=== PATIENT | male | born 1995 | race Caucasian/White ===

== ENCOUNTER 2024-11-23 17:35 | Emergency (ER) | payer SELFPAY ==
[2024-11-23 17:33] VITALS: BP 126/90; PULSE 72; TEMP 36.9; O2SAT 97; BMI 26.8
--- NOTE | 2024-11-23 17:55 | ED_ITS ---
HPI HPI - General Adult General Chief complaint: Head Injury Stated complaint: HEAD LACERATION Time Seen by Provider: 11/23/24 17:37 Source: patient Mode of arrival: ambulance History of Present Illness HPI narrative: 29-year-old male presents with chief complaint of an accidental injury to his head. He was using a crowbar to remove debris off of the floor and the crowbar kicked back and struck him in the head. Patient was brought to the emergency room by squad. Patient denies any known loss of consciousness. He is alert and oriented and does appear somewhat dazed. He answers all questions appropriately . No acute bleeding noted to the scalp at this time. Small abrasion noted. Related Data Allergies Allergy/AdvReac Type Severity Reaction Status Date / Time No Known Drug Allergies Allergy Verified 11/23/24 17:36 Opioid HPI Opioid Management Most Recent Opioid Data: No Data to Display Review of Systems ROS Narrative All Systems are negative except as noted/marked.All systems reviewed and otherwise negative Exam Narrative Exam Narrative: All Systems are negative except as noted/marked.All systems reviewed and otherwise negative Nurses note and vital signs reviewed and patient is not hypoxic. General: The patient appears well and in no apparent distress. Patient is resting comfortably on cart. Skin: Warm, dry, no pallor noted. There is no rash noted. Head: Normocephalic, small abrasion to right parietal scalp, no open laceration or hematoma Eye: Normal conjunctiva, no drainage, EOMI. PERRL, no nystagmus Ears, Nose, Mouth, and Throat: oral mucosa is moist. Nares patent. Mouth without vesicles. Ear canals patent. Tm's without Erythema Cardiovascular: Regular Rate and Rhythm Respiratory: Patient is in no distress, no accessory muscle use, lungs are clear to auscultation, no wheezing, rales or rhonchi Back: non-tender, no CVA tenderness bilaterally to percussion. GI: Normal bowel sounds, no tenderness to palpation, no masses appreciated. No rebound, guarding, or rigidity noted. Musculoskeletal: The patient has no evidence of calf tenderness, no pitting edema, symmetrical pulses noted bilaterally Neurological: A&O x4, normal speech Psychiatric: Cooperative Constitutional Vital Signs, click to edit/add: Last Vital Signs Temp 98.4 F 11/23/24 17:33 Pulse 72 11/23/24 17:33 Resp 18 11/23/24 17:33 BP 126/90 11/23/24 17:33 Pulse Ox 97 11/23/24 17:33 O2 Del Method Room Air 11/23/24 17:33 Course Vital Signs Vital signs: Vital Signs Temperature 98.4 F 11/23/24 17:33 Pulse Rate 72 11/23/24 17:33 Respiratory Rate 18 11/23/24 17:33 Blood Pressure 126/90 11/23/24 17:33 Pulse Oximetry 97 11/23/24 17:33 Oxygen Delivery Method Room Air 11/23/24 17:33 Temperature 98.4 F 11/23/24 17:33 Pulse Rate 72 11/23/24 17:33 Respiratory Rate 18 11/23/24 17:33 Blood Pressure 126/90 11/23/24 17:33 Pulse Oximetry 97 11/23/24 17:33 Oxygen Delivery Method Room Air 11/23/24 17:33 Medical Decision Making MDM Narrative Medical decision making narrative: Patient presented to the emergency room by jayna. He has a small abrasion noted to the scalp after accidentally striking himself in the head with a crowbar while working at home and cleaning up debris from my floor. Crowbar kicked back and struck him in the head. Patient is alert pupils are equal round reactive no nystagmus. Patient was nauseated medicated with nausea medication prior to arrival. After CT exam was back and negative patient was also given Toradol here in emergency room. Patient looks well. Small area was cleaned with Hibiclens normal saline bacitracin dressing applied to the right parietal scalp abrasion. patient will be discharged home with scalp abrasion and closed head injury instructions. Differential Diagnosis Differential Diagnosis: Laceration, head injury, scalp hematoma Medical Records Medical records reviewed: Yes I reviewed the patient's medical records Imaging Data CT scan - head: Radiologist's impression: CT reading from radiologist showed visualized paraspinal sinuses Mastel air cells are clear no acute skull fracture no acute intracranial abnormality Discharge Plan Discharge Chief Complaint: Head Injury Clinical Impression: Closed head injury, Abrasion of scalp Patient Disposition: Home, Self-Care Time of Disposition Decision: 18:20 Condition: Good Print Language: French Instructions: Head Injury (DC), Abrasion (ED) Referrals: Physician,Non-Staff, MD [Primary Care Provider] - 1 week Discharge Date/Time: 11/23/24 18:19
[2024-11-23] MEDS: ADACEL DIPH,PERTUSS(ACELL),TET VAC/PF 0.5 ML ADULT SYRINGE IM (18:11)
[2024-11-23] MEDS: KETOROLAC TROMETHAMINE 30 MG/ML VIAL IVP (18:12)
[2024-11-23] MEDS: BACITRACIN 0.9 GM PACKET 1 PACKET TOPICAL (18:12)
== END 2024-11-23 18:19 | disposition home or self-care (01) ==
PROVIDERS: Emergency Provider Emergency Medicine
DX: S09.8XXA Other specified injuries of head, initial encounter (principal); S00.01XA Abrasion of scalp, initial encounter; W22.8XXA Striking against or struck by other objects, initial encounter; Z23 Encounter for immunization
CPT/HCPCS: 70450; 90471; 90715; 96374; 99284; J1885

== ENCOUNTER 2025-05-11 16:30 | Emergency (ER) | payer SELFPAY ==
[2025-05-11 16:39] VITALS: BP 128/82; PULSE 62; TEMP 36.6; O2SAT 99; BMI 29.6
[2025-05-11 16:46] VITALS: O2SAT 98
--- OUTSIDE RECORDS SUMMARY | 2025-05-11 16:48 | XMS_ITS | Patient Health Record ---
Author Organization [facility] vices Address [address] [place], [place] [id number] Care Team Providers Care Special Education Educational Assistant Name Role Phone ayazMiguel Mcginnis Primary Care Provider Allergies No Known Allergies Reason For Referral No Information Medications Medication SIG (Take, Route, Frequency, Duration) Notes Start Date End Date Status Ondansetron 4 MG 1 tablet on the tong ue and allow to dissolve Orally Three times a day; Duration: 14 days 10/26/2022 Active Zoloft 50 MG 1 tablet Orally Once a day; Duration: 90 days 09/27/2022 Active hydrOXYzine Pamoate 25 MG 1 capsule Oral ly Every 6 hours; Duration: 14 days Active Social History Tobacco Use: Social History Observation Description Date Details (start date - stop date) Current Smoker NA - NA Sex Assigned At : Social History Observation Description Sex Assigned At Male Tobacco Use/Smoking Question Answer Notes Tobacco use: current every day smoker Additional Findings: Tobacco User Moderate cigar ette smoker (10-19 cigs/day) Problems Problem Type SNOMED Code ICD Code Onset Dates Problem Status W/U Status Risk Notes Problem Anxiety disorder (043503937) Anxiety disorder, unspecified (F41.9) Active confirmed Problem Nondependent alcohol abuse in remission (533794974) History of alcohol abuse (F10.11) Active confirmed Problem Depression (438210149) Depression, unspecified (F32.A) Active confirmed Problem History of opiate therapy (910350430080950 04) History of opiate therapy (Z92.29) Active confirmed Plan Of Treatment No Information Medical (General) History Surgical History Surgery Date(Month/Year) Teeth Extractions
--- OUTSIDE RECORDS SUMMARY | 2025-05-11 16:48 | XMS_ITS | Clinical Summary ---
Author Organization [facility] Address [address], [address] [place] [address] Care Team Providers Care Lehr Loader Name Role Phone Unavailable Primary Care Provider Unavailabl e Allergies No known active allergies Medications acetaminophen (TYLENOL) 500 MG tablet Take 1,000 mg by mouth every 6 hours as needed for Pain Active ibuprofen (ADVIL;MOTRIN) 800 MG tablet Take 1 tablet by mouth every 8 hours as needed for Pain 30 tablet 05/04/2019 Active melatonin (RA MELATONIN) 3 MG TABS tabletIndicatio ns:Sleep disturbances,Sl eep deficient Take 2 tablets by mouth daily 60 tablet 3 06/12/2019 Active Active Problems Problem Noted Date Diagnosed Date Sleep disturbances 06/12/2019 Myalgia 06/12/2019 Migraine 06/12/2019 Tobacco abuse disorder 01/28/2018 Anxiety 12/13/2015 Back pain at L4-L5 level 08/09/2015 Family History Medical History Relation Name Comments Diabetes Father Other Mother brain tumor No Known Problems Sister Relation Name Status Comments Father Alive Mother Alive Sister Alive Social History Tobacco Use Types Packs/Day Years Used Date Smoking Tobacco: Every Day Cigarettes 0.5 11.7 Started: 09/05/2013 Smokeless Tobacco: Never Tobacco Cessation:Ready to Q uit: No; Counseling Given: Yes Alcohol Use Standard Drinks/Week Comments Yes 0 (1 standard drink = 0.6 oz pur e alcohol) social PHQ-2 Answer Date Recorded PHQ-2 Score 0 06/12/2019 Sex and Gender Information Value Date Recorded Sex Assigned at Not on file Legal Sex Male 12:27 PM EST Gender Identity Not on file Sexual Orientation Not on file Last Filed Vital Signs Vital Sign Reading Time Taken Comments Blood Pressure 133/83 11/16/2019 6:57 AM EDT Pulse 102 11/16/2019 6:57 AM EDT Temperature 38.2 C (100.7 F) 11/16/2019 6:40 AM EDT Respiratory Rate 18 11/16/2019 6:57 AM EDT Oxygen Saturation 96% 11/16/2019 6:57 AM EDT Inhaled Oxygen Concentration - - Weight 93 kg (205 lb) 11/16/2019 4:08 AM EDT Height 195.6 cm (6' 5 ) 11/16/2019 4:08 AM EDT Body Mass Index 24.31 11/16/2019 4:08 AM EDT Plan of Treatment Not on file Goals Goal Patient Goal Type Associated Problems Recent Progress Patient-Stated? 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
--- OUTSIDE RECORDS SUMMARY | 2025-05-11 16:48 | XMS_ITS | Encounter Summary ---
Author Organization [facility] Address [id number] [address] [place] [address] Care Team Providers Care Underwater Hunter Name Role Phone No Pcp, No Pcp Primary Care Provider Unavailabl e Encounter Details Date Type Department Care Team (Late st Contact Info) Description 11/10/2021 Telephone [facility] Imaging [address] [place] [address] Alize Morales, RN Social History Tobacco Use Types Packs/Day Years Used Date Smoking Tobacco: Every Day Cigarettes Smokeless Tobacco: Current Chew Alcohol Use Standard Drinks/Week Comments Not Currently 0 (1 standard drink = 0.6 oz pur e alcohol) Childcare Answer Date Recorded Childcare Unknown 02/14/2019 Employment Answer Date Recorded Employment Unknown 02/14/2019 Purpose - Life Answer Date Recorded Purpose and direction in life Unknown Sex and Gender Information Value Date Recorded Sex Assigned at Not on file Legal Sex Male 12:11 PM EDT Gender Identity Not on file Sexual Orientation Not on file COVID-19 Exposure Response Date Recorded In the last month, have you been in contact with someone who was confirmed or suspected to have Coronavirus / COVID-19? No / Unsure 11/02/2021 12:38 PM EST documented as of this encounter Plan of Treatment Not on file documented as of this encounter Visit Diagnoses Not on filedocumented in this encounter Additional Health Concerns Infection Onset Date Last Indicated Resolved Time COVID-19 Rule-Out 08/24/2022 08/24/2022 08/24/2022 8:57 AM EST COVID-19 Rule-Out 01/18/2023 01/18/2023 01/18/2023 8:26 AM EDT documented as of this encounter Care Teams Underwater Hunter Relationship Specialty Start Date End Date No Pcp, [place] [address] PCP - General Family Medicine 06/21/24 documented as of this encounter
--- OUTSIDE RECORDS SUMMARY | 2025-05-11 16:48 | XMS_ITS | CCD ---
Author Organization [facility] Inform ion Partnership [facility] Care Team Providers Care Provider Education Specialist Name Role Phone NONSTAFF, PHYSI Unavailable Unavailable RAYSA SULLIVAN Unavailable Unavailable Unavailable Primary Care Provider Unavailabl e No Family, Physician Primary Care Unavailable No Family, Physician Primary Care Unavailable No Family, Physician Primary Care Unavailable No Family, Physician Primary Care Unavailable VIRGIL WAYNE Attending Unavailable LUPIS MARTINEZ Primary Care Unavailable JUANLUPIS Primary Care Unavailable No Family, Physician Primary Care Unavailable No Family, Physician Primary Care Unavailable Unavailable Primary Care Provider Unavailabl e ISAAC CONNOLLY Referring Unavailable ISAAC CONNOLLY Referring Unavailable Sara Edwards Attending Unav giovany Reid MD, Timoteo Dodd Primary Care Unavailab KARTHIK Villafuerte Attending Unavailable Unallocated , Noms Provider Primary Care Provi ian [facility] Primary Care Unava ilSUBHA Pineda Attending Unavailab SUBHA Hunt Attending Unavailab SUBHA Hunt Referring Unavailab le [facility] Primary Care Unava ilable PATEL MCELROY Attending Unavailable NO PCP, NO PCP Primary Care Unavailable PATEL MCELROY Attending Unavailable PATEL MCELROY Referring Unavailable NO PCP, NO PCP Primary Care Unavailable NO PCP, NO PCP Primary Care Unavailable NO PCP, NO PCP Primary Care Unavailable DOMI FREITAS Attending Unavailable NO PCP, NO PCP Primary Care Unavailable SHIREEN LOCKE Attending Unavailable NO PCP, NO PCP Primary Care Unavailable WALTER UNDERWOOD Attending Unavailable Allergies Allergy Classification Reported Allergen(s) Allergy Type Date of Onset Reaction(s) Facility (1 source) No Known Medication Allergies; Translations: [No Known Medication Allergies] Propensity to adverse reactions to drug (disorder) [facility] Repository Medications Current Medications Medication Drug Class(es) Dates Sig (Normalized) Sig (Original) amoxicillin 500 mg oral capsule (2 sources) Penicillin-class Antibacterial Start: 05-04-2019 End: 05-11-2019 take 1 capsule by mouth three times daily amoxicillin (AMOXIL) 500 MG capsule Take 1 capsule by mouth 3 times daily for 7 days 21 capsule 0 05/04/2019 05/11/2019 Active Start: 05-04-2019 End: 05-04-2019 amoxicillin (AMOXIL) capsule 500 mg chlorhexidine gluconate 1.2 mg/ml mouthwash (1 source) Start: 05-04-2019 End: 05-18-2019 take 15 mL by mouth twice daily chlorhexidine (PERIDEX) 0.12 % solution Take 15 mLs by mouth 2 times daily for 14 days 420 mL 0 05/04/2019 05/18/2019 Active codeine phosphate 2 mg/ml / guaiFENesin 20 mg/ml oral solution (3 sources) Opioid Agonist Start: 11-15-2019 End: 11-18-2019 guaiFENesin-codeine (GUAIFENESIN AC) 100-10 MG/5ML liquid 5 mL Start: 11-15-2019 End: 11-18-2019 take 5 mL by mouth four times daily as needed for cough guaiFENesin-codeine (TUSSI-ORGANIDIN NR) 100-10 MG/5ML syrup Indications: Cough , Upper respiratory tract infection, unspecified type Take 5 mLs by mouth 4 times daily as needed for Cough for up to 3 days. 60 mL 0 11/15/2019 11/16/2019 Discontinued ibuprofen 200 mg oral tablet (8 sources) Nonsteroidal Anti-inflammatory Drug Start: 11-16-2019 ibuprofen (ADVIL;MOTRIN) tablet 600 mg Start: 05-04-2019 take 1 tablet by ismael th every eight hours as needed for pain ibuprofen (ADVIL;MOTRIN) 800 MG tablet Take 1 tablet by mouth every 8 hours as needed for Pain 30 tablet 0 05/04/2019 Active magic (miracle) mouthwash (2 sources) Start: 11-15-2019 magic (miracle ) mouthwash Start: 05-04-2019 magic (miracle ) mouthwash melatonin 3 mg oral tablet (4 sources) Start: 06-12-2019 take 2 tablets by mouth once daily melatonin (RA MELATONIN) 3 MG TABS tablet Indications: Sleep disturbances , Sleep deficient Take 2 tablets by mouth daily 60 tablet 3 06/12/2019 Active naproxen 500 mg oral tablet (2 sources) Nonsteroidal Anti-inflammatory Drug Start: 12-06-2018 take 1 tablet by mouth twice daily at mealtime naproxen (NAPROSYN) 500 MG tablet Take 1 tablet by mouth 2 times daily (with meals) for 10 days 20 tablet 0 12/06/2018 Active Sertraline (2 sources) Serotonin Reuptake Inhibitor Sertraline HCl (ZOLOFT PO) Active Completed/Discontinued Medications Medication Drug Class(es) Dates Sig (Normalized) Sig (Original) acetaminophen 500 mg oral tablet (8 sources) Start: 11-15-2019 End: 11-16-2019 acetaminophen (TYLENOL) tablet 1,000 mg take 2 tablets by mo ut every six hours as needed for pain acetaminophen (TYLENOL) 500 MG tablet Ta ke 1,000 mg by mouth every 6 hours as needed for Pain 0 Active acetaminophen 325 mg / butalbital 50 mg / caffeine 40 mg oral tablet (2 sources) Barbiturate, Central Nervous System Stimulant, Methylxanthine Start: 06-12-2019 End: 11-16-2019 take 1 tablet by mouth every six hours as needed for headache teqjwxhcej-xtqcxqvlghxum-aafhcjmx (FIORICET, ESGIC) 50-325-40 MG per tablet Indications: Other migraine without status migrainosus, not intractable Take 1 tablet by mouth every 6 hours as needed for Headaches 180 tablet 0 06/12/2019 11/16/2019 Discontinued benzonatate 100 mg oral capsule (2 sources) Non-narcotic Antitussive Start: 11-16-2019 End: 11-16-2019 benzonatate (TESSALON) capsu le 100 mg Start: 11-15-2019 End: 11-15-2019 benzonatate (TESSALON) capsu le 200 mg diphenhydrAMINE hydrochloride 25 mg oral tablet (2 sources) Histamine-1 Receptor Antagonist Start: 11-16-2019 End: 11-16-2019 diphenhydrAMINE (BENADRYL) tablet 25 mg Start: 06-12-2019 End: 06-12-2019 diphenhydrAMINE (BENADRYL) i njection 50 mg 1 ml ketorolac tromethamine 30 mg/ml cartridge (2 sources) Nonsteroidal Anti-inflammatory Drug, Cyclooxygenase Inhibitor Start: 06-12-2019 End: 06-12-2019 ketorolac (TORADOL) injection 30 mg Start: 05-04-2019 End: 05-04-2019 ketorolac (TORADOL) injectio n 30 mg Magnesium (2 sources) Start: 06-12-2019 End: 11-16-2019 take 1 tablet by mouth three times daily before mealtime magnesium 200 MG TABS tablet Indications: Myalgia , Anxiety , Sleep disturbances , Sleep deficient Take 1 tablet by mouth 3 times daily (before meals) 90 tablet 5 06/12/2019 11/16/2019 Discontinued Start: 06-12-2019 take 1 tablet by ismael th three times daily before mealtime magnesium 200 MG TABS tablet Indications: Myalgia , Anxiety , Sleep disturbances , Sleep deficient Take 1 tablet by mouth 3 times daily (before meals) 90 tablet 5 06/12/2019 Active 50 ml sodium chloride 9 mg/m l injection (1 source) Start: 06-12-2019 End: 06-12-2019 0.9 % sodium chloride bolus Problems Active Problems Problem Classification Problem Date Documented Date Episodic/Chronic Anxiety disorders (6 sources) Anxiety; Translations: [Anxiety] Onset: 12-13-2015 12-13-2015 Chronic Disorders of teeth and jaw (1 source) Gingivitis; Translations: [Gingivitis] Chronic Disorders of teeth and jaw (1 source) Toothache; Translations: [Dentalgia] Episodic External Injury - Fall (1 source) Other fall from one level to another, initial encounter; Translations: [OTHER FALL FROM ONE LEVEL TO ANOTHER, INITIAL ENCO] Onset: 01-28-2018 [address] Injury - [address] of occurrence (1 source) Other specified places as the place of occurrence of the external cause; Translations: [OTH PLACES THE PLACE OF OCCURRENCE OF THE EXTER] Onset: 01-28-2018 External Injury - Unspecified (2 sources) Activity, other involving climbing, rappelling and jumping off; Translations: [Unspecified external cause status] Onset: 01-28-2018 Fever of unknown origin (1 source) Disorder characterized by fever; Translations: [Febrile illness] Episodic Fracture of lower limb (2 sources) Stress fracture of metatarsal bone of right foot; Translations: [Stress fracture, right foot, initial encounter for fracture] 05-17-2024 Episodic Headache; including migraine (4 sources) Migraine; Translations: [Migraine] Onset: 06-12-2019 06-12-2019 Chronic Nonspecific chest pain (1 source) Chest pain, unspecified; Translations: [Chest pain, unspecified] Onset: 02-26-2025 Episodic Other connective tissue disease (2 sources) Pain in right foot; Translations: [Pain in right foot] 05-17-2024 Episodic Other injuries and conditions due to external causes (1 source) Traumatic AND/OR non-traumatic injury; Translations: [Injury] Episodic Other lower respiratory disease (1 source) Cough; Translations: [Cough] Episodic Other lower respiratory disease (1 source) Shortness of breath Onset: 02-26-2025 Episodic Other non-traumatic joint disorders (1 source) Pain in right knee; Translations: [PAIN IN RIGHT KNEE] Onset: 01-28-2018 Episodic Other upper respiratory infections (1 source) Upper respiratory infection; Translations: [Upper respiratory tract infection, unspecified type] Episodic Residual codes; unclassified (4 sources) Tobacco user; Translations: [Tobacco abuse disorder] Onset: 01-28-2018 06-12-2019 Chronic Residual codes; unclassified (1 source) Pain, unspecified; Translations: [Pain, unspecified] Onset: 02-26-2025 Episodic Sprains and strains (2 sources) Sprain of unspecified ligament of right ankle, initial encounter; Translations: [Strain of other specified muscles and tendons at ankle and foot level, right foot, initial encounter] Onset: 01-28-2018 Episodic Substance-related disorders (1 source) Nicotine dependence, unspecified, uncomplicated; Translations: [NICOTINE DEPENDENCE, UNSPECIFIED, UNCOMPLICATED] Onset: 01-28-2018 Chronic Unclassified (1 source) Eye Redness Onset: 08-04-2024 Unclassified (1 source) Earache Onset: 08-04-2024 Unclassified (1 source) Foot Swelling Onset: 05-13-2024 Unclassified (1 source) Foot Injury Onset: 04-30-2024 Viral infection (1 source) Viral disease; Translations: [Viral illness] Episodic Past or Other Problems Problem Classification Problem Date Documented Da te Episodic/Chronic Conditions associated with dizziness or vertigo (2 sources) Dizziness; Translations: [Dizzy] Onset: 09-08-2016 09-08-2016 Episodic Inflammation; infection of eye (except that caused by tuberculosis or sexually transmitteddisease) (1 source) Unspecified conjunctivitis; Translations: [Unspecified conjunctivitis] Onset: 08-04-2024 Episodic Intestinal infection (1 source) Viral intestinal infection, unspecified; Translations: [Viral intestinal infection, unspecified] Onset: 09-12-2024 Episodic Nausea and vomiting (3 sources) Vomiting; Translations: [Nausea] Onset: 06-21-2024 Episodic Other connective tissue disease (5 sources) Muscle pain; Translations: [Myalgia] Onset: 06-12-2019 06-12-2019 Episodic Other connective tissue disease (1 source) Pain in right foot; Translations: [Pain in right foot] Onset: 04-30-2024 Episodic Other connective tissue disease (1 source) Foot pain Onset: 04-30-2024 Episodic Other gastrointestinal disorders (1 source) Diarrhea Onset: 09-12-2024 Episodic Other nervous system disorders (1 source) Other disturbances of smell and taste; Translations: [Other disturbances of smell and taste] Onset: 06-21-2024 Episodic Otitis media and related conditions (1 source) Otitis media, unspecified, left ear; Translations: [Otitis media, unspecified, left ear] Onset: 08-04-2024 Episodic Residual codes; unclassified (4 sources) Disturbance in sleep behavior; Translations: [Sleep disturbances] Onset: 06-12-2019 06-12-2019 Episodic Spondylosis; intervertebral disc disorders; other back problems (6 sources) Backache; Translations: [Back pain at L4-L5 level] Onset: 08-09-2015 08-09-2015 Episodic Results Test Name Value Interpretation Reference Range Facility XR CHEST 1 VWon 02-27-2025 XR CHEST 1 VW XR CHEST 1 VW History: Chest pain Technique: A portable single frontal view of the chest was obtained. Comparison: 01/18/2023 Findings: There is no evidence for active cardiovascular or pulmonary disease. The heart size is within normal limits and lung carbajal are clear. Impression: Normal chest. Finalized by Attila Palm MD on 02/27/2025 12:10 AM Normal [facility] BASIC METABOLIC PANELon 06-2 Anion gap [Moles/Vol] 4 mmol/L Low 5-15 [facility] Comment on above: Performed By: #### B MP #### [facility] ([address] [address] VIR Calcium [Mass/Vol] 8.9 mg/dL Normal 8.5-10.5 [facility] Comment on above: Performed By: #### B MP #### [facility] ([address] [place] [address] VIR Chloride [Moles/Vol] 110 mmol/L High 98-109 [facility] Comment on above: Performed By: #### B MP #### [facility] ([address] [place] [address] VIR CO2 [Moles/Vol] 24 mmol/L Normal 22-32 [facility] Comment on above: Performed By: #### B MP #### [facility] ([address] [place] [address] VIR Creatinine [Mass/Vol] 0.87 mg/dL Normal 0.70-1.20 [facility] Comment on above: Result Comment: METH OD TRACEABLE TO IDMS STANDARD Performed By: #### B MP #### [facility] ([address] [place] [address] VIR EGFR (CKD-EPI) NON-RACE DEPENDENT >^90 Normal >=60 [facility] Comment on above: Result Comment: Repo rted eGFR is based on the CKD-EPI 2020 equation that does not use a race coefficient. Performed By: #### B MP #### [facility] ([address] [place] [address] VIR Glucose [Mass/Vol] 104 mg/dL High 65-99 [facility] Comment on above: Performed By: #### B MP #### [facility] ([address] [place] [address] VIR Potassium [Moles/Vol] 3.6 mmol/L Normal 3.5-5.0 [facility] Comment on above: Performed By: #### B MP #### [facility] ([address] [place] [address] VIR Sodium [Moles/Vol] 138 mmol/L Normal 134-146 [facility] Comment on above: Performed By: #### B MP #### [facility] ([address] [place] [address] VIR Urea nitrogen [Mass/Vol] 13 mg/dL Normal 5-23 [facility] Comment on above: Performed By: #### B MP #### [facility] ([address] [place] [address] VIR CBC WITH AUTO DIFFERENTIALon 02-26-2025 BASOPHILS ABSOLUTE COUNT (10*3/UL) BY AUTOMATED COUNT 0.0 10*3/uL Normal 0.0-0.2 [facility] Comment on above: Performed By: #### C BCA #### [facility] ([address] [place] [address] VIR BASOPHILS RELATIVE PERCENT BY AUTOMATED COUNT 0.5 % Normal [facility] Comment on above: Performed By: #### C BCA #### [facility] ([address] [place] [address] VIR CELLAVISION DIFFERENTIAL TYPE AUTOMATED DIFFERENTIAL Normal [facility] Comment on above: Performed By: #### C BCA #### [facility] ([address] [place] [address] VIR Eosinophils (Bld) [#/Vol] 0.1 10*3/uL Normal 0.0-0.4 [facility] Comment on above: Performed By: #### C BCA #### [facility] ([address] [place] [address] VIR EOSINOPHILS RELATIVE PERCENT BY AUTOMATED COUNT 2.0 % Normal [facility] Comment on above: Performed By: #### C BCA #### [facility] ([address] [place] [address] VIR Erythrocyte distribution width (RBC) [Ratio] 13.9 % Normal 11.5-15 [facility] Comment on above: Performed By: #### C BCA #### [facility] ([address] [place] [address] VIR Hematocrit (Bld) [Volume fraction] 41.2 % Normal 39-50 [facility] Comment on above: Performed By: #### C BCA #### [facility] ([address] [place] [address] VIR Hemoglobin (Bld) [Mass/Vol] 14.2 g/dL Normal 13-17 [facility] Comment on above: Performed By: #### C BCA #### [facility] ([address] [place] [address] VIR LYMPHOCYTES ABSOLUTE COUNT (10*3/UL) BY AUTOMATED COUNT 1.8 10*3/uL Normal 1.0-3.5 [facility] Comment on above: Performed By: #### C BCA #### [facility] ([address] [place] [address] VIR LYMPHOCYTES RELATIVE PERCENT BY AUTOMATED COUNT 28.6 % Normal [facility] Comment on above: Performed By: #### C BCA #### [facility] ([address] [place] [address] VIR MCH (RBC) [Entitic mass] 28.5 pg Normal 27-34 [facility] Comment on above: Performed By: #### C BCA #### [facility] ([address] [place] [address] VIR MCHC (RBC) [Mass/Vol] 34.6 g/dL Normal 32-36 [facility] Comment on above: Performed By: #### C BCA #### [facility] ([address] [place] [address] VIR MCV (RBC) [Entitic vol] 83 fL Normal 80-100 [facility] Comment on above: Performed By: #### C BCA #### [facility] ([address] [place] [address] VIR MONOCYTES ABSOLUTE COUNT (10*3/UL) BY AUTOMATED COUNT 0.6 10*3/uL Normal 0.0-0.9 [facility] Comment on above: Performed By: #### C BCA #### [facility] ([address] [place] [address] VIR MONOCYTES RELATIVE PERCENT BY AUTOMATED COUNT 8.8 % Normal [facility] Comment on above: Performed By: #### C BCA #### [facility] ([address] [place] [address] VIR NEUTROPHILS ABSOLUTE COUNT BY AUTOMATED COUNT 3.8 10*3/uL Normal 1.5-6.6 [facility] Comment on above: Performed By: #### C BCA #### [facility] ([address] [place] [address] VIR NEUTROPHILS RELATIVE PERCENT BY AUTOMATED COUNT 60.1 % Normal [facility] Comment on above: Performed By: #### C BCA #### [facility] ([address] [place] [address] VIR Platelet mean volume (Bld) [Entitic vol] 8.7 fL Normal 7-12 [facility] Comment on above: Performed By: #### C BCA #### [facility] ([address] [place] [address] VIR Platelets (Bld) [#/Vol] 202 10*3/uL Normal 150-450 [facility] Comment on above: Performed By: #### C BCA #### [facility] ([address] [place] [address] VIR RBC COUNT 4.99 X10E12/L Normal 4.1-5.7 [facility] Comment on above: Performed By: #### C BCA #### [facility] ([address] [place] [address] VIR WBC (Bld) [#/Vol] 6.4 10*3/uL Normal 4-11 [facility] Comment on above: Performed By: #### C BCA #### [facility] ([address] [address] VIR D-DIMERon 02-26-2025 D DIMER <^150 Normal 1-255 [facility] Comment on above: Result Comment: Resu lts <255 ng/mL DDU: The presensence of a VTE can safely be excluded with a negative D-Dimer result and Wells score. A negative result doesn't exclude the possibility of DIC. The test should be repeated along with other diagnostic tests if the patient's symptoms persist or worsen. Performed By: #### D DMR #### [facility] ([address] [place] [address] VIR TROP I, HIGH SENSITIVITY 1 H OURon 02-26-2025 TROPONIN I, HIGH SENSITIVITY 2 ng/L Normal <21 [facility] Comment on above: Performed By: #### T NIHS1 #### [facility] ([address] [place] [address] VIR TROPONIN I, HIGH SENSITIVITY 0 HOURon 02-26-2025 TROPONIN I, HIGH SENSITIVITY 3 ng/L Normal <21 [facility] Comment on above: Performed By: #### T NIHS0 #### [facility] ([address] [place] [address] VIR XR FOOT RT MIN 3 VWSon 05-13 XR FOOT RT MIN 3 VWS XR FOOT RT MIN 3 VW S XR FOOT RT MIN 3 VWS HISTORY: Foot swelling, pain, no known injury. COMPARISON: 04/30/2024 FINDINGS: No acute fracture or dislocation. Joint spaces appear well-preserved. Mild dorsal forefoot soft tissue swelling. IMPRESSION: * No acute osseous abnormality. * Mild dorsal forefoot soft tissue swelling. Approved by Resident: Pelon Hagen MD on 05/13/2024 8:38 PM Ovidio Becerra MD have personally reviewed the image(s) and agree with and/or edited the report Finalized by Ovidio Grossman MD on 05/13/2024 8:54 PM [facility] XR FOOT RT MIN 3 VWSon 04-30 XR FOOT RT MIN 3 VWS XR FOOT RT MIN 3 VW S XR FOOT RT MIN 3 VWS HISTORY: Right foot pain for 3 days, no known injury COMPARISON: 03/04/2020 FINDINGS: No acute fracture or dislocation. Joint spaces appear well-preserved. No obvious soft tissue abnormality. IMPRESSION: * No acute osseous abnormality. Approved by Resident: Pelon Hagen MD on 04/30/2024 1:10 AM IMike MD have personally reviewed the image(s) and agree with and/or edited the report Finalized by Mike Davila MD on 04/30/2024 1:15 AM [facility] XR Hand 3 Views Lefton 06-16 XR Hand 3 Views Left EXAM: XR Hand 3 Vie ws Left HISTORY: contusion COMPARISON: None. TECHNIQUE: 3 views left hand. FINDINGS: Soft tissues are within normal limits. There is no acute fracture or dislocation. Joint spaces are preserved. No bony erosion. IMPRESSION: No acute osseous abnormality in the left hand. Final Dictated by: Heidi Nunes DO Dictated DT/TM: 06/16/2023 10:36 am Signed by: Heidi Nunes DO Signed (Electronic Signature): 06/16/2023 11:38 am Transcribed DT/TM: 06/16/2023 11:01 (If Report Is Signed, Electronically Signed in Other Vendor System) Normal [facility] XR HAND LEFT (MIN 3 VIEWS)on 10-09-2020 XR HAND LEFT (MIN 3 VIEWS) EXAMINATION: THREE XRAY VIEWS OF THE LEFT HAND 10/09/2020 4:59 pm COMPARISON: None. HISTORY: ORDERING SYSTEM PROVIDED HISTORY: Injury TECHNOLOGIST PROVIDED HISTORY: Reason for Exam: middle finger left hand hit by hammer, pain Acuity: Unknown Type of Exam: Unknown FINDINGS: Soft tissues are within normal limits. There is no acute fracture or dislocation. Joint spaces are preserved. No bony erosion. IMPRESSION: No acute osseous abnormality in the left hand. Interpreted by: Heidi Nunes DO Signed by: Heidi Nunes DO 10/09/20 Final result Normal [facility] No acute osseous abnormality in the left hand. [place], [place] EXAMINATION: THREE XRAY VIEWS OF THE LEFT HAND 10/09/2020 4:59 pm COMPARISON: None. HISTORY: ORDERING SYSTEM PROVIDED HISTORY: Injury TECHNOLOGIST PROVIDED HISTORY: Reason for Exam: middle finger left hand hit by hammer, pain Acuity: Unknown Type of Exam: Unknown FINDINGS: Soft tissues are within normal limits. There is no acute fracture or dislocation. Joint spaces are preserved. No bony erosion. [place], [place] Kevin, [facility] Incoming Radiant Results From [employer] - 10/09/2020 5:17 PM EST EXAMINATION: THREE XRAY VIEWS OF THE LEFT HAND 10/09/2020 4:59 pm COMPARISON: None. HISTORY: ORDERING SYSTEM PROVIDED HISTORY: Injury TECHNOLOGIST PROVIDED HISTORY: Reason for Exam: middle finger left hand hit by hammer, pain Acuity: Unknown Type of Exam: Unknown FINDINGS: Soft tissues are within normal limits. There is no acute fracture or dislocation. Joint spaces are preserved. No bony erosion. IMPRESSION: No acute osseous abnormality in the left hand. [place], [place] 2019 NOVEL CORONAVIRUS (COVI D-19), ZOHRA?on 11-29-2019 COV-2 BY PCR INTERPRETATION NOT DETECTED Normal NOT DETECT [facility] Comment on above: Performed By: #### C BCWD, BMP, HEPPA, LIPAS, ANION, OSMOL, EGFR1 #### [place] [address] COV-2 BY PCR REPORT SEE REPORT Normal [facility] Comment on above: Performed By: #### C BCWD, BMP, HEPPA, LIPAS, ANION, OSMOL, EGFR1 #### [place] [address] SARS COV-2 BY PCRon 11-26-19 20 SARS COV-2 BY PCR see below Normal [facility] Comment on above: Result Comment: *THIS IS NOT A TEST RESULT See printed reference report or [facility](EMR)/ Media tab. Test ordered: Performed By: #### C BCWD, BMP, HEPPA, LIPAS, ANION, OSMOL, EGFR1 #### [place] [address] SARS COV-2 BY PCRon 11-16-19 20 SARS COV-2 BY PCR SOURCE HUMAN RESOURCES BENEFITS ADMINISTRATOR/OP swab Normal [facility] Comment on above: Performed By: #### C BCWD, BMP, HEPPA, LIPAS, ANION, OSMOL, EGFR1 #### [facility] [address] [place] [address] GROUP A STREP REFLEXon 11-14 REFLEX THROAT C + S INDICATED Normal [facility] Comment on above: Performed By: #### C BCWD, BMP, HEPPA, LIPAS, ANION, OSMOL, EGFR1 #### Pending Sale To [facility] [address] [place] [address] GROUP A STREP Negative Normal NEGATIVE [facility] Comment on above: Performed By: #### C BCWD, BMP, HEPPA, LIPAS, ANION, OSMOL, EGFR1 #### [facility] [address] [place] [id number] Group A Strep, Reflexon 11-03 GROUP A STREP CULTURE, REFLEX Negative NEGATIVE [facility], [place] REFLEX THROAT C + S INDICATED [place], [place] Comment on above: Performed at [facility] [address] [place] [address] INFLUENZA A + B ANTIGENon INFLUENZA A AG Negative Normal NEGATIVE [facility] Comment on above: Performed By: #### C BCWD, BMP, HEPPA, LIPAS, ANION, OSMOL, EGFR1 #### [place] [address] INFLUENZA B AG Negative Normal NEGATIVE [facility] Comment on above: Performed By: #### C BCWD, BMP, HEPPA, LIPAS, ANION, OSMOL, EGFR1 #### [place] [address] RESPIRATORY ID PANEL BY PCRo n 11-15-2019 INFLUENZA A RESPIRATORY BY PCR Not Detected Normal [facility] Comment on above: Performed By: #### C BCWD, BMP, HEPPA, LIPAS, ANION, OSMOL, EGFR1 #### [place] [address] ADENOVIRUS RESPIRATORY BY PCR Not Detected Normal [facility] Comment on above: Performed By: #### C BCWD, BMP, HEPPA, LIPAS, ANION, OSMOL, EGFR1 #### [place] [address] BORDETELLA PARAPERTUSSIS BY PCR Not Detected Normal [facility] Comment on above: Performed By: #### C BCWD, BMP, HEPPA, LIPAS, ANION, OSMOL, EGFR1 #### [place] [address] BORDETELLA PERTUSSIS RESP. BY PCR Not Detected Normal [facility] Comment on above: Performed By: #### C BCWD, BMP, HEPPA, LIPAS, ANION, OSMOL, EGFR1 #### [place] [address] CHLAMYDOPHILA PNEUMONIAE RESP BY PCR Not Detected Normal [facility] Comment on above: Performed By: #### C BCWD, BMP, HEPPA, LIPAS, ANION, OSMOL, EGFR1 #### [place] [address] CORONAVIRUS 229E RESPIRATORY BY PCR Not Detected Normal [facility] Comment on above: Performed By: #### C BCWD, BMP, HEPPA, LIPAS, ANION, OSMOL, EGFR1 #### [place] [address] CORONAVIRUS HKU1 RESPIRATORY BY PCR Not Detected Normal [facility] Comment on above: Performed By: #### C BCWD, BMP, HEPPA, LIPAS, ANION, OSMOL, EGFR1 #### [address] [address] CORONAVIRUS NL63 RESPIRATORY BY PCR Not Detected Normal [facility] Comment on above: Performed By: #### C BCWD, BMP, HEPPA, LIPAS, ANION, OSMOL, EGFR1 #### [place] [address] CORONAVIRUS OC43 RESPIRATORY BY PCR Not Detected Normal [facility] Comment on above: Performed By: #### C BCWD, BMP, HEPPA, LIPAS, ANION, OSMOL, EGFR1 #### [place] [address] INFLUENZA A/H1 2009 RESPIRATORY BY PCR Normal [facility] Comment on above: Performed By: #### C BCWD, BMP, HEPPA, LIPAS, ANION, OSMOL, EGFR1 #### [place] [address] INFLUENZA A/H1 RESPIRATORY BY PCR Normal [facility] Comment on above: Performed By: #### C BCWD, BMP, HEPPA, LIPAS, ANION, OSMOL, EGFR1 #### [place] [address] INFLUENZA A/H3 RESPIRATORY BY PCR Normal [facility] Comment on above: Performed By: #### C BCWD, BMP, HEPPA, LIPAS, ANION, OSMOL, EGFR1 #### [place] [address] INFLUENZA B RESPIRATORY BY PCR Not Detected Normal [facility] Comment on above: Performed By: #### C BCWD, BMP, HEPPA, LIPAS, ANION, OSMOL, EGFR1 #### [address] [address] METAPNEUMOVIRUS RESPIRATORY BY PCR Not Detected Normal [facility] Comment on above: Performed By: #### C BCWD, BMP, HEPPA, LIPAS, ANION, OSMOL, EGFR1 #### [address] [address] MYCOPLASMA PNEUMONIAE RESP BY PCR Not Detected Normal [facility] Comment on above: Performed By: #### C BCWD, BMP, HEPPA, LIPAS, ANION, OSMOL, EGFR1 #### [place] [address] PARAINFLUENZA 1 RESPIRATORY BY PCR Not Detected Normal [facility] Comment on above: Performed By: #### C BCWD, BMP, HEPPA, LIPAS, ANION, OSMOL, EGFR1 #### [place] [address] PARAINFLUENZA 2 RESPIRATORY BY PCR Not Detected Normal [facility] Comment on above: Performed By: #### C BCWD, BMP, HEPPA, LIPAS, ANION, OSMOL, EGFR1 #### [place] [address] PARAINFLUENZA 3 RESPIRATORY BY PCR Not Detected Normal [facility] Comment on above: Performed By: #### C BCWD, BMP, HEPPA, LIPAS, ANION, OSMOL, EGFR1 #### [place] [address] PARAINFLUENZA 4 RESPIRATORY BY PCR Not Detected Normal [facility] Comment on above: Performed By: #### C BCWD, BMP, HEPPA, LIPAS, ANION, OSMOL, EGFR1 #### [place] [address] RESPIRATORY SYNCYTIAL VIRUS BY PCR Not Detected Normal [facility] Comment on above: Performed By: #### C BCWD, BMP, HEPPA, LIPAS, ANION, OSMOL, EGFR1 #### [place] [address] RHINOVIRUS/ENTEROVIRU S RESP. BY PCR Not Detected Normal [facility] Comment on above: Performed By: #### C BCWD, BMP, HEPPA, LIPAS, ANION, OSMOL, EGFR1 #### [place] [address] Rapid influenza A/B antigens on 11-15-2019 Flu A Antigen Negative NEGATIVE [facility], [place] Flu B Antigen Negative NEGATIVE [facility] [place] Comment on above: [place] [address] Respiratory Panel, Molecular on 11-15-2019 Bordetella pertussis by PCR Not Detected [place], [place] [employer] Adenovirus Not Detected [place], [place] Bordetella Pertusis Not Detected [place] Chlamydophilia Pneumoniae Not Detected [place] Conoravirus NL63 Not Detected [place] Coronavirus 229E Not Detected [facility], [place] [employer] Coronavirus HKU1 Not Detected [facility], [place] Coronavirus OC43 Not Detected [facility], [place] Influenza A Virus Not Detected [place] Influenza A Virus 09H1 [facility], [place] Influenza A Virus H1 [place] Influenza A Virus H3 [place] Influenza B Not Detected [place] Metapneumovirus Not Detected [facility], [place] [employer] Mycoplasma Pneumoniae Not Detected [place] Comment on above: Performed at [facility] [address] [address] [place] [employer] Parainfluenza Virus 1 Not Detected [place], [place] Parainfluenza Virus 2 Not Detected [place] Parainfluenza Virus 3 Not Detected [place] Parainfluenza Virus 4 Not Detected [place] Respiratory Syncitial Virus Not Detected [place] Rhinovirus/Enteroviru s Not Detected [place] THROAT/NOSE CULTUREon 2019 THROAT/NOSE CULTURE MICROBIOLOGY REPORT [facility], [address] [place] [address], [id number] PATIENT: GEORGIANA REYES LOCATION: [facility] -[id number] : 1995 AGE: 24 SEX: M ADM: 11/15/19 Att. Physician: PHYSICIAN, EMERGENCY Order Id: [id number] Req. Physician: ATTILA CASIANO Source: throat Site: Collected: 11/15/19 15:40 Current Antibiotics: not stated Antibiotics comment: STATUS OF ORDERED AND REPORTED TESTS THROAT/NOSE CULTURE FINAL 11/17/19 THROAT/NOSE CULTURE FINAL 11/17/19 09:02 11/16/19 Normal krishna- preliminary 11/17/19 Normal krishna Normal [facility] Comment on above: Performed By: #### C BCWD, BMP, HEPPA, LIPAS, ANION, OSMOL, EGFR1 #### [facility] [address] [place] [address] XR CHEST (2 VW)on 11-15-2019 XR CHEST (2 VW) PROCEDURE: XR CHEST (2 VW) CLINICAL INFORMATION: COUGH, FEVER. COMPARISON: No prior study. TECHNIQUE: Frontal and lateral views of the chest were obtained. FINDINGS: Lungs/pleura: No pneumonia, pulmonary edema, or obvious mass. No pleural effusion. No pneumothorax. Heart: Heart size is normal. Mediastinum/lois: No obvious mass or adenopathy. Skeleton: No acute/significant bone or joint abnormality. Upper abdomen: There are mildly prominent air-filled small bowel loops in the left upper quadrant with fluid levels. This may represent an ileus. If there is concern for bowel obstruction. Recommend upright and supine views of the abdomen. IMPRESSION: No acute cardiopulmonary disease. Probable left upper quadrant small bowel ileus however cannot exclude a small bowel obstruction. Consider upright and supine views of the abdomen for further evaluation. This report has been created using voice recognition software. It may contain minor errors which are inherent in voice recognition technology. Final report electronically signed by Dr. Julio Doran on 11/15/2019 5:30 PM Interpreted by: Julio Doran MD Signed by: Julio Doran MD 11/15/19 Final result Normal [facility] XR CHEST STANDARD (2 VW)on 0 11-15-2019 PROCEDURE: XR CHEST (2 VW) CLINICAL INFORMATION: COUGH, FEVER. COMPARISON: No prior study. TECHNIQUE: Frontal and lateral views of the chest were obtained. FINDINGS: Lungs/pleura: No pneumonia, pulmonary edema, or obvious mass. No pleural effusion. No pneumothorax. Heart: Heart size is normal. Mediastinum/lois: No obvious mass or adenopathy. Skeleton: No acute/significant bone or joint abnormality. Upper abdomen: There are mildly prominent air-filled small bowel loops in the left upper quadrant with fluid levels. This may represent an ileus. If there is concern for bowel obstruction. Recommend upright and supine views of the abdomen. [place], [place] Kevin, [facility] Incoming Radiant Results From [employer] - 11/15/2019 5:33 PM EDT PROCEDURE: XR CHEST (2 VW) CLINICAL INFORMATION: COUGH, FEVER. COMPARISON: No prior study. TECHNIQUE: Frontal and lateral views of the chest were obtained. FINDINGS: Lungs/pleura: No pneumonia, pulmonary edema, or obvious mass. No pleural effusion. No pneumothorax. Heart: Heart size is normal. Mediastinum/lois: No obvious mass or adenopathy. Skeleton: No acute/significant bone or joint abnormality. Upper abdomen: There are mildly prominent air-filled small bowel loops in the left upper quadrant with fluid levels. This may represent an ileus. If there is concern for bowel obstruction. Recommend upright and supine views of the abdomen. IMPRESSION: No acute cardiopulmonary disease. Probable left upper quadrant small bowel ileus however cannot exclude a small bowel obstruction. Consider upright and supine views of the abdomen for further evaluation. This report has been created using voice recognition software. It may contain minor errors which are inherent in voice recognition technology. Final report electronically signed by Dr. Julio Doran on 11/15/2019 5:30 PM [place], [place] No acute cardiopulmonary disease. Probable left upper quadrant small bowel ileus however cannot exclude a small bowel obstruction. Consider upright and supine views of the abdomen for further evaluation. This report has been created using voice recognition software. It may contain minor errors which are inherent in voice recognition technology. Final report electronically signed by Dr. Julio Doran on 11/15/2019 5:30 PM [place] MICHELLE SCREENon 06-21-2019 MICHELLE SCREEN None Detected Normal None [facility] Comment on above: Result Comment: If s uspicion of connective tissue disease is strong and MICHELLE EIA is negative, consider testing for MICHELLE by IFA ([id number]). INTERPRETIVE INFORMATION: Anti-Nuclear Abs , IgG by ANGELITA Antinuclear Abs , IgG (ANGELITA): MICHELLE specimens are screened using enzyme-linked immunosorbent assay (ANGELITA) methodology. All ANGELITA results reported as Detected are further tested by indirect fluorescent assay (IFA) using HEp-2 substrate with an IgG-specific conjugate. The MICHELLE ANGELITA screen is designed to detect antibodies against dsDNA, histones, SS-A (Ro), SS-B (La), Monroe, Monroe/TANK [employer]ER, Scl-70, Dewige-1, centromeric proteins, other antigens extracted from the HEp-2 cell nucleus. MICHELLE ANGELITA assays have been reported to have lower sensitivities than MICHELLE IFA for systemic autoimmune rheumatic diseases (SARD). Negative results do not necessarily rule out SARD. Performed by [facility], [address] [facility],[place] [id number] [email or web address], Moi Javed MD, Lab. Director Performed By: #### C BCWD, BMP, HEPPA, LIPAS, ANION, OSMOL, EGFR1 #### [facility] [address] [place] [address] CRP HIGH SENSITIVITYon 06-20 CRP HIGH SENSITIVITY 5.2 mg/L High <=3.0 [facility] Comment on above: Result Comment: INTE RPRETIVE INFORMATION: CRP, High Sensitivity Patients with higher hs-CRP concentrations are more likely to develop stroke, myocardial infarction, and severe peripheral vascular disease. CRP is a nonspecific marker of inflammation and a variety of conditions other than atherosclerosis may cause elevated concentrations. If the first result is greater than 3.0 mg/L, recommend repeating test at least 2 weeks later in a metabolically stable state, free of infection or acute illness. The lower of the two results should be used to determine the patient's risk. Significantly decreased CRP values may result in specimens from patients treated with carboxypenicillins. hs-CRP results are used to assign risk as follows (Clin Chem 2009;55:378-84): less than 1.0 mg/L .... low risk 1.0 - 3.0 mg/L ........ average risk 3.1 - 9.9 mg/L ........ high risk greater than 9.9 mg/L . very high risk Performed by [facility], [address],[place] [id number] [email or web address], Moi Javed MD, Lab. Director Performed By: #### C BCWD, BMP, HEPPA, LIPAS, ANION, OSMOL, EGFR1 #### [facility] [address] [place] [address] THYROXINE, TOTALon 9 T4 [Mass/Vol] 7.3 ug/dL Normal 4.5-12.0 [facility] Comment on above: Result Comment: [facility] [address] [place] [address] Performed By: #### C BCWD, BMP, HEPPA, LIPAS, ANION, OSMOL, EGFR1 #### [facility] [address] [place] [address] ANION GAPon 06-18-2019 Anion gap [Moles/Vol] 14.0 mmol/L Normal 8.0-16.0 [facility] Comment on above: Result Comment: ANIO N GAP = Sodium -(Chloride + CO2) Performed By: #### C BCWD, BMP, HEPPA, LIPAS, ANION, OSMOL, EGFR1 #### Pending Sale To [facility] [address] [place] [address] BASIC METABOL PANELon 2018 Calcium [Mass/Vol] 10.0 mg/dL Normal 8.5-10.5 [facility] Comment on above: Performed By: #### C BCWD, BMP, HEPPA, LIPAS, ANION, OSMOL, EGFR1 #### [facility] [address] [place] [address] Chloride [Moles/Vol] 103 mmol/L Normal 98-111 [facility] Comment on above: Performed By: #### C BCWD, BMP, HEPPA, LIPAS, ANION, OSMOL, EGFR1 #### [facility] [address] [place] [address] CO2 [Moles/Vol] 24 mmol/L Normal 23-33 [facility] Comment on above: Performed By: #### C BCWD, BMP, HEPPA, LIPAS, ANION, OSMOL, EGFR1 #### [facility] [address] [place] [address] Creatinine [Mass/Vol] 0.8 mg/dL Normal 0.4-1.2 [facility] Comment on above: Performed By: #### C BCWD, BMP, HEPPA, LIPAS, ANION, OSMOL, EGFR1 #### [facility] [address] [place], [place] [address], [place] [address] Glucose [Mass/Vol] 115 mg/dL High 70-108 [facility] Comment on above: Performed By: #### C BCWD, BMP, HEPPA, LIPAS, ANION, OSMOL, EGFR1 #### [address] [address] Potassium [Moles/Vol] 3.9 mmol/L Normal 3.5-5.2 [facility] Comment on above: Performed By: #### C BCWD, BMP, HEPPA, LIPAS, ANION, OSMOL, EGFR1 #### [address] [address] Sodium [Moles/Vol] 141 mmol/L Normal 135-145 [facility] Comment on above: Performed By: #### C BCWD, BMP, HEPPA, LIPAS, ANION, OSMOL, EGFR1 #### [address] [address] Urea nitrogen [Mass/Vol] 13 mg/dL Normal 7-22 [facility] Comment on above: Performed By: #### C BCWD, BMP, HEPPA, LIPAS, ANION, OSMOL, EGFR1 #### [address] [address] GFR, ESTIMATEDon 06-18-2019 GFR/1.73 sq M.predicted MDRD (S/P/Bld) [Vol rate/Area] mL/min/{1.73_m2} Normal [facility] Comment on above: Result Comment: Talong e Description GFR, ml/min/1.73 m2 - At increased risk > or = 60 (with chronic kidney disease risk factors) 1 Normal or increased GFR > or = 90 2 Mildly or decreased GFR 60 - 89 3 Moderately decreased GFR 30 - 59 4 Severely decreased GFR 15 - 29 5 Kidney failure <15 (or dialysis) Estimated GFR calculated using abbreviated MDRD formula as recommended by National Kid[employer]. Calculation based upon serum creatinine and adjusted for age, gender & race. [place]. Internal Med., Vol. 139 (2) pg 137-147. Performed By: #### C BCWD, BMP, HEPPA, LIPAS, ANION, OSMOL, EGFR1 #### [address] [place] [address] LIPID PANELon 06-18-2019 Cholesterol [Mass/Vol] 164 mg/dL Normal 100-199 [facility] Comment on above: Result Comment: <200 Desirable 200 - 239 Borderline High >239 High Performed By: #### C BCWD, BMP, HEPPA, LIPAS, ANION, OSMOL, EGFR1 #### [facility] [address] [place] [address] Cholesterol in HDL [Mass/Vol] 45 mg/dL Normal [facility] Comment on above: Result Comment: Refe r to General Chemistry for CHOL and TRIG results. HDL CLASSIFICATIONS FOR PATIENTS > 20 YEARS OLD. <40 Undesirable (Major Risk Factor) >60 Protective (Negative Risk Factor) Performed By: #### C BCWD, BMP, HEPPA, LIPAS, ANION, OSMOL, EGFR1 #### [facility] [address] [address] Cholesterol in LDL [Mass/Vol] 80 mg/dL Normal [facility] Comment on above: Result Comment: Refe r to General Chemistry for CHOL and TRIG results. LDL CLASSIFICATIONS FOR PATIENTS >20 YEARS OLD: Determination Invalid if TRIG >400 <100 Optimal 100 - 129 Near or Above Optimal 130 - 159 Borderline High 160 - 189 High Risk >189 Very High Risk Performed By: #### C BCWD, BMP, HEPPA, LIPAS, ANION, OSMOL, EGFR1 #### [facility] [address] [place] [address] Triglyceride [Mass/Vol] 194 mg/dL Normal 0-199 [facility] Comment on above: Result Comment: <150 Desirable 150 - 199 Borderline High 200 - 499 High >449 Very High Ranges are based upon NCEP/ATP III guidelines. Performed By: #### C BCWD, BMP, HEPPA, LIPAS, ANION, OSMOL, EGFR1 #### [facility] [address] [place] [address] MAGNESIUMon 06-18-2019 Magnesium [Mass/Vol] 1.6 mg/dL Normal 1.6-2.4 [facility] Comment on above: Performed By: #### C BCWD, BMP, HEPPA, LIPAS, ANION, OSMOL, EGFR1 #### [address] [address] RHEUMATOID FACTORon 06-18-20 19 RHEUMATOID FACTOR < 10 Normal 0-13 [facility] Comment on above: Performed By: #### R F, MG, LIPD2, BMP, TSHRF, ANION, EGFR1, VD25, WSR #### [address] [address] SED RATEon 06-18-2019 SED RATE 6 mm/hr Normal 0-10 [facility] Comment on above: Performed By: #### C BCWD, BMP, HEPPA, LIPAS, ANION, OSMOL, EGFR1 #### [address] [address] TSH W/ REFLEX FT4on 06-18-20 19 TSH THIRD GENERATION 0.969 uIU/mL Normal 0.400-4.20 [facility] Comment on above: Performed By: #### C BCWD, BMP, HEPPA, LIPAS, ANION, OSMOL, EGFR1 #### [address] [address] VITAMIN D TOTAL 25 (OH)on VITAMIN D TOTAL 25 (OH) 17 ng/ml Low 30-100 [facility] Comment on above: Result Comment: Liliana min D Status Range Deficiency <20 ng/ml Insuffiency 20-30 ng/ml Sufficiency 30-100 ng/ml Toxicity >100 ng/ml Performed By: #### C BCWD, BMP, HEPPA, LIPAS, ANION, OSMOL, EGFR1 #### [address] [address] ANION GAPon 06-12-2019 Anion gap [Moles/Vol] 13.0 mmol/L Normal 8.0-16.0 [facility] Comment on above: Result Comment: ANIO N GAP = Sodium -(Chloride + CO2) Performed By: #### C BCWD, BMP, HEPPA, LIPAS, ANION, OSMOL, EGFR1 #### [address] [address] Anion Gapon 06-12-2019 Anion gap [Moles/Vol] 13.0 mmol/L 8 - 16 meq/L [place] Comment on above: ANION GAP = Sodium - (Chloride + CO2) Performed at [facility] [address] [place] [address] BASIC METABOL PANELon 2018 Calcium [Mass/Vol] 9.8 mg/dL Normal 8.5-10.5 [facility] Comment on above: Performed By: #### C BCWD, BMP, HEPPA, LIPAS, ANION, OSMOL, EGFR1 #### [facility] [address] [place] [address] Chloride [Moles/Vol] 101 mmol/L Normal 98-111 [facility] Comment on above: Performed By: #### C BCWD, BMP, HEPPA, LIPAS, ANION, OSMOL, EGFR1 #### [facility] [address] [place] [address] CO2 [Moles/Vol] 26 mmol/L Normal 23-33 [facility] Comment on above: Performed By: #### C BCWD, BMP, HEPPA, LIPAS, ANION, OSMOL, EGFR1 #### [facility] [address] [place] [address] Creatinine [Mass/Vol] 1.1 mg/dL Normal 0.4-1.2 [facility] Comment on above: Performed By: #### C BCWD, BMP, HEPPA, LIPAS, ANION, OSMOL, EGFR1 #### [facility] [address] [place] [address] Glucose [Mass/Vol] 99 mg/dL Normal 70-108 [facility] Comment on above: Performed By: #### C BCWD, BMP, HEPPA, LIPAS, ANION, OSMOL, EGFR1 #### Pending [facility] To [facility] [address] [place] [address] Potassium [Moles/Vol] 3.8 mmol/L Normal 3.5-5.2 [facility] Comment on above: Performed By: #### C BCWD, BMP, HEPPA, LIPAS, ANION, OSMOL, EGFR1 #### [facility] [address] [place] [address] Sodium [Moles/Vol] 140 mmol/L Normal 135-145 [facility] Comment on above: Performed By: #### C BCWD, BMP, HEPPA, LIPAS, ANION, OSMOL, EGFR1 #### [facility] [address] [place] [address] Urea nitrogen [Mass/Vol] 12 mg/dL Normal 7-22 [facility] Comment on above: Performed By: #### C BCWD, BMP, HEPPA, LIPAS, ANION, OSMOL, EGFR1 #### [facility] [address] [place] [address] Basic Metabolic Panelon Calcium [Mass/Vol] 9.8 mg/dL 8.5 - 10. 5 mg/dL [place] Comment on above: Performed at [facility] [address] [place] [address] Chloride [Moles/Vol] 101 mmol/L 98 - 111 meq/L [place] CO2 [Moles/Vol] 26 mmol/L 23 - 33 meq/L [place] Creatinine [Mass/Vol] 1.1 mg/dL 0.4 - 1.2 mg/dL [place] Glucose [Mass/Vol] 99 mg/dL 70 - 108 mg/dL [place] Potassium [Moles/Vol] 3.8 mmol/L 3.5 - 5.2 meq/L [place] Sodium [Moles/Vol] 140 mmol/L 135 - 145 meq/L [place] Urea nitrogen [Mass/Vol] 12 mg/dL 7 - 22 mg/dL [place] CALCULATED OSMOLALITYon Osmolality [Osmolality] 279.2 mOsmol/kg Normal 275.0-300. [facility] Comment on above: Performed By: #### C BCWD, BMP, HEPPA, LIPAS, ANION, OSMOL, EGFR1 #### [facility] [address] [place] [address] CBC WITH DIFFERENTIALon ABS IMMATURE GRANS (IG) 0.04 thou/mm3 Normal 0.00-0.07 [facility] Comment on above: Performed By: #### C BCWD, BMP, HEPPA, LIPAS, ANION, OSMOL, EGFR1 #### [address] [address] ABS NEUTROPHILS 6.9 thou/mm3 Normal 1.8-7.7 [facility] Comment on above: Performed By: #### C BCWD, BMP, HEPPA, LIPAS, ANION, OSMOL, EGFR1 #### [address] [address] Basophils (Bld) [#/Vol] 0.0 thou/mm3 Normal 0.0-0.1 [facility] Comment on above: Performed By: #### C BCWD, BMP, HEPPA, LIPAS, ANION, OSMOL, EGFR1 #### [address] [address] Basophils/100 WBC (Bld) 0.4 % Normal [facility] Comment on above: Performed By: #### C BCWD, BMP, HEPPA, LIPAS, ANION, OSMOL, EGFR1 #### [address] [address] Eosinophils (Bld) [#/Vol] 0.2 thou/mm3 Normal 0.0-0.4 [facility] Comment on above: Performed By: #### C BCWD, BMP, HEPPA, LIPAS, ANION, OSMOL, EGFR1 #### [address] [address] Eosinophils/100 WBC (Bld) 1.7 % Normal [facility] Comment on above: Performed By: #### C BCWD, BMP, HEPPA, LIPAS, ANION, OSMOL, EGFR1 #### [address] [address] Erythrocyte distribution width (RBC) [Ratio] 12.7 % Normal 11.5-14.5 [facility] Comment on above: Performed By: #### C BCWD, BMP, HEPPA, LIPAS, ANION, OSMOL, EGFR1 #### [address] [address] Hematocrit (Bld) [Volume fraction] 43.1 % Normal 42.0-52.0 [facility] Comment on above: Performed By: #### C BCWD, BMP, HEPPA, LIPAS, ANION, OSMOL, EGFR1 #### [place] [address] Hemoglobin (Bld) [Mass/Vol] 14.4 gm/dl Normal 14.0-18.0 [facility] Comment on above: Performed By: #### C BCWD, BMP, HEPPA, LIPAS, ANION, OSMOL, EGFR1 #### [place] [address] IMMATURE GRANS (IG) 0.4 % Normal [facility] Comment on above: Performed By: #### C BCWD, BMP, HEPPA, LIPAS, ANION, OSMOL, EGFR1 #### [place] [address] Lymphocytes (Bld) [#/Vol] 2.3 thou/mm3 Normal 1.0-4.8 [facility] Comment on above: Performed By: #### C BCWD, BMP, HEPPA, LIPAS, ANION, OSMOL, EGFR1 #### [place] [address] Lymphocytes/100 WBC (Bld) 22.1 % Normal [facility] Comment on above: Performed By: #### C BCWD, BMP, HEPPA, LIPAS, ANION, OSMOL, EGFR1 #### [place] [address] MCH (RBC) [Entitic mass] 28.7 pg Normal 26.0-33.0 [facility] Comment on above: Performed By: #### C BCWD, BMP, HEPPA, LIPAS, ANION, OSMOL, EGFR1 #### [place] [address] MCHC (RBC) [Mass/Vol] 33.4 gm/dl Normal 32.2-35.5 [facility] Comment on above: Performed By: #### C BCWD, BMP, HEPPA, LIPAS, ANION, OSMOL, EGFR1 #### [place] [address] MCV (RBC) [Entitic vol] 86.0 fL Normal 80.0-94.0 [facility] Comment on above: Performed By: #### C BCWD, BMP, HEPPA, LIPAS, ANION, OSMOL, EGFR1 #### [address] [address] Monocytes (Bld) [#/Vol] 0.9 thou/mm3 Normal 0.4-1.3 [facility] Comment on above: Performed By: #### C BCWD, BMP, HEPPA, LIPAS, ANION, OSMOL, EGFR1 #### [address] [address] Monocytes/100 WBC (Bld) 8.6 % Normal [facility] Comment on above: Performed By: #### C BCWD, BMP, HEPPA, LIPAS, ANION, OSMOL, EGFR1 #### [address] [address] Neutrophils/100 WBC (Bld) 66.8 % Normal [facility] Comment on above: Performed By: #### C BCWD, BMP, HEPPA, LIPAS, ANION, OSMOL, EGFR1 #### [address] [address] Nucleated RBC/100 WBC (Bld) [Ratio] 0 /100 wbc Normal [facility] Comment on above: Performed By: #### C BCWD, BMP, HEPPA, LIPAS, ANION, OSMOL, EGFR1 #### [address] [address] Platelet mean volume (Bld) [Entitic vol] 9.9 fL Normal 9.4-12.4 [facility] Comment on above: Performed By: #### C BCWD, BMP, HEPPA, LIPAS, ANION, OSMOL, EGFR1 #### [address] [address] Platelets (Bld) [#/Vol] 209 thou/mm3 Normal 130-400 [facility] Comment on above: Performed By: #### C BCWD, BMP, HEPPA, LIPAS, ANION, OSMOL, EGFR1 #### [address] [address] RBC (Bld) [#/Vol] 5.01 mill/mm3 Normal 4.70-6.10 [facility] Comment on above: Performed By: #### C BCWD, BMP, HEPPA, LIPAS, ANION, OSMOL, EGFR1 #### [address] [address] RDW-SD 39.2 fL Normal 35.0-45.0 [facility] Comment on above: Performed By: #### C BCWD, BMP, HEPPA, LIPAS, ANION, OSMOL, EGFR1 #### [facility] [address] [place] [address] WBC (Bld) [#/Vol] 10.3 thou/mm3 Normal 4.8-10.8 [facility] Comment on above: Performed By: #### C BCWD, BMP, HEPPA, LIPAS, ANION, OSMOL, EGFR1 #### [address] [address] CBC auto differentialon Basophils (Bld) [#/Vol] 0.0 10*3/uL [place] Basophils/100 WBC (Bld) 0.4 % [place] Eosinophils (Bld) [#/Vol] 0.2 10*3/uL [place] Eosinophils/100 WBC (Bld) 1.7 % [place] Erythrocyte distribution width (RBC) [Ratio] 12.7 % 11.5 - 14.5 % [place] Hematocrit (Bld) [Volume fraction] 43.1 % 42 - 52 % [place] Hemoglobin (Bld) [Mass/Vol] 14.4 g/dL [place] Immature Grans (Abs) 0.04 [place] Immature granulocytes (Bld) [#/Vol] 0.4 % [place] Lymphocytes (Bld) [#/Vol] 2.3 10*3/uL [place] Lymphocytes/100 WBC (Bld) 22.1 % [place] MCH (RBC) [Entitic mass] 28.7 pg 26 - 33 pg [place] MCHC (RBC) [Mass/Vol] 33.4 g/dL [employer], [place] MCV (RBC) [Entitic vol] 86.0 fL 80 - 94 fL [place] Monocytes (Bld) [#/Vol] 0.9 10*3/uL [place] Monocytes/100 WBC (Bld) 8.6 % [place] Nucleated RBC/100 WBC (Bld) [Ratio] 0 % /100 wbc [place] Comment on above: Performed at [facility] [address] [place] [address] Platelet mean volume (Bld) [Entitic vol] 9.9 fL 9.4 - 12.4 fL [place], [place] Platelets (Bld) [#/Vol] 209 10*3/uL [place] RBC (Bld) [#/Vol] 5.01 10*6/uL [place] RDW-SD 39.2 fL 35 - 45 fL [place] Segmented neutrophils/100 WBC (Bld) 66.8 % [place] Segs Absolute 6.9 [place] WBC (Bld) [#/Vol] 10.3 10*3/uL [place], [place] CT HEAD WO CONTRASTon 2018 CT HEAD WO CONTRAST PROCEDURE: CT HEAD W O CONTRAST CLINICAL INFORMATION: trembling episode, hx skull deformity. COMPARISON: No prior study. TECHNIQUE: Noncontrast 5 mm axial images were obtained through the brain. All CT scans at this facility use dose modulation, iterative reconstruction, and/or weight-based dosing when appropriate to reduce radiation dose to as low as reasonably achievable. FINDINGS: There is motion artifact image degradation. As visualized no acute appearing fractures are appreciated. The scalp soft tissues are grossly within normal limits. There is mildly prominent extra-axial CSF collection along the right cerebral hemisphere. Changes may represent prominence of the arachnoid space. There is no midline shift. There is no acute-appearing hemorrhage or large vessel infarct. The ventricles are clear. The paranasal sinuses appear grossly unremarkable. IMPRESSION: Negative CT for active pathology. If available comparison to prior studies can be considered. This report has been created using voice recognition software. It may contain minor errors which are inherent in voice recognition technology. Final report electronically signed by Dr. Allen Truong on 06/12/2019 1:36 AM Interpreted by: Allen Truong MD Signed by: Allen Truong MD 06/12/19 Final result Normal [facility] CT Head WO Contraston 2018 PROCEDURE: CT HEAD W O CONTRAST CLINICAL INFORMATION: trembling episode, hx skull deformity. COMPARISON: No prior study. TECHNIQUE: Noncontrast 5 mm axial images were obtained through the brain. All CT scans at this facility use dose modulation, iterative reconstruction, and/or weight-based dosing when appropriate to reduce radiation dose to as low as reasonably achievable. FINDINGS: There is motion artifact image degradation. As visualized no acute appearing fractures are appreciated. The scalp soft tissues are grossly within normal limits. There is mildly prominent extra-axial CSF collection along the right cerebral hemisphere. Changes may represent prominence of the arachnoid space. There is no midline shift. There is no acute-appearing hemorrhage or large vessel infarct. The ventricles are clear. The paranasal sinuses appear grossly unremarkable. [place], [place] Negative CT for active pathology. If available comparison to prior studies can be considered. This report has been created using voice recognition software. It may contain minor errors which are inherent in voice recognition technology. Final report electronically signed by Dr. Allen Truong on 06/12/2019 1:36 AM [facility] [place] [facility] Incoming Radiant Results From [employer] - 06/12/2019 1:38 AM EDT PROCEDURE: CT HEAD WO CONTRAST CLINICAL INFORMATION: trembling episode, hx skull deformity. COMPARISON: No prior study. TECHNIQUE: Noncontrast 5 mm axial images were obtained through the brain. All CT scans at this facility use dose modulation, iterative reconstruction, and/or weight-based dosing when appropriate to reduce radiation dose to as low as reasonably achievable. FINDINGS: There is motion artifact image degradation. As visualized no acute appearing fractures are appreciated. The scalp soft tissues are grossly within normal limits. There is mildly prominent extra-axial CSF collection along the right cerebral hemisphere. Changes may represent prominence of the arachnoid space. There is no midline shift. There is no acute-appearing hemorrhage or large vessel infarct. The ventricles are clear. The paranasal sinuses appear grossly unremarkable. IMPRESSION: Negative CT for active pathology. If available comparison to prior studies can be considered. This report has been created using voice recognition software. It may contain minor errors which are inherent in voice recognition technology. Final report electronically signed by Dr. Allen Truong on 06/12/2019 1:36 AM [place] GFR, ESTIMATEDon 06-12-2019 GFR/1.73 sq M.predicted MDRD (S/P/Bld) [Vol rate/Area] 82 ml/min/1.73m2 Abnormal [facility] Comment on above: Result Comment: Stag e Description GFR, ml/min/1.73 m2 - At increased risk > or = 60 (with chronic kidney disease risk factors) 1 Normal or increased GFR > or = 90 2 Mildly or decreased GFR 60 - 89 3 Moderately decreased GFR 30 - 59 4 Severely decreased GFR 15 - 29 5 Kidney failure <15 (or dialysis) Estimated GFR calculated using abbreviated MDRD formula as recommended by National Kidney Foundation. Calculation based upon serum creatinine and adjusted for age, gender & race. [place]. Internal Med., Vol. 139 (2) pg 137-147. Performed By: #### C BCWD, BMP, HEPPA, LIPAS, ANION, OSMOL, EGFR1 #### [facility] [address] [place] [address] Glomerular Filtration Rate, Estimatedon 06-12-2019 Est, Glom Filt Rate 82 Abnormal ml/min/1.73m2 [place], [place] Comment on above: Stage Description GF R, ml/min/1.73 m2 - At increased risk > or = 60 (with chronic kidney disease risk factors) 1 Normal or increased GFR > or = 90 2 Mildly or decreased GFR 60 - 89 3 Moderately decreased GFR 30 - 59 4 Severely decreased GFR 15 - 29 5 Kidney failure <15 (or dialysis) Estimated GFR calculated using abbreviated MDRD formula as recommended by National Kidney Foundation. Calculation based upon serum creatinine and adjusted for age, gender & race. [place]. Internal Med., Vol. 139 (2) pg 137-147. Performed at [facility] [address] [place] [address] Interpretation and review of laboratory results Abnormal [place] HEPATIC FUNCTION PANELon Albumin [Mass/Vol] 4.7 g/dL Normal 3.5-5.1 [facility] Comment on above: Performed By: #### C BCWD, BMP, HEPPA, LIPAS, ANION, OSMOL, EGFR1 #### [address] [address] ALP [Catalytic activity/Vol] 64 U/L Normal 38-126 [facility] Comment on above: Performed By: #### C BCWD, BMP, HEPPA, LIPAS, ANION, OSMOL, EGFR1 #### [address] [address] ALT [Catalytic activity/Vol] 17 U/L Normal 11-66 [facility] Comment on above: Performed By: #### C BCWD, BMP, HEPPA, LIPAS, ANION, OSMOL, EGFR1 #### [address] [address] AST [Catalytic activity/Vol] 20 U/L Normal 5-40 [facility] Comment on above: Performed By: #### C BCWD, BMP, HEPPA, LIPAS, ANION, OSMOL, EGFR1 #### [address] [address] Bilirubin [Mass/Vol] mg/dL Normal 0.0-0.3 [facility] Comment on above: Performed By: #### C BCWD, BMP, HEPPA, LIPAS, ANION, OSMOL, EGFR1 #### [address] [address] Bilirubin Ql (U) 0.7 mg/dL Normal 0.3-1.2 [facility] Comment on above: Performed By: #### C BCWD, BMP, HEPPA, LIPAS, ANION, OSMOL, EGFR1 #### [address] [address] Protein [Mass/Vol] 7.9 g/dL Normal 6.1-8.0 [facility] Comment on above: Performed By: #### C BCWD, BMP, HEPPA, LIPAS, ANION, OSMOL, EGFR1 #### [address] [address] Hepatic function panelon Albumin [Mass/Vol] 4.7 g/dL 3.5 - 5.1 g/dL [place] ALP [Catalytic activity/Vol] 64 U/L 38 - 126 U/L [place] ALT [Catalytic activity/Vol] 17 U/L 11 - 66 U/L [place] AST [Catalytic activity/Vol] 20 U/L 5 - 40 U/L [place] Bilirubin Ql (U) 0.7 mg/dL 0.3 - 1.2 mg/dL [place] Bilirubin.direct [Mass/Vol] mg/dL 0 - 0.3 mg/dL [place] Protein [Mass/Vol] 7.9 g/dL 6.1 - 8 g/dL [place], [place] Comment on above: Performed at [facility] [address] [place] [address] LIPASEon 06-12-2019 Lipase [Catalytic activity/Vol] 18.2 U/L Normal 5.6-51.3 [facility] Comment on above: Performed By: #### C BCWD, BMP, HEPPA, LIPAS, ANION, OSMOL, EGFR1 #### [facility] [address] [place] [address] Lipaseon 06-12-2019 Lipase [Catalytic activity/Vol] 18.2 U/L 5.6 - 51.3 U/L [place] Comment on above: Performed at [facility] [address] [place] [address] Osmolalityon 06-12-2019 Osmolality Calc 279.2 [place], [place] Comment on above: Performed at [facility] [address] [place] [address] AER/ANAEROBIC CULTUREon 01-03 AER/ANAEROBIC CULTURE MICROBIOLOGY REPOR T [facility], [address] [place] [address], [address] PATIENT: GEORGIANA REYES LOCATION: ED -E -E : 1995 AGE: 23 SEX: M ADM: 01/18/19 Att. Physician: PHYSICIAN, EMERGENCY Order Id: [id number] Req. Physician: ATTILA CASIANO Source: arm Site: swab left Collected: 01/18/19 16:30 Current Antibiotics: not stated Antibiotics comment: STATUS OF ORDERED AND REPORTED TESTS AEROBIC CULTURE FINAL 01/19/19 ANAEROBIC CULTURE FINAL 01/21/19 GRAM STAIN DIRECT FINAL 01/18/19 AEROBIC CULTURE - FINAL 01/19/19 14:01 01/19/19 Culture yielded very light growth of multiple colony types of Staphylococcus coagulase negative. ANAEROBIC CULTURE - FINAL 01/21/19 15:57 01/21/19 Culture yielded light mixed growth which included anaerobic gram positive cocci. If a true mixed aerobic and anaerobic infection is suspected, then broad spectrum empiric antibiotic therapy is indicated and should include coverage for anaerobic organisms. GRAM STAIN DIRECT - FINAL 01/18/19 18:15 01/18/19 No segmented neutrophils observed. Rare epithelial cells observed. No organisms observed. Normal [facility] ER Physician Documentationon 01-17-2019 ER Physician Documentation [facility] Patient: GEORGIANA REYES [address] : 1995 [place], [place] [address] Location: ER [phone] Unit #: [id number] ER Physician Documentation Service Date:01/17/19 ER Provider: ED PROVIDER HPI - Skin Rash / Abscess Time Seen by Provider: 01/17/19 20:04 Arrival Mode: Private Vehicle Historian: Patient Limited by: none - History of Present Illness Symptoms Began: Other - 3 weeks Symptoms Still Occurring: Still Present Timing: gradual onset Location: Left, Upper extremity 23 y/o M pt presents to the ED with c/o possible skin infection. Pt states that starting 3 weeks ago, after he was discharged from [facility](there for low potassium), he has had multiple red bumps on his L arm that are seeping. Pt states that the redness is worsening. Pt denies any fevers. Pt states that he has been utilizing Neosporin. Pt denies having this before. Pt denies hx of IV drug use. Pt denies any known allergies to medications. Past Medical History Allergies/Adverse Reactions No Known Drug Allergies Allergy (Verified 01/17/19 20:29) Home Medications Sulfamethoxazole/Trim ethoprim [Bactrim Ds 800-160 mg] 1 tab PO BID #14 tab 01/17/19 [Rx] cephALEXin [Keflex] 500 mg PO Q6H #28 cap 01/17/19 [Rx] Psychosocial Problems: Anxiety Additional Hematology/Immunology Problems: ow potassium - Social History Type of Tobacco: Cigarettes Smoking Amount: < 1 pack per day Caffeine Amount: 5 or More/Day Alcohol Amount: 1-2/Day Street Drugs: None, Denies Drug Use Review and agree with Nursing - Past Medical History: Agree Review and agree with Nursing - Social History: Agree Review and agree with Nursing - Family History: Agree Review of Systems Constitutional: denies: Fever EENT: No symptoms Respiratory: No symptoms Cardiac: No symptoms Abdomen/GI: No symptoms Genitourinary: No symptoms Skin: Other - multiple red bumps to L arm Musculoskeletal: No symptoms Neurological: No symptoms Endocrine: No symptoms Hematologic/Lymphatic : No symptoms Psychiatric: No symptoms All other systems: Reviewed and negative except HPI Exam - Physical Exam Patient presentation: Well appearing, No apparent distress General Skin: Warm, Dry General Habitus: Normal General Mental Status: Alert General hydration: Moist mucous membranes ENT Exam: Pharynx normal, Neck supple Eye exam: PERRL, EOMI, Conjunctivi normal Cardiovascular Exam: Regular rate and rhythm, No edema Heart sounds: Normal Pulmonary exam: Lungs clear, No respiratory distress, Chest non-tender Respirations: Normal Gastrointestinal Exam: Normal bowel sounds, non tender, Soft, No organomegaly, Non distended Auscultation of Abdomen: Normal - Musculoskeletal Exam Musculoskeletal Exam: Full ROM, No edema, Neurovascular intact - Skin Exam Warm,dry, No rash Wound - Pt has 3 open wounds to the L arm that are 1-2cm in size with mild surrounding erythema. Normal ROM of extremity. Radial pulse normal. Heart and lungs normal - Progress note 01/17/19 20:10 DAJA Saenz, examined pt with c/o possible skin infection. Pt states that starting 3 weeks ago he has had multiple red bumps on his L arm that are seeping. Pt states that the redness is worsening. Pt denies any fevers. Pt has 3 open wounds to the L arm that are 1-2cm in size with mild surrounding erythema. Normal ROM of extremity. Radial pulse normal. Heart and lungs normal. Pt will be discharged with kelfex and bactrim. Pt understands and agrees to the POC. All questions were answered. - Pulse Oximetry Oxygen delivery method: Room Air Patient Hypoxic: No Vital Signs 01/17/19 20:01 98.6 F 84 18 144/74 H 96 Departure Disposition*: Discharge from ER Condition*: Good Clinical Impression*: Folliculitis Instructions: Folliculitis Additional Instructions: You were seen in the ER and diagnosed with folliculitis. Take antibiotics as directed. These may take up to 48-72 hours to take effect. Take tylenol or ibuprofen for pain. Use neosporin as needed. Follow up with primary care. Return to ER if redness spreads or if you develop fever or any new or worrisome symptoms. Referrals: None,Physician [Primary Care Provider] - in one week Forms: ED Additional Information Prescriptions: cephALEXin [Keflex] 500 mg PO Q6H #28 cap Sulfamethoxazole/Trim ethoprim [Bactrim Ds 800-160 mg] 1 tab PO BID #14 tab - Supervision/Review Statement Supervision ONLY, my collaborating physician was Ananda FUNK MD. Dr. Seb Lizama - Charlesibjeet Attestation By electronically signing this emergency patient record, the Emergency Physician attests that all entries made into the electronic medical record by the scribe prior to the Physician electronic signature reflect an accurate accounting of the evaluation and care rendered by that Emergency Physician. The Emergency Physician assumes full responsibility for those entries. The Emergency Physician also attests that any patient testing and treatment that was instituted by nursing staff in accordance with Emergency Department Preemptive Guidelines have been reviewed and unless so stated elsewhere in this patient chart, the physician agrees with the testing and care provided. Renard Becerra, documented HPI, ROS, PE, and progress notes for PA. Dany cc: None Dictated by: Renard Francis on 01/17/192016 Transcribed by: MARY Odom on 01/17/192016 Report Signed by: Josy Hobson PA-C on 01/17/192149 < > Report Signed by: on Report Signed by: on Report Signed by: on Co-Signer: Josy Hobson PA-C on 01/17/192149 < > Normal [facility] ER Physician Documentationon 01-10-2019 ER Physician Documentation [facility] Patient: GEORGIANA REYES [address] : 1995 [place], [place] [address] Location: ER [phone] [id number] Physician Documentation Service Date:01/09/19 ER Provider: Subha Canseco MD HPI - Upper Respiratory Symp Time Seen by Provider: 01/09/19 21:53 Arrival Mode: Private Vehicle Historian: Patient Limited by: none - History of Present Illness Stated Complaint: V MUCUS/ COUGH/ CONGESTED Symptoms Began: Today Symptoms Still Occurring: Still Present Timing: sudden onset Respiratory Current / Associated Symptoms: Cough ENT Current / Associated Symptoms: Nasal Congestion, Other - ear pressure 23 y/o M presents to the ED with c/o upper respiratory issue. Pt stated congestion, ear pressure, cough and vomited once. Past Medical History Allergies/Adverse Reactions No Known Drug Allergies Allergy (Verified 01/09/19 22:06) Home Medications Amoxicillin 875 mg PO BID #20 tab 01/09/19 [Rx] Fluticasone Propionate 0.05% [Flonase Nasal Lester] 2 spray BNOS DAILY #1 btl 01/09/19 [Rx] Psychosocial Problems: Anxiety Additional Hematology/Immunology Problems: ow potassium - Social History Type of Tobacco: Cigarettes Smoking Amount: < 1 pack per day Caffeine Amount: 5 or More/Day Alcohol Amount: 1-2/Day Street Drugs: None, Denies Drug Use Review and agree with Nursing - Past Medical History: Agree Review and agree with Nursing - Social History: Agree Review and agree with Nursing - Family History: Agree Review of Systems Constitutional: No symptoms EENT: Other - ear pressure and congestion Respiratory: Cough Cardiac: No symptoms Abdomen/GI: Vomiting Genitourinary: No symptoms Skin: No symptoms Musculoskeletal: No symptoms Neurological: No symptoms All other systems: Reviewed and negative except HPI Exam - Physical Exam Patient presentation: Well appearing, No apparent distress General Skin: Warm, Dry General Habitus: Normal General Mental Status: Alert General hydration: Moist mucous membranes ENT Exam: Tympanic membranes normal, Pharynx normal, Neck supple Eye exam: PERRL, EOMI, Conjunctivi normal Cardiovascular Exam: Regular rate and rhythm, No edema Heart sounds: Normal Pulmonary exam: Lungs clear, No respiratory distress, Chest non-tender Respirations: Normal Gastrointestinal Exam: Normal bowel sounds, non tender, Soft, No organomegaly, Non distended Auscultation of Abdomen: Normal - Musculoskeletal Exam Musculoskeletal Exam: Full ROM, No edema, Neurovascular intact - Skin Exam Intact, Warm,dry, No rash Sensory Exam: Intact - Progress note 01/09/192158: Dr Subha Canseco examined pt with c/o upper respiratory issue. Pt stated congestion, ear pressure, cough and vomited once. Pt physical exam is normal. Pt will be d/c with Amoxicillin and Flonase. Pt is recommended to follow up with PCP. All questions were answered. Pt understands and agrees with the POC. - Pulse Oximetry Oxygen delivery method: Room Air Patient Hypoxic: No Vital Signs 01/09/19 21:39 97.9 F 83 17 121/74 100 Departure Disposition*: Discharge from ER Condition*: Good Clinical Impression*: Sinusitis Qualifiers: Sinusitis location: unspecified location Chronicity: unspecified Qualified Code(s): J32.9 - Chronic sinusitis, unspecified Additional Instructions: Encourage fluids. Over the counter motrin, tylenol or similar for pain and or fever. Follow up with family doctor for further evaluation of symptoms and complaint. Return to ER as needed. Referrals: None,Physician [Primary Care Provider] - in one week Forms: ED Additional Information, Work/School Release Prescriptions: Amoxicillin 875 mg PO BID #20 tab Fluticasone Propionate 0.05% [Flonase Nasal Lester] 2 spray BNOS DAILY #1 btl - Scribe Attestation By electronically signing this emergency patient record, the Emergency Physician attests that all entries made into the electronic medical record by the scribe prior to the Physician electronic signature reflect an accurate accounting of the evaluation and care rendered by that Emergency Physician. The Emergency Physician assumes full responsibility for those entries. The Emergency Physician also attests that any patient testing and treatment that was instituted by nursing staff in accordance with Emergency Department Preemptive Guidelines have been reviewed and unless so stated elsewhere in this patient chart, the physician agrees with the testing and care provided. Mariam Lara documented the HPI, ROS, PE and Progress Notes for Dr Subha Canseco. cc: None Dictated by: Karin Francis on 01/09/192204 Transcribed by: Karin Lara on 01/09/192204 Report Signed by: Karin FRANCIS on 01/09/19 2214 < > Report Signed by: Subha Canseco MD on 01/10/19206 < > Report Signed by: on Report Signed by: on Co-Signer: Subha Canseco MD on 01/10/19206 < > Normal [facility] ANKLE RIGHT (MIN 3-V)on 01-04 CRANKR Name: SHIRA REYES Phys: MARIA A RODRIGUES,JERILYN : 1995 Age: 22 Sex: M Acct: [id number] Loc: ED Exam Date: 01/28/2018 Status: REG ER Radiology No: [id number] Unit No: [id number] EXAM# TYPE/EXAM RESULT [id number] EDRAD/ANKLE RIGHT (MIN 3-V) SEE REPORT INDICATION: Right ankle pain. Right leg numbness. Secondary to falling ten feet from a zipline. TECHNIQUE: Four view(s) of the right ankle. COMPARISON: None Available. FINDINGS: Joint effusion noted. No fracture. The mortise appears intact. IMPRESSION: There is a joint effusion noted. In the setting of trauma, this is likely hemarthrosis. No fracture identified. The mortise appears intact. Signed by Issa Pisano MD REPORT SIGNED IN OTHER VENDOR SYSTEM 01/28/2018 Reported By: ISSA PISANO M.D. CC: Technologist: KINGA ALFARO Transcribed Date/Time: 01/28/2018 (1915) Vehicle Maintenance Technician: ISABELA Printed Date/Time: 01/28/2018 (1915) PAGE 1 Signed Report Normal [facility] FOOT RIGHT (MIN 3 V)on 01-28 CRFOOTR Name: SHIRA REYES Phys: MARIA A RODRIGUES,JERILYN : 1995 Age: 22 Sex: M Acct: [id number] Loc: ED Exam Date: 01/28/2018 Status: REG ER Radiology No: [id number] Unit No: [id number] EXAM# TYPE/EXAM RESULT [id number] EDRAD/FOOT RIGHT (MIN 3 V) SEE REPORT INDICATION: Right lateral foot pain after falling ten feet from a zipline. TECHNIQUE: Three views of the right foot. COMPARISON: None Available. FINDINGS: There is no displaced fracture. The alignment is anatomic. No soft tissue abnormality is seen. IMPRESSION: No acute osseous abnormality. Signed by Barrett Pope MD REPORT SIGNED IN OTHER VENDOR SYSTEM 01/28/2018 Reported By: MICHAEL POPE M.D. CC: Technologist: KINGA ALFARO Transcribed Date/Time: 01/28/2018 (2011) Vehicle Maintenance Technician: ISABELA Printed Date/Time: 01/28/2018 (2011) PAGE 1 Signed Report Normal [facility] KNEE RIGHT (3 V)on 8 CRKNEER Name: SHIRA REYES Phys: MARIA A RODRIGUES,JERILYN : 1995 Age: 22 Sex: M Acct: [id number] Loc: ED Exam Date: 01/28/2018 Status: REG ER Radiology No: [id number] Unit No: [id number] EXAM# TYPE/EXAM RESULT [id number] EDRAD/KNEE RIGHT (3 V) SEE REPORT INDICATION: Right knee pain secondary to falling ten feet from a zipline. TECHNIQUE: Three views of the right knee. COMPARISON: None Available. FINDINGS: There is no displaced fracture. The alignment is anatomic. No soft tissue abnormality is seen. There is a moderate-sized joint effusion. IMPRESSION: No acute osseous abnormality. Moderate sized joint effusion. Signed by Barrett Pope MD REPORT SIGNED IN OTHER VENDOR SYSTEM 01/28/2018 Reported By: MICHAEL POPE M.D. CC: Technologist: KINGA ALFARO Transcribed Date/Time: 01/28/2018 (1916) Vehicle Maintenance Technician: ISABELA Printed Date/Time: 01/28/2018 (1916) PAGE 1 Signed Report Normal [facility] TIBIA AND FIBULA RIGHT (2 V) on 01-28-2018 CRTIBFIR Name: HSIRA REYES Phys: MARIA A RODRIGUES,JERILYN : 1995 Age: 22 Sex: M Acct: [id number] Loc: ED Exam Date: 01/28/2018 Status: REG ER Radiology No: [id number] Unit No: [id number] EXAM# TYPE/EXAM RESULT [id number] EDRAD/TIBIA AND FIBULA RIGHT (2 SEE REPORT INDICATION: Right lower leg pain secondary to falling ten feet from a zipline. TECHNIQUE: Two views (four images) of the right tibia and fibula. COMPARISON: None Available. FINDINGS: There is no displaced fracture. The alignment is anatomic. No soft tissue abnormality is seen. IMPRESSION: No acute osseous abnormality. Signed by Barrett Pope MD REPORT SIGNED IN OTHER VENDOR SYSTEM 01/28/2018 Reported By: MICHAEL POPE M.D. CC: Technologist: KINGA ALFARO Transcribed Date/Time: 01/28/2018 (1917) Vehicle Maintenance Technician: ISABELA Printed Date/Time: 01/28/2018 (1917) PAGE 1 Signed Report Normal [facility] Vital Signs Date Time Vital Sign Value Performing Clinician Facility 05-17-2024 14:07-0400 Body height 195.6 cm Karthik Reaves NP Work Phone: [facility] 05-17-2024 14:07-0400 Body mass index (BMI) [Ratio] 29.65 kg/m2 Karthik Reaves NP Work Phone: [facility] 05-17-2024 14:07-0400 Body weight 113.4 kg Karthik Reaves NP Work Phone: [facility] 11-16-2019 06:57-0400 BP Diastolic 83 mm[Hg] [place], [place] 11-16-2019 06:57-0400 BP Systolic 133 mm[Hg] [place] 11-16-2019 06:57-0400 Pulse (Heart Rate) 102 /min [place] 11-16-2019 06:57-0400 Pulse Oximetry 96 % [place] 11-16-2019 06:57-0400 Respiratory Rate 18 /min [facility] [place] 11-16-2019 06:40-0400 Body Temperature 100.71 [degF] [facility] [place] 11-16-2019 04:08-0400 BMI (Body Mass Index) 24.31 kg/m2 [place] 11-16-2019 04:08-0400 Body weight 92.99 kg [place] 11-16-2019 04:08-0400 Height 195.6 cm [facility] , [place] 11-15-2019 20:19-0400 Body Temperature 100.09 [degF] [facility], [place] 11-15-2019 20:19-0400 BP Diastolic 89 mm[Hg] [facility] , [place] 11-15-2019 20:19-0400 BP Systolic 122 mm[Hg] [facility] , [place] 11-15-2019 20:19-0400 Pulse (Heart Rate) 94 /min [facility], [place] 11-15-2019 20:19-0400 Pulse Oximetry 97 % [facility] , [place] 11-15-2019 20:19-0400 Respiratory Rate 18 /min [facility], [place] 11-15-2019 15:37-0400 BMI (Body Mass Index) 28.48 kg/m2 [facility], [place] 11-15-2019 15:37-0400 Body weight 95.25 kg [facility] , [place] 11-15-2019 15:37-0400 Height 182.9 cm [facility] , [place] 06-12-2019 01:28-0400 BP Diastolic 66 mm[Hg] [facility] [place] 06-12-2019 01:28-0400 BP Systolic 105 mm[Hg] Virgil Wayne [facility] , [place] 06-12-2019 01:28-0400 Pulse (Heart Rate) 66 /min Virgilgera Wayne [facility], [place] 06-12-2019 01:28-0400 Pulse Oximetry 97 % Virgil Wayne [facility] , [place] 06-12-2019 01:28-0400 Respiratory Rate 18 /min Virgil Wayne [facility], [place] 06-11-2019 23:30-0400 BMI (Body Mass Index) 26.78 kg/m2 Virgil Wayne [facility], [place] 06-11-2019 23:30-0400 Body Temperature 98.6 [degF] Virgil Wayne [facility], [place] 06-11-2019 23:30-0400 Body weight 99.79 kg Virgil Wayne [facility] , [place] 06-11-2019 23:30-0400 Height 193 cm Virgil Wayne [facility] , [place] 05-04-2019 02:24-0400 Body Temperature 98.01 [degF] [facility] 05-04-2019 02:24-0400 BP Diastolic 77 mm[Hg] [facility] 05-04-2019 02:24-0400 BP Systolic 120 mm[Hg] [facility] 05-04-2019 02:24-0400 Pulse (Heart Rate) 64 /min [place] 05-04-2019 02:24-0400 Pulse Oximetry 98 % [place] 05-04-2019 02:24-0400 Respiratory Rate 16 /min [place] Encounters Encounter Date Encounter Type Care Provider Facility Start: 02-26-2025 End: 02-27-2025 Emergency department patient visit NO PCP [facility] Start: 09-12-2024 End: 09-12-2024 Emergency department patient visit NO PCP NO PCP [facility] Start: 08-04-2024 End: 08-04-2024 Emergency department patient visit NO PCP NO PCP [facility] Start: 06-21-2024 End: 06-21-2024 Emergency department patient visit NO PCP NO PCP [facility] Start: 05-17-2024 End: 05-17-2024 [facility] flowsheet Karthik Reaves HUMAN RESOURCES BENEFITS ADMINISTRATOR Work Phone: [facility] Start: 05-17-2024 End: 05-17-2024 [facility] flowsheet Karthik Reaves HUMAN RESOURCES BENEFITS ADMINISTRATOR Work Phone: [facility] Start: 05-17-2024 End: 05-17-2024 Office outpatient new 30 minutes Karthik Reaves HUMAN RESOURCES BENEFITS ADMINISTRATOR Work Phone: [facility] Comment on above: Stress fracture of m etatarsal bone of right foot, initial encounter (Primary Dx); Right foot pain Start: 05-17-2024 End: 05-17-2024 ambulatory KARTHIK REAVES Not Available Start: 05-13-2024 End: 05-14-2024 Emergency department patient visit PATEL [facility] Start: 04-30-2024 End: 05-01-2024 Emergency department patient visit SUBHA PETERS [facility] Start: 06-16-2023 End: 06-16-2023 ambulatory Sara Crow BEEKEEPER FARMER-BALLOON DESIGN PRINTER Facility:[facility] Start: 10-09-2020 End: 10-12-2020 Patient encounter procedure ISAAC CONNOLLY [facility] Start: 10-09-2020 End: 10-11-2020 Subsequent hospital visit by physician [facility] Xr Room [facility] Comment on above: Injury Start: 11-16-2019 End: 11-16-2019 Emergency department patient visit Physician No [facility] Start: 11-16-2019 End: 11-16-2019 Emergency department patient visit [facility] Comment on above: Viral illness (Prima ry Dx); Febrile illness Start: 11-15-2019 End: 11-15-2019 Emergency department patient visit Physician No [facility] Start: 11-15-2019 End: 11-15-2019 Emergency department patient visit [facility] Comment on above: Cough (Primary Dx); Upper respiratory tract infection, unspecified type Start: 06-18-2019 Patient encounter procedure [facility] Start: 06-12-2019 End: 06-12-2019 Patient encounter procedure [facility] Start: 06-12-2019 End: 06-12-2019 Emergency department patient visit Physician No [facility] Start: 06-11-2019 End: 06-12-2019 Emergency department patient visit Virgil Wayne Work Phone: [facility] Comment on above: Myalgia (Primary Dx) Start: 05-04-2019 End: 05-04-2019 Emergency department patient visit Physician No [facility] Start: 05-04-2019 End: 05-04-2019 Emergency department patient visit [facility] Comment on above: Dentalgia (Primary D x); Gingivitis Start: 01-18-2019 End: 01-18-2019 Emergency department patient visit Physician No [facility] Start: 12-06-2018 End: 12-06-2018 Emergency department patient visit Physician No [facility] Start: 01-28-2018 End: 01-28-2018 Emergency department patient visit PHYSI NONSTAFF Facility:[facility] Procedures Date Procedure Procedure Detail Performing Clinician Start: 10-09-2020 Radex hand minimum 3 views Guillermo Sommers Work Phone: Start: 11-15-2019 Unlis misc path Physici an No Family Start: 11-15-2019 Radiologic exam ches t 2 views Physician No Family Start: 11-15-2019 Iadna respiratry pro be & rev trnscr 08-29 target Physician No Family Start: 11-15-2019 Cul prsmptv pthgnc organism scrn w/colony estimj Physician No Family Start: 11-15-2019 Iaadiadoo influenza Phy sician No Family Start: 11-15-2019 Radiologic exam ches t 2 views Attila Casiano Work Phone: Start: 11-15-2019 Iadna respiratry pro be & rev trnscr 08-29 target Attila Ridley ezzai - how to arabiatad Work Phone: Start: 11-15-2019 GROUP A STREP, REFLEX D avid [employer] Work Phone: Start: 11-15-2019 Iaadiadoo influenza Luca id [employer] Work Phone: Start: 06-12-2019 Ct head/brain w/o contrast material Physician No Family Start: 06-12-2019 INSERT PERIPHERAL IV Ph ysician No Family Start: 06-12-2019 Antibody bordetella Phy sician No Family Start: 06-12-2019 Assay of lipase Physici an No Family Start: 06-12-2019 Assay of osmolality blood Physician No Family Start: 06-12-2019 Basic metabolic pane l calcium total Physician No Family Start: 06-12-2019 Blood count complete auto&auto difrntl wbc Physician No Family Start: 06-12-2019 Creatinine blood Physic tamara No Family Start: 06-12-2019 Hepatic function panel Physician No Family Start: 06-12-2019 Ct head/brain w/o contrast material Virgil Wayne Work Phone: Start: 06-12-2019 Anion gap [Moles/Vol] D anmeena Chen Work Phone: Start: 06-12-2019 Assay of lipase Virgil ramsey Work Phone: Start: 06-12-2019 Assay of osmolality blood Gregoria Chen Work Phone: Start: 06-12-2019 Basic metabolic pane l calcium total Virgil Wayne Work Phone: Start: 06-12-2019 Blood count complete auto&auto difrntl wbc Virgil Wayne Work Phone: Start: 06-12-2019 GLOMERULAR FILTRATIO N RATE, ESTIMATED Gregoria Chen Work Phone: Start: 06-12-2019 Hepatic function panel Virgil Wayne Work Phone: Start: 01-18-2019 Cul prsmptv pthgnc organism scrn w/colony estimj Physician No Family Plan of Treatment Date Care Activity Detail Author Start: 2045 Shingles Vaccine (1 of 2) Shingles Vaccine (1 of 2) [place] Start: 05-29-2024 End: 05-29-2024 Patient encounter procedure 05/29/2024 9:45 AM EDT Office Visit [facility] [address] [place] [id number] Karthik Reaves, HUMAN RESOURCES BENEFITS ADMINISTRATOR [address] [place], [place] [id number] [facility] Start: 05-17-2024 End: 05-17-2024 Patient encounter procedure 05/17/2024 2:00 PM EDT Office Visit [facility] [address] [place] [address] Karthik Reaves, HUMAN RESOURCES BENEFITS ADMINISTRATOR [address] [place], [place] [id number] Arrived [facility] Comment on above: Arrived Start: 05-06-2024 Influenza vaccination Influenza Vacc ine (#1) [facility] Start: 05-06-2020 Influenza vaccination Flu vaccine (# 1) [place] Start: 06-12-2019 End: 06-12-2019 Office Visit 06/12/2019 Office Visit Family [facility] Start: 05-06-2019 Influenza vaccination Flu vaccine (# 1) [place] Start: 2014 DTaP/Tdap/Td vaccine (1 - Tdap) DTaP/Tdap/Td vaccine (1 - Tdap) [place] Start: 2010 HIV screen HIV screen [place], [place] Start: 2010 HIV screening [facility] screen [facility] [place], [place] Start: 02-23-2008 Varicella Vaccine (1 of 2 - 13+ 2-dose series) Varicella Vaccine (1 of 2 - 13+ 2-dose series) [place] Start: 2006 HPV vaccine (1 - Mal e 2-dose series) HPV vaccine (1 - Male 2-dose series) [place] Start: 2001 Pneumococcal 0-64 ye ars Vaccine (1 of 1 - PPSV23) Pneumococcal 0-64 years Vaccine (1 of 1 - PPSV23) [place] Start: 02-23-1996 Varicella vaccine (1 of 2 - 2-dose childhood series) Varicella vaccine (1 of 2 - 2-dose childhood series) [place] Start: 1995 Hepatitis C screening Hepatitis C sc reen [place] End: 11-15-2019 Culture, Throat Culture, Throat Microbiology Routine Once for 1 Occurrences starting 11/15/2019 until 11/15/2019 [place] Comment on above: Once for 1 Occurrenc es starting 11/15/2019 until 11/15/2019 Culture, Throat Culture, Throat Microbiology Routine 11/15/2019 3:40 PM EDT [place] End: 11-15-2019 Miscellaneous sendout 1 Miscellaneous sendout 1 Lab STAT One Time for 1 Occurrences starting 11/15/2019 until 11/15/2019 [place] Comment on above: One Time for 1 Occur rences starting 11/15/2019 until 11/15/2019 Miscellaneous sendout 1 Miscella neous sendout 1 Lab STAT 11/15/2019 8:00 PM EDT [facility] [place], [place] Payers Date Payer Category Payer Unknown [id number] 2023 Unknown BCBS BCBS xxxxxx [id number] 2023-Present [phone] [address] [place] [address] [id number] 2023 Unknown [id number] 2020 Unknown [id number] 2019 Medicaid MEDICAID [facility] DEPT OF JOB xxxxxxxxxxxx 2019-Present [phone] [address] [place] [address] xxxxxxxxxxxx [id number] 2019 Medicaid [id number] 2019 Self-pay 2015 Unknown [id number] 1995 Unknown [id number] .93 1995 Unknown [id number] 20.1.560475.3.579.2 .93 1995 Unknown [id number] 2.840.1.103826.3.579.2 .93 1995 Unknown [id number] 2.840.1.047127.3.579.2 .93 1995 Unknown [id number] 2.840.1.257851.3.579.2 .93 1995 Unknown [id number] 2.840.1.870117.3.579.2 .176 1995 Unknown [id number] 2.16.840.1.807443.3.579.2 .176 1995 Unknown [id number] 2.16.840.1.505188.3.579.2 .196 1995 Unknown [id number] 2.16.840.1.479956.3.579.2 .1259 1995 Unknown [id number] 2.16.840.1.893059.3.579.2 .1286 1995 Unknown [id number] 2.16.840.1.321382.3.579.2 .1286 1995 Unknown [id number] 2.16.840.1.080362.3.579.2 .1286 1995 Unknown [id number] 2.16.840.1.850233.3.579.2 .1286 1995 Unknown [id number] 2.16.840.1.324382.3.579.2 .1286 1995 Unknown [id number] 2.16.840.1.880829.3.579.2 .1286 1995 Unknown [id number] 2.16.840.1.310946.3.579.2 .1286 1995 Unknown [id number] 2.16.840.1.220911.3.579.2 .1286 Private Health Insurance [id number] Social History Date Type Detail Facility Start: 12-06-2018 End: 05-17-2024 Tobacco smoking status NHIS Current every day smoker [place] Start: 09-05-2013 History of tobacco use Cigarette Smo ker [place] Start: 12-06-2018 End: 05-17-2024 Cigarettes smoked current (pack per day) - Reported [place] Start: 12-06-2018 End: 05-17-2024 Alcohol intake Yes [place] Start: 01-06-2016 Alcohol Comment social [place], [place] Start: 1995 Sex Assigned At Not on file [place] Start: 06-12-2019 End: 11-16-2019 Alcohol intake Current drinker of alcohol (finding) [place], [facility] Start: 11-16-2019 End: 03-29-2023 Tobacco use and exposure Never used [employer] [facility] [place], [facility] Start: 03-29-2023 [facility] [place] smoked tobacco [facility] Start: 03-29-2023 Alcoholic beverage intake Lifetime non-drinker (finding) [facility] Start: 05-17-2024 Tobacco use and exposure User of smokeless tobacco [facility] History of tobacco use Chews Tobacco [facility] Start: 05-17-2024 Alcoholic beverage intake Ex-drinker (finding) [facility] Goals Date Patient Goal Desired Activity /State History of Present illness Narrative 05-17-2024 Karthik Reaves NP - 05/17/2024 2:00 PM EDT Note Date & Type Note Facility 05-17-2024 History of Presen t illness Narrative Images from the original note were not included. NAME: Georgiana Reyes : 1995 HISTORY OF PRESENT ILLNESS: Georgiana Reyes is an 29 y.o. @ male. DR MCELROY REFERRAL. 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 WENT TO [facility] ER 04/30, HAD XR. WENT BACK TO [facility] ER 05/13, HAD XR AND GIVEN POST OP SHOE. XRAY [facility] 05/13/24 XRAY [facility] 04/30/24 WEARING POST OP SHOE, LITTLE RELIEF. PAIN OVER 2ND AND 3RD MT. RADIATES AROUND TOP OF FOOT. WORSE WITH STANDING/WALKING, PUTTING PRESSURE ON IT. NO PAIN MEDS. TRIED EPSOM SALT. ADMITS SWELLING, GOING DOWN SOME. ADMITS A THROBBING/TINGLING, INTERMITTENT - USUALLY AFTER TAKING WORK BOOTS OFF. HAS WAKEN HIM AT HS. DENIES BRUISING. HAS NOTICED SOME DISCOLORATION- RED SPOTS. CONTINUES WORKING. PAST MEDICAL HISTORY: Past Medical History: Diagnosis Date Anxiety Depression (CMS/HCC) PAST SURGICAL HISTORY: History reviewed. No pertinent surgical history. ALLERGIES: No Known Allergies HOME MEDICATIONS: Current Outpatient Medications Medication Instructions Sertraline HCl (ZOLOFT PO) Vitals: Body mass index is 29.65 kg/m . PHYSICAL EXAM: Right Ankle Exam Comments: Noted to have some swelling over dorsal aspect of right foot. Pain over MT shaft of 2nd and 3rd MT. NV intact, no instability. IMAGING: I reviewed xrays from [facility] of the right foot that was read by radiologist as no fractures but I believe that there is a stress fracture of the 3rd MT shaft and a possible stress fracture of 2nd MT shaft. Procedures ASSESSMENT: ICD-10-CM 1. Stress fracture of metatarsal bone of right foot, initial encounter M84.374A 2. Right foot pain M79.671 PLAN: I reviewed xray from [facility] and believe that there is a stress fracture of the 3rd metatarsal shaft with possible fracture of 2nd metatarsal shaft. I discussed treatment options, answered questions. I recommend that he continue with post op shoe when at home and steel-toe boots when at work. Avoid high impact activity. Follow up in 2 weeks for RCK. Questions answered in laymen terms at the bedside. The diagnosis, home exercise plan and any ongoing restrictions/ recommendations reviewed. If unable to be reached in office, I recommend evaluation at nearest Emergency Room if any symptoms worsened or new symptoms develop for requiring urgent evaluation. Karthik Reaves APRN-BALLOON DESIGN PRINTER documented in this encounter [facility] Clinical Note 06-16-2023 Note Date & Type Note Facility 06-16-2023 Note Patient Education Ma terials Name: Georgiana Reyes Current Date: 06/16/2023 10:22:48 [place] : 1995 The following sheet(s) are the Patient Education Leaflets for Georgiana Reyes [facility] Evaluation note Note Date & Type Note Facility Evaluation note Diagnosis Stress fracture of metatarsal bone of right foot, initial encounter- Primary Right foot pain Pain in soft tissues of limb documented in this encounter [facility] Healthcare Summary Purpose Family History No Family History Records FoundNo Family History Records FoundNo Family History Records FoundNo Family History Records FoundNo Family History Records FoundNo Family History Records FoundNo Family History Records Found Advance Directives No Advanced Directives Records FoundDocuments on File Type Date Recorded Patient Lens Assistant Expl anation Advance Directives and Living Will Power of Pipe Racker Documents on File Type Date Recorded Patient Lens Assistant Expl anation Advance Directives and Kenneth g Will Power of Pipe Racker 09/05/2014 12:00 AM Documents on File Type Date Recorded Patient Lens Assistant Expl anation ACP-Advance Directive ACP-Power of Pipe Racker 09/05/2014 12:00 AM Discharge Instructions * Instructions* Tatiana Marks APRN - BALLOON DESIGN PRINTER - 05/04/2019 [place] and floss. Use mouthwash twice a day. Return for fever. You need to see a dentist. * Attachments The following attachments cannot be sent through Care Everywhere. * Periodontal Conditions (Nicaraguan) * Tooth and Gum Pain ([place]icaraguan) documented in this encounter* Attachments The following attachments cannot be sent through Care Everywhere. * Cramp: Muscle ([place]icaraguan) documented in this encounter* Instructions* Lashonda Chaudhari PA-C - 11/15/2019 You have been tested for COVID 19. You will be contacted by the health department tomorrow with further instructions. Please go immediately home and quarantine yourself there, no visitors and no leaving your home until otherwise directed by the health department. Please monitor your temperatures athome, take Tylenol and Motrin for any fevers. Return to the emergency department should you notice worsening respiratory symptoms, uncontrolled fever, uncontrolled vomiting and concern for dehydration. If you are unsure whether you should return to the emergency department, please contact the health department for further instructions. Please call the emergency department at [phone] prior toreturning so that we can prepare for your arrival. Your results should be available in 3 to 5 days.Please quarantine yourself during that time and further instructions will be provided by the [facility]. * Attachments The following attachments cannot be sent through Care Everywhere. * Cough ([place]icar[place]) documented in this encounter* Instructions* Red Phillips APRN - CNP - 11/16/2019 Alternate Tylenol and Motrin at home for treatment of fever. Stay well hydrated with Gatorade, Pedialyte, water. Viral illnesses can last a week to 10 days. Avoid sick contacts, stay home. Continue to treat fever, it will come back after medications wear off. * Attachments The following attachments cannot be sent through Care Everywhere. * Fever: General Info (Nicaraguan) documented in this encounter Assessments Diagnosis Dentalgia- Primary Unspecified disorder of the teeth and supporting structures Gingivitis Chronic gingivitis, plaque induced Diagnosis Myalgia- Primary Mylagia and myositis, unspecified Diagnosis Cough Upper respiratory tract infection, unspecified type Diagnosis Viral illness Unspecified viral infection, in conditions classified elsewhere and of unspecified site Febrile illness Fever, unspecified Diagnosis Injury Injury, other and unspecified, unspecified site Additional Source Comments (unrecognized sect ion and content) No Status Records FoundNo Status Records FoundNo Status Records FoundNo Status Records FoundNo Status Records FoundNo Status Records FoundNo Status Records Found INFORMATION SOURCE (unrecogn ized section and content) DATE CREATED AUTHOR 2018 [facility] DATE CREATED AUTHOR AUTHOR'S ORGANIZ ATION 01/25/2019 [facility] DATE CREATED AUTHOR AUTHOR'S ORGANIZ ATION 12/05/2019 [facility] DATE CREATED AUTHOR AUTHOR'S ORGANIZ ATION 10/12/2020 [facility] DATE CREATED AUTHOR AUTHOR'S ORGANIZ ATION 06/18/2023 [facility] DATE CREATED AUTHOR AUTHOR'S ORGANIZ ATION 05/19/2024 [facility] DATE CREATED AUTHOR AUTHOR'S ORGANIZ ATION 02/28/2025 [facility] Reason for Visit (unrecogniz ed section and content) Reason Comments Dental Pain x 8 months Reason Comments Spasms bilateral legs and a rm Reason Comments Fever Cough Reason Comments Fever Reason Comments Pain Care Teams (unrecognized sec tion and content) Provider Education Specialist Relationship Specialty Start Date End Date Unallocated, Karl Malave MD [address] [place] [address] PCP - General Family Medicine 05/17/24 Provider Education Specialist Relationship Specialty Start Date End Date Unallocated, Karl Malave MD [address] [place] [address] PCP - General Family Medicine 05/17/24 FOR RECORDS PERTAINING TO PATIENTS WHO ARE OR HAVE BEEN ENROLLED IN A CHEMICAL DEPENDENCY/SUBSTANCEABUSE PROGRAM, SOME INFORMATION MAY BE OMITTED. This clinical summary was aggregated from multiple sources. Caution should be exercised in using it in the provision of clinical care. This summary normalizes information from multiple sources, and as a consequence, information in this document may materially change the coding, format and clinical context of patient data. In addition, data may be omitted in some cases. CLINICAL DECISIONS SHOULD BE BASED ON THE PRIMARY CLINICAL RECORDS. [facility] [employer] [facility]. provides no warranty or guarantee of the accuracy or completeness of information in this document.
--- OUTSIDE RECORDS SUMMARY | 2025-05-11 16:48 | XMS_ITS | Encounter Summary ---
Author Organization [employer] tem Address [id number] [address] [place] [address] Care Team Providers Care Business Office Representative Name Role Phone No Pcp, No Pcp Primary Care Provider Unavailabl e Encounter Details Date Type Department Care Team (Late st Contact Info) Description 11/12/2021 Telephone [facility] - CT Imaging [address] [place] [address] Alize Morales, RN Social History [...] documented as of this encounter Care Teams Business Office Representative Relationship Specialty Start Date End Date No Pcp, [place] [address] PCP - General Family Medicine 06/21/24 documented as of this encounter
--- OUTSIDE RECORDS SUMMARY | 2025-05-11 16:48 | XMS_ITS | Encounter Summary ---
Author Organization [employer] [facility] tem Address [id number] [address] [place] [address] Care Team Providers Care Full Decator Operator Name Role Phone No Pcp, No Pcp Primary Care Provider Unavailabl e Encounter Details Date Type Department Care Team (Late st Contact Info) Description 11/17/2021 Telephone [facility] - CT Imaging [address] [place] [address] Alize Morales, RN Social History [...] documented as of this encounter Care Teams Full Decator Operator Relationship Specialty Start Date End Date No Pcp, [place] [address] PCP - General Family Medicine 06/21/24 documented as of this encounter
--- OUTSIDE RECORDS SUMMARY | 2025-05-11 16:49 | XMS_ITS | Clinical Summary ---
Author Organization [employer] tem Address [id number] [address] [place] [address] Care Team Providers Care Magento Web Developer Name Role Phone No Pcp, No Pcp Primary Care Provider Unavailabl e Allergies No known active allergies Medications aspirin 81 mg Take 1 tablet (81 mg total) by mouth in the morning. Active benzonatate (TESSALON PERLES) 100 mg capsule Take 1 capsule (100 mg total) by mouth every 8 (eight) hours. 21 capsule 08/24/20 22 Active Additional Information Patient not taking.Reported on 01/18/2023 famotidine (PEPCID) 20 mg tablet Take 1 tablet (20 mg total) by mouth in the morning and 1 tablet (20 mg total) before bedtime. 20 tablet 08/24/20 22 Active Additional Information Patient not taking.Reported on 01/18/2023 ondansetron ODT (ZOFRAN ODT) 4 mg disintegrating tablet Dissolve 1 tablet (4 mg total) on tongue every 8 (eight) hours as needed for nausea for up to 10 doses. 10 tablet 01/19/20 23 Active Additional Information Patient not taking.Reported on 03/24/2023 sertraline (ZOLOFT) 50 mg tablet Take 1 tablet (50 mg total) by mouth in the morning. Active ondansetron ODT (ZOFRAN ODT) 4 mg disintegrating tablet Dissolve 1 tablet (4 mg total) on tongue every 8 (eight) hours as needed for nausea for up to 10 doses. 10 tablet 06/21/20 24 Active fluticasone propionate (FLONASE) 50 mcg/actuation nasal spray Administer 1 spray into each nostril in the morning. 16 g 08/04/20 24 Active ibuprofen (MOTRIN) 600 mg tablet Take 1 tablet (600 mg total) by mouth every 6 (six) hours as needed for pain. 30 tablet 08/04/20 24 Active acetaminophen (TYLENOL EXTRA STRENGTH) 500 mg tablet Take 2 tablets (1,000 mg total) by mouth every 6 (six) hours as needed for pain. 30 tablet 08/04/20 24 Active erythromycin (ILOTYCIN) ophthalmic ointment Administer 1.25 cm (0.5 inches total) to both eyes in the morning and at bedtime. 3.5 g 08/04/20 24 Active ondansetron ODT (ZOFRAN ODT) 4 mg disintegrating tablet Dissolve 1 tablet (4 mg total) on tongue 3 (three) times a day as needed for nausea for up to 3 doses. 3 tablet 09/12/19 Active Active Problems Problem Noted Date Diagnosed Date Acute viral syndrome 01/18/2023 Encounters Date Type Department Care Team Description 02/26/2025 9:31 PM EDT - 02/27/2025 12:43 AM EDT Emergency [facility] - Emergency [address] [place] [address] Sherif Berumen MD Chest pain, unspecified type (Primary Dx) Discharge Disposition: Home 02/26/2025 Travel from Last 3 Months Social History Tobacco Use Types Packs/Day Years Used Date Smoking Tobacco: Every Day Cigarettes Smokeless Tobacco: Current Chew Tobacco Cessation:Ready to Q uit: Not Asked; Counseling Given: Not Answered Alcohol Use Standard Drinks/Week Comments Not Currently 21 (1 standard drink = 0.6 oz pure alcohol) former alcoholoic, quit 02/26 Childcare Answer Date Recorded Childcare Unknown 02/14/2019 Employment Answer Date Recorded Employment Unknown 02/14/2019 Hunger Screening Answer Date Recorded Within the past 12 months we worried whether our food would run out before we got money to buy more. Never True 02/26/2025 Within the past 12 months th e food we bought just didn't last and we didn't have money to get more. Never True 02/26/2025 Purpose - Life Answer Date Recorded Purpose and direction in life Unknown Sex and Gender Information Value Date Recorded Sex Assigned at Not on file Legal Sex Male 12:11 PM EDT Gender Identity Not on file Sexual Orientation Not on file Last Filed Vital Signs Vital Sign Reading Time Taken Comments Blood Pressure 103/78 02/26/2025 11:00 PM EDT Pulse 75 02/26/2025 9:05 PM EDT Temperature 37.1 C (98.7 F) 02/26/2025 9:05 PM EDT Respiratory Rate 16 02/26/2025 9:05 PM EDT Oxygen Saturation 98% 02/26/2025 11:15 PM EDT Inhaled Oxygen Concentration - - Weight 115.7 kg (255 lb) 02/26/2025 9:05 PM EDT Height 195.6 cm (6' 5 ) 02/26/2025 9:05 PM EDT Body Mass Index 30.24 02/26/2025 9:05 PM EDT Plan of Treatment Health Maintenance Due Date Last Done Comments Tobacco Counseling 1995 Depression Screening 2007 Adult BMI Follow Up Plan 2013 Influenza Vaccine 05/06/2025 Tobacco Screening 09/12/2025 09/12/2024 Adult BMI Screening 02/26/2026 02/26/2025 DTaP,Tdap and Td Vaccines (3 - Td or Tdap) 11/23/2034 11/23/2024, 03/31/2015 Medical Devices Not on file Procedures Procedure Name Priority Date/Time Associated Diagnosis Comments XR CHEST 1 VW STAT 02/26/2025 11:56 PM EDT TROP I, HIGH SENSITIVITY 1 HOUR STAT 02/26/2025 10:56 PM EDT TROPONIN I, HIGH SENSITIVITY 0 HOUR STAT 02/26/2025 10:01 PM EDT TROPONIN I, HIGH SENSITIVITY 0 HOUR STAT 02/26/2025 10:01 PM EDT D-DIMER STAT 02/26/2025 10:01 PM EDT BASIC METABOLIC PANEL STAT 02/26/2025 10:01 PM EDT CBC WITH AUTO DIFFERENTIAL STAT 02/26/2025 10:01 PM EDT ECG 12-LEAD STAT 02/26/2025 9:10 PM EDT from Last 3 Months Results * X-ray chest 1 view (02/26/2025 11:56 PM EDT) Anatomical Region Laterality Modality Body, Chest N/A Computed Radiogr aphy 02/27/2025 12:1 0 AM EDT Narrative 02/27/2025 12:10 AM EDT History: Chest pain Technique: A portable single frontal view of the chest was obtained. Comparison: 01/18/2023 Findings: There is no evidence for active cardiovascular or pulmonary disease. The heart size is within normal limits and lung carbajal are clear. Impression: Normal chest. Finalized by Leonidas Palm MD on 02/27/2025 12:10 AM Procedure Note Leonidas Palm MD - 02/27/2025 History: Chest pain Technique: A portable single frontal view of the chest was obtained. Comparison: 01/18/2023 Findings: There is no evidence for active cardiovascular or pulmonarydisease. The heart size is within normal limits and lung carbajal areclear. Impression: Normal chest. Finalized by Leonidas Palm MD on 02/27/2025 12:10 AM us Sherif Berumen MD IMG DIAGNOSTIC IMAGING ORDERAB LES Final Result * Troponin I, High Sensitivity 1 Hour (02/26/2025 10:56 PM EDT) TROPONIN I, HIGH SENSITIVITY 2 <21 ng/L 02/26/2025 11:48 PM EDT [facility] Blood Venous blood / Unknown 02/26/2025 10:56 PM EDT 02/26/2025 11:00 PM EDT us Sherif Berumen MD LAB BLOOD ORDERABLES Final Res ult [facility] [address] [place] [address] [place] [address], [place] * Troponin I, High Sensitivity 0 Hour (02/26/2025 10:01 PM EDT) TROPONIN I, HIGH SENSITIVITY 3 <21 ng/L 02/26/2025 10:37 PM EDT [facility] Blood Venous blood / Unknown 02/26/2025 10:01 PM EDT 02/26/2025 10:03 PM EDT us Sherif Berumen MD LAB BLOOD ORDERABLES Final Res ult Performing Organization Address City/[facility]/ZIP Co de Phone Number [address] [place] [address], [place] * CBC auto differential (02/26/2025 10:01 PM EDT) WBC 6.4 4 - 11 x10E9/L 02/26/2025 10:13 PM EDT [facility] RBC Count 4.99 4.1 - 5.7 X10E12/L 02/26/2025 10:13 PM EDT [facility] Hemoglobin 14.2 13 - 17 g/dL 02/26/2025 10:13 PM EDT [facility] Hematocrit 41.2 39 - 50 % 02/26/2025 10:13 PM EDT [facility] MCV 83 80 - 100 fL 02/26/2025 10:13 PM EDT [facility] MCH 28.5 27 - 34 pg 02/26/2025 10:13 PM EDT [facility] MCHC 34.6 32 - 36 g/dL 02/26/2025 10:13 PM EDT [facility] RDW 13.9 11.5 - 15 % 02/26/2025 10:13 PM EDT [facility] Platelet Count 202 150 - 450 X10E9/L 02/26/2025 10:13 PM EDT [facility] MPV 8.7 7 - 12 fL 02/26/2025 10:13 PM EDT [facility] Neutrophils % 60.1 % 02/26/2025 10:13 PM EDT [facility] Lymphocytes % 28.6 % 02/26/2025 10:13 PM EDT [facility] Monocytes % 8.8 % 02/26/2025 10:13 PM EDT [facility] Eosinophils % 2.0 % 02/26/2025 10:13 PM EDT [facility] Basophils % 0.5 % 02/26/2025 10:13 PM EDT [facility] Neutrophils Absolute (A) 3.8 1.5 - 6.6 10*3/uL 02/26/2025 10:13 PM EDT [facility] Lymphocytes Absolute 1.8 1.0 - 3.5 10*3/uL 02/26/2025 10:13 PM EDT [facility] Monocytes Absolute 0.6 0.0 - 0.9 10*3/uL 02/26/2025 10:13 PM EDT [facility] Eosinophils Absolute 0.1 0.0 - 0.4 10*3/uL 02/26/2025 10:13 PM EDT [facility] Basophils Absolute 0.0 0.0 - 0.2 10*3/uL 02/26/2025 10:13 PM EDT [facility] Differential Type AUTOMATED DIFFERENTIAL 02/26/2025 10:13 PM EDT [facility] Blood Venous blood / Unknown 02/26/2025 10:01 PM EDT 02/26/2025 10:03 PM EDT us Sherif Berumen MD LAB BLOOD ORDERABLES Final Res ult [facility] [address] [place] [address], [place] * D-Dimer (02/26/2025 10:01 PM EDT) D DIMER <150 1 - 255 ug/mL 02/26/2025 10:21 PM EDT [facility] Comment:Results <255 ng/mL D DU: The presensence of a VTE can safely be excluded with a negative D-Dimer result and Wells score. A negative result doesn't exclude the possibility of DIC. The test should be repeated along with other diagnostic tests if the patient's symptoms persist or worsen. Blood Venous blood / Unknown 02/26/2025 10:01 PM EDT 02/26/2025 10:03 PM EDT us Sherif Berumen MD LAB BLOOD ORDERABLES Final Res ult [facility] [address] [place] [address], [place] * (ABNORMAL) Basic Metabolic Panel (02/26/2025 10:01 PM EDT) Pathologist [facility] SODIUM 138 134 - 146 mmol/L 02/26/2025 10:21 PM EDT [facility] POTASSIUM 3.6 3.5 - 5.0 mmol/L 02/26/2025 10:21 PM EDT [facility] CHLORIDE 110(H) 98 - 109 mmol/L 02/26/2025 10:21 PM EDT [facility] CARBON DIOXIDE 24 22 - 32 mmol/L 02/26/2025 10:21 PM EDT [facility] ANION GAP 4(L) 5 - 15 mmol/L 02/26/2025 10:21 PM EDT [facility] BLOOD UREA NITROGEN 13 5 - 23 mg/dL 02/26/2025 10:21 PM EDT [facility] CREATININE 0.87 0.70 - 1.20 mg/dL 02/26/2025 10:21 PM EDT [facility] Comment:METHOD TRACEABLE TO IDMS STANDARD GLUCOSE 104(H) 65 - 99 mg/dL 02/26/2025 10:21 PM EDT [facility] CALCIUM 8.9 8.5 - 10.5 mg/dL 02/26/2025 10:21 PM EDT [facility] EGFR Non-Race Dependent >90 >=60 ml/min/1.7 3sq.m 02/26/2025 10:21 PM EDT [facility] Comment: Reported eGFR is based on the CKD-EPI 2020 equation that does not use a race coefficient. Blood Venous blood / Unknown 02/26/2025 10:01 PM EDT 02/26/2025 10:03 PM EDT Sherif Berumen MD LAB BLOOD ORDERABLES Final Res ult [facility] [address] [facility] [place] [address], [place] * ECG 12 lead (02/26/2025 9:10 PM EDT) 02/26/2025 9:10 PM EDT Narrative [facility] - 02/26/2025 11:27 PM EDT Sherif Berumen MD ECG ORDERABLES Final Result [facility] from Last 3 Months Care Teams Magento Web Developer Relationship Specialty Start Date End Date No Pcp, [place] [address] PCP - General Family Medicine 06/21/24
--- NOTE | 2025-05-11 17:02 | CT_ITS ---
The [address] [address] Patient Name: GEORGIANA MARTIN MRN: [id number] date: 1995 Sex: M Assigned Patient Location: ER Current Patient Location: ER Accession/Order Number: [id number] Exam Date: 05/11/2025 17:22 Report Date: 05/11/2025 17:40 At the request of: SAYRA FARNSWORTH Procedure: CT abdomen pelvis w con CT ABDOMEN AND PELVIS WITH INTRAVENOUS CONTRAST: CLINICAL HISTORY: Diffuse abdominal pain < LUQ tenderness COMPARISON: None TECHNIQUE: Spiral images were obtained through the abdomen and pelvis following the administration of intravenous contrast. This CT exam was performed using one or more following dose reduction techniques: Automated exposure control, adjustment of the mA and/or kV according to patient size, or use of iterative reconstruction technique. FINDINGS: Lung Bases: [No acute process.] Organs:Liver gallbladder portal vein spleen pancreas adrenal glands kidneys and aorta all appear unremarkable.[ GI: Stomach is grossly unremarkable. Small bowel appears nondilated. Appendix is normal. No acute colonic abnormality.[ Pelvis:[Urinary bladder and prostate gland appear unremarkable.] Peritoneum/Retroperitoneum:No free air or free fluid or lymphadenopathy.[ Abd wall/Bones:Abdominal wall demonstrates no acute findings. Osseous structures demonstrate degenerative change.[ CT/CT abdomen pelvis w con IMPRESSION: No acute process. Impression dictated by: Benjamin Ospina Jr., D.O. 05/11/2025 5:40 PM Dictation Location: [employer] Electronically authenticated by: [id number] Y Date: 05/11/2025 17:40
[2025-05-11] MEDS: 0.9 % SODIUM CHLORIDE 1,000 ML 999 ML IV (17:11)
[2025-05-11 17:15] LABS: Hematocrit 41.6 % (42.0-54.0); Hemoglobin 13.9 g/dL (14.0-18.0); Immature Granulocytes Abs Auto 0.01 10^3/uL (0.00-0.03); Immature Granulocytes Pct Auto 0.2 % (0.0-0.5); Lymphocytes Absolute Auto 1.7 10^3/uL (1.2-3.8); Mean Corpuscular HGB Conc 33.4 g/dL (29.9-35.2); Mean Corpuscular Hemoglobin 28.3 pg (25.9-34.0); Mean Corpuscular Volume 84.7 fL (80.0-94.0); Platelet Count 207 10^3/uL (150-450); Red Blood Count 4.91 10^6/uL (4.70-6.10); White Blood Count 5.5 10^3/uL (4.0-11.0)
[2025-05-11 17:29] LABS: Alanine Aminotransferase 26 U/L (16-63); Albumin Globulin Ratio 1.2; Albumin Level 4.1 g/dL (3.4-5.0); Alkaline Phosphatase 55 U/L (46-116); Anion Gap 12.5; Aspartate Amino Transferase 13 U/L (15-37); Blood Urea Nitrogen 12.0 mg/dL (7.0-18.0); Calcium 9.4 mg/dL (8.5-10.1); Carbon Dioxide 28.0 mmol/L (21.0-32.0); Chloride 106 mmol/L (98-107); Estimated GFR (African America >60 (>=60 mL/min/1.73m^2); Estimated GFR (Non-African Ame >60 (>=60 mL/min/1.73m^2); Globulin 3.5 g/dL; Glucose 110 mg/dL (74-106); Lipase 22.0 U/L (16.0-77.0); Potassium 3.5 mmol/L (3.5-5.1); Sodium 143 mmol/L (136-145); Total Protein 7.6 g/dL (6.4-8.2)
--- NOTE | 2025-05-11 17:35 | ED.GENADUL1 ---
HPI HPI - General Adult General Chief complaint: Nausea/Vomiting/Diarrhea Stated complaint: DIARRHEA, NOT EATING, NAUSEATED, HEADACHES Time Seen by Provider: 05/11/25 16:36 Source: patient Mode of arrival: walk-in Limitations: no limitations History of Present Illness HPI narrative: Patient is a 30-year-old male that presents emergency department with complaints of 7 days of diarrhea, nausea, and abdominal pain. He denies any past surgical history or medical history that he is currently taking medications for. He denies any sick contacts but does have 3 small children. He states that he is a prior cocaine user but has not used since 2019. He has not drank any alcohol for about 14 months as well. He states that he has about 6-7 bouts of loose stools per day for the past week. He denies any recent antibiotic use. He denies any blood in his stools but states that when the diarrhea first started it looked highlighter yellow but it is normal-appearing now. He has been nauseous but denies vomiting. Related Data Previous Rx's ?Medication ?Instructions ?Recorded ondansetron 4 mg disintegrating 4 mg PO Q8H 4 days #12 tabs 05/11/25 tablet Allergies Allergy/AdvReac Type Severity Reaction Status Date / Time No Known Drug Allergies Allergy Verified 05/11/25 16:43 Opioid HPI Opioid Management Most Recent Opioid Data: Last Pain Scale 6 Today, 16:44 Review of Systems ROS Status of ROS 10 or more systems reviewed and unremarkable except as noted in history and below [facility] History (Updated 05/11/25 @ 18:41 by Earle Cash DO) No pertinent past medical history ?Z78.9 - Other specified health status (ICD-10) Surgical History (Updated 05/11/25 @ 16:48 by Leonidas Hannon) No pertinent past surgical history ?Z78.9 - Other specified health status (ICD-10) Social History Little interest or pleasure in doing things: not at all Feeling down, depressed, or hopeless: not at all Exam Narrative Exam Narrative: General: No distress, age-appropriate Skin: Warm, dry, no pallor. No rash. Head: Normocephalic, atraumatic. Neck: Supple, non-tender. Eye: Pupils are equal, round and EOMI. No scleral icterus. Ears, Nose, Mouth, and Throat: No nasal mucosal hypertrophy. Oral mucosa is moist, no posterior oropharynx erythema, uvula is mid-line Cardiovascular: Regular Rate and Rhythm without murmur, gallop or rub. Respiratory: No accessory muscle use or respiratory distress. Lungs are clear to auscultation, no wheezing, rales or rhonchi Chest Wall: no tenderness Back: No midline thoracic or lumbar vertebral tenderness. Musculoskeletal: Full ROM of all extremities, no calf or popliteal tenderness GI: Abdomen is soft, mildly distended, tender to palpation diffusely but more in the left upper quadrant. No masses appreciated. No rebound, guarding, or rigidity noted. Neurological: A&O x4. No cranial nerve dysfunction observed. No truncal ataxia. Moves all extremities. Sensation intact. Psychiatric: Cooperative and interactive. Normal mood and affect. Constitutional Vital Signs, click to edit/add: Last Vital Signs Temp 97.9 F 05/11/25 16:39 Pulse 62 05/11/25 16:39 Resp 16 05/11/25 16:39 BP 128/82 05/11/25 16:39 Pulse Ox 98 05/11/25 16:46 O2 Del Method Room Air 05/11/25 16:46 Course Vital Signs Vital signs: Vital Signs Temperature 97.9 F 05/11/25 16:39 Pulse Rate 62 05/11/25 16:39 Respiratory Rate 16 05/11/25 16:39 Blood Pressure 128/82 05/11/25 16:39 Pulse Oximetry 99 05/11/25 16:39 Oxygen Delivery Method Room Air 05/11/25 16:39 Temperature 97.9 F 05/11/25 16:39 Pulse Rate 62 05/11/25 16:39 Respiratory Rate 16 05/11/25 16:39 Blood Pressure 128/82 05/11/25 16:39 Pulse Oximetry 98 05/11/25 16:46 Oxygen Delivery Method Room Air 05/11/25 16:46 Medical Decision Making MDM Narrative Medical decision making narrative: This patient presents with nausea and diarrhea for 7 days. Differential diagnosis includes possible acute gastroenteritis. Abdominal exam without peritoneal signs. Currently euvolemic without evidence of dehydration. Doubt invasive bacteria causing diarrhea such as C diff (no recent antibiotics), shiga toxin (non bloody). No recent travel. Patient is not immunocompromised. Diarrhea is non bloody so less likely inflammatory bowel disease. IV placed, 1 L NS ordered. IV Zofran 4 mg ordered. CBC, BMP, UA, CT abdomen/pelvis with contrast ordered. CBC/BMP largely within normal limits, LFTs WNL. Lipase WNL. CT negative for acute process. UA neg for infection. No evidence of surgical abdomen or other acute medical emergency including bowel obstruction, viscus perforation, vascular catastrophe, atypical appendicitis, acute cholecystitis, UGIB, thyrotoxicosis, or diverticulitis at this time. Presentation not consistent with other acute, emergent causes of vomiting / diarrhea at this time. Differential Diagnosis Differential Diagnosis: Acute gastroenteritis, partial bowel obstruction Lab Data Labs: Lab Results 05/11/25 05/11/25 Range/Units 17:08 18:32 WBC 5.5 (4.0-11.0) 10^3/uL RBC 4.91 (4.70-6.10) 10^6/uL Hgb 13.9 L (14.0-18.0) g/dL Hct 41.6 L (42.0-54.0) % MCV 84.7 (80.0-94.0) fL MCH 28.3 (25.9-34.0) pg MCHC 33.4 (29.9-35.2) g/dL RDW 13.1 (11.0-15.0) % Plt Count 207 (150-450) 10^3/uL MPV 10.6 (9.5-13.5) fL Neut % (Auto) 58.6 (43.0-75.0) % Lymph % (Auto) 30.2 (20.5-60.0) % [place] % (Auto) 8.7 (1.7-12.0) % Eos % (Auto) 1.8 (0.9-7.0) % Baso % (Auto) 0.5 (0.2-2.0) % Neut # (Auto) 3.2 (1.4-6.5) 10^3/uL Lymph # (Auto) 1.7 (1.2-3.8) 10^3/uL [place] # (Auto) 0.5 (0.3-0.8) 10^3/uL Eos # (Auto) 0.1 (0.0-0.7) 10^3/uL Baso # (Auto) 0.0 (0.0-0.1) 10^3/uL Abs Immat Gran (auto) 0.01 (0.00-0.03) 10^3/uL Imm/Tot Granulo (auto) 0.2 (0.0-0.5) % Sodium 143 (136-145) mmol/L Potassium 3.5 (3.5-5.1) mmol/L Chloride 106 (98-107) mmol/L Carbon Dioxide 28.0 (21.0-32.0) mmol/L Anion Gap 12.5 BUN 12.0 (7.0-18.0) mg/dL Creatinine 0.89 (0.70-1.30) mg/dL Est GFR ( Amer) >60 (>=60 mL/min/1.73m^2) Est GFR (Non-Af Amer) >60 (>=60 mL/min/1.73m^2) BUN/Creatinine Ratio 13.5 Glucose 110 H (74-106) mg/dL Calcium 9.4 (8.5-10.1) mg/dL Total Bilirubin 0.8 (0.2-1.0) mg/dL Direct Bilirubin 0.2 (0.0-0.2) mg/dL AST 13 L (15-37) U/L ALT 26 (16-63) U/L Alkaline Phosphatase 55 (46-116) U/L Total Protein 7.6 (6.4-8.2) g/dL Albumin 4.1 (3.4-5.0) g/dL Globulin 3.5 g/dL Albumin/Globulin Ratio 1.2 Lipase 22.0 (16.0-77.0) U/L Urine Color Lt. yellow (YELLOW) Urine Clarity Clear (CLEAR) Urine pH 5.5 (5.0-9.0) Ur Specific [place] <=1.005 A (1.005-1.025) Urine Protein Negative (NEG/TRACE) mg/dL Urine Glucose (UA) Negative (NEGATIVE) mg/dL Urine Ketones Negative (NEGATIVE) mg/dL Urine Occult Blood Negative (NEGATIVE) Urine Nitrite Negative (NEGATIVE) Urine Bilirubin Negative (NEGATIVE) Urine Urobilinogen 0.2 (0.2-1.0) EU/dL Ur Leukocyte Esterase Negative (NEGATIVE) Urine RBC None seen (0-2) #/HPF Urine WBC None seen (NONE SEEN) #/HPF Ur Squamous Epith Cells Rare (NONE/RARE) #/LPF Urine Crystals None seen (None Seen) #/HPF Urine Bacteria Trace A (NONE SEEN) #/HPF Urine Casts None seen (NONE SEEN) #/LPF Urine Mucus Trace A (NONE SEEN) Ur Culture Indicated? No Imaging Data CT scan - abdomen: Attestation: I have reviewed the pertinent imaging results. Radiologist's impression: ITS Impressions Abdomen/Pelvis CT 05/11/25 17:02 IMPRESSION: No acute process. Impression dictated by: Benjamin Ospina Jr., D.O. 05/11/2025 5:40 PM Dictation Location: [place] [id number] Electronically authenticated by: [id number] Y Date: 05/11/2025 17:40 Discharge Plan Discharge Chief Complaint: Nausea/Vomiting/Diarrhea Clinical Impression: Gastroenteritis Patient Disposition: Home, Self-Care Time of Disposition Decision: 18:40 Condition: Good Mode of Transportation: Private Vehicle Prescriptions / Home Meds: New ondansetron 4 mg tablet,disintegrating 4 mg PO Q8H 4 Days Qty: 12 0RF Print Language: Montenegrin Instructions: Gastroenteritis (ED) Additional Instructions: Follow-up with your primary care physician within a week. If you experience any new or worsening symptoms return to the emergency department. Referrals: Physician,Non-Staff, MD [Primary Care Provider] - 1 week
[2025-05-11 18:37] LABS: Glucose Urine UA NEGATIVE (NEGATIVE)
[2025-05-11 18:44] LABS: Cast Seen? NONE SEEN #/LPF (NONE SEEN); Crystals Seen? None Seen #/HPF (None Seen); Urine Culture Indicated NO
== END 2025-05-11 18:55 | disposition home or self-care (01) ==
PROVIDERS: Physician Assistant; Emergency Provider Student in an Organized Health Care Education/Training Program
DX: K52.9 Noninfective gastroenteritis and colitis, unspecified (principal); R10.9 Unspecified abdominal pain; F14.91 Cocaine use, unspecified, in remission
CPT/HCPCS: 36415; 74177; 80048; 80076; 81001; 83690; 85025; 96361; 96374; 99285; J2405; Q9967

== ENCOUNTER 2025-05-26 17:48 | Emergency (ER) | payer SELFPAY ==
[2025-05-26 17:52] VITALS: BP 131/83; PULSE 68; TEMP 37.1; O2SAT 99; BMI 30.2
--- OUTSIDE RECORDS SUMMARY | 2025-05-26 17:57 | XMS_ITS | Encounter Summary ---
Author Organization [facility] [facility] tem Address [id number] [address] [place] [address] Care Team Providers Care Senior Property Manager Name Role Phone No Pcp, No Pcp Primary Care Provider Unavailabl e Encounter Details Date Type Department Care Team (Late st Contact Info) Description 11/17/2021 Telephone [facility] [place] [facility] - CT Imaging [address] [place] [address] Alize Morales, RN Social History [...] documented as of this encounter Care Teams Senior Property Manager Relationship Specialty Start Date End Date No Pcp, [place] [id number] PCP - General Family Medicine 06/21/24 documented as of this encounter
--- OUTSIDE RECORDS SUMMARY | 2025-05-26 17:57 | XMS_ITS | Patient Health Record ---
Author Organization [facility] [place] Address [address] [place] [address] Support Name Relationship Address Phone Dorinda Villalta Emergency Contact Unknown Kwan Reyes Guarantor Unknown Reason For Referral No Information Medications Medication SIG (Take, Route, Frequency, Duration) Notes Start Date End Date Status ProAir HFA CFC free 90 mcg/inh 1-2 aerosol with adapter Q4H Use for relief of Asthma symptoms & May also use before gym, sports, or physical exertion Active Plan Of Treatment No Information Insurance Providers Payer Name Payer Address Payer Phone Subscriber Number Group Number Insured Name Patient Relationship to Insured Coverage Start Date Coverage End Date [employer] PPO PLUS LOCAL PLAN [address] [place] [phone] [id number] Lili Barragan Child - Insured has Financial Responsibility
--- OUTSIDE RECORDS SUMMARY | 2025-05-26 17:57 | XMS_ITS | Patient Health Record ---
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
--- OUTSIDE RECORDS SUMMARY | 2025-05-26 17:57 | XMS_ITS | Encounter Summary ---
Author Organization [email or web address] [facility] tem Address [id number] [address] [place] [address] Care Team Providers Care Grain Operator Name Role Phone No Pcp, No Pcp Primary Care Provider Unavailabl e Encounter Details Date Type Department Care Team (Late st Contact Info) Description 11/12/2021 Telephone [facility] - CT Imaging [address] [place] [address] Alize Morales, RN Social History [...] documented as of this encounter Care Teams Grain Operator Relationship Specialty Start Date End Date No Pcp, [place] [id number] PCP - General Family Medicine 06/21/24 documented as of this encounter
--- OUTSIDE RECORDS SUMMARY | 2025-05-26 17:57 | XMS_ITS | CCD ---
Author Organization [facility] Inform ion Partnership FUEL QUALITY TECH [facility] Care Team Providers Care Vmware Engineer Name Role Phone NONSTAFF, PHYSI Unavailable Unavailable [...] , Noms Provider Primary Care Provi ian [facility] Primary Care Unava ilSUBHA Pineda Attending Unavailab SUBHA Hunt Attending Unavailab SUBHA Hunt Referring Unavailab le [facility] Primary Care Unava ilable PATEL MCELROY Attending [...] Propensity to adverse reactions to drug (disorder) [facility] Repository Medications Current Medications Medication Drug [...] every six hours as needed for headache sveudhetnb-ebtgtkwxuvctx-cuvywzuk (FIORICET, ESGIC) 50-325-40 MG per tablet Indications: [...] Palm MD on 02/27/2025 12:10 AM Normal [facility] BASIC METABOLIC PANELon 06-2 Anion gap [Moles/Vol] 4 mmol/L Low 5-15 [facility] Comment on above: Performed By: #### B MP #### [facility] ([address] [place] [address] VIR Calcium [Mass/Vol] 8.9 mg/dL Normal 8.5-10.5 [facility] Comment on above: Performed By: #### B MP #### [facility] ([address] [place] [address] VIR Chloride [Moles/Vol] 110 mmol/L High 98-109 [facility] Comment on above: Performed By: #### B MP #### [facility] ([address] [place] [address] VIR CO2 [Moles/Vol] 24 mmol/L Normal 22-32 [facility] Comment on above: Performed By: #### B MP #### [facility] ([address] [place] [address] VIR Creatinine [Mass/Vol] 0.87 mg/dL Normal 0.70-1.20 [facility] Comment on above: Result Comment: METH OD TRACEABLE TO IDMS STANDARD Performed By: #### B MP #### [facility] ([address] [place] [address] VIR EGFR (CKD-EPI) NON-RACE DEPENDENT >^90 Normal >=60 [facility] Comment on above: Result Comment: Repo rted eGFR is based on the CKD-EPI 2020 equation that does not use a race coefficient. Performed By: #### B MP #### [facility] ([address] [place] [address] VIR Glucose [Mass/Vol] 104 mg/dL High 65-99 [facility] Comment on above: Performed By: #### B MP #### [facility] ([address] [place] [address] VIR Potassium [Moles/Vol] 3.6 mmol/L Normal 3.5-5.0 [facility] Comment on above: Performed By: #### B MP #### [facility] ([address] [place] [address] VIR Sodium [Moles/Vol] 138 mmol/L Normal 134-146 [facility] Comment on above: Performed By: #### B MP #### [facility] ([address] [place] [address] VIR Urea nitrogen [Mass/Vol] 13 mg/dL Normal 5-23 [facility] Comment on above: Performed By: #### B MP #### [facility] ([address] [place] [address] VIR CBC WITH AUTO DIFFERENTIALon 02-26-2025 BASOPHILS ABSOLUTE COUNT (10*3/UL) BY AUTOMATED COUNT 0.0 10*3/uL Normal 0.0-0.2 [facility] Comment on above: Performed By: #### C BCA #### [facility] ([address] [place] [address] VIR BASOPHILS RELATIVE PERCENT BY AUTOMATED COUNT 0.5 % Normal [facility] Comment on above: Performed By: #### C BCA #### [facility] ([address] [place] [address] VIR CELLAVISION DIFFERENTIAL TYPE AUTOMATED DIFFERENTIAL Normal [facility] Comment on above: Performed By: #### C BCA #### [facility] ([address] [place] [address] VIR Eosinophils (Bld) [#/Vol] 0.1 10*3/uL Normal 0.0-0.4 [facility] Comment on above: Performed By: #### C BCA #### [facility] ([address] [place] [address] VIR EOSINOPHILS RELATIVE PERCENT BY AUTOMATED COUNT 2.0 % Normal [facility] Comment on above: Performed By: #### C BCA #### [facility] ([address] [place] [address] VIR Erythrocyte distribution width (RBC) [Ratio] 13.9 % Normal 11.5-15 [facility] Comment on above: Performed By: #### C BCA #### [facility] ([address] [place] [address] VIR Hematocrit (Bld) [Volume fraction] 41.2 % Normal 39-50 [facility] Comment on above: Performed By: #### C BCA #### [facility] ([address] [place] [address] VIR Hemoglobin (Bld) [Mass/Vol] 14.2 g/dL Normal 13-17 [facility] Comment on above: Performed By: #### C BCA #### [facility] ([address] [place] [address] VIR LYMPHOCYTES ABSOLUTE COUNT (10*3/UL) BY AUTOMATED COUNT 1.8 10*3/uL Normal 1.0-3.5 [facility] Comment on above: Performed By: #### C BCA #### [facility] ([address] [place] [address] VIR LYMPHOCYTES RELATIVE PERCENT BY AUTOMATED COUNT 28.6 % Normal [facility] Comment on above: Performed By: #### C BCA #### [facility] ([address] [place] [address] VIR MCH (RBC) [Entitic mass] 28.5 pg Normal 27-34 [facility] Comment on above: Performed By: #### C BCA #### [facility] ([address] [place] [address] VIR MCHC (RBC) [Mass/Vol] 34.6 g/dL Normal 32-36 [facility] Comment on above: Performed By: #### C BCA #### [facility] ([address] [place] [address] VIR MCV (RBC) [Entitic vol] 83 fL Normal 80-100 [facility] Comment on above: Performed By: #### C BCA #### [facility] ([address] [place] [address] VIR MONOCYTES ABSOLUTE COUNT (10*3/UL) BY AUTOMATED COUNT 0.6 10*3/uL Normal 0.0-0.9 [facility] Comment on above: Performed By: #### C BCA #### [facility] ([address] [place] [address] VIR MONOCYTES RELATIVE PERCENT BY AUTOMATED COUNT 8.8 % Normal [facility] Comment on above: Performed By: #### C BCA #### [facility] ([address] [place] [address] VIR NEUTROPHILS ABSOLUTE COUNT BY AUTOMATED COUNT 3.8 10*3/uL Normal 1.5-6.6 [facility] Comment on above: Performed By: #### C BCA #### [facility] ([address] [place] [address] VIR NEUTROPHILS RELATIVE PERCENT BY AUTOMATED COUNT 60.1 % Normal [facility] Comment on above: Performed By: #### C BCA #### [facility] ([address] [place] [address] VIR Platelet mean volume (Bld) [Entitic vol] 8.7 fL Normal 7-12 [facility] Comment on above: Performed By: #### C BCA #### [facility] ([address] [place] [address] VIR Platelets (Bld) [#/Vol] 202 10*3/uL Normal 150-450 [facility] Comment on above: Performed By: #### C BCA #### [facility] ([address] [place] [address] VIR RBC COUNT 4.99 X10E12/L Normal 4.1-5.7 [facility] Comment on above: Performed By: #### C BCA #### [facility] ([address] [place] [address] VIR WBC (Bld) [#/Vol] 6.4 10*3/uL Normal 4-11 [facility] Comment on above: Performed By: #### C BCA #### [facility] ([address] [address] VIR D-DIMERon 02-26-2025 D DIMER <^150 Normal 1-255 [facility] Comment on above: Result Comment: Resu lts <255 ng/mL DDU: The presensence of a VTE can safely be excluded with a negative D-Dimer result and Wells score. A negative result doesn't exclude the possibility of DIC. The test should be repeated along with other diagnostic tests if the patient's symptoms persist or worsen. Performed By: #### D DMR #### [facility] ([address] [place] [address] VIR TROP I, HIGH SENSITIVITY 1 H OURon 02-26-2025 TROPONIN I, HIGH SENSITIVITY 2 ng/L Normal <21 [facility] Comment on above: Performed By: #### T NIHS1 #### [facility] ([address] [place] [address] VIR TROPONIN I, HIGH SENSITIVITY 0 HOURon 02-26-2025 TROPONIN I, HIGH SENSITIVITY 3 ng/L Normal <21 [facility] Comment on above: Performed By: #### T NIHS0 #### [facility] ([address] [place] [address] VIR XR FOOT RT MIN 3 VWSon [...] Grossman MD on 05/13/2024 8:54 PM Normal [facility] XR FOOT RT MIN 3 VWSon 04-30 [...] Davila MD on 04/30/2024 1:15 AM Normal [facility] XR Hand 3 Views Lefton 06-16 XR [...] Electronically Signed in Other Vendor System) Normal [facility] XR HAND LEFT (MIN 3 VIEWS)on [...] Heidi Nunes DO 10/09/20 Final result Normal [facility] No acute osseous abnormality in the left hand. [place], [place] EXAMINATION: THREE XRAY VIEWS OF THE LEFT HAND 10/09/2020 4:59 pm COMPARISON: None. HISTORY: ORDERING SYSTEM PROVIDED HISTORY: Injury TECHNOLOGIST PROVIDED HISTORY: Reason for Exam: middle finger left hand hit by hammer, pain Acuity: Unknown Type of Exam: Unknown FINDINGS: Soft tissues are within normal limits. There is no acute fracture or dislocation. Joint spaces are preserved. No bony erosion. [place], [place] Kevin, Mhpn Incoming Radiant Results From [employer] - 10/09/2020 5:17 PM EST EXAMINATION: THREE [...] acute osseous abnormality in the left hand. [place], [place] 2019 NOVEL CORONAVIRUS (COVI D-19), ZOHRA?on 11-29-2019 COV-2 BY PCR INTERPRETATION NOT DETECTED Normal NOT DETECT [facility] Comment on above: Performed By: #### C BCWD, BMP, HEPPA, LIPAS, ANION, OSMOL, EGFR1 #### [place] [address] COV-2 BY PCR REPORT SEE REPORT Normal [facility] Comment on above: Performed By: #### C BCWD, BMP, HEPPA, LIPAS, ANION, OSMOL, EGFR1 #### [place] [address] SARS COV-2 BY PCRon 11-26-19 20 SARS COV-2 BY PCR see below Normal [facility] Comment on above: Result Comment: *THIS IS NOT A TEST RESULT See printed reference report or [facility](EMR)/ Media tab. 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 Normal [facility] Comment on above: Performed By: #### C BCWD, BMP, HEPPA, LIPAS, ANION, OSMOL, EGFR1 #### [facility] [employer] [address] [place] [address] GROUP A STREP REFLEXon 11-14 REFLEX THROAT C + S INDICATED Normal [facility] Comment on above: Performed By: #### C BCWD, BMP, HEPPA, LIPAS, ANION, OSMOL, EGFR1 #### [facility] [address] [place] [address] GROUP A STREP Negative Normal NEGATIVE [facility] Comment on above: Performed By: #### C BCWD, BMP, HEPPA, LIPAS, ANION, OSMOL, EGFR1 #### [facility] [address] [place] [address] Group A Strep, Reflexon 11-03 GROUP A STREP CULTURE, REFLEX Negative NEGATIVE [facility], [place] REFLEX THROAT C + S INDICATED [place], [place] Comment on above: Performed at [facility] [address] [place] [address] INFLUENZA A + B ANTIGENon INFLUENZA A AG Negative Normal NEGATIVE [facility] Comment on above: Performed By: #### C BCWD, BMP, HEPPA, LIPAS, ANION, OSMOL, EGFR1 #### [place] [address] INFLUENZA B AG Negative Normal NEGATIVE [facility] Comment on above: Performed By: #### C BCWD, BMP, HEPPA, LIPAS, ANION, OSMOL, EGFR1 #### [place] [address] RESPIRATORY ID PANEL BY PCRo n 11-15-2019 INFLUENZA A RESPIRATORY BY PCR Not Detected Normal [facility] Comment on above: Performed By: #### C BCWD, BMP, HEPPA, LIPAS, ANION, OSMOL, EGFR1 #### [place] [address] ADENOVIRUS RESPIRATORY BY PCR Not Detected Normal [facility] Comment on above: Performed By: #### C BCWD, BMP, HEPPA, LIPAS, ANION, OSMOL, EGFR1 #### [place] [address] BORDETELLA PARAPERTUSSIS BY PCR Not Detected Normal [facility] Comment on above: Performed By: #### C BCWD, BMP, HEPPA, LIPAS, ANION, OSMOL, EGFR1 #### [place] [address] BORDETELLA PERTUSSIS RESP. BY PCR Not Detected Normal [facility] Comment on above: Performed By: #### C BCWD, BMP, HEPPA, LIPAS, ANION, OSMOL, EGFR1 #### [place] [address] CHLAMYDOPHILA PNEUMONIAE RESP BY PCR Not Detected Normal [facility] Comment on above: Performed By: #### C BCWD, BMP, HEPPA, LIPAS, ANION, OSMOL, EGFR1 #### [place] [address] CORONAVIRUS 229E RESPIRATORY BY PCR Not Detected Normal [facility] Comment on above: Performed By: #### C BCWD, BMP, HEPPA, LIPAS, ANION, OSMOL, EGFR1 #### [place] [address] CORONAVIRUS HKU1 RESPIRATORY BY PCR Not Detected Normal [facility] Comment on above: Performed By: #### C BCWD, BMP, HEPPA, LIPAS, ANION, OSMOL, EGFR1 #### [address] [address] CORONAVIRUS NL63 RESPIRATORY BY PCR Not Detected Normal [facility] Comment on above: Performed By: #### C BCWD, BMP, HEPPA, LIPAS, ANION, OSMOL, EGFR1 #### [place] [address] CORONAVIRUS OC43 RESPIRATORY BY PCR Not Detected Normal [facility] Comment on above: Performed By: #### C BCWD, BMP, HEPPA, LIPAS, ANION, OSMOL, EGFR1 #### [place] [address] INFLUENZA A/H1 2009 RESPIRATORY BY PCR Normal [facility] Comment on above: Performed By: #### C BCWD, BMP, HEPPA, LIPAS, ANION, OSMOL, EGFR1 #### [place] [address] INFLUENZA A/H1 RESPIRATORY BY PCR Normal [facility] Comment on above: Performed By: #### C BCWD, BMP, HEPPA, LIPAS, ANION, OSMOL, EGFR1 #### [place] [address] INFLUENZA A/H3 RESPIRATORY BY PCR Normal [facility] Comment on above: Performed By: #### C BCWD, BMP, HEPPA, LIPAS, ANION, OSMOL, EGFR1 #### [place] [address] INFLUENZA B RESPIRATORY BY PCR Not Detected Normal [facility] Comment on above: Performed By: #### C BCWD, BMP, HEPPA, LIPAS, ANION, OSMOL, EGFR1 #### [address] [address] METAPNEUMOVIRUS RESPIRATORY BY PCR Not Detected Normal [facility] Comment on above: Performed By: #### C BCWD, BMP, HEPPA, LIPAS, ANION, OSMOL, EGFR1 #### [address] [address] MYCOPLASMA PNEUMONIAE RESP BY PCR Not Detected Normal [facility] Comment on above: Performed By: #### C BCWD, BMP, HEPPA, LIPAS, ANION, OSMOL, EGFR1 #### [place] [address] PARAINFLUENZA 1 RESPIRATORY BY PCR Not Detected Normal [facility] Comment on above: Performed By: #### C BCWD, BMP, HEPPA, LIPAS, ANION, OSMOL, EGFR1 #### [place] [address] PARAINFLUENZA 2 RESPIRATORY BY PCR Not Detected Normal [facility] Comment on above: Performed By: #### C BCWD, BMP, HEPPA, LIPAS, ANION, OSMOL, EGFR1 #### [place] [address] PARAINFLUENZA 3 RESPIRATORY BY PCR Not Detected Normal [facility] Comment on above: Performed By: #### C BCWD, BMP, HEPPA, LIPAS, ANION, OSMOL, EGFR1 #### [place] [address] PARAINFLUENZA 4 RESPIRATORY BY PCR Not Detected Normal [facility] Comment on above: Performed By: #### C BCWD, BMP, HEPPA, LIPAS, ANION, OSMOL, EGFR1 #### [place] [address] RESPIRATORY SYNCYTIAL VIRUS BY PCR Not Detected Normal [facility] Comment on above: Performed By: #### C BCWD, BMP, HEPPA, LIPAS, ANION, OSMOL, EGFR1 #### [place] [address] RHINOVIRUS/ENTEROVIRU S RESP. BY PCR Not Detected Normal [facility] Comment on above: Performed By: #### C BCWD, BMP, HEPPA, LIPAS, ANION, OSMOL, EGFR1 #### [place] [address] Rapid influenza A/B antigens on 11-15-2019 Flu A Antigen Negative NEGATIVE [facility], [place] Flu B Antigen Negative NEGATIVE [facility], [place] Comment on above: [place] [address] Respiratory Panel, Molecular on 11-15-2019 Bordetella pertussis by PCR Not Detected [place], [place] [employer] Adenovirus Not Detected [place], [place] [employer] Bordetella Pertusis Not Detected [place] [employer] Chlamydophilia Pneumoniae Not Detected [place] [employer] Conoravirus NL63 Not Detected [place] [employer] Coronavirus 229E Not Detected [facility] [employer] Coronavirus HKU1 Not Detected [facility] [employer] Coronavirus OC43 Not Detected [facility] [employer] Influenza A Virus Not Detected [place] [employer] Influenza A Virus 09H1 [facility], [place] [employer] Influenza A Virus H1 [place] [employer] Influenza A Virus H3 [place] [employer] Influenza B Not Detected [place] [employer] Metapneumovirus Not Detected [facility] [employer] Mycoplasma Pneumoniae Not Detected [place] Comment on above: Performed at [facility] [address] [address] [employer] Parainfluenza Virus 1 Not Detected [place], [place] [employer] Parainfluenza Virus 2 Not Detected [place] [employer] Parainfluenza Virus 3 Not Detected [place] [employer] Parainfluenza Virus 4 Not Detected [place] [employer] Respiratory Syncitial Virus Not Detected [place] [employer] Rhinovirus/Enteroviru s Not Detected [place] THROAT/NOSE CULTUREon 2019 THROAT/NOSE CULTURE MICROBIOLOGY REPORT [facility], [address] [place] [address], [address] PATIENT: GEORGIANA REYES LOCATION: [facility] -[facility] : 1995 AGE: 24 SEX: M ADM: 11/15/19 Att. Physician: PHYSICIAN, EMERGENCY Order Id: [id number] Req. Physician: ATTILA CASIANO Source: throat Site: Collected: 11/15/19 15:40 Current Antibiotics: not stated Antibiotics comment: STATUS OF ORDERED AND REPORTED TESTS THROAT/NOSE CULTURE FINAL 11/17/19 THROAT/NOSE CULTURE FINAL 11/17/19 09:02 11/16/19 Normal krishna- preliminary 11/17/19 Normal krishna Normal [facility] Comment on above: Performed By: #### C BCWD, BMP, HEPPA, LIPAS, ANION, OSMOL, EGFR1 #### [facility] [address] [place] [address] XR CHEST (2 VW)on 11-15-2019 XR CHEST [...] Julio Doran MD 11/15/19 Final result Normal [facility] XR CHEST STANDARD (2 VW)on 0 11-15-2019 [...] upright and supine views of the abdomen. [place], [place] Kevin, Wcoh Incoming Radiant Results From [employer] - 11/15/2019 5:33 PM EDT PROCEDURE: XR [...] Dr. Julio Doran on 11/15/2019 5:30 PM [place], [place] No acute cardiopulmonary disease. Probable left upper quadrant small bowel ileus however cannot exclude a small bowel obstruction. Consider upright and supine views of the abdomen for further evaluation. This report has been created using voice recognition software. It may contain minor errors which are inherent in voice recognition technology. Final report electronically signed by Dr. Julio Doran on 11/15/2019 5:30 PM [place], [place] MICHELLE SCREENon 06-21-2019 MICHELLE SCREEN None Detected Normal None [facility] Comment on above: Result Comment: If s uspicion of connective tissue disease is strong and MICHELLE EIA is negative, consider testing for MICHELLE by IFA ([id number]). INTERPRETIVE INFORMATION: Anti-Nuclear Abs , IgG by ANGELITA Antinuclear Abs , IgG (ANGELITA): MICHELLE specimens are screened using enzyme-linked immunosorbent assay (ANGELITA) methodology. All ANGELITA results reported as Detected are further tested by indirect fluorescent assay (IFA) using HEp-2 substrate with an IgG-specific conjugate. The MICHELLE ANGELITA screen is designed to detect antibodies against dsDNA, histones, SS-A (Ro), SS-B (La), Monroe, Monroe/BAGMAN/WOMAN, Scl-70, Edwige-1, centromeric proteins, other antigens extracted from the HEp-2 cell nucleus. MICHELLE ANGELITA assays have been reported to have lower sensitivities than MICHELLE IFA for systemic autoimmune rheumatic diseases (SARD). Negative results do not necessarily rule out SARD. Performed by [facility], [address] [facility],[place] [id number] [email or web address], Moi Javed MD, Lab. Director Performed By: #### C BCWD, BMP, HEPPA, LIPAS, ANION, OSMOL, EGFR1 #### [facility] [address] [place] [address] CRP HIGH SENSITIVITYon 06-20 CRP HIGH SENSITIVITY 5.2 mg/L High <=3.0 [facility] Comment on above: Result Comment: INTE RPRETIVE [...] mg/L . very high risk Performed by [facility], [address] [facility],[place] [id number] [email or web address], Moi Javed MD, Lab. Director Performed By: #### C BCWD, BMP, HEPPA, LIPAS, ANION, OSMOL, EGFR1 #### [facility] [address] [place] [address] THYROXINE, TOTALon 9 T4 [Mass/Vol] 7.3 ug/dL Normal 4.5-12.0 [facility] Comment on above: Result Comment: [facility] [address] [place] [address] Performed By: #### C BCWD, BMP, HEPPA, LIPAS, ANION, OSMOL, EGFR1 #### [facility] [address] [place] [address] ANION GAPon 06-18-2019 Anion gap [Moles/Vol] 14.0 mmol/L Normal 8.0-16.0 [facility] Comment on above: Result Comment: ANIO N GAP = Sodium -(Chloride + CO2) Performed By: #### C BCWD, BMP, HEPPA, LIPAS, ANION, OSMOL, EGFR1 #### [facility] [address] [place] [address] BASIC METABOL PANELon 2018 Calcium [Mass/Vol] 10.0 mg/dL Normal 8.5-10.5 [facility] Comment on above: Performed By: #### C BCWD, BMP, HEPPA, LIPAS, ANION, OSMOL, EGFR1 #### [facility] [address] [place] [address] Chloride [Moles/Vol] 103 mmol/L Normal 98-111 [facility] Comment on above: Performed By: #### C BCWD, BMP, HEPPA, LIPAS, ANION, OSMOL, EGFR1 #### [facility] [address] [place] [address] CO2 [Moles/Vol] 24 mmol/L Normal 23-33 [facility] Comment on above: Performed By: #### C BCWD, BMP, HEPPA, LIPAS, ANION, OSMOL, EGFR1 #### [facility] [address] [place] [address] Creatinine [Mass/Vol] 0.8 mg/dL Normal 0.4-1.2 [facility] Comment on above: Performed By: #### C BCWD, BMP, HEPPA, LIPAS, ANION, OSMOL, EGFR1 #### [facility] [address] [place], [place] [address], [place] [address] Glucose [Mass/Vol] 115 mg/dL High 70-108 [facility] Comment on above: Performed By: #### C BCWD, BMP, HEPPA, LIPAS, ANION, OSMOL, EGFR1 #### [address] [address] Potassium [Moles/Vol] 3.9 mmol/L Normal 3.5-5.2 [facility] Comment on above: Performed By: #### C BCWD, BMP, HEPPA, LIPAS, ANION, OSMOL, EGFR1 #### [address] [address] Sodium [Moles/Vol] 141 mmol/L Normal 135-145 [facility] Comment on above: Performed By: #### C BCWD, BMP, HEPPA, LIPAS, ANION, OSMOL, EGFR1 #### [address] [address] Urea nitrogen [Mass/Vol] 13 mg/dL Normal 7-22 [facility] Comment on above: Performed By: #### C BCWD, BMP, HEPPA, LIPAS, ANION, OSMOL, EGFR1 #### [address] [address] GFR, ESTIMATEDon 06-18-2019 GFR/1.73 sq M.predicted MDRD (S/P/Bld) [Vol rate/Area] mL/min/{1.73_m2} Normal [facility] Comment on above: Result Comment: Talong e [...] BMP, HEPPA, LIPAS, ANION, OSMOL, EGFR1 #### [address] [place] [address] LIPID PANELon 06-18-2019 Cholesterol [Mass/Vol] 164 mg/dL Normal 100-199 [facility] Comment on above: Result Comment: <200 Desirable 200 - 239 Borderline High >239 High Performed By: #### C BCWD, BMP, HEPPA, LIPAS, ANION, OSMOL, EGFR1 #### [facility] [address] [place] [address] Cholesterol in HDL [Mass/Vol] 45 mg/dL Normal [facility] Comment on above: Result Comment: Refe r to General Chemistry for CHOL and TRIG results. HDL CLASSIFICATIONS FOR PATIENTS > 20 YEARS OLD. <40 Undesirable (Major Risk Factor) >60 Protective (Negative Risk Factor) Performed By: #### C BCWD, BMP, HEPPA, LIPAS, ANION, OSMOL, EGFR1 #### [facility] [address] [address] Cholesterol in LDL [Mass/Vol] 80 mg/dL Normal [facility] Comment on above: Result Comment: Refe r to General Chemistry for CHOL and TRIG results. LDL CLASSIFICATIONS FOR PATIENTS >20 YEARS OLD: Determination Invalid if TRIG >400 <100 Optimal 100 - 129 Near or Above Optimal 130 - 159 Borderline High 160 - 189 High Risk >189 Very High Risk Performed By: #### C BCWD, BMP, HEPPA, LIPAS, ANION, OSMOL, EGFR1 #### [facility] [address] [place] [address] Triglyceride [Mass/Vol] 194 mg/dL Normal 0-199 [facility] Comment on above: Result Comment: <150 Desirable 150 - 199 Borderline High 200 - 499 High >449 Very High Ranges are based upon NCEP/ATP III guidelines. Performed By: #### C BCWD, BMP, HEPPA, LIPAS, ANION, OSMOL, EGFR1 #### [facility] [address] [place] [address] MAGNESIUMon 06-18-2019 Magnesium [Mass/Vol] 1.6 mg/dL Normal 1.6-2.4 [facility] Comment on above: Performed By: #### C BCWD, BMP, HEPPA, LIPAS, ANION, OSMOL, EGFR1 #### [address] [address] RHEUMATOID FACTORon 06-18-20 19 RHEUMATOID FACTOR < 10 Normal 0-13 [facility] Comment on above: Performed By: #### R F, MG, LIPD2, BMP, TSHRF, ANION, EGFR1, VD25, WSR #### [address] [address] SED RATEon 06-18-2019 SED RATE 6 mm/hr Normal 0-10 [facility] Comment on above: Performed By: #### C BCWD, BMP, HEPPA, LIPAS, ANION, OSMOL, EGFR1 #### [address] [address] TSH W/ REFLEX FT4on 06-18-20 19 TSH THIRD GENERATION 0.969 uIU/mL Normal 0.400-4.20 [facility] Comment on above: Performed By: #### C BCWD, BMP, HEPPA, LIPAS, ANION, OSMOL, EGFR1 #### [address] [address] VITAMIN D TOTAL 25 (OH)on VITAMIN D TOTAL 25 (OH) 17 ng/ml Low 30-100 [facility] Comment on above: Result Comment: Liliana min D Status Range Deficiency <20 ng/ml Insuffiency 20-30 ng/ml Sufficiency 30-100 ng/ml Toxicity >100 ng/ml Performed By: #### C BCWD, BMP, HEPPA, LIPAS, ANION, OSMOL, EGFR1 #### [address] [address] ANION GAPon 06-12-2019 Anion gap [Moles/Vol] 13.0 mmol/L Normal 8.0-16.0 [facility] Comment on above: Result Comment: ANIO N GAP = Sodium -(Chloride + CO2) Performed By: #### C BCWD, BMP, HEPPA, LIPAS, ANION, OSMOL, EGFR1 #### [address] [address] Anion Gapon 06-12-2019 Anion gap [Moles/Vol] 13.0 mmol/L 8 - 16 meq/L [place] Comment on above: ANION GAP = Sodium - (Chloride + CO2) Performed at [facility] [address] [place] [address] BASIC METABOL PANELon 2018 Calcium [Mass/Vol] 9.8 mg/dL Normal 8.5-10.5 [facility] Comment on above: Performed By: #### C BCWD, BMP, HEPPA, LIPAS, ANION, OSMOL, EGFR1 #### [facility] [address] [place] [address] Chloride [Moles/Vol] 101 mmol/L Normal 98-111 [facility] Comment on above: Performed By: #### C BCWD, BMP, HEPPA, LIPAS, ANION, OSMOL, EGFR1 #### [facility] [address] [place] [address] CO2 [Moles/Vol] 26 mmol/L Normal 23-33 [facility] Comment on above: Performed By: #### C BCWD, BMP, HEPPA, LIPAS, ANION, OSMOL, EGFR1 #### [facility] [address] [place] [address] Creatinine [Mass/Vol] 1.1 mg/dL Normal 0.4-1.2 [facility] Comment on above: Performed By: #### C BCWD, BMP, HEPPA, LIPAS, ANION, OSMOL, EGFR1 #### [facility] [address] [place] [address] Glucose [Mass/Vol] 99 mg/dL Normal 70-108 [facility] Comment on above: Performed By: #### C BCWD, BMP, HEPPA, LIPAS, ANION, OSMOL, EGFR1 #### [facility] [address] [place] [address] Potassium [Moles/Vol] 3.8 mmol/L Normal 3.5-5.2 [facility] Comment on above: Performed By: #### C BCWD, BMP, HEPPA, LIPAS, ANION, OSMOL, EGFR1 #### [facility] [address] [place] [address] Sodium [Moles/Vol] 140 mmol/L Normal 135-145 [facility] Comment on above: Performed By: #### C BCWD, BMP, HEPPA, LIPAS, ANION, OSMOL, EGFR1 #### [facility] [address] [place] [address] Urea nitrogen [Mass/Vol] 12 mg/dL Normal 7-22 [facility] Comment on above: Performed By: #### C BCWD, BMP, HEPPA, LIPAS, ANION, OSMOL, EGFR1 #### [facility] [address] [place] [address] Basic Metabolic Panelon Calcium [Mass/Vol] 9.8 mg/dL 8.5 - 10. 5 mg/dL [place], [place] Comment on above: Performed at [facility] [address] [place] [address] Chloride [Moles/Vol] 101 mmol/L 98 - 111 meq/L [place] CO2 [Moles/Vol] 26 mmol/L 23 - 33 meq/L [place] Creatinine [Mass/Vol] 1.1 mg/dL 0.4 - 1.2 mg/dL [place] Glucose [Mass/Vol] 99 mg/dL 70 - 108 mg/dL [place], [place] Potassium [Moles/Vol] 3.8 mmol/L 3.5 - 5.2 meq/L [place] Sodium [Moles/Vol] 140 mmol/L 135 - 145 meq/L [place] Urea nitrogen [Mass/Vol] 12 mg/dL 7 - 22 mg/dL [place] CALCULATED OSMOLALITYon Osmolality [Osmolality] 279.2 mOsmol/kg Normal 275.0-300. [facility] Comment on above: Performed By: #### C BCWD, BMP, HEPPA, LIPAS, ANION, OSMOL, EGFR1 #### [facility] [address] [place] [address] CBC WITH DIFFERENTIALon ABS IMMATURE GRANS (IG) 0.04 thou/mm3 Normal 0.00-0.07 [facility] Comment on above: Performed By: #### C BCWD, BMP, HEPPA, LIPAS, ANION, OSMOL, EGFR1 #### [address] [address] ABS NEUTROPHILS 6.9 thou/mm3 Normal 1.8-7.7 [facility] Comment on above: Performed By: #### C BCWD, BMP, HEPPA, LIPAS, ANION, OSMOL, EGFR1 #### [address] [address] Basophils (Bld) [#/Vol] 0.0 thou/mm3 Normal 0.0-0.1 [facility] Comment on above: Performed By: #### C BCWD, BMP, HEPPA, LIPAS, ANION, OSMOL, EGFR1 #### [address] [address] Basophils/100 WBC (Bld) 0.4 % Normal [facility] Comment on above: Performed By: #### C BCWD, BMP, HEPPA, LIPAS, ANION, OSMOL, EGFR1 #### [address] [address] Eosinophils (Bld) [#/Vol] 0.2 thou/mm3 Normal 0.0-0.4 [facility] Comment on above: Performed By: #### C BCWD, BMP, HEPPA, LIPAS, ANION, OSMOL, EGFR1 #### [address] [address] Eosinophils/100 WBC (Bld) 1.7 % Normal [facility] Comment on above: Performed By: #### C BCWD, BMP, HEPPA, LIPAS, ANION, OSMOL, EGFR1 #### [address] [address] Erythrocyte distribution width (RBC) [Ratio] 12.7 % Normal 11.5-14.5 [facility] Comment on above: Performed By: #### C BCWD, BMP, HEPPA, LIPAS, ANION, OSMOL, EGFR1 #### [address] [address] Hematocrit (Bld) [Volume fraction] 43.1 % Normal 42.0-52.0 [facility] Comment on above: Performed By: #### C BCWD, BMP, HEPPA, LIPAS, ANION, OSMOL, EGFR1 #### [place] [address] Hemoglobin (Bld) [Mass/Vol] 14.4 gm/dl Normal 14.0-18.0 [facility] Comment on above: Performed By: #### C BCWD, BMP, HEPPA, LIPAS, ANION, OSMOL, EGFR1 #### [place] [address] IMMATURE GRANS (IG) 0.4 % Normal [facility] Comment on above: Performed By: #### C BCWD, BMP, HEPPA, LIPAS, ANION, OSMOL, EGFR1 #### [place] [address] Lymphocytes (Bld) [#/Vol] 2.3 thou/mm3 Normal 1.0-4.8 [facility] Comment on above: Performed By: #### C BCWD, BMP, HEPPA, LIPAS, ANION, OSMOL, EGFR1 #### [place] [address] Lymphocytes/100 WBC (Bld) 22.1 % Normal [facility] Comment on above: Performed By: #### C BCWD, BMP, HEPPA, LIPAS, ANION, OSMOL, EGFR1 #### [place] [address] MCH (RBC) [Entitic mass] 28.7 pg Normal 26.0-33.0 [facility] Comment on above: Performed By: #### C BCWD, BMP, HEPPA, LIPAS, ANION, OSMOL, EGFR1 #### [place] [address] MCHC (RBC) [Mass/Vol] 33.4 gm/dl Normal 32.2-35.5 [facility] Comment on above: Performed By: #### C BCWD, BMP, HEPPA, LIPAS, ANION, OSMOL, EGFR1 #### [place] [address] MCV (RBC) [Entitic vol] 86.0 fL Normal 80.0-94.0 [facility] Comment on above: Performed By: #### C BCWD, BMP, HEPPA, LIPAS, ANION, OSMOL, EGFR1 #### [address] [address] Monocytes (Bld) [#/Vol] 0.9 thou/mm3 Normal 0.4-1.3 [facility] Comment on above: Performed By: #### C BCWD, BMP, HEPPA, LIPAS, ANION, OSMOL, EGFR1 #### [address] [address] Monocytes/100 WBC (Bld) 8.6 % Normal [facility] Comment on above: Performed By: #### C BCWD, BMP, HEPPA, LIPAS, ANION, OSMOL, EGFR1 #### [address] [address] Neutrophils/100 WBC (Bld) 66.8 % Normal [facility] Comment on above: Performed By: #### C BCWD, BMP, HEPPA, LIPAS, ANION, OSMOL, EGFR1 #### [address] [address] Nucleated RBC/100 WBC (Bld) [Ratio] 0 /100 wbc Normal [facility] Comment on above: Performed By: #### C BCWD, BMP, HEPPA, LIPAS, ANION, OSMOL, EGFR1 #### [address] [address] Platelet mean volume (Bld) [Entitic vol] 9.9 fL Normal 9.4-12.4 [facility] Comment on above: Performed By: #### C BCWD, BMP, HEPPA, LIPAS, ANION, OSMOL, EGFR1 #### [address] [address] Platelets (Bld) [#/Vol] 209 thou/mm3 Normal 130-400 [facility] Comment on above: Performed By: #### C BCWD, BMP, HEPPA, LIPAS, ANION, OSMOL, EGFR1 #### [address] [address] RBC (Bld) [#/Vol] 5.01 mill/mm3 Normal 4.70-6.10 [facility] Comment on above: Performed By: #### C BCWD, BMP, HEPPA, LIPAS, ANION, OSMOL, EGFR1 #### [address] [address] RDW-SD 39.2 fL Normal 35.0-45.0 [facility] Comment on above: Performed By: #### C BCWD, BMP, HEPPA, LIPAS, ANION, OSMOL, EGFR1 #### [facility] [address] [place] [address] WBC (Bld) [#/Vol] 10.3 thou/mm3 Normal 4.8-10.8 [facility] Comment on above: Performed By: #### C BCWD, BMP, HEPPA, LIPAS, ANION, OSMOL, EGFR1 #### [address] [address] CBC auto differentialon Basophils (Bld) [#/Vol] 0.0 10*3/uL [place] Basophils/100 WBC (Bld) 0.4 % [place] Eosinophils (Bld) [#/Vol] 0.2 10*3/uL [place] Eosinophils/100 WBC (Bld) 1.7 % [place] Erythrocyte distribution width (RBC) [Ratio] 12.7 % 11.5 - 14.5 % [place] Hematocrit (Bld) [Volume fraction] 43.1 % 42 - 52 % [place] Hemoglobin (Bld) [Mass/Vol] 14.4 g/dL [place] Immature Grans (Abs) 0.04 [place], [place] Immature granulocytes (Bld) [#/Vol] 0.4 % [place] Lymphocytes (Bld) [#/Vol] 2.3 10*3/uL [place] Lymphocytes/100 WBC (Bld) 22.1 % [place] MCH (RBC) [Entitic mass] 28.7 pg 26 - 33 pg [place] MCHC (RBC) [Mass/Vol] 33.4 g/dL [place], [place] MCV (RBC) [Entitic vol] 86.0 fL 80 - 94 fL [place] Monocytes (Bld) [#/Vol] 0.9 10*3/uL [place] Monocytes/100 WBC (Bld) 8.6 % [place] Nucleated RBC/100 WBC (Bld) [Ratio] 0 % /100 wbc [place] Comment on above: Performed at [facility] [address] [place] [address] Platelet mean volume (Bld) [Entitic vol] 9.9 fL 9.4 - 12.4 fL [place], [place] Platelets (Bld) [#/Vol] 209 10*3/uL [place] RBC (Bld) [#/Vol] 5.01 10*6/uL [place] RDW-SD 39.2 fL 35 - 45 fL [place] Segmented neutrophils/100 WBC (Bld) 66.8 % [place] Segs Absolute 6.9 [place], [place] WBC (Bld) [#/Vol] 10.3 10*3/uL [place], [place] CT HEAD WO CONTRASTon 2018 CT [...] Allen Truong MD 06/12/19 Final result Normal [facility] CT Head WO Contraston 2018 PROCEDURE: CT [...] clear. The paranasal sinuses appear grossly unremarkable. [place], [place] Negative CT for active pathology. If available comparison to prior studies can be considered. This report has been created using voice recognition software. It may contain minor errors which are inherent in voice recognition technology. Final report electronically signed by Dr. Allen Truong on 06/12/2019 1:36 AM [facility] [place] [facility] Incoming Radiant Results From [employer] - 06/12/2019 1:38 AM EDT PROCEDURE: CT [...] Dr. Allen Truong on 06/12/2019 1:36 AM [place] GFR, ESTIMATEDon 06-12-2019 GFR/1.73 sq M.predicted MDRD (S/P/Bld) [Vol rate/Area] 82 ml/min/1.73m2 Abnormal [facility] Comment on above: Result Comment: Stag e [...] BMP, HEPPA, LIPAS, ANION, OSMOL, EGFR1 #### [facility] [address] [place] [address] Glomerular Filtration Rate, Estimatedon 06-12-2019 Est, Glom Filt Rate 82 Abnormal ml/min/1.73m2 [place] Comment on above: Stage Description GF [...] Vol. 139 (2) pg 137-147. Performed at [facility] [address] [place] [address] Interpretation and review of laboratory results Abnormal [place] HEPATIC FUNCTION PANELon Albumin [Mass/Vol] 4.7 g/dL Normal 3.5-5.1 [facility] Comment on above: Performed By: #### C BCWD, BMP, HEPPA, LIPAS, ANION, OSMOL, EGFR1 #### [address] [address] ALP [Catalytic activity/Vol] 64 U/L Normal 38-126 [facility] Comment on above: Performed By: #### C BCWD, BMP, HEPPA, LIPAS, ANION, OSMOL, EGFR1 #### [address] [address] ALT [Catalytic activity/Vol] 17 U/L Normal 11-66 [facility] Comment on above: Performed By: #### C BCWD, BMP, HEPPA, LIPAS, ANION, OSMOL, EGFR1 #### [address] [address] AST [Catalytic activity/Vol] 20 U/L Normal 5-40 [facility] Comment on above: Performed By: #### C BCWD, BMP, HEPPA, LIPAS, ANION, OSMOL, EGFR1 #### [address] [address] Bilirubin [Mass/Vol] mg/dL Normal 0.0-0.3 [facility] Comment on above: Performed By: #### C BCWD, BMP, HEPPA, LIPAS, ANION, OSMOL, EGFR1 #### [address] [address] Bilirubin Ql (U) 0.7 mg/dL Normal 0.3-1.2 [facility] Comment on above: Performed By: #### C BCWD, BMP, HEPPA, LIPAS, ANION, OSMOL, EGFR1 #### [address] [address] Protein [Mass/Vol] 7.9 g/dL Normal 6.1-8.0 [facility] Comment on above: Performed By: #### C BCWD, BMP, HEPPA, LIPAS, ANION, OSMOL, EGFR1 #### [address] [address] Hepatic function panelon Albumin [Mass/Vol] 4.7 g/dL 3.5 - 5.1 g/dL [place] ALP [Catalytic activity/Vol] 64 U/L 38 - 126 U/L [place] ALT [Catalytic activity/Vol] 17 U/L 11 - 66 U/L [place] AST [Catalytic activity/Vol] 20 U/L 5 - 40 U/L [place] Bilirubin Ql (U) 0.7 mg/dL 0.3 - 1.2 mg/dL [place] Bilirubin.direct [Mass/Vol] mg/dL 0 - 0.3 mg/dL [place] Protein [Mass/Vol] 7.9 g/dL 6.1 - 8 g/dL [place], [place] Comment on above: Performed at [facility] [address] [place] [address] LIPASEon 06-12-2019 Lipase [Catalytic activity/Vol] 18.2 U/L Normal 5.6-51.3 [facility] Comment on above: Performed By: #### C BCWD, BMP, HEPPA, LIPAS, ANION, OSMOL, EGFR1 #### [facility] [address] [place] [address] Lipaseon 06-12-2019 Lipase [Catalytic activity/Vol] 18.2 U/L 5.6 - 51.3 U/L [place] Comment on above: Performed at [facility] [address] [place] [address] Osmolalityon 06-12-2019 Osmolality Calc 279.2 [place], [place] Comment on above: Performed at [facility] [address] [place] [address] AER/ANAEROBIC CULTUREon 01-03 AER/ANAEROBIC CULTURE MICROBIOLOGY REPOR T [facility], [address] [place] [address], [id number] PATIENT: GEORGIANA REYES LOCATION: ED -E -E : 1995 AGE: 23 SEX: M ADM: 01/18/19 Att. Physician: PHYSICIAN, EMERGENCY Order Id: [id number] Req. Physician: ATTILA CASIANO Source: arm Site: [...] epithelial cells observed. No organisms observed. Normal [facility] ER Physician Documentationon 01-17-2019 ER Physician Documentation [facility] Patient: GEORGIANA REYES [address] : 1995 [place], [place] [address] Location: ER [phone] Unit #: [id number] ER Physician Documentation Service Date:01/17/19 ER Provider: [...] weeks ago, after he was discharged from [facility](there for low potassium), he has had multiple [...] Hobson PA-C on 01/17/192149 < > Normal [facility] ER Physician Documentationon 01-10-2019 ER Physician Documentation [facility] Patient: GEORGIANA REYES [address] : 1995 [place], [place] [address] Location: ER [phone] [facility] [id number] [id number] Physician Documentation Service Date:01/09/19 ER Provider: [...] 01/09/19 [Rx] Fluticasone Propionate 0.05% [Flonase Nasal [employer]] 2 spray BNOS DAILY #1 btl 01/09/19 [...] #20 tab Fluticasone Propionate 0.05% [Flonase Nasal [employer]] 2 spray BNOS DAILY #1 btl - [...] Canseco MD on 01/10/19206 < > Normal [facility] ANKLE RIGHT (MIN 3-V)on 01-04 CRANKR Name: SHIRA REYES Phys: MARIA A RODRIGUES,JERILYN : 1995 Age: 22 Sex: M Acct: [id number] Loc: ED Exam Date: 01/28/2018 Status: REG ER Radiology No: [id number] Unit No: [id number] EXAM# TYPE/EXAM RESULT [id number] EDRAD/ANKLE RIGHT (MIN 3-V) SEE REPORT INDICATION: [...] Technologist: KINGA ALFARO Transcribed Date/Time: 01/28/2018 (1915) Executive Advisor: ISABELA Printed Date/Time: 01/28/2018 (1915) PAGE 1 Signed Report Normal [facility] FOOT RIGHT (MIN 3 V)on 01-28 CRFOOTR Name: SHIRA REYES Phys: MARIA A RODRIGUES,JERILYN : 1995 Age: 22 Sex: M Acct: [id number] Loc: ED Exam Date: 01/28/2018 Status: REG ER Radiology No: [id number] Unit No: [id number] EXAM# TYPE/EXAM RESULT [id number] EDRAD/FOOT RIGHT (MIN 3 V) SEE REPORT [...] Technologist: KINGA ALFARO Transcribed Date/Time: 01/28/2018 (2011) Executive Advisor: ISABELA Printed Date/Time: 01/28/2018 (2011) PAGE 1 Signed Report Normal [facility] KNEE RIGHT (3 V)on 8 CRKNEER Name: SHIRA REYES Phys: MARIA A RODRIGUES,JERILYN : 1995 Age: 22 Sex: M Acct: [id number] Loc: ED Exam Date: 01/28/2018 Status: REG ER Radiology No: [id number] Unit No: [id number] EXAM# TYPE/EXAM RESULT [id number] EDRAD/KNEE RIGHT (3 V) SEE REPORT INDICATION: [...] Technologist: KINGA ALFARO Transcribed Date/Time: 01/28/2018 (1916) Executive Advisor: ISABELA Printed Date/Time: 01/28/2018 (1916) PAGE 1 Signed Report Normal [facility] TIBIA AND FIBULA RIGHT (2 V) on 01-28-2018 CRTIBFIR Name: SHIRA REYES Phys: MARIA A RODRIGUES,JERILYN : 1995 Age: 22 Sex: M Acct: [id number] Loc: ED Exam Date: 01/28/2018 Status: REG ER Radiology No: [id number] Unit No: [id number] EXAM# TYPE/EXAM RESULT [id number] EDRAD/TIBIA AND FIBULA RIGHT (2 SEE REPORT [...] Technologist: KINGA ALFARO Transcribed Date/Time: 01/28/2018 (1917) Executive Advisor: ISABELA Printed Date/Time: 01/28/2018 (1917) PAGE 1 Signed Report Normal [facility] Vital Signs Date Time Vital Sign Value Performing Clinician Facility 05-17-2024 14:07-0400 Body height 195.6 cm Karthik Reaves NP Work Phone: [facility] 05-17-2024 14:07-0400 Body mass index (BMI) [Ratio] 29.65 kg/m2 Karthik Reaves NP Work Phone: [facility] 05-17-2024 14:07-0400 Body weight 113.4 kg Karthik Reaves NP Work Phone: [facility] 11-16-2019 06:57-0400 BP Diastolic 83 mm[Hg] [place], [place] 11-16-2019 06:57-0400 BP Systolic 133 mm[Hg] [place] 11-16-2019 06:57-0400 Pulse (Heart Rate) 102 /min [place] 11-16-2019 06:57-0400 Pulse Oximetry 96 % [place] 11-16-2019 06:57-0400 Respiratory Rate 18 /min [facility] [place] 11-16-2019 06:40-0400 Body Temperature 100.71 [degF] [facility] [place] 11-16-2019 04:08-0400 BMI (Body Mass Index) 24.31 kg/m2 [place] 11-16-2019 04:08-0400 Body weight 92.99 kg [place] 11-16-2019 04:08-0400 Height 195.6 cm [facility] [place] 11-15-2019 20:19-0400 Body Temperature 100.09 [degF] [facility], [place] 11-15-2019 20:19-0400 BP Diastolic 89 mm[Hg] [facility] [place] 11-15-2019 20:19-0400 BP Systolic 122 mm[Hg] [facility] [place] 11-15-2019 20:19-0400 Pulse (Heart Rate) 94 /min [facility] 11-15-2019 20:19-0400 Pulse Oximetry 97 % [facility] [place] 11-15-2019 20:19-0400 Respiratory Rate 18 /min [facility] 11-15-2019 15:37-0400 BMI (Body Mass Index) 28.48 kg/m2 [facility] 11-15-2019 15:37-0400 Body weight 95.25 kg [facility] [place] 11-15-2019 15:37-0400 Height 182.9 cm [facility] [place] 06-12-2019 01:28-0400 BP Diastolic 66 mm[Hg] [facility] [place] 06-12-2019 01:28-0400 BP Systolic 105 mm[Hg] [facility] , [place] 06-12-2019 01:28-0400 Pulse (Heart Rate) 66 /min [facility]ger[facility] 06-12-2019 01:28-0400 Pulse Oximetry 97 % [facility] [place] 06-12-2019 01:28-0400 Respiratory Rate 18 /min [facility] 06-11-2019 23:30-0400 BMI (Body Mass Index) 26.78 kg/m2 [facility] 06-11-2019 23:30-0400 Body Temperature 98.6 [degF] [facility] [facility] 06-11-2019 23:30-0400 Body weight 99.79 kg [facility] [place] 06-11-2019 23:30-0400 Height 193 cm [facility] [place] 05-04-2019 02:24-0400 Body Temperature 98.01 [degF] [facility] 05-04-2019 02:24-0400 BP Diastolic 77 mm[Hg] [facility] 05-04-2019 02:24-0400 BP Systolic 120 mm[Hg] [facility] 05-04-2019 02:24-0400 Pulse (Heart Rate) 64 /min [place] 05-04-2019 02:24-0400 Pulse Oximetry 98 % [place], [place] 05-04-2019 02:24-0400 Respiratory Rate 16 /min [place] Encounters Encounter Date Encounter Type Care Provider Facility Start: 02-26-2025 End: 02-27-2025 Emergency department patient visit NO PCP NO PCP [facility] Start: 09-12-2024 End: 09-12-2024 Emergency department patient visit NO PCP NO PCP [facility] Start: 08-04-2024 End: 08-04-2024 Emergency department patient visit NO PCP NO PCP [facility] Start: 06-21-2024 End: 06-21-2024 Emergency department patient visit NO PCP NO PCP [facility] Start: 05-17-2024 End: 05-17-2024 [facility] flowsheet Karthik Reaves SY[employer]CHRONOUS [employer]OR ASSEMBLER Work Phone: [facility] Start: 05-17-2024 End: 05-17-2024 [facility] flowsheet Karthik Reaves [employer]CHRONOUS [employer]OR ASSEMBLER Work Phone: [facility] Start: 05-17-2024 End: 05-17-2024 Office outpatient new 30 minutes Karthik Reaves [employer]OR ASSEMBLER Work Phone: [facility] Comment on above: Stress fracture of m etatarsal bone of right foot, initial encounter (Primary Dx); Right foot pain Start: 05-17-2024 End: 05-17-2024 ambulatory KARTHIK REAVES Not Available Start: 05-13-2024 End: 05-14-2024 Emergency department patient visit PTAEL MCELROY [facility] Start: 04-30-2024 End: 05-01-2024 Emergency department patient visit SUBHA PETERS 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 Facility:[facility] Start: 10-09-2020 End: 10-12-2020 Patient encounter procedure [facility]AAC [facility] Start: 10-09-2020 End: 10-11-2020 Subsequent hospital visit by physician [facility] Xr Room 5 [facility] Comment on above: Injury Start: 11-16-2019 End: 11-16-2019 Emergency department patient visit Physician No [facility] Start: 11-16-2019 End: 11-16-2019 Emergency department patient visit [facility] Comment on above: Viral illness (Prima ry Dx); Febrile illness Start: 11-15-2019 End: 11-15-2019 Emergency department patient visit Physician No [facility] Start: 11-15-2019 End: 11-15-2019 Emergency department patient visit [facility] Comment on above: Cough (Primary Dx); Upper respiratory tract infection, unspecified type Start: 06-18-2019 Patient encounter procedure [facility] Start: 06-12-2019 End: 06-12-2019 Patient encounter procedure [facility] Start: 06-12-2019 End: 06-12-2019 Emergency department patient visit Physician No [facility] Start: 06-11-2019 End: 06-12-2019 Emergency department patient visit Virgil Wayne Work Phone: [facility] Comment on above: Myalgia (Primary Dx) Start: 05-04-2019 End: 05-04-2019 Emergency department patient visit Physician No [facility] Start: 05-04-2019 End: 05-04-2019 Emergency department patient visit [facility] Comment on above: Dentalgia (Primary D x); Gingivitis Start: 01-18-2019 End: 01-18-2019 Emergency department patient visit Physician No [facility] Start: 12-06-2018 End: 12-06-2018 Emergency department patient visit Physician No Family [facility] Start: 01-28-2018 End: 01-28-2018 Emergency department patient visit PHYSI NONSTAFF Facility:[facility] Procedures Date Procedure Procedure Detail Performing Clinician [...] & rev trnscr 08-29 target Attila Ridley [employer] Work Phone: Start: 11-15-2019 GROUP A STREP, REFLEX D avid C [employer] Work Phone: Start: 11-15-2019 Iaadiadoo influenza Luca id C [employer] Work Phone: Start: 06-12-2019 Ct head/brain w/o [...] of 2) Shingles Vaccine (1 of 2) [place], [place] Start: 05-29-2024 End: 05-29-2024 Patient encounter procedure 05/29/2024 9:45 AM EDT Office Visit [facility] [address] [place] [id number] Karthik Reaves, SYNCHRONOUS MOTOR ASSEMBLER [address] [facility] [address] [place], [place] [id number] [facility] Start: 05-17-2024 End: 05-17-2024 Patient encounter procedure 05/17/2024 2:00 PM EDT Office Visit [facility] [address] [place] [address] Karthik Reaves, SYNCHRONOUS MOTOR ASSEMBLER [address] [place], [place] [id number] Arrived [facility] Comment on above: Arrived Start: 05-06-2024 Influenza vaccination Influenza Vacc ine (#1) [facility] Start: 05-06-2020 Influenza vaccination Flu vaccine (# 1) [place] Start: 06-12-2019 End: 06-12-2019 Office Visit 06/12/2019 Office Visit Family Medicine [facility] Start: 05-06-2019 Influenza vaccination Flu vaccine (# 1) [place] Start: 2014 DTaP/Tdap/Td vaccine (1 - Tdap) DTaP/Tdap/Td vaccine (1 - Tdap) [place] Start: 2010 HIV screen HIV screen [place], [place] Start: 2010 [facility] [place] [place] Start: 02-23-2008 Varicella Vaccine (1 of 2 - 13+ 2-dose series) Varicella Vaccine (1 of 2 - 13+ 2-dose series) [place], [place] Start: 2006 HPV vaccine (1 - Mal e 2-dose series) HPV vaccine (1 - Male 2-dose series) [place] Start: 2001 Pneumococcal 0-64 ye ars Vaccine (1 of 1 - PPSV23) Pneumococcal 0-64 years Vaccine (1 of 1 - PPSV23) [place] Start: 02-23-1996 Varicella vaccine (1 of 2 - 2-dose childhood series) Varicella vaccine (1 of 2 - 2-dose childhood series) [place] Start: 1995 Hepatitis C screening Hepatitis C sc reen [place], [place] End: 11-15-2019 Culture, Throat Culture, Throat Microbiology Routine Once for 1 Occurrences starting 11/15/2019 until 11/15/2019 [place] Comment on above: Once for 1 Occurrenc es starting 11/15/2019 until 11/15/2019 Culture, Throat Culture, Throat Microbiology Routine 11/15/2019 3:40 PM EDT [place] End: 11-15-2019 Miscellaneous sendout 1 Miscellaneous sendout 1 Lab STAT One Time for 1 Occurrences starting 11/15/2019 until 11/15/2019 [place] Comment on above: One Time for 1 Occur rences starting 11/15/2019 until 11/15/2019 Miscellaneous sendout 1 Miscella neous sendout 1 Lab STAT 11/15/2019 8:00 PM EDT [facility] [place] [place] Payers Date Payer Category Payer Unknown [id number] 2023 Unknown BCBS BCBS xxxxxx [id number] 2023-Present [phone] [address] [place] [address] [id number] 2023 Unknown [id number] 2020 Unknown [id number] 2019 Medicaid MEDICAID [facility] DEPT OF JOB xxxxxxxxxxxx 2019-Present [phone] [address] [place] [address] xxxxxxxxxxxx [id number] 2019 Medicaid [id number] 2019 Self-pay 2015 Unknown [id number] 1995 Unknown [id number] .93 1995 Unknown [id number] 20.1.766527.3.579.2 .93 1995 Unknown [id number] 2.840.1.280839.3.579.2 .93 1995 Unknown [id number] 2.840.1.578133.3.579.2 .93 1995 Unknown [id number] 2.840.1.974508.3.579.2 .93 1995 Unknown [id number] 2.840.1.990736.3.579.2 .176 1995 Unknown [id number] 2.16.840.1.802626.3.579.2 .176 1995 Unknown [id number] 2.16.840.1.835356.3.579.2 .196 1995 Unknown [id number] 2.16.840.1.679436.3.579.2 .1259 1995 Unknown [id number] 2.16.840.1.980918.3.579.2 .1286 1995 Unknown [id number] 2.16.840.1.631250.3.579.2 .1286 1995 Unknown [id number] 2.16.840.1.347835.3.579.2 .1286 1995 Unknown [id number] 2.16.840.1.600174.3.579.2 .1286 1995 Unknown [id number] 2.16.840.1.338718.3.579.2 .1286 1995 Unknown [id number] 2.16.840.1.503101.3.579.2 .1286 1995 Unknown [id number] 2.16.840.1.931134.3.579.2 .1286 1995 Unknown [id number] 2.16.840.1.951279.3.579.2 .1286 Private Health Insurance [id number] Social History Date Type Detail Facility Start: 12-06-2018 End: 05-17-2024 Tobacco smoking status NHIS Current every day smoker [place], [place] Start: 09-05-2013 History of tobacco use Cigarette Smo ker [place] Start: 12-06-2018 End: 05-17-2024 Cigarettes smoked current (pack per day) - Reported [place] Start: 12-06-2018 End: 05-17-2024 Alcohol intake Yes [place] Start: 01-06-2016 Alcohol Comment social [place], [place] Start: 1995 Sex Assigned At Not on file [place], [place] Start: 06-12-2019 End: 11-16-2019 Alcohol intake Current drinker of alcohol (finding) [employer] [place], [facility] Start: 11-16-2019 End: 03-29-2023 Tobacco use and exposure Never used [email or web address] [place], [facility] Start: 03-29-2023 [facility] Start: 03-29-2023 [...] 04/27/24 (2 WKS 6 DAYS), 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 WENT TO [facility] ER 04/30, HAD XR. WENT BACK TO [facility] ER 05/13, HAD XR AND GIVEN POST OP SHOE. XRAY [facility] 05/13/24 XRAY [facility] 04/30/24 WEARING POST OP SHOE, LITTLE [...] no instability. IMAGING: I reviewed xrays from [facility] of the right foot that was read by radiologist as no fractures but I believe that there is a stress fracture of the 3rd MT shaft and a possible stress fracture of 2nd MT shaft. Procedures ASSESSMENT: ICD-10-CM 1. Stress fracture of metatarsal bone of right foot, initial encounter M84.374A 2. Right foot pain M79.671 PLAN: I reviewed xray from [facility] and believe that there is a [...] develop for requiring urgent evaluation. Karthik Reaves APRN-FRAMING MANAGER documented in this encounter [facility] Clinical Note 06-16-2023 Note Date & Type Note Facility 06-16-2023 Note Patient Education Ma terials Name: Georgiana Reyes Current Date: 06/16/2023 10:22:48 [place] : 1995 The following sheet(s) are the Patient Education Leaflets for Georgiana Reyes [facility] Evaluation note Note Date & Type Note Facility Evaluation note Diagnosis Stress fracture of metatarsal bone of right foot, initial encounter- Primary Right foot pain Pain in soft tissues of limb documented in this encounter [facility] Healthcare Summary Purpose Family History No Family History Records FoundNo Family History Records FoundNo Family History Records FoundNo Family History Records FoundNo Family History Records FoundNo Family History Records FoundNo Family History Records Found Advance Directives No Advanced Directives Records FoundDocuments on File Type Date Recorded Patient Production Team Advisor Expl anation Advance Directives and Living Will Power of Coal Drier Operator Documents on File Type Date Recorded Patient Production Team Advisor Expl anation Advance Directives and Kenneth g Will Power of Coal Drier Operator 09/05/2014 12:00 AM Documents on File Type Date Recorded Patient Production Team Advisor Expl anation ACP-Advance Directive ACP-Power of Coal Drier Operator 09/05/2014 12:00 AM Discharge Instructions * Instructions* Tatiana Marks APRN - FRAMING MANAGER - 05/04/2019 [place] and floss. Use mouthwash twice a day. Return for fever. You need to see a dentist. * Attachments The following attachments cannot be sent through Care Everywhere. * Periodontal Conditions (Iraqi) * Tooth and Gum Pain (Iraqi) documented in this encounter* Attachments The following attachments cannot be sent through Care Everywhere. * Cramp: Muscle (Iraqi) documented in this encounter* Instructions* Lashonda Chaudhari [...] instructions. Please call the emergency department at [phone] prior toreturning so that we can prepare for your arrival. Your results should be available in 3 to 5 days.Please quarantine yourself during that time and further instructions will be provided by the [facility]. * Attachments The following attachments cannot be sent through Care Everywhere. * Cough (Iraqi) documented in this encounter* Instructions* Red Phillips [...] through Care Everywhere. * Fever: General Info (Iraqi) documented in this encounter Assessments Diagnosis Dentalgia- [...] section and content) DATE CREATED AUTHOR 2018 [facility] DATE CREATED AUTHOR AUTHOR'S ORGANIZ ATION 01/25/2019 [facility] DATE CREATED AUTHOR AUTHOR'S ORGANIZ ATION 12/05/2019 [facility] DATE CREATED AUTHOR AUTHOR'S ORGANIZ ATION 10/12/2020 [facility] DATE CREATED AUTHOR AUTHOR'S ORGANIZ ATION 06/18/2023 [facility] DATE CREATED AUTHOR AUTHOR'S ORGANIZ ATION 05/19/2024 [facility] DATE CREATED AUTHOR AUTHOR'S ORGANIZ ATION 02/28/2025 [facility] Reason for Visit (unrecogniz ed section and content) Reason Comments Dental Pain x 8 months Reason Comments Spasms bilateral legs and a rm Reason Comments Fever Cough Reason Comments Fever Reason Comments Pain Care Teams (unrecognized sec tion and content) Vmware Engineer Relationship Specialty Start Date End Date Unallocated, Karl Malave MD [address] [place] [address] PCP - General Family Medicine 05/17/24 Vmware Engineer Relationship Specialty Start Date End Date Unallocated, Karl Malave MD [address] [place] [address] PCP - General Family Medicine 05/17/24 FOR [...] BE BASED ON THE PRIMARY CLINICAL RECORDS. [facility]. provides no warranty or guarantee of the accuracy or completeness of information in this document.
--- OUTSIDE RECORDS SUMMARY | 2025-05-26 17:57 | XMS_ITS | Clinical Summary ---
Author Organization [facility] Address [address], [address] [place] [address] Care Team Providers Care Lung Gun Operator Name Role Phone Unavailable Primary Care Provider [...] Cigarette/ Tobacco use Lifestyle No Maribell Glass, SCIENCE PROFESSOR ([facility]) Advance Directives Documents on File Type Date Recorded Patient Manager Account Management Expl anation ACP-Power of Executive Sous Chef 09/05/2014
--- OUTSIDE RECORDS SUMMARY | 2025-05-26 17:57 | XMS_ITS | Encounter Summary ---
Author Organization [employer] tem Address [id number] [address] [place] [address] Care Team Providers Care Seam Stayer Name Role Phone No Pcp, No Pcp Primary Care Provider Unavailabl e Encounter Details Date Type Department Care Team (Late st Contact Info) Description 11/10/2021 Telephone [facility] - [facility] Imaging [address] [place] [address] Alize Morales, RN Social History [...] documented as of this encounter Care Teams Seam Stayer Relationship Specialty Start Date End Date No Pcp, [place] [address] PCP - General Family Medicine 06/21/24 documented as of this encounter
--- OUTSIDE RECORDS SUMMARY | 2025-05-26 17:57 | XMS_ITS | Clinical Summary ---
Author Organization [employer] tem Address [id number] [place] [address] Care Team Providers Care Rda Name Role Phone No Pcp, No Pcp [...] EDT - 02/27/2025 12:[address] [facility] - Emergency [address] [place] [address] Sherif Berumen MD Chest pain, [...] 2 <21 ng/L 02/26/2025 11:48 PM EDT [facility] Blood Venous blood / Unknown 02/26/2025 10:56 PM EDT 02/26/2025 11:00 PM EDT us Sherif Berumen MD LAB BLOOD ORDERABLES Final Res ult [facility] [address] [place] [address] [place] [address], [place] * Troponin I, High Sensitivity 0 Hour (02/26/2025 10:01 PM EDT) TROPONIN I, HIGH SENSITIVITY 3 <21 ng/L 02/26/2025 10:37 PM EDT [facility] Blood Venous blood / Unknown 02/26/2025 10:01 PM EDT 02/26/2025 10:03 PM EDT us Sherif Berumen MD LAB BLOOD ORDERABLES Final Res ult Performing Organization Address City/[facility]/ZIP Co de Phone Number [address] [place] [address], [place] * CBC auto differential (02/26/2025 10:01 PM EDT) WBC 6.4 4 - 11 x10E9/L 02/26/2025 10:13 PM EDT [facility] RBC Count 4.99 4.1 - 5.7 X10E12/L 02/26/2025 10:13 PM EDT [facility] Hemoglobin 14.2 13 - 17 g/dL 02/26/2025 10:13 PM EDT [facility] Hematocrit 41.2 39 - 50 % 02/26/2025 10:13 PM EDT [facility] MCV 83 80 - 100 fL 02/26/2025 10:13 PM EDT [facility] MCH 28.5 27 - 34 pg 02/26/2025 10:13 PM EDT [facility] MCHC 34.6 32 - 36 g/dL 02/26/2025 10:13 PM EDT [facility] RDW 13.9 11.5 - 15 % 02/26/2025 10:13 PM EDT [facility] Platelet Count 202 150 - 450 X10E9/L 02/26/2025 10:13 PM EDT [facility] MPV 8.7 7 - 12 fL 02/26/2025 10:13 PM EDT [facility] Neutrophils % 60.1 % 02/26/2025 10:13 PM EDT [facility] Lymphocytes % 28.6 % 02/26/2025 10:13 PM EDT [facility] Monocytes % 8.8 % 02/26/2025 10:13 PM EDT [facility] Eosinophils % 2.0 % 02/26/2025 10:13 PM EDT [facility] Basophils % 0.5 % 02/26/2025 10:13 PM EDT [facility] Neutrophils Absolute (A) 3.8 1.5 - 6.6 10*3/uL 02/26/2025 10:13 PM EDT [facility] Lymphocytes Absolute 1.8 1.0 - 3.5 10*3/uL 02/26/2025 10:13 PM EDT [facility] Monocytes Absolute 0.6 0.0 - 0.9 10*3/uL 02/26/2025 10:13 PM EDT [facility] Eosinophils Absolute 0.1 0.0 - 0.4 10*3/uL 02/26/2025 10:13 PM EDT [facility] Basophils Absolute 0.0 0.0 - 0.2 10*3/uL 02/26/2025 10:13 PM EDT [facility] Differential Type AUTOMATED DIFFERENTIAL 02/26/2025 10:13 PM EDT [facility] Blood Venous blood / Unknown 02/26/2025 10:01 PM EDT 02/26/2025 10:03 PM EDT us Sherif Berumen MD LAB BLOOD ORDERABLES Final Res ult [facility] [address] [place] [address], [place] * D-Dimer (02/26/2025 10:01 PM EDT) D DIMER <150 1 - 255 ug/mL 02/26/2025 10:21 PM EDT [facility] Comment:Results <255 ng/mL D DU: The [...] MD LAB BLOOD ORDERABLES Final Res ult [facility] [address] [place] [address], [place] * (ABNORMAL) Basic Metabolic Panel (02/26/2025 10:01 PM EDT) Pathologist [facility] SODIUM 138 134 - 146 mmol/L 02/26/2025 10:21 PM EDT [facility] POTASSIUM 3.6 3.5 - 5.0 mmol/L 02/26/2025 10:21 PM EDT [facility] CHLORIDE 110(H) 98 - 109 mmol/L 02/26/2025 10:21 PM EDT [facility] CARBON DIOXIDE 24 22 - 32 mmol/L 02/26/2025 10:21 PM EDT [facility] ANION GAP 4(L) 5 - 15 mmol/L 02/26/2025 10:21 PM EDT [facility] BLOOD UREA NITROGEN 13 5 - 23 mg/dL 02/26/2025 10:21 PM EDT [facility] CREATININE 0.87 0.70 - 1.20 mg/dL 02/26/2025 10:21 PM EDT [facility] Comment:METHOD TRACEABLE TO IDMS STANDARD GLUCOSE 104(H) 65 - 99 mg/dL 02/26/2025 10:21 PM EDT [facility] CALCIUM 8.9 8.5 - 10.5 mg/dL 02/26/2025 10:21 PM EDT [facility] EGFR Non-Race Dependent >90 >=60 ml/min/1.7 3sq.m 02/26/2025 10:21 PM EDT [facility] Comment: Reported eGFR is based on the CKD-EPI 2020 equation that does not use a race coefficient. Blood Venous blood / Unknown 02/26/2025 10:01 PM EDT 02/26/2025 10:03 PM EDT Sherif Berumen MD LAB BLOOD ORDERABLES Final Res ult [facility] [address] [place] [address], [place] * ECG 12 lead (02/26/2025 9:10 PM EDT) 02/26/2025 9:10 PM EDT Narrative [facility] - 02/26/2025 11:27 PM EDT Sherif Berumen MD ECG ORDERABLES Final Result [facility] from Last 3 Months Care Teams Rda Relationship Specialty Start Date End Date No Pcp, [place] [address] PCP - General Family Medicine 06/21/24
--- NOTE | 2025-05-26 17:58 | ED.GENADUL1 ---
HPI HPI - General Adult General Chief complaint: Nausea/Vomiting/Diarrhea Stated complaint: Abdominal Pain Time Seen by Provider: 05/26/25 17:49 Source: patient Mode of arrival: walk-in Limitations: no limitations History of Present Illness HPI narrative: Patient is a 30-year-old male presents to the ER with concerns of persistent symptoms of headache nausea, dizziness and abdominal cramps. Patient was seen in the ER 2 weeks ago and states symptoms have persisted. He has had 1 or 2 days with a normal bowel movement but otherwise will have diarrhea approximately 4-5 times a day. He denies blood or pus. He has also been having headaches left frontal described as moderate aching and notes at the end of his work shift and when laying down flat he gets a room spinning sensation. Patient reports having frequent headaches in the past but they have been gone for some time until recently returning. He is doing new employment for the last 3 months but states symptoms only started within the last 2 weeks. He denies any recent antibiotic use or [id number] travels. He denies anyone with known illness at home. He denies having excessive stress. Patient states his abdominal discomfort is 5 out of 10. He is still able to eat and drink. I feel like my body floating.. Pt describes it as being drunk , but has not had alcohol in 14 months. Location: Reports head and abdomen Radiation: Reports non-radiation Quality: Reports aching Pain Consistency: Reports constant Relieving factors: Reports none Exacerbating factors: Reports none Associated symptoms: Reports headaches, nausea/vomiting and weakness; Denies confusion, chest pain, cough, diaphoresis, fever/chills, rash, seizure, shortness of breath or syncope Related Data Previous Rx's ?Medication ?Instructions ?Recorded dicyclomine 20 mg tablet 20 mg PO TID PRN abdominal pain 2 05/26/25 days #6 tabs ondansetron HCl 4 mg tablet 4 mg PO Q6H PRN nausea and 05/26/25 vomiting #12 tabs Allergies Allergy/AdvReac Type Severity Reaction Status Date / Time No Known Drug Allergies Allergy Verified 05/26/25 17:55 Opioid HPI Opioid Management Most Recent Opioid Data: Last Pain Scale 6 Today, 17:52 Review of Systems ROS Constitutional Denies: fever or chills Eyes Denies: change in vision or blurry vision Ears, nose, mouth, and throat Denies: throat pain, neck pain or throat swelling Cardiovascular Denies: chest pain, palpitations, edema or swelling of feet/ankles Respiratory Denies: shortness of breath, cough, wheezing or stridor Gastrointestinal Reports: abdominal pain, nausea, vomiting and diarrhea Genitourinary Denies: painful urination Musculoskeletal Denies: back pain, neck pain, extremity pain or extremity swelling Integumentary/Breast Denies: rash Neurological Reports: headache and dizziness; Denies: numbness in extremities or weakness in extremities Psychiatric Denies: anxiety Endocrine Denies: excessive urination Hematologic/Lymphatic Denies: easy bruising [facility] Medical History (Updated 05/26/25 @ 19:05 by DAJA Parirsh) No pertinent past medical history ?Z78.9 - Other specified health status (ICD-10) Surgical History (Updated 05/11/25 @ 16:48 by Leonidas Hannon) No pertinent past surgical history ?Z78.9 - Other specified health status (ICD-10) Social History Little interest or pleasure in doing things: not at all Feeling down, depressed, or hopeless: not at all Exam Narrative Exam Narrative: Vital signs and nurses notes reviewed. The patient is not hypoxic. General: The patient appears well and in no apparent distress. Patient is resting comfortably on cart. Skin: Warm, dry, no pallor noted. The patient has no evidence of rash, petechiae, or purpura noted. Head: Normocephalic, atraumatic, no temporal arterial tenderness Neck: Supple, trachea mid-line, no tenderness, no lymphadenopathy. No meningeal signs. No nuchal rigidity. Eye: Pupils are equal, round and reactive to light, EOMI Ears, Nose, Mouth, and Throat: Normal to external inspection, oral mucosa moist. Poor dentition. Cardiovascular: Regular Rate and Rhythm Respiratory: Patient is in no distress, no accessory muscle use, lungs are clear to auscultation, no wheezing, rales or rhonchi Back: non-tender, no CVA tenderness Musculoskeletal: normal ROM, no tenderness, no swelling, normal strength 5/5. Normal pulses to radial 2+ bilaterally and 2+ at DP and PT bilaterally and symmetrically. GI: Normal bowel sounds, tenderness and soreness on generalized palpation, no masses appreciated. No rebound, guarding, or rigidity noted. Abdomen appears nonsurgical. Neurological: A&O x4, normal equal chief librarian branch strength. The patient is not ataxic. The patient has normal speech. The patient has normal coordination. . Normal motor and sensory observed. Psychiatric: Cooperative Constitutional Vital Signs, click to edit/add: Last Vital Signs Temp 98.8 F 05/26/25 17:52 Pulse 68 05/26/25 17:52 Resp 14 05/26/25 17:52 BP 131/83 05/26/25 17:52 Pulse Ox 99 05/26/25 17:52 O2 Del Method Room Air 05/26/25 17:52 Course Vital Signs Vital signs: Vital Signs Temperature 98.8 F 05/26/25 17:52 Pulse Rate 68 05/26/25 17:52 Respiratory Rate 14 05/26/25 17:52 Blood Pressure 131/83 05/26/25 17:52 Pulse Oximetry 99 05/26/25 17:52 Oxygen Delivery Method Room Air 05/26/25 17:52 Temperature 98.8 F 05/26/25 17:52 Pulse Rate 68 05/26/25 17:52 Respiratory Rate 14 05/26/25 17:52 Blood Pressure 131/83 05/26/25 17:52 Pulse Oximetry 99 05/26/25 17:52 Oxygen Delivery Method Room Air 05/26/25 17:52 Medical Decision Making MDM Narrative Medical decision making narrative: Patient presents approximately 2 weeks after previous ER visit with similar symptoms not improving complaining of nausea vomiting diarrhea and headache. Reviewed previous CT of the abdomen. Environmental exposures at work but patient states symptoms have been present even outside of work. Gated patient medicated with IV Zofran IV fluid bolus and 2 mg IV Valium for his dizziness and GI symptoms. Patient reevaluated, notes abdominal pain and nausea are better, headache still mild but improved. He appears in no distress sitting on his phone doing a video chat. We discussed his CT of the brain with prominence of the subarachnoid space overlying the right cerebellar hemisphere, unchanged from prior CT on 11/23/2024. Patient aware developmental change from when he was a child stating that his brain did not fully form. Previous differential for this was an arachnoid cyst as we discussed the patient's frequent history of headaches and dizziness with laying down we are recommending that he follow-up with neurology for ongoing evaluation into symptoms given the frequency and chronicity of his symptoms. He has no focal deficits today. States the Valium did help with his symptoms. He is able to ambulate without difficulty we discussed his laboratory studies and persistent abdominal symptoms. He is unable to provide us today with a sample of stool and states that he has had solid stools despite frequency of symptoms. Elevated total bili we will check an outpatient gallbladder ultrasound to be safe pending follow-up with his PCP if the study is negative the patient is aware that he may need GI consultation given persistent symptoms. Patient was thankful for time spent at bedside with multiple conditions discussed in layman's terms. Patient lives in the [facility] and was given both providers in the [facility] and [facility] for prompt follow-up. The patient is to followup with primary care physician in next 2-3 days or to return to the emergency department should any of the signs or symptoms worsen or new symptoms develop. Patient had questions answered. The patient agrees with the following Diagnosis and Treatment plan and the patient will be discharged home. Medical Records Medical records reviewed: Yes I reviewed the patient's medical records Medical records narrative: CT abdomen and pelvis performed 05/11/2025 shows no acute process. Lab Data Labs: Lab Results 05/26/25 Range/Units 17:56 WBC 5.6 (4.0-11.0) 10^3/uL RBC 5.17 (4.70-6.10) 10^6/uL Hgb 14.6 (14.0-18.0) g/dL Hct 43.8 (42.0-54.0) % MCV 84.7 (80.0-94.0) fL MCH 28.2 (25.9-34.0) pg MCHC 33.3 (29.9-35.2) g/dL RDW 13.1 (11.0-15.0) % Plt Count 207 (150-450) 10^3/uL MPV 10.8 (9.5-13.5) fL Neut % (Auto) 59.3 (43.0-75.0) % Lymph % (Auto) 28.9 (20.5-60.0) % [place] % (Auto) 9.3 (1.7-12.0) % Eos % (Auto) 1.6 (0.9-7.0) % Baso % (Auto) 0.5 (0.2-2.0) % Neut # (Auto) 3.3 (1.4-6.5) 10^3/uL Lymph # (Auto) 1.6 (1.2-3.8) 10^3/uL [place] # (Auto) 0.5 (0.3-0.8) 10^3/uL Eos # (Auto) 0.1 (0.0-0.7) 10^3/uL Baso # (Auto) 0.0 (0.0-0.1) 10^3/uL Abs Immat Gran (auto) 0.02 (0.00-0.03) 10^3/uL Imm/Tot Granulo (auto) 0.4 (0.0-0.5) % Sodium 140 (136-145) mmol/L Potassium 3.8 (3.5-5.1) mmol/L Chloride 106 (98-107) mmol/L Carbon Dioxide 25.6 (21.0-32.0) mmol/L Anion Gap 12.2 BUN 14.0 (7.0-18.0) mg/dL Creatinine 0.92 (0.70-1.30) mg/dL Est GFR ( Amer) >60 (>=60 mL/min/1.73m^2) Est GFR (Non-Af Amer) >60 (>=60 mL/min/1.73m^2) BUN/Creatinine Ratio 15.2 Glucose 112 H (74-106) mg/dL Lactate 0.9 (0.4-2.0) mmol/L Calcium 9.3 (8.5-10.1) mg/dL Total Bilirubin 1.6 H (0.2-1.0) mg/dL AST 17 (15-37) U/L ALT 37 (16-63) U/L Alkaline Phosphatase 68 (46-116) U/L Troponin I High Sens <4.0 L (4.0-76.1) pg/mL Total Protein 7.8 (6.4-8.2) g/dL Albumin 4.1 (3.4-5.0) g/dL Globulin 3.7 g/dL Albumin/Globulin Ratio 1.1 Lipase 20.0 (16.0-77.0) U/L TSH & Free T4 Interp 0.807 (0.358-3.740) uIU/mL Imaging Data CT scan - head: Radiologist's impression: ITS Impressions Head CT 05/26/25 18:04 IMPRESSION: NO ACUTE INTRACRANIAL ABNORMALITY. Impression dictated by: Ollie Mcgraw M.D. 05/26/2025 6:48 PM Dictation Location: [place] [address] Electronically authenticated by: [id number] Y Date: 05/26/2025 18:48 ECG Data Attestation: I personally reviewed and interpreted this ECG as follows: Interpretation: EKG interpretation: Emergency Department physician interpretation, normal sinus rhythm 66, no ectopy, no ST segment elevation, normal axis. Discharge Plan Discharge Chief Complaint: Nausea/Vomiting/Diarrhea Clinical Impression: Cephalalgia, Abdominal pain, Nausea vomiting and diarrhea Patient Disposition: Home, Self-Care Time of Disposition Decision: 19:05 Condition: Good Prescriptions / Home Meds: New ondansetron HCl 4 mg tablet 4 mg PO Q6H PRN (Reason: nausea and vomiting) Qty: 12 0RF dicyclomine 20 mg tablet 20 mg PO TID PRN (Reason: abdominal pain) 2 Days Qty: 6 0RF Print Language: Pashto Instructions: Abdominal Pain (ED), General Headache (ED) Additional Instructions: Follow-up with Opal Sheffield NP, of [facility] to establish primary care- re-evalluation and possible neurology referral Neurology Numbers given for follow up on possible arachnoid cyst in ( pt aware from young age)- history of frequent headaches. dizziness lying down. Gall Bladder ultrasound to be done tomorrow 05/27/25 at 10:30 am. do not eat or drink for 8 hours prior to study... Referrals: Ellen Hoang, [facility] [Physician] - As soon as possible
--- NOTE | 2025-05-26 18:04 | CT_ITS ---
The [address] [address] Patient Name: GEORGIANA MARTIN MRN: [id number] date: 1995 Sex: M Assigned Patient Location: ER Current Patient Location: ED.MAIN Accession/Order Number: [id number] Exam Date: 05/26/2025 18:30 Report Date: 05/26/2025 18:48 At the request of: DEBBI FARNSWORTH Procedure: CT head/brain wo con CT BRAIN WITHOUT CONTRAST: CLINICAL HISTORY: persistent headache COMPARISON: 11/23/2024 TECHNIQUE: Contiguous axial unenhanced images were obtained through the brain. This CT exam was performed using one or more following dose reduction techniques: Automated exposure control, adjustment of the mA and/or kV according to patient size, or use of iterative reconstruction technique. FINDINGS: There is no evidence of midline shift, hemorrhage or CT evidence of acute large vascular distribution stroke. Prominence of subarachnoid space overlying the right cerebellar hemisphere appears unchanged. Visualized intraorbital contents appear unremarkable. Visualized paranasal sinuses are clear. The surrounding soft tissues are normal. CT/CT head/brain wo con IMPRESSION: NO ACUTE INTRACRANIAL ABNORMALITY. Impression dictated by: Ollie Mcgraw M.D. 05/26/2025 6:48 PM Dictation Location: [place] [address] Electronically authenticated by: [id number] Y Date: 05/26/2025 18:48
--- NOTE | 2025-05-26 18:06 | ECG_ITS ---
The [facility] Test Date: 2025-05-26 Pat Name: GEORGIANA MARTIN Department: Room: - Gender: Male Supervisor Drawing: : 1995 Requested By: [id number] Order Number: [id number] Reading MD: REZA CASTILLO M.D. Measurements Intervals [place] Rate: 66 P: 42 OR: 130 QRS: 24 QRSD: 82 T: 16 QT: 366 QTc: 380 Interpretive Statements 1100 Sinus rhythm 1102 Sinus arrhythmia 8102 Low QRS voltage in chest leads 9120 atypical ECG Compared to ECG 11/29/2020 09:49:58 Low QRS voltage now present Electronically Signed On 05-27-2025 7:08:26 EDT by REZA CASTILLO M.D.
[2025-05-26 18:14] LABS: Hematocrit 43.8 % (42.0-54.0); Hemoglobin 14.6 g/dL (14.0-18.0); Immature Granulocytes Abs Auto 0.02 10^3/uL (0.00-0.03); Immature Granulocytes Pct Auto 0.4 % (0.0-0.5); Lymphocytes Absolute Auto 1.6 10^3/uL (1.2-3.8); Mean Corpuscular HGB Conc 33.3 g/dL (29.9-35.2); Mean Corpuscular Hemoglobin 28.2 pg (25.9-34.0); Mean Corpuscular Volume 84.7 fL (80.0-94.0); Platelet Count 207 10^3/uL (150-450); Red Blood Count 5.17 10^6/uL (4.70-6.10); White Blood Count 5.6 10^3/uL (4.0-11.0)
[2025-05-26] MEDS: KETOROLAC TROMETHAMINE 30 MG/ML VIAL IVP (18:15)
[2025-05-26] MEDS: DIAZEPAM 10 MG/2 ML SYRINGE 2 MG IV (18:15)
[2025-05-26] MEDS: 0.9 % SODIUM CHLORIDE 1,000 ML 999 ML IV (18:15)
[2025-05-26 18:34] LABS: Lactate/Lactic Acid 0.9 mmol/L (0.4-2.0)
[2025-05-26 18:40] LABS: Alanine Aminotransferase 37 U/L (16-63); Albumin Globulin Ratio 1.1; Albumin Level 4.1 g/dL (3.4-5.0); Alkaline Phosphatase 68 U/L (46-116); Anion Gap 12.2; Aspartate Amino Transferase 17 U/L (15-37); Blood Urea Nitrogen 14.0 mg/dL (7.0-18.0); Calcium 9.3 mg/dL (8.5-10.1); Carbon Dioxide 25.6 mmol/L (21.0-32.0); Chloride 106 mmol/L (98-107); Estimated GFR (African America >60 (>=60 mL/min/1.73m^2); Estimated GFR (Non-African Ame >60 (>=60 mL/min/1.73m^2); Globulin 3.7 g/dL; Glucose 112 mg/dL (74-106); Lipase 20.0 U/L (16.0-77.0); Potassium 3.8 mmol/L (3.5-5.1); Sodium 140 mmol/L (136-145); TSH W/ REFLEX FT4 0.807 uIU/mL (0.358-3.740); Total Protein 7.8 g/dL (6.4-8.2)
[2025-05-26 19:23] VITALS: BP 128/77; PULSE 64; TEMP 37.1; O2SAT 98
== END 2025-05-26 19:26 | disposition home or self-care (01) ==
PROVIDERS: Personal Emergency Response Attendant; Emergency Provider Emergency Medicine
DX: R10.9 Unspecified abdominal pain (principal); R51.9 Headache, unspecified; R11.2 Nausea with vomiting, unspecified; R19.7 Diarrhea, unspecified
CPT/HCPCS: 36415; 70450; 80053; 81001; 83605; 83690; 84443; 84484; 85025; 93005; 96361; 96374; 96375; 99285; J1885; J2405; J3360

== ENCOUNTER 2025-05-27 10:02 | Outpatient (OUT) | payer SELFPAY ==
--- OUTSIDE RECORDS SUMMARY | 2025-05-27 10:04 | XMS_ITS | Clinical Summary ---
Author Organization [facility] Address [address], [address] [place] [address] Care Team Providers Care Surveillance Operator Name Role Phone Unavailable Primary Care [...] Cigarette/ Tobacco use Lifestyle No Maribell Glass, FACE WORKER ([facility]) Advance Directives Documents on File Type Date Recorded Patient Insurance Verification Rep Expl anation [employer] of Prune Washer 09/05/2014
--- OUTSIDE RECORDS SUMMARY | 2025-05-27 10:04 | XMS_ITS | Patient Health Record ---
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
--- OUTSIDE RECORDS SUMMARY | 2025-05-27 10:05 | XMS_ITS | Encounter Summary ---
Author Organization [employer] tem Address [id number] [address] [place] [address] Care Team Providers Care Referral Clerk Name Role Phone No Pcp, No Pcp Primary Care Provider Unavailabl e Encounter Details Date Type Department Care Team (Late st Contact Info) Description 11/12/2021 Telephone [facility] - CT Imaging [address] [place] [address] Alize Morales, RN Social History [...] documented as of this encounter Care Teams Referral Clerk Relationship Specialty Start Date End Date No Pcp, [place] [address] PCP - General Family Medicine 06/21/24 documented as of this encounter
--- OUTSIDE RECORDS SUMMARY | 2025-05-27 10:05 | XMS_ITS | Encounter Summary ---
Author Organization [employer] tem Address [id number] [address] [place] [address] Care Team Providers Care Motor Vehicle Light Assembler Name Role Phone No Pcp, No Pcp Primary Care Provider Unavailabl e Encounter Details Date Type Department Care Team (Late st Contact Info) Description 11/10/2021 Telephone [facility] - CT Imaging [address] [place] [address] Alize Morales, RN Social History [...] documented as of this encounter Care Teams Motor Vehicle Light Assembler Relationship Specialty Start Date End Date No Pcp, [place] [address] PCP - General Family Medicine 06/21/24 documented as of this encounter
--- OUTSIDE RECORDS SUMMARY | 2025-05-27 10:05 | XMS_ITS | Encounter Summary ---
Author Organization [employer] [facility] tem Address [id number] [address] [place] [address] Care Team Providers Care Quality Assurance Qa Lab Analyst Name Role Phone No Pcp, No Pcp Primary Care Provider Unavailabl e Encounter Details Date Type Department Care Team (Late st Contact Info) Description 11/17/2021 Telephone [facility] - CT Imaging [address] [place] [address] Alize Morales, RN Social History [...] documented as of this encounter Care Teams Quality Assurance Qa Lab Analyst Relationship Specialty Start Date End Date No Pcp, [place] [address] PCP - General Family Medicine 06/21/24 documented as of this encounter
--- OUTSIDE RECORDS SUMMARY | 2025-05-27 10:05 | XMS_ITS | Clinical Summary ---
Author Organization [employer] tem Address [id number] [address] [place] [address] Care Team Providers Care Vp Organizational Development Name Role Phone No Pcp, No Pcp [...] EDT - 02/27/2025 12:43 AM EDT Emergency [facility] - Emergency [address] [place] [address] Sherif Berumen MD Chest pain, [...] 2 <21 ng/L 02/26/2025 11:48 PM EDT [facility] Blood Venous blood / Unknown 02/26/2025 10:56 PM EDT 02/26/2025 11:00 PM EDT us Sherif Berumen MD LAB BLOOD ORDERABLES Final Res ult [facility] [address] [place] [address] [place] [address], [place] * Troponin I, High Sensitivity 0 Hour (02/26/2025 10:01 PM EDT) TROPONIN I, HIGH SENSITIVITY 3 <21 ng/L 02/26/2025 10:37 PM EDT [facility] Blood Venous blood / Unknown 02/26/2025 10:01 PM EDT 02/26/2025 10:03 PM EDT us Sherif Berumen MD LAB BLOOD ORDERABLES Final Res ult Performing Organization Address City/[facility]/ZIP Co de Phone Number [address] [place] [address], [place] * CBC auto differential (02/26/2025 10:01 PM EDT) WBC 6.4 4 - 11 x10E9/L 02/26/2025 10:13 PM EDT [facility] RBC Count 4.99 4.1 - 5.7 X10E12/L 02/26/2025 10:13 PM EDT [facility] Hemoglobin 14.2 13 - 17 g/dL 02/26/2025 10:13 PM EDT [facility] Hematocrit 41.2 39 - 50 % 02/26/2025 10:13 PM EDT [facility] MCV 83 80 - 100 fL 02/26/2025 10:13 PM EDT [facility] MCH 28.5 27 - 34 pg 02/26/2025 10:13 PM EDT [facility] MCHC 34.6 32 - 36 g/dL 02/26/2025 10:13 PM EDT [facility] RDW 13.9 11.5 - 15 % 02/26/2025 10:13 PM EDT [facility] Platelet Count 202 150 - 450 X10E9/L 02/26/2025 10:13 PM EDT [facility] MPV 8.7 7 - 12 fL 02/26/2025 10:13 PM EDT [facility] Neutrophils % 60.1 % 02/26/2025 10:13 PM EDT [facility] Lymphocytes % 28.6 % 02/26/2025 10:13 PM EDT [facility] Monocytes % 8.8 % 02/26/2025 10:13 PM EDT [facility] Eosinophils % 2.0 % 02/26/2025 10:13 PM EDT [facility] Basophils % 0.5 % 02/26/2025 10:13 PM EDT [facility] Neutrophils Absolute (A) 3.8 1.5 - 6.6 10*3/uL 02/26/2025 10:13 PM EDT [facility] Lymphocytes Absolute 1.8 1.0 - 3.5 10*3/uL 02/26/2025 10:13 PM EDT [facility] Monocytes Absolute 0.6 0.0 - 0.9 10*3/uL 02/26/2025 10:13 PM EDT [facility] Eosinophils Absolute 0.1 0.0 - 0.4 10*3/uL 02/26/2025 10:13 PM EDT [facility] Basophils Absolute 0.0 0.0 - 0.2 10*3/uL 02/26/2025 10:13 PM EDT [facility] Differential Type AUTOMATED DIFFERENTIAL 02/26/2025 10:13 PM EDT [facility] Blood Venous blood / Unknown 02/26/2025 10:01 PM EDT 02/26/2025 10:03 PM EDT us Sherif Berumen MD LAB BLOOD ORDERABLES Final Res ult [facility] [address] [place] [address], [place] * D-Dimer (02/26/2025 10:01 PM EDT) D DIMER <150 1 - 255 ug/mL 02/26/2025 10:21 PM EDT [facility] Comment:Results <255 ng/mL D DU: The [...] MD LAB BLOOD ORDERABLES Final Res ult [facility] [address] [place] [address], [place] * (ABNORMAL) Basic Metabolic Panel (02/26/2025 10:01 PM EDT) Pathologist [facility] SODIUM 138 134 - 146 mmol/L 02/26/2025 10:21 PM EDT [facility] POTASSIUM 3.6 3.5 - 5.0 mmol/L 02/26/2025 10:21 PM EDT [facility] CHLORIDE 110(H) 98 - 109 mmol/L 02/26/2025 10:21 PM EDT [facility] CARBON DIOXIDE 24 22 - 32 mmol/L 02/26/2025 10:21 PM EDT [facility] ANION GAP 4(L) 5 - 15 mmol/L 02/26/2025 10:21 PM EDT [facility] BLOOD UREA NITROGEN 13 5 - 23 mg/dL 02/26/2025 10:21 PM EDT [facility] CREATININE 0.87 0.70 - 1.20 mg/dL 02/26/2025 10:21 PM EDT [facility] Comment:METHOD TRACEABLE TO IDMS STANDARD GLUCOSE 104(H) 65 - 99 mg/dL 02/26/2025 10:21 PM EDT [facility] CALCIUM 8.9 8.5 - 10.5 mg/dL 02/26/2025 10:21 PM EDT [facility] EGFR Non-Race Dependent >90 >=60 ml/min/1.7 3sq.m 02/26/2025 10:21 PM EDT [facility] Comment: Reported eGFR is based on the CKD-EPI 2020 equation that does not use a race coefficient. Blood Venous blood / Unknown 02/26/2025 10:01 PM EDT 02/26/2025 10:03 PM EDT Sherif Berumen MD LAB BLOOD ORDERABLES Final Res ult [facility] [address] [place] [address], [place] * ECG 12 lead (02/26/2025 9:10 PM EDT) 02/26/2025 9:10 PM EDT Narrative [facility] - 02/26/2025 11:27 PM EDT Sherif Berumen MD ECG ORDERABLES Final Result [facility] from Last 3 Months Care Teams Vp Organizational Development Relationship Specialty Start Date End Date No Pcp, [place] [address] PCP - General Family Medicine 06/21/24
--- OUTSIDE RECORDS SUMMARY | 2025-05-27 10:05 | XMS_ITS | Patient Health Record ---
Author Organization [facility] [place] Address [address] [place] [address] Support Name Relationship Address Phone Dorinda Villalta [...] ACCESS PPO PLUS LOCAL PLAN [address] [place] [address] [id number] Lili Barragan Child - Insured has Financial Responsibility
--- NOTE | 2025-05-27 10:06 | US_ITS ---
The [address] [address] Patient Name: GEORGIANA MARTIN MRN: [id number] date: 1995 Sex: M Assigned Patient Location: US Current Patient Location: US Accession/Order Number: [id number] Exam Date: 05/27/2025 10:10 Report Date: 05/27/2025 11:22 At the request of: DEBBI FARNSWORTH Procedure: US right upper quadrant LIMITED RIGHT UPPER QUADRANT ABDOMINAL ULTRASOUND CLINICAL HISTORY: Right upper quadrant pain, nausea and dizziness COMPARISON: CT 05/11/2025 The gallbladder is physiologically distended. There is a tiny 3 mm echogenic focus along the dependent wall of the gallbladder. Mobility was not indicated by the structural shop helper. It could be a small polyp or noncalcified stone. There is no wall thickening or pericholecystic fluid. No intra- or extrahepatic biliary dilatation is evident. The common duct measures 4-5 mm. The liver is normal in echogenicity. No intrahepatic masses are seen. There is appropriate hepatopetal flow within the main portal vein. The pancreas shows no significant sonographic abnormality. Evaluation of the right kidney reveals no hydronephrosis or fluid within Melissa's pouch. US/US right upper quadrant IMPRESSION: TINY GALLBLADDER POLYP OR NONCALCIFIED STONE. NO OTHER ACUTE RIGHT UPPER QUADRANT FINDINGS. Impression dictated by: Eleanor Gabriel M.D. 05/27/2025 11:22 AM Dictation Location: [place] [address] Electronically authenticated by: [id number] Y Date: 05/27/2025 11:22
--- OUTSIDE RECORDS SUMMARY | 2025-05-27 10:06 | XMS_ITS | CCD ---
Author Organization [facility] Inform ion Partnership SENIOR JAVA DEVELOPER [facility] Care Team Providers Care Finance Advisor Name Role Phone NONSTAFF, PHYSI Unavailable Unavailable [...] , Noms Provider Primary Care Provi ian [facility] Primary Care Unava ilSUBHA Pineda Attending Unavailab SUBHA Hunt Attending Unavailab SUBHA Hunt Referring Unavailab le [facility] Primary Care Unava ilable PATEL MCELROY [...] Propensity to adverse reactions to drug (disorder) [facility] Repository Medications Current Medications Medication Drug Class(es) [...] every six hours as needed for headache nqdbzrhtpo-bivdkdkigopxh-mlroriiq (FIORICET, ESGIC) 50-325-40 MG per tablet Indications: [...] Palm MD on 02/27/2025 12:10 AM Normal [facility] BASIC METABOLIC PANELon 06-2 Anion gap [Moles/Vol] 4 mmol/L Low 5-15 [facility] Comment on above: Performed By: #### B MP #### [facility] ([address] [place] [address] VIR Calcium [Mass/Vol] 8.9 mg/dL Normal 8.5-10.5 [facility] Comment on above: Performed By: #### B MP #### [facility] ([address] [place] [address] VIR Chloride [Moles/Vol] 110 mmol/L High 98-[address] [facility] Comment on above: Performed By: #### B MP #### [facility] ([address] [place] [address] VIR CO2 [Moles/Vol] 24 mmol/L Normal 22-32 [facility] Comment on above: Performed By: #### B MP #### [facility] ([address] [place] [address] VIR Creatinine [Mass/Vol] 0.87 mg/dL Normal 0.70-1.20 [facility] Comment on above: Result Comment: METH OD TRACEABLE TO IDMS STANDARD Performed By: #### B MP #### [facility] ([address] [place] [address] VIR EGFR (CKD-EPI) NON-RACE DEPENDENT >^90 Normal >=60 [facility] Comment on above: Result Comment: Repo rted eGFR is based on the CKD-EPI 2020 equation that does not use a race coefficient. Performed By: #### B MP #### [facility] ([address] [place] [address] VIR Glucose [Mass/Vol] 104 mg/dL High 65-99 [facility] Comment on above: Performed By: #### B MP #### [facility] ([address] [place] [address] VIR Potassium [Moles/Vol] 3.6 mmol/L Normal 3.5-5.0 [facility] Comment on above: Performed By: #### B MP #### [facility] ([address] [place] [address] VIR Sodium [Moles/Vol] 138 mmol/L Normal 134-146 [facility] Comment on above: Performed By: #### B MP #### [facility] ([address] [place] [address] VIR Urea nitrogen [Mass/Vol] 13 mg/dL Normal 5-23 [facility] Comment on above: Performed By: #### B MP #### [facility] ([address] [place] [address] VIR CBC WITH AUTO DIFFERENTIALon 02-26-2025 BASOPHILS ABSOLUTE COUNT (10*3/UL) BY AUTOMATED COUNT 0.0 10*3/uL Normal 0.0-0.2 [facility] Comment on above: Performed By: #### C BCA #### [facility] ([address] [place] [address] VIR BASOPHILS RELATIVE PERCENT BY AUTOMATED COUNT 0.5 % Normal [facility] Comment on above: Performed By: #### C BCA #### [facility] ([address] [place] [address] VIR CELLAVISION DIFFERENTIAL TYPE AUTOMATED DIFFERENTIAL Normal [facility] Comment on above: Performed By: #### C BCA #### [facility] ([address] [place] [address] VIR Eosinophils (Bld) [#/Vol] 0.1 10*3/uL Normal 0.0-0.4 [facility] Comment on above: Performed By: #### C BCA #### [facility] ([address] [place] [address] VIR EOSINOPHILS RELATIVE PERCENT BY AUTOMATED COUNT 2.0 % Normal [facility] Comment on above: Performed By: #### C BCA #### [facility] ([address] [place] [address] VIR Erythrocyte distribution width (RBC) [Ratio] 13.9 % Normal 11.5-15 [facility] Comment on above: Performed By: #### C BCA #### [facility] ([address] [place] [address] VIR Hematocrit (Bld) [Volume fraction] 41.2 % Normal 39-50 [facility] Comment on above: Performed By: #### C BCA #### [facility] ([address] [place] [address] VIR Hemoglobin (Bld) [Mass/Vol] 14.2 g/dL Normal 13-17 [facility] Comment on above: Performed By: #### C BCA #### [facility] ([address] [place] [address] VIR LYMPHOCYTES ABSOLUTE COUNT (10*3/UL) BY AUTOMATED COUNT 1.8 10*3/uL Normal 1.0-3.5 [facility] Comment on above: Performed By: #### C BCA #### [facility] ([address] [place] [address] VIR LYMPHOCYTES RELATIVE PERCENT BY AUTOMATED COUNT 28.6 % Normal [facility] Comment on above: Performed By: #### C BCA #### [facility] ([address] [place] [address] VIR MCH (RBC) [Entitic mass] 28.5 pg Normal 27-34 [facility] Comment on above: Performed By: #### C BCA #### [facility] ([address] [place] [address] VIR MCHC (RBC) [Mass/Vol] 34.6 g/dL Normal 32-36 [facility] Comment on above: Performed By: #### C BCA #### [facility] ([address] [place] [address] VIR MCV (RBC) [Entitic vol] 83 fL Normal 80-100 [facility] Comment on above: Performed By: #### C BCA #### [facility] ([address] [place] [address] VIR MONOCYTES ABSOLUTE COUNT (10*3/UL) BY AUTOMATED COUNT 0.6 10*3/uL Normal 0.0-0.9 [facility] Comment on above: Performed By: #### C BCA #### [facility] ([address] [place] [address] VIR MONOCYTES RELATIVE PERCENT BY AUTOMATED COUNT 8.8 % Normal [facility] Comment on above: Performed By: #### C BCA #### [facility] ([address] [place] [address] VIR NEUTROPHILS ABSOLUTE COUNT BY AUTOMATED COUNT 3.8 10*3/uL Normal 1.5-6.6 [facility] Comment on above: Performed By: #### C BCA #### [facility] ([address] [place] [address] VIR NEUTROPHILS RELATIVE PERCENT BY AUTOMATED COUNT 60.1 % Normal [facility] Comment on above: Performed By: #### C BCA #### [facility] ([address] [place] [address] VIR Platelet mean volume (Bld) [Entitic vol] 8.7 fL Normal 7-12 [facility] Comment on above: Performed By: #### C BCA #### [facility] ([address] [place] [address] VIR Platelets (Bld) [#/Vol] 202 10*3/uL Normal 150-450 [facility] Comment on above: Performed By: #### C BCA #### [facility] ([address] [place] [address] VIR RBC COUNT 4.99 X10E12/L Normal 4.1-5.7 [facility] Comment on above: Performed By: #### C BCA #### [facility] ([address] [place] [address] VIR WBC (Bld) [#/Vol] 6.4 10*3/uL Normal 4-11 [facility] Comment on above: Performed By: #### C BCA #### [facility] ([address] [address] VIR D-DIMERon 02-26-2025 D DIMER <^150 Normal 1-255 [facility] Comment on above: Result Comment: Resu lts <255 ng/mL DDU: The presensence of a VTE can safely be excluded with a negative D-Dimer result and Wells score. A negative result doesn't exclude the possibility of DIC. The test should be repeated along with other diagnostic tests if the patient's symptoms persist or worsen. Performed By: #### D DMR #### [facility] ([address] [place] [address] VIR TROP I, HIGH SENSITIVITY 1 H OURon 02-26-2025 TROPONIN I, HIGH SENSITIVITY 2 ng/L Normal <21 [facility] Comment on above: Performed By: #### T NIHS1 #### [facility] ([address] [place] [address] VIR TROPONIN I, HIGH SENSITIVITY 0 HOURon 02-26-2025 TROPONIN I, HIGH SENSITIVITY 3 ng/L Normal <21 [facility] Comment on above: Performed By: #### T NIHS0 #### [facility] ([address] [place] [address] VIR XR FOOT RT MIN 3 VWSon [...] Grossman MD on 05/13/2024 8:54 PM Normal [facility] XR FOOT RT MIN 3 [...] Davila MD on 04/30/2024 1:15 AM Normal [facility] XR Hand 3 Views Lefton [...] Electronically Signed in Other Vendor System) Normal [facility] XR HAND LEFT (MIN 3 VIEWS)on 10-09-2020 [...] Heidi Nunes DO 10/09/20 Final result Normal [facility] No acute osseous abnormality in the left hand. [place] EXAMINATION: THREE XRAY VIEWS OF THE LEFT HAND 10/09/2020 4:59 pm COMPARISON: None. HISTORY: ORDERING SYSTEM PROVIDED HISTORY: Injury TECHNOLOGIST PROVIDED HISTORY: Reason for Exam: middle finger left hand hit by hammer, pain Acuity: Unknown Type of Exam: Unknown FINDINGS: Soft tissues are within normal limits. There is no acute fracture or dislocation. Joint spaces are preserved. No bony erosion. [place], [place] Kevin, Mhpn Incoming Radiant Results From [facility] - 10/09/2020 5:17 PM EST EXAMINATION: THREE [...] acute osseous abnormality in the left hand. [place], [place] 2019 NOVEL CORONAVIRUS (COVI D-19), ZOHRA?on 11-29-2019 COV-2 BY PCR INTERPRETATION NOT DETECTED Normal NOT DETECT [facility] Comment on above: Performed By: #### C BCWD, BMP, HEPPA, LIPAS, ANION, OSMOL, EGFR1 #### [place] [address] COV-2 BY PCR REPORT SEE REPORT Normal [facility] Comment on above: Performed By: #### C BCWD, BMP, HEPPA, LIPAS, ANION, OSMOL, EGFR1 #### [place] [address] SARS COV-2 BY PCRon 11-26-19 20 SARS COV-2 BY PCR see below Normal [facility] Comment on above: Result Comment: *THIS IS NOT A TEST RESULT See printed reference report or [facility](EMR)/ Media tab. Test ordered: Performed By: #### C BCWD, BMP, HEPPA, LIPAS, ANION, OSMOL, EGFR1 #### [place] [address] SARS COV-2 BY PCRon 11-16-19 20 SARS COV-2 BY PCR SOURCE BAR BACK/OP swab Normal [facility] Comment on above: Performed By: #### C BCWD, BMP, HEPPA, LIPAS, ANION, OSMOL, EGFR1 #### [facility] [employer] [address] [place] [address] GROUP A STREP REFLEXon 11-14 REFLEX THROAT C + S INDICATED Normal [facility] Comment on above: Performed By: #### C BCWD, BMP, HEPPA, LIPAS, ANION, OSMOL, EGFR1 #### [facility] [employer] [address] [place] [address] GROUP A STREP Negative Normal NEGATIVE [facility] Comment on above: Performed By: #### C BCWD, BMP, HEPPA, LIPAS, ANION, OSMOL, EGFR1 #### [facility] [employer] [address] [place] [address] Group A Strep, Reflexon 11-03 GROUP A STREP CULTURE, REFLEX Negative NEGATIVE [facility], [place] REFLEX THROAT C + S INDICATED [place], [place] Comment on above: Performed at [facility] [address] [place] [address] INFLUENZA A + B ANTIGENon INFLUENZA A AG Negative Normal NEGATIVE [facility] Comment on above: Performed By: #### C BCWD, BMP, HEPPA, LIPAS, ANION, OSMOL, EGFR1 #### [place] [address] INFLUENZA B AG Negative Normal NEGATIVE [facility] Comment on above: Performed By: #### C BCWD, BMP, HEPPA, LIPAS, ANION, OSMOL, EGFR1 #### [place] [address] RESPIRATORY ID PANEL BY PCRo n 11-15-2019 INFLUENZA A RESPIRATORY BY PCR Not Detected Normal [facility] Comment on above: Performed By: #### C BCWD, BMP, HEPPA, LIPAS, ANION, OSMOL, EGFR1 #### [place] [address] ADENOVIRUS RESPIRATORY BY PCR Not Detected Normal [facility] Comment on above: Performed By: #### C BCWD, BMP, HEPPA, LIPAS, ANION, OSMOL, EGFR1 #### [place] [address] BORDETELLA PARAPERTUSSIS BY PCR Not Detected Normal [facility] Comment on above: Performed By: #### C BCWD, BMP, HEPPA, LIPAS, ANION, OSMOL, EGFR1 #### [place] [address] BORDETELLA PERTUSSIS RESP. BY PCR Not Detected Normal [facility] Comment on above: Performed By: #### C BCWD, BMP, HEPPA, LIPAS, ANION, OSMOL, EGFR1 #### [place] [address] CHLAMYDOPHILA PNEUMONIAE RESP BY PCR Not Detected Normal [facility] Comment on above: Performed By: #### C BCWD, BMP, HEPPA, LIPAS, ANION, OSMOL, EGFR1 #### [place] [address] CORONAVIRUS 229E RESPIRATORY BY PCR Not Detected Normal [facility] Comment on above: Performed By: #### C BCWD, BMP, HEPPA, LIPAS, ANION, OSMOL, EGFR1 #### [place] [address] CORONAVIRUS HKU1 RESPIRATORY BY PCR Not Detected Normal [facility] Comment on above: Performed By: #### C BCWD, BMP, HEPPA, LIPAS, ANION, OSMOL, EGFR1 #### [address] [address] CORONAVIRUS NL63 RESPIRATORY BY PCR Not Detected Normal [facility] Comment on above: Performed By: #### C BCWD, BMP, HEPPA, LIPAS, ANION, OSMOL, EGFR1 #### [place] [address] CORONAVIRUS OC43 RESPIRATORY BY PCR Not Detected Normal [facility] Comment on above: Performed By: #### C BCWD, BMP, HEPPA, LIPAS, ANION, OSMOL, EGFR1 #### [place] [address] INFLUENZA A/H1 2009 RESPIRATORY BY PCR Normal [facility] Comment on above: Performed By: #### C BCWD, BMP, HEPPA, LIPAS, ANION, OSMOL, EGFR1 #### [place] [address] INFLUENZA A/H1 RESPIRATORY BY PCR Normal [facility] Comment on above: Performed By: #### C BCWD, BMP, HEPPA, LIPAS, ANION, OSMOL, EGFR1 #### [place] [address] INFLUENZA A/H3 RESPIRATORY BY PCR Normal [facility] Comment on above: Performed By: #### C BCWD, BMP, HEPPA, LIPAS, ANION, OSMOL, EGFR1 #### [place] [address] INFLUENZA B RESPIRATORY BY PCR Not Detected Normal [facility] Comment on above: Performed By: #### C BCWD, BMP, HEPPA, LIPAS, ANION, OSMOL, EGFR1 #### [address] [address] METAPNEUMOVIRUS RESPIRATORY BY PCR Not Detected Normal [facility] Comment on above: Performed By: #### C BCWD, BMP, HEPPA, LIPAS, ANION, OSMOL, EGFR1 #### [address] [address] MYCOPLASMA PNEUMONIAE RESP BY PCR Not Detected Normal [facility] Comment on above: Performed By: #### C BCWD, BMP, HEPPA, LIPAS, ANION, OSMOL, EGFR1 #### [place] [address] PARAINFLUENZA 1 RESPIRATORY BY PCR Not Detected Normal [facility] Comment on above: Performed By: #### C BCWD, BMP, HEPPA, LIPAS, ANION, OSMOL, EGFR1 #### [place] [address] PARAINFLUENZA 2 RESPIRATORY BY PCR Not Detected Normal [facility] Comment on above: Performed By: #### C BCWD, BMP, HEPPA, LIPAS, ANION, OSMOL, EGFR1 #### [place] [address] PARAINFLUENZA 3 RESPIRATORY BY PCR Not Detected Normal [facility] Comment on above: Performed By: #### C BCWD, BMP, HEPPA, LIPAS, ANION, OSMOL, EGFR1 #### [place] [address] PARAINFLUENZA 4 RESPIRATORY BY PCR Not Detected Normal [facility] Comment on above: Performed By: #### C BCWD, BMP, HEPPA, LIPAS, ANION, OSMOL, EGFR1 #### [place] [address] RESPIRATORY SYNCYTIAL VIRUS BY PCR Not Detected Normal [facility] Comment on above: Performed By: #### C BCWD, BMP, HEPPA, LIPAS, ANION, OSMOL, EGFR1 #### [place] [address] RHINOVIRUS/ENTEROVIRU S RESP. BY PCR Not Detected Normal [facility] Comment on above: Performed By: #### C BCWD, BMP, HEPPA, LIPAS, ANION, OSMOL, EGFR1 #### [place] [address] Rapid influenza A/B antigens on 11-15-2019 Flu A Antigen Negative NEGATIVE [facility], [place] Flu B Antigen Negative NEGATIVE [facility], [place] Comment on above: [place] [address] Respiratory Panel, Molecular on 11-15-2019 Bordetella pertussis by PCR Not Detected [place] [employer] Adenovirus Not Detected [place] Bordetella Pertusis Not Detected [place] Chlamydophilia Pneumoniae Not Detected [place] [employer] Conoravirus NL63 Not Detected [place] Coronavirus 229E Not Detected [facility], [place] Film Array Coronavirus HKU1 Not Detected [facility], [place] Coronavirus OC43 Not Detected [facility] Influenza A Virus Not Detected [place] Influenza A Virus 09H1 [facility], [place] Influenza A Virus H1 [place] Influenza A Virus H3 [place] Influenza B Not Detected [place] [employer] Metapneumovirus Not Detected [facility], [place] Mycoplasma Pneumoniae Not Detected [place] Comment on above: Performed at [facility] [address] [address] Film Array Parainfluenza Virus 1 Not Detected [place] Parainfluenza Virus 2 Not Detected [place] [employer] Parainfluenza Virus 3 Not Detected [place] [employer] Parainfluenza Virus 4 Not Detected [place] [employer] Respiratory Syncitial Virus Not Detected [place] [employer] Rhinovirus/Enteroviru s Not Detected [place] THROAT/NOSE CULTUREon 2019 THROAT/NOSE CULTURE MICROBIOLOGY REPORT [facility], [address] [place] [address], [address] PATIENT: GEORGIANA REYES LOCATION: [facility] -[id number] : 1995 AGE: 24 SEX: M ADM: 11/15/19 Att. Physician: PHYSICIAN, EMERGENCY Order Id: [id number] Req. Physician: ATTILA CASIANO Source: throat Site: Collected: 11/15/19 15:40 Current Antibiotics: not stated Antibiotics comment: STATUS OF ORDERED AND REPORTED TESTS THROAT/NOSE CULTURE FINAL 11/17/19 THROAT/NOSE CULTURE FINAL 11/17/19 09:02 11/16/19 Normal krishna- preliminary 11/17/19 Normal krishna Normal [facility] Comment on above: Performed By: #### C BCWD, BMP, HEPPA, LIPAS, ANION, OSMOL, EGFR1 #### [facility] [employer] [address] [place] [address] XR CHEST (2 VW)on 11-15-2019 XR CHEST [...] Julio Doran MD 11/15/19 Final result Normal [facility] XR CHEST STANDARD (2 VW)on 0 11-15-2019 [...] upright and supine views of the abdomen. [place], [place] Kevin, Wcoh Incoming Radiant Results From [facility] - 11/15/2019 5:33 PM EDT PROCEDURE: XR [...] Dr. Julio Doran on 11/15/2019 5:30 PM [place] No acute cardiopulmonary disease. Probable left upper quadrant small bowel ileus however cannot exclude a small bowel obstruction. Consider upright and supine views of the abdomen for further evaluation. This report has been created using voice recognition software. It may contain minor errors which are inherent in voice recognition technology. Final report electronically signed by Dr. Julio Doran on 11/15/2019 5:30 PM [place] MICHELLE SCREENon 06-21-2019 MICHELLE SCREEN None Detected Normal None Detec [facility] Comment on above: Result Comment: If s uspicion of connective tissue disease is strong and MICHELLE EIA is negative, consider testing for MICHELLE by IFA ([id number]). INTERPRETIVE INFORMATION: Anti-Nuclear Abs , IgG by ANGELITA Antinuclear Abs , IgG (ANGELITA): MICHELLE specimens are screened using enzyme-linked immunosorbent assay (ANGELITA) methodology. All ANGELITA results reported as Detected are further tested by indirect fluorescent assay (IFA) using HEp-2 substrate with an IgG-specific conjugate. The MICHELLE ANGELITA screen is designed to detect antibodies against dsDNA, histones, SS-A (Ro), SS-B (La), Monroe, Monroe/SHEET METAL ROOFER, Scl-70, Edwige-1, centromeric proteins, other antigens extracted from the HEp-2 cell nucleus. MICHELLE ANGELITA assays have been reported to have lower sensitivities than MICHELLE IFA for systemic autoimmune rheumatic diseases (SARD). Negative results do not necessarily rule out SARD. Performed by [facility], [address] [place] [id number] www.[employer], Moi Javed MD, Lab. Director Performed By: #### C BCWD, BMP, HEPPA, LIPAS, ANION, OSMOL, EGFR1 #### [place] [facility] [address] [place] [address] CRP HIGH SENSITIVITYon 06-20 CRP HIGH SENSITIVITY 5.2 mg/L High <=3.0 [facility] Comment on above: Result Comment: INTE RPRETIVE [...] mg/L . very high risk Performed by [facility], [address] [place] [id number] www.[employer], Moi Javed MD, Lab. Director Performed By: #### C BCWD, BMP, HEPPA, LIPAS, ANION, OSMOL, EGFR1 #### [facility] [address] [place] [address] THYROXINE, TOTALon 9 T4 [Mass/Vol] 7.3 ug/dL Normal 4.5-12.0 [facility] Comment on above: Result Comment: [facility] [address] [place] [address] Performed By: #### C BCWD, BMP, HEPPA, LIPAS, ANION, OSMOL, EGFR1 #### [facility] [employer] [address] [place] [address] ANION GAPon 06-18-2019 Anion gap [Moles/Vol] 14.0 mmol/L Normal 8.0-16.0 [facility] Comment on above: Result Comment: ANIO N GAP = Sodium -(Chloride + CO2) Performed By: #### C BCWD, BMP, HEPPA, LIPAS, ANION, OSMOL, EGFR1 #### [facility] [employer] [address] [place] [address] BASIC METABOL PANELon 2018 Calcium [Mass/Vol] 10.0 mg/dL Normal 8.5-10.5 [facility] Comment on above: Performed By: #### C BCWD, BMP, HEPPA, LIPAS, ANION, OSMOL, EGFR1 #### [facility] [employer] [address] [place] [address] Chloride [Moles/Vol] 103 mmol/L Normal 98-111 [facility] Comment on above: Performed By: #### C BCWD, BMP, HEPPA, LIPAS, ANION, OSMOL, EGFR1 #### [facility] [employer] [address] [place] [address] CO2 [Moles/Vol] 24 mmol/L Normal 23-[facility] Comment on above: Performed By: #### C BCWD, BMP, HEPPA, LIPAS, ANION, OSMOL, EGFR1 #### [facility] [employer] [address] [place] [address] Creatinine [Mass/Vol] 0.8 mg/dL Normal 0.4-1.2 [facility] Comment on above: Performed By: #### C BCWD, BMP, HEPPA, LIPAS, ANION, OSMOL, EGFR1 #### [facility] [employer] [address] [place], [place] [address], [place] [address] Glucose [Mass/Vol] 115 mg/dL High 70-108 [facility] Comment on above: Performed By: #### C BCWD, BMP, HEPPA, LIPAS, ANION, OSMOL, EGFR1 #### [address] [address] Potassium [Moles/Vol] 3.9 mmol/L Normal 3.5-5.2 [facility] Comment on above: Performed By: #### C BCWD, BMP, HEPPA, LIPAS, ANION, OSMOL, EGFR1 #### [address] [address] Sodium [Moles/Vol] 141 mmol/L Normal 135-145 [facility] Comment on above: Performed By: #### C BCWD, BMP, HEPPA, LIPAS, ANION, OSMOL, EGFR1 #### [address] [address] Urea nitrogen [Mass/Vol] 13 mg/dL Normal 7-22 [facility] Comment on above: Performed By: #### C BCWD, BMP, HEPPA, LIPAS, ANION, OSMOL, EGFR1 #### [address] [address] GFR, ESTIMATEDon 06-18-2019 GFR/1.73 sq M.predicted MDRD (S/P/Bld) [Vol rate/Area] mL/min/{1.73_m2} Normal [facility] Comment on above: Result Comment: Talong e [...] BMP, HEPPA, LIPAS, ANION, OSMOL, EGFR1 #### [address] [place] [address] LIPID PANELon 06-18-2019 Cholesterol [Mass/Vol] 164 mg/dL Normal 100-199 [facility] Comment on above: Result Comment: <200 Desirable 200 - 239 Borderline High >239 High Performed By: #### C BCWD, BMP, HEPPA, LIPAS, ANION, OSMOL, EGFR1 #### [place] [facility] [address] [place] [address] Cholesterol in HDL [Mass/Vol] 45 mg/dL Normal [facility] Comment on above: Result Comment: Refe r to General Chemistry for CHOL and TRIG results. HDL CLASSIFICATIONS FOR PATIENTS > 20 YEARS OLD. <40 Undesirable (Major Risk Factor) >60 Protective (Negative Risk Factor) Performed By: #### C BCWD, BMP, HEPPA, LIPAS, ANION, OSMOL, EGFR1 #### [employer] [address] [address] Cholesterol in LDL [Mass/Vol] 80 mg/dL Normal [facility] Comment on above: Result Comment: Refe r to General Chemistry for CHOL and TRIG results. LDL CLASSIFICATIONS FOR PATIENTS >20 YEARS OLD: Determination Invalid if TRIG >400 <100 Optimal 100 - 129 Near or Above Optimal 130 - 159 Borderline High 160 - 189 High Risk >189 Very High Risk Performed By: #### C BCWD, BMP, HEPPA, LIPAS, ANION, OSMOL, EGFR1 #### [facility] [address] [place] [address] Triglyceride [Mass/Vol] 194 mg/dL Normal 0-199 [facility] Comment on above: Result Comment: <150 Desirable 150 - 199 Borderline High 200 - 499 High >449 Very High Ranges are based upon NCEP/ATP III guidelines. Performed By: #### C BCWD, BMP, HEPPA, LIPAS, ANION, OSMOL, EGFR1 #### [place] [facility] [address] [place] [address] MAGNESIUMon 06-18-2019 Magnesium [Mass/Vol] 1.6 mg/dL Normal 1.6-2.4 [facility] Comment on above: Performed By: #### C BCWD, BMP, HEPPA, LIPAS, ANION, OSMOL, EGFR1 #### [address] [address] RHEUMATOID FACTORon 06-18-20 19 RHEUMATOID FACTOR < 10 Normal 0-13 [facility] Comment on above: Performed By: #### R F, MG, LIPD2, BMP, TSHRF, ANION, EGFR1, VD25, WSR #### [address] [address] SED RATEon 06-18-2019 SED RATE 6 mm/hr Normal 0-10 [facility] Comment on above: Performed By: #### C BCWD, BMP, HEPPA, LIPAS, ANION, OSMOL, EGFR1 #### [address] [address] TSH W/ REFLEX FT4on 06-18-20 19 TSH THIRD GENERATION 0.969 uIU/mL Normal 0.400-4.20 [facility] Comment on above: Performed By: #### C BCWD, BMP, HEPPA, LIPAS, ANION, OSMOL, EGFR1 #### [address] [address] VITAMIN D TOTAL 25 (OH)on VITAMIN D TOTAL 25 (OH) 17 ng/ml Low 30-100 [facility] Comment on above: Result Comment: Liliana min D Status Range Deficiency <20 ng/ml Insuffiency 20-30 ng/ml Sufficiency 30-100 ng/ml Toxicity >100 ng/ml Performed By: #### C BCWD, BMP, HEPPA, LIPAS, ANION, OSMOL, EGFR1 #### [address] [address] ANION GAPon 06-12-2019 Anion gap [Moles/Vol] 13.0 mmol/L Normal 8.0-16.0 [facility] Comment on above: Result Comment: ANIO N GAP = Sodium -(Chloride + CO2) Performed By: #### C BCWD, BMP, HEPPA, LIPAS, ANION, OSMOL, EGFR1 #### [address] [address] Anion Gapon 06-12-2019 Anion gap [Moles/Vol] 13.0 mmol/L 8 - 16 meq/L [place] Comment on above: ANION GAP = Sodium - (Chloride + CO2) Performed at [facility] [address] [place] [address] BASIC METABOL PANELon 2018 Calcium [Mass/Vol] 9.8 mg/dL Normal 8.5-10.5 [facility] Comment on above: Performed By: #### C BCWD, BMP, HEPPA, LIPAS, ANION, OSMOL, EGFR1 #### [facility] [address] [place] [address] Chloride [Moles/Vol] 101 mmol/L Normal 98-111 [facility] Comment on above: Performed By: #### C BCWD, BMP, HEPPA, LIPAS, ANION, OSMOL, EGFR1 #### [facility] [address] [place] [address] CO2 [Moles/Vol] 26 mmol/L Normal 23-33 [facility] Comment on above: Performed By: #### C BCWD, BMP, HEPPA, LIPAS, ANION, OSMOL, EGFR1 #### [facility] [address] [place] [address] Creatinine [Mass/Vol] 1.1 mg/dL Normal 0.4-1.2 [facility] Comment on above: Performed By: #### C BCWD, BMP, HEPPA, LIPAS, ANION, OSMOL, EGFR1 #### [facility] [address] [place] [address] Glucose [Mass/Vol] 99 mg/dL Normal 70-108 [facility] Comment on above: Performed By: #### C BCWD, BMP, HEPPA, LIPAS, ANION, OSMOL, EGFR1 #### [facility] [address] [place] [address] Potassium [Moles/Vol] 3.8 mmol/L Normal 3.5-5.2 [facility] Comment on above: Performed By: #### C BCWD, BMP, HEPPA, LIPAS, ANION, OSMOL, EGFR1 #### [facility] [address] [place] [address] Sodium [Moles/Vol] 140 mmol/L Normal 135-145 [facility] Comment on above: Performed By: #### C BCWD, BMP, HEPPA, LIPAS, ANION, OSMOL, EGFR1 #### [place] [facility] [address] [place] [address] Urea nitrogen [Mass/Vol] 12 mg/dL Normal 7-22 [facility] Comment on above: Performed By: #### C BCWD, BMP, HEPPA, LIPAS, ANION, OSMOL, EGFR1 #### [place] [facility] [address] [place] [address] Basic Metabolic Panelon Calcium [Mass/Vol] 9.8 mg/dL 8.5 - 10. 5 mg/dL [place] Comment on above: Performed at [facility] [address] [place] [address] Chloride [Moles/Vol] 101 mmol/L 98 - 111 meq/L [place] CO2 [Moles/Vol] 26 mmol/L 23 - 33 meq/L [place] Creatinine [Mass/Vol] 1.1 mg/dL 0.4 - 1.2 mg/dL [place] Glucose [Mass/Vol] 99 mg/dL 70 - 108 mg/dL [place] Potassium [Moles/Vol] 3.8 mmol/L 3.5 - 5.2 meq/L [place] Sodium [Moles/Vol] 140 mmol/L 135 - 145 meq/L [place] Urea nitrogen [Mass/Vol] 12 mg/dL 7 - 22 mg/dL [place] CALCULATED OSMOLALITYon Osmolality [Osmolality] 279.2 mOsmol/kg Normal 275.0-300. [facility] Comment on above: Performed By: #### C BCWD, BMP, HEPPA, LIPAS, ANION, OSMOL, EGFR1 #### [facility] [address] [place] [address] CBC WITH DIFFERENTIALon ABS IMMATURE GRANS (IG) 0.04 thou/mm3 Normal 0.00-0.07 [facility] Comment on above: Performed By: #### C BCWD, BMP, HEPPA, LIPAS, ANION, OSMOL, EGFR1 #### [address] [address] ABS NEUTROPHILS 6.9 thou/mm3 Normal 1.8-7.7 [facility] Comment on above: Performed By: #### C BCWD, BMP, HEPPA, LIPAS, ANION, OSMOL, EGFR1 #### [address] [address] Basophils (Bld) [#/Vol] 0.0 thou/mm3 Normal 0.0-0.1 [facility] Comment on above: Performed By: #### C BCWD, BMP, HEPPA, LIPAS, ANION, OSMOL, EGFR1 #### [address] [address] Basophils/100 WBC (Bld) 0.4 % Normal [facility] Comment on above: Performed By: #### C BCWD, BMP, HEPPA, LIPAS, ANION, OSMOL, EGFR1 #### [address] [address] Eosinophils (Bld) [#/Vol] 0.2 thou/mm3 Normal 0.0-0.4 [facility] Comment on above: Performed By: #### C BCWD, BMP, HEPPA, LIPAS, ANION, OSMOL, EGFR1 #### [address] [address] Eosinophils/100 WBC (Bld) 1.7 % Normal [facility] Comment on above: Performed By: #### C BCWD, BMP, HEPPA, LIPAS, ANION, OSMOL, EGFR1 #### [address] [address] Erythrocyte distribution width (RBC) [Ratio] 12.7 % Normal 11.5-14.5 [facility] Comment on above: Performed By: #### C BCWD, BMP, HEPPA, LIPAS, ANION, OSMOL, EGFR1 #### [address] [address] Hematocrit (Bld) [Volume fraction] 43.1 % Normal 42.0-52.0 [facility] Comment on above: Performed By: #### C BCWD, BMP, HEPPA, LIPAS, ANION, OSMOL, EGFR1 #### [place] [address] Hemoglobin (Bld) [Mass/Vol] 14.4 gm/dl Normal 14.0-18.0 [facility] Comment on above: Performed By: #### C BCWD, BMP, HEPPA, LIPAS, ANION, OSMOL, EGFR1 #### [place] [address] IMMATURE GRANS (IG) 0.4 % Normal [facility] Comment on above: Performed By: #### C BCWD, BMP, HEPPA, LIPAS, ANION, OSMOL, EGFR1 #### [place] [address] Lymphocytes (Bld) [#/Vol] 2.3 thou/mm3 Normal 1.0-4.8 [facility] Comment on above: Performed By: #### C BCWD, BMP, HEPPA, LIPAS, ANION, OSMOL, EGFR1 #### [place] [address] Lymphocytes/100 WBC (Bld) 22.1 % Normal [facility] Comment on above: Performed By: #### C BCWD, BMP, HEPPA, LIPAS, ANION, OSMOL, EGFR1 #### [place] [address] MCH (RBC) [Entitic mass] 28.7 pg Normal 26.0-33.0 [facility] Comment on above: Performed By: #### C BCWD, BMP, HEPPA, LIPAS, ANION, OSMOL, EGFR1 #### [place] [address] MCHC (RBC) [Mass/Vol] 33.4 gm/dl Normal 32.2-35.5 [facility] Comment on above: Performed By: #### C BCWD, BMP, HEPPA, LIPAS, ANION, OSMOL, EGFR1 #### [place] [address] MCV (RBC) [Entitic vol] 86.0 fL Normal 80.0-94.0 [facility] Comment on above: Performed By: #### C BCWD, BMP, HEPPA, LIPAS, ANION, OSMOL, EGFR1 #### [address] [address] Monocytes (Bld) [#/Vol] 0.9 thou/mm3 Normal 0.4-1.3 [facility] Comment on above: Performed By: #### C BCWD, BMP, HEPPA, LIPAS, ANION, OSMOL, EGFR1 #### [address] [address] Monocytes/100 WBC (Bld) 8.6 % Normal [facility] Comment on above: Performed By: #### C BCWD, BMP, HEPPA, LIPAS, ANION, OSMOL, EGFR1 #### [address] [address] Neutrophils/100 WBC (Bld) 66.8 % Normal [facility] Comment on above: Performed By: #### C BCWD, BMP, HEPPA, LIPAS, ANION, OSMOL, EGFR1 #### [address] [address] Nucleated RBC/100 WBC (Bld) [Ratio] 0 /100 wbc Normal [facility] Comment on above: Performed By: #### C BCWD, BMP, HEPPA, LIPAS, ANION, OSMOL, EGFR1 #### [address] [address] Platelet mean volume (Bld) [Entitic vol] 9.9 fL Normal 9.4-12.4 [facility] Comment on above: Performed By: #### C BCWD, BMP, HEPPA, LIPAS, ANION, OSMOL, EGFR1 #### [address] [address] Platelets (Bld) [#/Vol] 209 thou/mm3 Normal 130-400 [facility] Comment on above: Performed By: #### C BCWD, BMP, HEPPA, LIPAS, ANION, OSMOL, EGFR1 #### [address] [address] RBC (Bld) [#/Vol] 5.01 mill/mm3 Normal 4.70-6.10 [facility] Comment on above: Performed By: #### C BCWD, BMP, HEPPA, LIPAS, ANION, OSMOL, EGFR1 #### [address] [address] RDW-SD 39.2 fL Normal 35.0-45.0 [facility] Comment on above: Performed By: #### C BCWD, BMP, HEPPA, LIPAS, ANION, OSMOL, EGFR1 #### [facility] [address] [place] [address] WBC (Bld) [#/Vol] 10.3 thou/mm3 Normal 4.8-10.8 [facility] Comment on above: Performed By: #### C BCWD, BMP, HEPPA, LIPAS, ANION, OSMOL, EGFR1 #### [address] [address] CBC auto differentialon Basophils (Bld) [#/Vol] 0.0 10*3/uL [place] Basophils/100 WBC (Bld) 0.4 % [place] Eosinophils (Bld) [#/Vol] 0.2 10*3/uL [place] Eosinophils/100 WBC (Bld) 1.7 % [place] Erythrocyte distribution width (RBC) [Ratio] 12.7 % 11.5 - 14.5 % [place] Hematocrit (Bld) [Volume fraction] 43.1 % 42 - 52 % [place] Hemoglobin (Bld) [Mass/Vol] 14.4 g/dL [place] Immature Grans (Abs) 0.04 [place] Immature granulocytes (Bld) [#/Vol] 0.4 % [place] Lymphocytes (Bld) [#/Vol] 2.3 10*3/uL [place] Lymphocytes/100 WBC (Bld) 22.1 % [place] MCH (RBC) [Entitic mass] 28.7 pg 26 - 33 pg [place] MCHC (RBC) [Mass/Vol] 33.4 g/dL [place] MCV (RBC) [Entitic vol] 86.0 fL 80 - 94 fL [place] Monocytes (Bld) [#/Vol] 0.9 10*3/uL [place] Monocytes/100 WBC (Bld) 8.6 % [place] Nucleated RBC/100 WBC (Bld) [Ratio] 0 % /100 wbc [place] Comment on above: Performed at [facility] [address] [place] [address] Platelet mean volume (Bld) [Entitic vol] 9.9 fL 9.4 - 12.4 fL [place] Platelets (Bld) [#/Vol] 209 10*3/uL [place] RBC (Bld) [#/Vol] 5.01 10*6/uL [place] RDW-SD 39.2 fL 35 - 45 fL [place] Segmented neutrophils/100 WBC (Bld) 66.8 % [place] Segs Absolute 6.9 [place] WBC (Bld) [#/Vol] 10.3 10*3/uL [place], [place] CT HEAD WO CONTRASTon 2018 CT [...] Allen Truong MD 06/12/19 Final result Normal [facility] CT Head WO Contraston 2018 PROCEDURE: CT [...] clear. The paranasal sinuses appear grossly unremarkable. [place], [place] Negative CT for active pathology. If available comparison to prior studies can be considered. This report has been created using voice recognition software. It may contain minor errors which are inherent in voice recognition technology. Final report electronically signed by Dr. Allen Truong on 06/12/2019 1:36 AM [facility] [place] [facility], [facility] Incoming Radiant Results From [facility] - 06/12/2019 1:38 AM EDT PROCEDURE: CT [...] Dr. Allen Truong on 06/12/2019 1:36 AM [place] GFR, ESTIMATEDon 06-12-2019 GFR/1.73 sq M.predicted MDRD (S/P/Bld) [Vol rate/Area] 82 ml/min/1.73m2 Abnormal [facility] Comment on above: Result Comment: Stag e [...] BMP, HEPPA, LIPAS, ANION, OSMOL, EGFR1 #### [facility] [address] [place] [address] Glomerular Filtration Rate, Estimatedon 06-12-2019 Est, Glom Filt Rate 82 Abnormal ml/min/1.73m2 [place], [place] Comment on above: Stage Description GF [...] Vol. 139 (2) pg 137-147. Performed at [facility] [address] [place] [address] Interpretation and review of laboratory results Abnormal [place] HEPATIC FUNCTION PANELon Albumin [Mass/Vol] 4.7 g/dL Normal 3.5-5.1 [facility] Comment on above: Performed By: #### C BCWD, BMP, HEPPA, LIPAS, ANION, OSMOL, EGFR1 #### [address] [address] ALP [Catalytic activity/Vol] 64 U/L Normal 38-126 [facility] Comment on above: Performed By: #### C BCWD, BMP, HEPPA, LIPAS, ANION, OSMOL, EGFR1 #### [address] [address] ALT [Catalytic activity/Vol] 17 U/L Normal 11-66 [facility] Comment on above: Performed By: #### C BCWD, BMP, HEPPA, LIPAS, ANION, OSMOL, EGFR1 #### [address] [address] AST [Catalytic activity/Vol] 20 U/L Normal 5-40 [facility] Comment on above: Performed By: #### C BCWD, BMP, HEPPA, LIPAS, ANION, OSMOL, EGFR1 #### [address] [address] Bilirubin [Mass/Vol] mg/dL Normal 0.0-0.3 [facility] Comment on above: Performed By: #### C BCWD, BMP, HEPPA, LIPAS, ANION, OSMOL, EGFR1 #### [address] [address] Bilirubin Ql (U) 0.7 mg/dL Normal 0.3-1.2 [facility] Comment on above: Performed By: #### C BCWD, BMP, HEPPA, LIPAS, ANION, OSMOL, EGFR1 #### [address] [address] Protein [Mass/Vol] 7.9 g/dL Normal 6.1-8.0 [facility] Comment on above: Performed By: #### C BCWD, BMP, HEPPA, LIPAS, ANION, OSMOL, EGFR1 #### [address] [address] Hepatic function panelon Albumin [Mass/Vol] 4.7 g/dL 3.5 - 5.1 g/dL [place] ALP [Catalytic activity/Vol] 64 U/L 38 - 126 U/L [place] ALT [Catalytic activity/Vol] 17 U/L 11 - 66 U/L [place] AST [Catalytic activity/Vol] 20 U/L 5 - 40 U/L [place] Bilirubin Ql (U) 0.7 mg/dL 0.3 - 1.2 mg/dL [place] Bilirubin.direct [Mass/Vol] mg/dL 0 - 0.3 mg/dL [place] Protein [Mass/Vol] 7.9 g/dL 6.1 - 8 g/dL [place] Comment on above: Performed at [facility] [address] [place] [address] LIPASEon 06-12-2019 Lipase [Catalytic activity/Vol] 18.2 U/L Normal 5.6-51.3 [facility] Comment on above: Performed By: #### C BCWD, BMP, HEPPA, LIPAS, ANION, OSMOL, EGFR1 #### [facility] [address] [place] [address] Lipaseon 06-12-2019 Lipase [Catalytic activity/Vol] 18.2 U/L 5.6 - 51.3 U/L [place] Comment on above: Performed at [facility] [address] [place] [address] Osmolalityon 06-12-2019 Osmolality Calc 279.2 [place], [place] Comment on above: Performed at [facility] [address] [place] [address] AER/ANAEROBIC CULTUREon 01-03 AER/ANAEROBIC CULTURE MICROBIOLOGY REPOR T [facility], [address] [place] [address], [address] PATIENT: GEORGIANA REYES LOCATION: ED -E -E : 1995 AGE: 23 SEX: M ADM: 01/18/19 Att. Physician: PHYSICIAN, EMERGENCY Order Id: [id number] Req. Physician: ATTILA CASIANO Source: arm Site: [...] epithelial cells observed. No organisms observed. Normal [facility] ER Physician Documentationon 01-17-2019 ER Physician Documentation [facility] Patient: GEORGIANA REYES [address] : 1995 [place], [place] [address] Location: ER [phone] Unit #: [id number] ER Physician Documentation Service Date:01/17/19 ER Provider: [...] weeks ago, after he was discharged from [facility](there for low potassium), he has had [...] Renard Francis on 01/17/192016 Transcribed by: MARY Oodm on 01/17/192016 Report Signed by: Josy Hobson PA-C on 01/17/192149 < > Report Signed by: on Report Signed by: on Report Signed by: on Co-Signer: Josy Hobson PA-C on 01/17/192149 < > Normal [facility] ER Physician Documentationon 01-10-2019 ER Physician Documentation [facility] Patient: GEORGIANA REYES [address] : 1995 [place], [place] [address] Location: ER [phone] [facility] #[facility] [id number] [id number] Physician Documentation Service Date:01/09/19 ER Provider: [...] 01/09/19 [Rx] Fluticasone Propionate 0.05% [Flonase Nasal [place]] 2 spray BNOS DAILY #1 btl 01/09/19 [...] #20 tab Fluticasone Propionate 0.05% [Flonase Nasal [place]] 2 spray BNOS DAILY #1 btl - [...] Canseco MD on 01/10/19206 < > Normal [facility] ANKLE RIGHT (MIN 3-V)on 01-04 CRANKR Name: SHIRA REYES Phys: MARIA A RODRIGUES,JERILYN : 1995 Age: 22 Sex: M Acct: [id number] Loc: ED Exam Date: 01/28/2018 Status: REG ER Radiology No: [id number] Unit No: [id number] EXAM# TYPE/EXAM RESULT [id number] EDRAD/ANKLE RIGHT (MIN 3-V) SEE REPORT INDICATION: [...] Technologist: KINGA ALFARO Transcribed Date/Time: 01/28/2018 (1915) Medical Lab Specialist: ISABELA Printed Date/Time: 01/28/2018 (1915) PAGE 1 Signed Report Normal [facility] FOOT RIGHT (MIN 3 V)on 01-28 CRFOOTR Name: SHIRA REYES Phys: MARIA A RODRIGUES,JERILYN : 1995 Age: 22 Sex: M Acct: [id number] Loc: ED Exam Date: 01/28/2018 Status: REG ER Radiology No: [id number] Unit No: [id number] EXAM# TYPE/EXAM RESULT [id number] EDRAD/FOOT RIGHT (MIN 3 V) SEE REPORT [...] Technologist: KINGA ALFARO Transcribed Date/Time: 01/28/2018 (2011) Medical Lab Specialist: ISABELA Printed Date/Time: 01/28/2018 (2011) PAGE 1 Signed Report Normal [facility] KNEE RIGHT (3 V)on 8 CRKNEER Name: SHIRA REYES Phys: MARIA A RODRGIUES,JERILYN : 1995 Age: 22 Sex: M Acct: [id number] Loc: ED Exam Date: 01/28/2018 Status: REG ER Radiology No: [id number] Unit No: [id number] EXAM# TYPE/EXAM RESULT [id number] EDRAD/KNEE RIGHT (3 V) SEE REPORT INDICATION: [...] Technologist: KINGA ALFARO Transcribed Date/Time: 01/28/2018 (1916) Medical Lab Specialist: ISABELA Printed Date/Time: 01/28/2018 (1916) PAGE 1 Signed Report Normal [facility] TIBIA AND FIBULA RIGHT (2 V) on 01-28-2018 CRTIBFIR Name: SHIRA REYES Phys: MARIA A RODRIGUES,JERILYN : 1995 Age: 22 Sex: M Acct: [id number] Loc: ED Exam Date: 01/28/2018 Status: REG ER Radiology No: [id number] Unit No: [id number] EXAM# TYPE/EXAM RESULT [id number] EDRAD/TIBIA AND FIBULA RIGHT (2 SEE REPORT [...] Technologist: KINGA ALFARO Transcribed Date/Time: 01/28/2018 (1917) Medical Lab Specialist: ISABELA Printed Date/Time: 01/28/2018 (1917) PAGE 1 Signed Report Normal [facility] Vital Signs Date Time Vital Sign Value Performing Clinician Facility 05-17-2024 14:07-0400 Body height 195.6 cm Karthik Reaves NP Work Phone: [facility] 05-17-2024 14:07-0400 Body mass index (BMI) [Ratio] 29.65 kg/m2 Karthik Reaves NP Work Phone: [facility] 05-17-2024 14:07-0400 Body weight 113.4 kg Karthik Reaves NP Work Phone: [facility] 11-16-2019 06:57-0400 BP Diastolic 83 mm[Hg] [place], [place] 11-16-2019 06:57-0400 BP Systolic 133 mm[Hg] [place] 11-16-2019 06:57-0400 Pulse (Heart Rate) 102 /min [place] 11-16-2019 06:57-0400 Pulse Oximetry 96 % [place] 11-16-2019 06:57-0400 Respiratory Rate 18 /min [facility] [place] 11-16-2019 06:40-0400 Body Temperature 100.71 [degF] [facility] [place] 11-16-2019 04:08-0400 BMI (Body Mass Index) 24.31 kg/m2 [place] 11-16-2019 04:08-0400 Body weight 92.99 kg [place] 11-16-2019 04:08-0400 Height 195.6 cm [facility] [place] 11-15-2019 20:19-0400 Body Temperature 100.09 [degF] [facility], [place] 11-15-2019 20:19-0400 BP Diastolic 89 mm[Hg] [facility] , [place] 11-15-2019 20:19-0400 BP Systolic 122 mm[Hg] [facility] [place] 11-15-2019 20:19-0400 Pulse (Heart Rate) 94 /min [facility] 11-15-2019 20:19-0400 Pulse Oximetry 97 % [facility] [place] 11-15-2019 20:19-0400 Respiratory Rate 18 /min [facility] 11-15-2019 15:37-0400 BMI (Body Mass Index) 28.48 kg/m2 [facility] 11-15-2019 15:37-0400 Body weight 95.25 kg [facility] , [place] 11-15-2019 15:37-0400 Height 182.9 cm [facility] , [place] 06-12-2019 01:28-0400 BP Diastolic 66 mm[Hg] [facility] [place] 06-12-2019 01:28-0400 BP Systolic 105 mm[Hg] Virgil Wayne [facility] , [place] 06-12-2019 01:28-0400 Pulse (Heart Rate) 66 /min Virgilgera Wayne [facility], [place] 06-12-2019 01:28-0400 Pulse Oximetry 97 % Virgil Wayne [facility] , [place] 06-12-2019 01:28-0400 Respiratory Rate 18 /min Virgil Wayne [facility], [place] 06-11-2019 23:30-0400 BMI (Body Mass Index) 26.78 kg/m2 Virgil Wayne [facility], [place] 06-11-2019 23:30-0400 Body Temperature 98.6 [degF] Virgil Wayne [facility] 06-11-2019 23:30-0400 Body weight 99.79 kg Virgil Wayne [facility] , [place] 06-11-2019 23:30-0400 Height 193 cm Virgil Wayne [facility] , [place] 05-04-2019 02:24-0400 Body Temperature 98.01 [degF] [facility] 05-04-2019 02:24-0400 BP Diastolic 77 mm[Hg] [facility] 05-04-2019 02:24-0400 BP Systolic 120 mm[Hg] [facility] 05-04-2019 02:24-0400 Pulse (Heart Rate) 64 /min [place] 05-04-2019 02:24-0400 Pulse Oximetry 98 % [place] 05-04-2019 02:24-0400 Respiratory Rate 16 /min [place] Encounters Encounter Date Encounter Type Care Provider Facility Start: 02-26-2025 End: 02-27-2025 Emergency department patient visit NO PCP NO PCP [facility] Start: 09-12-2024 End: 09-12-2024 Emergency department patient visit NO PCP NO PCP [facility] Start: 08-04-2024 End: 08-04-2024 Emergency department patient visit NO PCP NO PCP [facility] Start: 06-21-2024 End: 06-21-2024 Emergency department patient visit NO PCP NO PCP [facility] Start: 05-17-2024 End: [facility] Karthik Reaves BAR BACK Work Phone: [facility] Start: 05-17-2024 End: 05-17-2024 [facility] flowsheet Karthik Reaves BAR BACK Work Phone: [facility] Start: 05-17-2024 End: 05-17-2024 Office outpatient new 30 minutes Karthik Reaves BAR BACK Work Phone: [facility] Comment on above: Stress fracture of m etatarsal bone of right foot, initial encounter (Primary Dx); Right foot pain Start: 05-17-2024 End: 05-17-2024 ambulatory KARTHIK REAVES Not Available Start: 05-13-2024 End: 05-14-2024 Emergency department patient visit PATEL MCELROY [facility] Start: 04-30-2024 End: 05-01-2024 Emergency department patient visit SUBHA PETERS [facility] Start: 06-16-2023 End: 06-16-2023 ambulatory Sara Crow STATION OPERATOR-VALIDATION MANAGER Facility:[facility] Start: 10-09-2020 End: 10-12-2020 Patient encounter procedure ISAAC CONNOLLY [facility] Start: 10-09-2020 End: 10-11-2020 Subsequent hospital visit by physician [facility] Xr Room 5 [facility] Comment on above: Injury Start: 11-16-2019 End: 11-16-2019 Emergency department patient visit Physician No [facility] Start: 11-16-2019 End: 11-16-2019 Emergency department patient visit [facility] Comment on above: Viral illness (Prima ry Dx); Febrile illness Start: 11-15-2019 End: 11-15-2019 Emergency department patient visit Physician No [facility] Start: 11-15-2019 End: 11-15-2019 Emergency department patient visit [facility] Comment on above: Cough (Primary Dx); Upper respiratory tract infection, unspecified type Start: 06-18-2019 Patient encounter procedure [facility] Start: 06-12-2019 End: 06-12-2019 Patient encounter procedure [facility] Start: 06-12-2019 End: 06-12-2019 Emergency department patient visit Physician No [facility] Start: 06-11-2019 End: 06-12-2019 Emergency department patient visit Virgil Wayne Work Phone: [facility] Comment on above: Myalgia (Primary Dx) Start: 05-04-2019 End: 05-04-2019 Emergency department patient visit Physician No [facility] Start: 05-04-2019 End: 05-04-2019 Emergency department patient visit [facility] Comment on above: Dentalgia (Primary D x); Gingivitis Start: 01-18-2019 End: 01-18-2019 Emergency department patient visit Physician No [facility] Start: 12-06-2018 End: 12-06-2018 Emergency department patient visit Physician No [facility] Start: 01-28-2018 End: 01-28-2018 Emergency department patient visit PHYSI NONSTAFF Facility:[facility] Procedures Date Procedure Procedure Detail Performing [...] & rev trnscr 08-29 target Attila Ridley [employer] Work Phone: Start: 11-15-2019 GROUP A STREP, REFLEX D avid C [facility] Work Phone: Start: 11-15-2019 Iaadiadoo influenza Luca id C [facility] Work Phone: Start: 06-12-2019 Ct head/brain w/o [...] of 2) Shingles Vaccine (1 of 2) [place] Start: 05-29-2024 End: 05-29-2024 Patient encounter procedure 05/29/2024 9:45 AM EDT Office Visit [facility] [address] [place] [id number] Karthik Reaves, BAR BACK [address] [facility] [place], [place] [id number] [facility] Start: 05-17-2024 End: 05-17-2024 Patient encounter procedure 05/17/2024 2:00 PM EDT Office Visit [facility] [address] [place] [address] Karthik Reaves, BAR BACK [address] [place], [place] [id number] Arrived [facility] Comment on above: Arrived Start: 05-06-2024 Influenza vaccination Influenza Vacc ine (#1) [facility] Start: 05-06-2020 Influenza vaccination Flu vaccine (# 1) [place] Start: 06-12-2019 End: 06-12-2019 Office Visit 06/12/2019 Office Visit Family Medicine [facility] Start: 05-06-2019 Influenza vaccination Flu vaccine (# 1) [place] Start: 2014 DTaP/Tdap/Td vaccine (1 - Tdap) DTaP/Tdap/Td vaccine (1 - Tdap) [place] Start: 2010 HIV screen HIV screen [place], [place] Start: 2010 [facility] [place] [place] Start: 02-23-2008 Varicella Vaccine (1 of 2 - 13+ 2-dose series) Varicella Vaccine (1 of 2 - 13+ 2-dose series) [place] Start: 2006 HPV vaccine (1 - Mal e 2-dose series) HPV vaccine (1 - Male 2-dose series) [place] Start: 2001 Pneumococcal 0-64 ye ars Vaccine (1 of 1 - PPSV23) Pneumococcal 0-64 years Vaccine (1 of 1 - PPSV23) [place] Start: 02-23-1996 Varicella vaccine (1 of 2 - 2-dose childhood series) Varicella vaccine (1 of 2 - 2-dose childhood series) [place] Start: 1995 Hepatitis C screening Hepatitis C sc reen [place] End: 11-15-2019 Culture, Throat Culture, Throat Microbiology Routine Once for 1 Occurrences starting 11/15/2019 until 11/15/2019 [place] Comment on above: Once for 1 Occurrenc es starting 11/15/2019 until 11/15/2019 Culture, Throat Culture, Throat Microbiology Routine 11/15/2019 3:40 PM EDT [place] End: 11-15-2019 Miscellaneous sendout 1 Miscellaneous sendout 1 Lab STAT One Time for 1 Occurrences starting 11/15/2019 until 11/15/2019 [place] Comment on above: One Time for 1 Occur rences starting 11/15/2019 until 11/15/2019 Miscellaneous sendout 1 Miscella neous sendout 1 Lab STAT 11/15/2019 8:00 PM EDT [facility] [place] Payers Date Payer Category Payer Unknown [id number] 2023 Unknown BCBS BCBS xxxxxx [id number] 2023-Present [phone] [address] [place] [address] [id number] 2023 Unknown [id number] 2020 Unknown [id number] 2019 Medicaid MEDICAID [facility] DEPT OF JOB xxxxxxxxxxxx 2019-Present [phone] [address] [place] [address] xxxxxxxxxxxx [id number] 2019 Medicaid [id number] 2019 Self-pay 2015 Unknown [id number] 1995 Unknown [id number] .93 1995 Unknown [id number] 20.1.568743.3.579.2 .93 1995 Unknown [id number] 2.840.1.198570.3.579.2 .93 1995 Unknown [id number] 2.840.1.721376.3.579.2 .93 1995 Unknown [id number] 2.840.1.865140.3.579.2 .93 1995 Unknown [id number] 2.840.1.052294.3.579.2 .176 1995 Unknown [id number] 2.16.840.1.612289.3.579.2 .176 1995 Unknown [id number] 2.16.840.1.573191.3.579.2 .196 1995 Unknown [id number] 2.16.840.1.000259.3.579.2 .1259 1995 Unknown [id number] 2.16.840.1.233598.3.579.2 .1286 1995 Unknown [id number] 2.16.840.1.816101.3.579.2 .1286 1995 Unknown [id number] 2.16.840.1.264500.3.579.2 .1286 1995 Unknown [id number] 2.16.840.1.907656.3.579.2 .1286 1995 Unknown [id number] 2.16.840.1.623302.3.579.2 .1286 1995 Unknown [id number] 2.16.840.1.768795.3.579.2 .1286 1995 Unknown [id number] 2.16.840.1.367948.3.579.2 .1286 1995 Unknown [id number] 2.16.840.1.900439.3.579.2 .1286 Private Health Insurance [id number] Social History Date Type Detail Facility Start: 12-06-2018 End: 05-17-2024 Tobacco smoking status NHIS Current every day smoker [place] Start: 09-05-2013 History of tobacco use Cigarette Smo ker [place] Start: 12-06-2018 End: 05-17-2024 Cigarettes smoked current (pack per day) - Reported [place] Start: 12-06-2018 End: 05-17-2024 Alcohol intake Yes [place] Start: 01-06-2016 Alcohol Comment social [place] Start: 1995 Sex Assigned At Not on file [place] Start: 06-12-2019 End: 11-16-2019 Alcohol intake Current drinker of alcohol (finding) [employer] [place], [facility] Start: 11-16-2019 End: 03-29-2023 Tobacco use and exposure Never used [facility] [place], [facility] Start: 03-29-2023 [facility] Start: 03-29-2023 [...] 04/27/24 (2 WKS 6 DAYS), 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 WENT TO [facility] ER 04/30, HAD XR. WENT BACK TO [facility] ER 05/13, HAD XR AND GIVEN POST OP SHOE. XRAY [facility] 05/13/24 XRAY [facility] 04/30/24 WEARING POST OP SHOE, LITTLE [...] no instability. IMAGING: I reviewed xrays from [facility] of the right foot that was read by radiologist as no fractures but I believe that there is a stress fracture of the 3rd MT shaft and a possible stress fracture of 2nd MT shaft. Procedures ASSESSMENT: ICD-10-CM 1. Stress fracture of metatarsal bone of right foot, initial encounter M84.374A 2. Right foot pain M79.671 PLAN: I reviewed xray from [facility] and believe that there is a [...] develop for requiring urgent evaluation. Karthik Reaves APRN-VALIDATION MANAGER documented in this encounter [facility] Clinical Note 06-16-2023 Note Date & Type Note Facility 06-16-2023 Note Patient Education Ma terials Name: Georgiana Reyes Current Date: 06/16/2023 10:22:48 [place] : 1995 The following sheet(s) are the Patient Education Leaflets for Georgiana Reyes [facility] Evaluation note Note Date & Type Note Facility Evaluation note Diagnosis Stress fracture of metatarsal bone of right foot, initial encounter- Primary Right foot pain Pain in soft tissues of limb documented in this encounter [facility] Healthcare Summary Purpose Family History No Family History Records FoundNo Family History Records FoundNo Family History Records FoundNo Family History Records FoundNo Family History Records FoundNo Family History Records FoundNo Family History Records Found Advance Directives No Advanced Directives Records FoundDocuments on File Type Date Recorded Patient Nursery School Attendant Expl anation Advance Directives and Living Will Power of Education Director Documents on File Type Date Recorded Patient Nursery School Attendant Expl anation Advance Directives and Kenneth g Will Power of Education Director 09/05/2014 12:00 AM Documents on File Type Date Recorded Patient Nursery School Attendant Expl anation ACP-Advance Directive ACP-Power of Education Director 09/05/2014 12:00 AM Discharge Instructions * Instructions* Tatiana Marks APRN - VALIDATION MANAGER - 05/04/2019 [place] and floss. Use mouthwash twice a day. Return for fever. You need to see a dentist. * Attachments The following attachments cannot be sent through Care Everywhere. * Periodontal Conditions (Northern Irish) * Tooth and Gum Pain (Northern Irish) documented in this encounter* Attachments The following attachments cannot be sent through Care Everywhere. * Cramp: Muscle (Northern Irish) documented in this encounter* Instructions* Lashonda Chaudhari [...] instructions. Please call the emergency department at [phone] prior toreturning so that we can prepare for your arrival. Your results should be available in 3 to 5 days.Please quarantine yourself during that time and further instructions will be provided by the [facility]. * Attachments The following attachments cannot be sent through Care Everywhere. * Cough (Northern Irish) documented in this encounter* Instructions* Red Phillips [...] through Care Everywhere. * Fever: General Info (Northern Irish) documented in this encounter Assessments Diagnosis Dentalgia- [...] section and content) DATE CREATED AUTHOR 2018 [facility] DATE CREATED AUTHOR AUTHOR'S ORGANIZ ATION 01/25/2019 [facility] DATE CREATED AUTHOR AUTHOR'S ORGANIZ ATION 12/05/2019 [facility] DATE CREATED AUTHOR AUTHOR'S ORGANIZ ATION 10/12/2020 [facility] DATE CREATED AUTHOR AUTHOR'S ORGANIZ ATION 06/18/2023 [facility] DATE CREATED AUTHOR AUTHOR'S ORGANIZ ATION 05/19/2024 [facility] DATE CREATED AUTHOR AUTHOR'S ORGANIZ ATION 02/28/2025 [facility] Reason for Visit (unrecogniz ed section and content) Reason Comments Dental Pain x 8 months Reason Comments Spasms bilateral legs and a rm Reason Comments Fever Cough Reason Comments Fever Reason Comments Pain Care Teams (unrecognized sec tion and content) Finance Advisor Relationship Specialty Start Date End Date Unallocated, Karl Malave MD [address] [place] [address] PCP - General Family Medicine 05/17/24 Finance Advisor Relationship Specialty Start Date End Date Unallocated, Karl Malave MD [address] [place] [address] PCP - General Family Medicine 05/17/24 FOR [...] BE BASED ON THE PRIMARY CLINICAL RECORDS. [facility]. provides no warranty or guarantee of the accuracy or completeness of information in this document.
== END 2025-05-27 10:03 | disposition home or self-care (01) ==
LOC: US 10:02
PROVIDERS: Visit Provider Personal Emergency Response Attendant
DX: R10.84 Generalized abdominal pain (principal)
CPT/HCPCS: 76705

== ENCOUNTER 2025-05-28 10:32 | Emergency (ER) | payer SELFPAY ==
[2025-05-28 10:52] VITALS: BP 137/83; PULSE 59; TEMP 36.8; O2SAT 99; BMI 30.2
--- NOTE | 2025-05-28 12:00 | ED.ABDPAIN1 ---
HPI - Abdominal Pain General Chief Complaint: Abdominal Pain Stated Complaint: headache, abdominal pain Time Seen by Provider: 05/28/25 11:08 Source: patient Mode of arrival: walk-in Limitations: no limitations History of Present Illness HPI narrative: The patient is a 30 years old male who is presenting to us for the second time within few days to the ER for concern of lower abdominal pain associated with constipation sometimes in addition to left-sided headache associated with photosensitivity and nausea, the patient was already evaluated with a CAT scan done on the of this month and apparently he had this mass 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 which I did explain to him the finding at that time which was prominence of the lining of the cerebellum on the right side which is different than the side that the patient is having pain The patient walked in here with no difficulty he had not filled any of the medication he was given when he was here and he had done the ultrasound outpatient The patient did not have any money to fill the medication and he has not been trying even cmbi-dss-cczvzil medication for his headache No vomiting that the patient actually just ate today this morning he is ate some barbecue chicken Related Data Previous Rx's ?Medication ?Instructions ?Recorded dicyclomine 20 mg tablet 20 mg PO TID PRN abdominal pain 2 05/26/25 days #6 tabs ondansetron HCl 4 mg tablet 4 mg PO Q6H PRN nausea and 05/26/25 vomiting #12 tabs Allergies Allergy/AdvReac Type Severity Reaction Status Date / Time No Known Drug Allergies Allergy Verified 05/28/25 10:52 Review of Systems ROS Status of ROS 10 or more systems reviewed and unremarkable except as noted in history and below [facility] Medical History (Updated 05/28/25 @ 12:20 by Feli Gold MD) No pertinent past medical history ?Z78.9 - Other specified health status (ICD-10) Surgical History (Updated 05/11/25 @ 16:48 by Leonidas Hannon) No pertinent past surgical history ?Z78.9 - Other specified health status (ICD-10) Social History Little interest or pleasure in doing things: not at all Feeling down, depressed, or hopeless: not at all Exam Narrative Exam Narrative: Nurses notes and vital signs reviewed and patient is not hypoxic. General: Well-appearing and in no apparent distress. Skin: Warm, dry, no pallor noted. No rash. Head: Normocephalic, atraumatic. Neck: Supple, non-tender. Cardiovascular: Regular Rate and Rhythm without murmur, gallop or rub. Respiratory: No accessory muscle use or respiratory distress. Lungs are clear to auscultation, no wheezing, rales or rhonchi Chest Wall: no tenderness Back: No midline thoracic or lumbar vertebral tenderness. No CVA tenderness Musculoskeletal: normal ROM, no calf or popliteal tenderness, no lower extremity edema/swelling GI: Abdomen is soft, non-distended. Normal bowel sounds. No masses appreciated. No tenderness to palpation. No rebound, guarding, or rigidity noted. Neurological: A&O x4. No cranial nerve dysfunction observed. No truncal ataxia. Moves all extremities. Sensation intact. Psychiatric: Cooperative and interactive. Normal mood and affect. Constitutional Vital Signs, click to edit/add: Last Vital Signs Temp 98.3 F 05/28/25 10:52 Pulse 59 L 05/28/25 10:52 Resp 05/28/25 10:52 BP 137/83 05/28/25 10:52 Pulse Ox 99 05/28/25 10:52 O2 Del Method Room Air 05/28/25 10:52 Course Vital Signs Vital signs: Vital Signs Temperature 98.3 F 05/28/25 10:52 Pulse Rate 59 L 05/28/25 10:52 Respiratory Rate 05/28/25 10:52 Blood Pressure 137/83 05/28/25 10:52 Pulse Oximetry 99 05/28/25 10:52 Oxygen Delivery Method Room Air 05/28/25 10:52 Temperature 98.3 F 05/28/25 10:52 Pulse Rate 59 L 05/28/25 10:52 Respiratory Rate 05/28/25 10:52 Blood Pressure 137/83 05/28/25 10:52 Pulse Oximetry 99 05/28/25 10:52 Oxygen Delivery Method Room Air 05/28/25 10:52 MDM - Abdominal Pain MDM Narrative Medical decision making narrative: The patient CAT scan of the head that was done as well as ultrasound of the abdomen that was done few days ago all reviewed did not show any acute pathology that is significant to this patient presentation This prominence in the cerebellum on the right side is mostly a finding that was found in other CAT scan and is not explaining any clinical symptoms at the moment Patient headache was treated with possible migraine with Toradol and Compazine and the patient was discharged after he was provided with some social work card to get his medication filled at outpatient case needed He was instructed about hydration and having soft diet for the next 5 days he also was referred to the shellacker as outpatient The patient is to follow up with primary care physician in next 2-3 days or to return to the emergency department should any of the signs or symptoms worsen or new symptoms develop. The patient agrees with the following Diagnosis and Treatment plan and the patient will be discharged home. Discharge Plan Discharge Chief Complaint: Abdominal Pain Clinical Impression: Abdominal pain, Migraine Patient Disposition: Home, Self-Care Time of Disposition Decision: 12:20 Condition: Good Prescriptions / Home Meds: No Action ondansetron HCl 4 mg tablet 4 mg PO Q6H PRN (Reason: nausea and vomiting) Qty: 12 0RF dicyclomine 20 mg tablet 20 mg PO TID PRN (Reason: abdominal pain) 2 Days Qty: 6 0RF Print Language: Icelandic Instructions: Abdominal Pain (ED) Referrals: Physician,Non-Staff, MD [Primary Care Provider] - 1 week Discharge Date/Time: 05/28/25 12:48
[2025-05-28] MEDS: KETOROLAC TROMETHAMINE 60 MG/2 ML VIAL IM (12:08)
[2025-05-28] MEDS: PROCHLORPERAZINE 10 MG/2 ML VIAL IM (12:11)
--- OUTSIDE RECORDS SUMMARY | 2025-05-28 12:22 | XMS_ITS | Clinical Summary ---
Author Organization [facility] Address [address] [place] [address] Care Team Providers Care Head Filter Press Tender Name Role Phone Unallocated, Noms Provider Primary Care Provi ian Allergies No known active allergies Medications Sertraline HCl (ZOLOFT PO) Active Encounters Date Type Department Care Team Description 05/27/2025 Results Follow-Up [facility] Orthopaedics [address] [place] [id number] Debbi Lo PA US RIGHT UPPER QUADRANT 05/27/2025 Clinisync Result Encounter [facility]S External Department Unsolicited Debbi Lo PA from Last 3 Months Family History Medical History Relation Name Comments Diabetes Father Hypertension Father Relation Name Status Comments Father Alive Mother Alive Social History Tobacco Use Types Packs/Day Years Used Date Smoking Tobacco: Every Day Cigarettes Smokeless Tobacco: Current Chew Tobacco Cessation:Ready to Q uit: Not Asked; Counseling Given: Not Answered Alcohol Use Standard Drinks/Week Comments Not Currently 0 (1 standard drink = 0.6 oz pur e alcohol) Sex and Gender Information Value Date Recorded Sex Assigned at Not on file Legal Sex Male 6:24 PM EDT Gender Identity Not on file Sexual Orientation Not on file Last Filed Vital Signs Vital Sign Reading Time Taken Comments Blood Pressure 118/68 03/29/2023 6:43 PM EDT Pulse 62 03/29/2023 6:43 PM EDT Temperature 36.3 C (97.3 F) 03/29/2023 6:43 PM EDT Respiratory Rate 18 03/29/2023 6:43 PM EDT Oxygen Saturation 98% 03/29/2023 6:43 PM EDT Inhaled Oxygen Concentration - - Weight 113 kg (250 lb) 05/17/2024 2:07 PM EDT Height 195.6 cm (6' 5 ) 05/17/2024 2:07 PM EDT Body Mass Index 29.65 05/17/2024 2:07 PM EDT Plan of Treatment Health Maintenance Due Date Last Done Comments Influenza Vaccine (#1) 2025 Procedures Procedure Name Priority Date/Time Associated Diagnosis Comments US RIGHT UPPER QUADRANT 05/27/2025 11:22 AM EDT from Last 3 Months Results * US RIGHT UPPER QUADRANT (05/27/2025 11:22 AM EDT) Anatomical Region Laterality Modality Other 05/27/2025 11:2 2 AM EDT Narrative 05/27/2025 11:25 [place] [address] Ultrasound Report Signed Patient: GEORGIANA REYES MR#: [id number] : 1995 Acct:[id number] Age/Sex: 30 / M ADM Date: 05/27/25 Loc: US Attending Dr: Debbi FARNSWORTH Ordering Physician: Dbebi Lo Date of Service: 05/27/25 Procedure(s): US right upper quadrant Accession Number(s): [id number] cc: Debbi Lo; Physician,Non-Staff M.[facility]obo [facility] [place] [id number] Patient Name: GEORGIANA REYES MRN: [id number] date: 1995 Sex: M Assigned Patient Location: US Current Patient Location: US Accession/Order Number: [id number] Exam Date: 05/27/2025 10:10 Report Date: 05/27/2025 11:22 At the request of: DEBBI FARNSWORTH Procedure: US right upper quadrant LIMITED RIGHT UPPER QUADRANT ABDOMINAL ULTRASOUND CLINICAL HISTORY: Right upper quadrant pain, nausea and dizziness COMPARISON: CT 05/11/2025 The gallbladder is physiologically distended. There is a tiny 3 mm echogenic focus along the dependent wall of the gallbladder. Mobility was not indicated by the licensed optician. It could be a small polyp or noncalcified stone. There is no wall thickening or pericholecystic fluid. No intra- or extrahepatic biliary dilatation is evident. The common duct measures 4-5 mm. The liver is normal in echogenicity. No intrahepatic masses are seen. There is appropriate hepatopetal flow within the main portal vein. The pancreas shows no significant sonographic abnormality. Evaluation of the right kidney reveals no hydronephrosis or fluid within Melissa's pouch. US/US right upper quadrant IMPRESSION: TINY GALLBLADDER POLYP OR NONCALCIFIED STONE. NO OTHER ACUTE RIGHT UPPER QUADRANT FINDINGS. Impression dictated by: Eleanor Gabriel M.D. 05/27/2025 11:22 AM Dictation Location: [place] [address] Electronically authenticated by: [id number] Y Date: 05/27/2025 11:22 Dictated By: Eleanor Gabriel M.D. Signed By: 05/27/25 1125 DD/ 1122 TD/TT: Upper Stitcher: Procedure Note Radiology, Radiologist, MD - 05/27/2025 [place] [address] Ultrasound Report Signed Patient: GEORGIANA REYES MMR#: [id number] : 1995Acct:[id number] Age/Sex: 30 / MADM Date: 05/27/25 Loc: US Attending Dr: Debbi FARNSWORTH Ordering Physician: Debbi Lo Date of Service: 05/27/25 Procedure(s): US right upper quadrant Accession Number(s): [id number] cc: Debbi Lo; Physician,Non-Staff Rk [facility] [place] [id number] Patient Name: GEORGIANA REYES MRN: [id number] date: 1995 Sex: M Assigned Patient Location: US Current Patient Location: US Accession/Order Number: [id number] Exam Date: 05/27/2025 10:10 Report Date: 05/27/2025 11:22 At the request of: DEBBI FARNSWORTH Procedure: US right upper quadrant LIMITED RIGHT UPPER QUADRANT ABDOMINAL ULTRASOUND CLINICAL HISTORY: Right upper quadrant pain, nausea and dizziness COMPARISON: CT 05/11/2025 The gallbladder is physiologically distended. There is a tiny 3 mmechogenic focus along the dependent wall of the gallbladder. Mobility was notindicated by the licensed optician. It could be a small polyp or noncalcified stone.There is no wall thickening or pericholecystic fluid. No intra- or extrahepatic biliary dilatation is evident. The common duct measures 4-5 mm. Theliver is normal in echogenicity. No intrahepatic masses are seen. There is appropriate hepatopetal flow within the main portal vein. The pancreasshows no significant sonographic abnormality. Evaluation of the right kidney reveals no hydronephrosis or fluid within Melissa's pouch. US/US right upper quadrant IMPRESSION: TINY GALLBLADDER POLYP OR NONCALCIFIED STONE. NO OTHER ACUTE RIGHT UPPER QUADRANT FINDINGS. Impression dictated by: Eleanor Gabriel M.D. 05/27/2025 11:22 AM Dictation Location: [place] [address] Electronically authenticated by: [id number] Y Date: 1:22 Dictated By: Eleanor Gabriel M.D. Signed By:05/27/25 1125 DD/ 1122 TD/TT: Upper Stitcher: us Debbi FARNSWORTH [facility] Final Resul t from Last 3 Months Insurance BCBS Care Teams Head Filter Press Tender Relationship Specialty Start Date End Date Unallocated, Noms MD Ananda [address] [place] [address] PCP - General Family Medicine 05/17/24
--- OUTSIDE RECORDS SUMMARY | 2025-05-28 12:22 | XMS_ITS | Clinical Summary ---
Author Organization [employer] tem Address [id number] [place] [address] Care Team Providers Care Spinning And Winding Supervisor Name Role Phone No Pcp, No Pcp [...] EDT - 02/27/2025 12:43 AM EDT Emergency [facility] - Emergency [address] [place] [address] Sherif Berumen MD Chest pain, [...] Palm MD on 02/27/2025 12:10 AM us hSerif Berumen MD IMG DIAGNOSTIC IMAGING ORDERAB LES Final Result * Troponin I, High Sensitivity 1 Hour (02/26/2025 10:56 PM EDT) TROPONIN I, HIGH SENSITIVITY 2 <21 ng/L 02/26/2025 11:48 PM EDT [facility] Blood Venous blood / Unknown 02/26/2025 10:56 PM EDT 02/26/2025 11:00 PM EDT us Sherif Berumen MD LAB BLOOD ORDERABLES Final Res ult [facility] [address] [place] [address] [place] [address], [place] * Troponin I, High Sensitivity 0 Hour (02/26/2025 10:01 PM EDT) TROPONIN I, HIGH SENSITIVITY 3 <21 ng/L 02/26/2025 10:37 PM EDT [facility] Blood Venous blood / Unknown 02/26/2025 10:01 PM EDT 02/26/2025 10:03 PM EDT us Sherif Berumen MD LAB BLOOD ORDERABLES Final Res ult Performing Organization Address City/[facility]/ZIP Co de Phone Number [address] [place] [address], [place] * CBC auto differential (02/26/2025 10:01 PM EDT) WBC 6.4 4 - 11 x10E9/L 02/26/2025 10:13 PM EDT [facility] RBC Count 4.99 4.1 - 5.7 X10E12/L 02/26/2025 10:13 PM EDT [facility] Hemoglobin 14.2 13 - 17 g/dL 02/26/2025 10:13 PM EDT [facility] Hematocrit 41.2 39 - 50 % 02/26/2025 10:13 PM EDT [facility] MCV 83 80 - 100 fL 02/26/2025 10:13 PM EDT [facility] MCH 28.5 27 - 34 pg 02/26/2025 10:13 PM EDT [facility] MCHC 34.6 32 - 36 g/dL 02/26/2025 10:13 PM EDT [facility] RDW 13.9 11.5 - 15 % 02/26/2025 10:13 PM EDT [facility] Platelet Count 202 150 - 450 X10E9/L 02/26/2025 10:13 PM EDT [facility] MPV 8.7 7 - 12 fL 02/26/2025 10:13 PM EDT [facility] Neutrophils % 60.1 % 02/26/2025 10:13 PM EDT [facility] Lymphocytes % 28.6 % 02/26/2025 10:13 PM EDT [facility] Monocytes % 8.8 % 02/26/2025 10:13 PM EDT [facility] Eosinophils % 2.0 % 02/26/2025 10:13 PM EDT [facility] Basophils % 0.5 % 02/26/2025 10:13 PM EDT [facility] Neutrophils Absolute (A) 3.8 1.5 - 6.6 10*3/uL 02/26/2025 10:13 PM EDT [facility] Lymphocytes Absolute 1.8 1.0 - 3.5 10*3/uL 02/26/2025 10:13 PM EDT [facility] Monocytes Absolute 0.6 0.0 - 0.9 10*3/uL 02/26/2025 10:13 PM EDT [facility] Eosinophils Absolute 0.1 0.0 - 0.4 10*3/uL 02/26/2025 10:13 PM EDT [facility] Basophils Absolute 0.0 0.0 - 0.2 10*3/uL 02/26/2025 10:13 PM EDT [facility] Differential Type AUTOMATED DIFFERENTIAL 02/26/2025 10:13 PM EDT [facility] Blood Venous blood / Unknown 02/26/2025 10:01 PM EDT 02/26/2025 10:03 PM EDT us Sherif Berumen MD LAB BLOOD ORDERABLES Final Res ult [facility] [address] [place] [address], [place] * D-Dimer (02/26/2025 10:01 PM EDT) D DIMER <150 1 - 255 ug/mL 02/26/2025 10:21 PM EDT [facility] Comment:Results <255 ng/mL D DU: The [...] MD LAB BLOOD ORDERABLES Final Res ult [facility] [address] [place] [address], [place] * (ABNORMAL) Basic Metabolic Panel (02/26/2025 10:01 PM EDT) Pathologist [facility] SODIUM 138 134 - 146 mmol/L 02/26/2025 10:21 PM EDT [facility] POTASSIUM 3.6 3.5 - 5.0 mmol/L 02/26/2025 10:21 PM EDT [facility] CHLORIDE 110(H) 98 - 109 mmol/L 02/26/2025 10:21 PM EDT [facility] CARBON DIOXIDE 24 22 - 32 mmol/L 02/26/2025 10:21 PM EDT [facility] ANION GAP 4(L) 5 - 15 mmol/L 02/26/2025 10:21 PM EDT [facility] BLOOD UREA NITROGEN 13 5 - 23 mg/dL 02/26/2025 10:21 PM EDT [facility] CREATININE 0.87 0.70 - 1.20 mg/dL 02/26/2025 10:21 PM EDT [facility] Comment:METHOD TRACEABLE TO IDMS STANDARD GLUCOSE 104(H) 65 - 99 mg/dL 02/26/2025 10:21 PM EDT [facility] CALCIUM 8.9 8.5 - 10.5 mg/dL 02/26/2025 10:21 PM EDT [facility] EGFR Non-Race Dependent >90 >=60 ml/min/1.7 3sq.m 02/26/2025 10:21 PM EDT [facility] Comment: Reported eGFR is based on the CKD-EPI 2020 equation that does not use a race coefficient. Blood Venous blood / Unknown 02/26/2025 10:01 PM EDT 02/26/2025 10:03 PM EDT Sherif Berumen MD LAB BLOOD ORDERABLES Final Res ult [facility] [address] [place] [address], [place] * ECG 12 lead (02/26/2025 9:10 PM EDT) 02/26/2025 9:10 PM EDT Narrative [facility] - 02/26/2025 11:27 PM EDT Sherif Berumen MD ECG ORDERABLES Final Result [facility]ACEM[facility] from Last 3 Months Care Teams Spinning And Winding Supervisor Relationship Specialty Start Date End Date No Pcp, [place] [address] PCP - General Family Medicine 06/21/24
--- OUTSIDE RECORDS SUMMARY | 2025-05-28 12:22 | XMS_ITS | Patient Health Record ---
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
--- OUTSIDE RECORDS SUMMARY | 2025-05-28 12:22 | XMS_ITS | Encounter Summary ---
Author Organization [facility] Address [address] [place] [address] Care Team Providers Care Route Sales Associate Name Role Phone Unallocated, Noms Provider Primary Care Provi ian Encounter Details Date Type Department Care Team (Late st Contact Info) Description 05/27/2025 Clinisync Result Encounter [facility] External Department Unsolicited Debbi Lo, DAJA [address] [place] [address] Social History Tobacco Use Types Packs/Day Years [...] on file Sexual Orientation Not on file documented as of this encounter Plan of Treatment Not on file documented as of this encounter Procedures Procedure Name Priority Date/Time Associated Diagnosis Comments US RIGHT UPPER QUADRANT 05/27/2025 11:22 AM EDT documented in this encounter Results * US RIGHT UPPER QUADRANT (05/27/2025 11:22 AM EDT) Anatomical Region Laterality Modality Other 05/27/2025 11:2 2 AM EDT Narrative 05/27/2025 11:25 AM EDT The [address] [address] Ultrasound Report Signed Patient: GEORGIANA REYES MR#: [id number] : 1995 Acct:[id number] Age/Sex: 30 / M ADM Date: 05/27/25 Loc: US Attending Dr: Debbi FARNSWORTH Ordering Physician: Debbi Lo Date of Service: 05/27/25 Procedure(s): US right upper quadrant Accession Number(s): [id number] cc: Debbi Lo; Physician,Non-Staff Rk The [address] [address] Patient Name: GEORGIANA REYES MRN: [facility]:[id number] date: 1995 Sex: M Assigned Patient Location: US Current Patient Location: US Accession/Order Number: [id number] Exam Date: 05/27/2025 10:10 Report Date: 05/27/2025 11:22 At the request of: DEBBI FARNSWORTH Procedure: US right upper quadrant LIMITED RIGHT UPPER QUADRANT ABDOMINAL ULTRASOUND CLINICAL HISTORY: Right upper quadrant pain, nausea and dizziness COMPARISON: CT 05/11/2025 The gallbladder is physiologically distended. There is a tiny 3 mm echogenic focus along the dependent wall of the gallbladder. Mobility was not indicated by the pin puller. It could be a small polyp or [...] Gabriel M.D. 05/27/2025 11:22 AM Dictation Location: [place] [address] Electronically authenticated by: [id number] Y Date: 05/27/2025 11:22 Dictated By: Eleanor Gabriel M.D. Signed By: 05/27/25 1125 DD/ 1122 TD/TT: Ground Layer: Procedure Note Radiology, Radiologist, - 05/27/[address] [address] Ultrasound Report Signed Patient: GEORGIANA REYES MMR#: [id number] : 1995Acct:[id number] Age/Sex: 30 / MADM Date: 05/27/25 Loc: US Attending Dr: Debbi FARNSWORTH Ordering Physician: Debbi Lo Date of Service: 05/27/25 Procedure(s): US right upper quadrant Accession Number(s): [id number] cc: Debbi Lo; Physician,Non-Staff M.DBobo The [address] [address] Patient Name: GEORGIANA REYES MRN: [facility]:[id number] date: 1995 Sex: M Assigned Patient Location: US Current Patient Location: US Accession/Order Number: [id number] Exam Date: 05/27/2025 10:10 Report Date: 05/27/2025 11:22 At the request of: DEBBI FARNSWORTH Procedure: US right upper quadrant LIMITED RIGHT UPPER QUADRANT ABDOMINAL ULTRASOUND CLINICAL HISTORY: Right upper quadrant pain, nausea and dizziness COMPARISON: CT 05/11/2025 The gallbladder is physiologically distended. There is a tiny 3 mmechogenic focus along the dependent wall of the gallbladder. Mobility was notindicated by the pin puller. It could be a small polyp or [...] Gabriel M.D. 05/27/2025 11:22 AM Dictation Location: [place] [address] Electronically authenticated by: [id number] Y Date: 1:22 Dictated By: Eleanor Gabriel M.D. Signed By:05/27/25 1125 DD/ 1122 TD/TT: Ground Layer: us Debbi FARNSWORTH [facility] Final Resul t documented in this encounter Visit Diagnoses Not on filedocumented in this encounter Care Teams Route Sales Associate Relationship Specialty Start Date End Date Unallocated, Noms Provider, [address] [place] [address] PCP - General Family Medicine 05/17/24 documented as of this encounter
--- OUTSIDE RECORDS SUMMARY | 2025-05-28 12:22 | XMS_ITS | Encounter Summary ---
Author Organization [employer] Address [id number] [address] [place] [address] Care Team Providers Care Community Outreach Specialist Name Role Phone No Pcp, No Pcp Primary Care Provider Unavailabl e Encounter Details Date Type Department Care Team (Late st Contact Info) Description 11/12/2021 Telephone [facility] - CT Imaging [address] [place] [address] Alize Morales, RN Social History [...] documented as of this encounter Care Teams Community Outreach Specialist Relationship Specialty Start Date End Date No Pcp, [place] [address] PCP - General Family Medicine 06/21/24 documented as of this encounter
--- OUTSIDE RECORDS SUMMARY | 2025-05-28 12:22 | XMS_ITS | Encounter Summary ---
Author Organization [employer] [facility] tem Address [facility][id number] [address] [place] [address] Care Team Providers Care Chemical Librarian Name Role Phone No Pcp, No Pcp Primary Care Provider Unavailabl e Encounter Details Date Type Department Care Team (Late st Contact Info) Description 11/17/2021 Telephone [facility] - CT Imaging [address] [place] [address] Alize Morales, RN Social History [...] documented as of this encounter Care Teams Chemical Librarian Relationship Specialty Start Date End Date No Pcp, [place] [address] PCP - General Family Medicine 06/21/24 documented as of this encounter
--- OUTSIDE RECORDS SUMMARY | 2025-05-28 12:22 | XMS_ITS | Patient Health Record ---
Author Organization [facility] [place] Address [address] [place] [address] Support Name Relationship Address Phone Dorinda Villalta Emergency Contact Unknown [phone] Kwan Reyes Guarantor Unknown Reason For Referral [...] ACCESS PPO PLUS LOCAL PLAN [address] [place] [address] [phone] [id number] Lili Barragan Child - Insured has Financial Responsibility
--- OUTSIDE RECORDS SUMMARY | 2025-05-28 12:22 | XMS_ITS | Encounter Summary ---
Author Organization [employer] tem Address [id number] [address] [place] [address] Care Team Providers Care Catalyst Impregnator Name Role Phone No Pcp, No Pcp Primary Care Provider Unavailabl e Encounter Details Date Type Department Care Team (Late st Contact Info) Description 11/10/2021 Telephone [facility] - CT Imaging [address] [place] [address] Alize Morales, RN Social History [...] documented as of this encounter Care Teams Catalyst Impregnator Relationship Specialty Start Date End Date No Pcp, [place] [address] PCP - General Family Medicine 06/21/24 documented as of this encounter
--- OUTSIDE RECORDS SUMMARY | 2025-05-28 12:22 | XMS_ITS | Encounter Summary ---
Author Organization [facility] Address [address] [place] [address] Care Team Providers Care Kiln Furniture Caster Name Role Phone Unallocated, Noms Provider Primary Care Provi ian Encounter Details Date Type Department Care Team (Late st Contact Info) Description 05/27/2025 Results Follow-Up [facility] Orthopaedics [address] [place] [address] Manjit Lo PA [address] [place] [address] RIGHT UPPER QUADRANT Social History Tobacco Use Types Packs/Day Years [...] on filedocumented in this encounter Care Teams Kiln Furniture Caster Relationship Specialty Start Date End Date Unallocated, Noms ProviderMD [address] [place] [address] PCP - General Family Medicine 05/17/24 documented as of this encounter
--- OUTSIDE RECORDS SUMMARY | 2025-05-28 12:22 | XMS_ITS | Clinical Summary ---
Author Organization [facility] Address [address], [address] [place] [address] Care Team Providers Care Material Movers Name Role Phone Unavailable Primary Care Provider [...] Cigarette/ Tobacco use Lifestyle No Maribell Glass, PIT MANAGER ([facility]) Advance Directives Documents on File Type Date Recorded Patient Custodial Foreman Expl anation ACP-Power of Table Games Dealer 09/05/2014
--- OUTSIDE RECORDS SUMMARY | 2025-05-28 12:25 | XMS_ITS | CCD ---
Author Organization [facility] Care Team Providers Care Commercial Stripper Name Role Phone NONSTAFF, PHYSI Unavailable Unavailable RAYSA SULLIVAN Unavailable Unavailable Unavailable Primary Care Provider Unavailabl e No Family, Physician Primary Care Unavailable No Family, Physician Primary Care Unavailable No Family, Physician Primary Care Unavailable No Family, Physician Primary Care Unavailable VIRGIL WAYNE Attending Unavailable JUAN, LUPIS Primary Care Unavailable JUAN, LUPIS Primary Care Unavailable No Family, Physician Primary Care Unavailable No Family, Physician Primary Care Unavailable Unavailable Primary Care Provider UnavailISAAC Weiner Referring Unavailable ISAAC CONNOLLY Referring Unavailable Sara Edwards Attending Unav Timoteo adair Rai, MD Primary Care Unavailab KARTHIK Villafuerte Attending Unavailable Karl Rizzo MD Provider Primary Care Provi ian [facility] Primary Care Unava ilSUBHA Pineda Attending Unavailab le GOMBASH, SUBHA PETERS Attending Unavailab le GOMBASH, SUBHA PETERS Referring Unavailab le [facility] Primary Care Unava ilable PATEL MCELROY [...] Primary Care Unavailable WALTER UNDERWOOD Attending Unavailable UnalKarl lizama MD Provider Primary Care Provi ian Allergies Allergy Classification Reported Allergen(s) Allergy Type Date of Onset Reaction(s) Facility (1 source) No Known Medication Allergies; Translations: [No Known Medication Allergies] Propensity to adverse reactions to drug (disorder) [facility] Repository Medications Current Medications Medication Drug [...] days 20 tablet 0 12/06/2018 Active Sertraline (3 sources) Serotonin Reuptake Inhibitor Sertraline HCl (ZOLOFT PO) Active Completed/Discontinued Medications Medication Drug Class(es) Dates Sig (Normalized) Sig (Original) acetaminophen 500 mg oral tablet (8 sources) Start: 11-15-2019 End: 11-16-2019 acetaminophen (TYLENOL) tablet 1,000 mg take 2 tablets by mo uth every six hours as needed for pain [...] every six hours as needed for headache wfvxhvutob-lsobdmhbcnmkk-fivavfer (FIORICET, ESGIC) 50-325-40 MG per tablet Indications: [...] Test Name Value Interpretation Reference Range Facility US RIGHT [facility] [place] [address] Ultrasound Report Signed Patient: GEORGIANA REYES MR#: [id number] : 1995 Acct:[id number] Age/Sex: 30 / M ADM Date: 05/27/25 Loc: US Attending Dr: Debbi Lo PA Ordering Physician: Debbi Lo Date of Service: 05/27/25 Procedure(s): right upper quadrant Accession Number(s): [id number] cc: Debbi Lo; Physician,Non-Staff Rk [facility] [place] [id number] Patient Name: GEORGIANA REYES MRN: [facility]:[id number] date: 1995 Sex: M Assigned Patient Location: US Current Patient Location: US Accession/Order Number: [id number] Exam Date: 05/27/2025 10:10 Report Date: 05/27/2025 11:22 At the request of: DEBBI FARNSWORTH Procedure: US right upper quadrant LIMITED RIGHT UPPER QUADRANT ABDOMINAL ULTRASOUND CLINICAL HISTORY: Right upper quadrant pain, nausea and dizziness COMPARISON: CT 05/11/2025 The gallbladder is physiologically distended. There is a tiny 3 mm echogenic focus along the dependent wall of the gallbladder. Mobility was not indicated by the folding rules printing machine operator. It could be a small polyp or [...] Gabriel M.D. 05/27/2025 11:22 AM Dictation Location: [place] [address] Electronically authenticated by: [id number] Y Date: 05/27/2025 11:22 Dictated By: Eleanor Gabriel M.D. Signed By: 05/27/25 1125 DD/ 112 TD/TT: Die Mechanic: [facility] Radiology, Radiologist, MD - 05/27/2025 [facility] [place] [id number] Ultrasound Report Signed Patient: GEORGIANA REYES MR#: [id number] : 1995 Acct:[id number] Age/Sex: 30 / M ADM Date: 05/27/25 Loc: US Attending Dr: Debbi FARNSWORTH Ordering Physician: Debbi Lo Date of Service: 05/27/25 Procedure(s): US right upper quadrant Accession Number(s): [id number] cc: Debbi Lo; Physician,Non-Staff M.DBobo [place] [address] Patient Name: GEORGIANA REYES MRN: [id number] date: 1995 Sex: M Assigned Patient Location: US Current Patient Location: US Accession/Order Number: [id number] Exam Date: 05/27/2025 10:10 Report Date: 05/27/2025 11:22 At the request of: DEBBI FARNSWORTH Procedure: US right upper quadrant LIMITED RIGHT UPPER QUADRANT ABDOMINAL ULTRASOUND CLINICAL HISTORY: Right upper quadrant pain, nausea and dizziness COMPARISON: CT 05/11/2025 The gallbladder is physiologically distended. There is a tiny 3 mm echogenic focus along the dependent wall of the gallbladder. Mobility was not indicated by the folding rules printing machine operator. It could be a small polyp or [...] Gabriel M.D. 05/27/2025 11:22 AM Dictation Location: [place] [address] Electronically authenticated by: [id number] Y Date: 05/27/2025 11:22 Dictated By: Eleanor Gabriel M.D. Signed By: 05/27/25 1125 DD/ 1122 TD/TT: Die Mechanic: [facility] Rad[facility] Study observation (narrative) [facility] [employer] US RIGHT UPPER QUADRANTOrder ed By: Radiologist Radiology on 05-27-2025 [facility] [employer] Work Phone: XR CHEST 1 VWon 02-27-2025 XR CHEST [...] Palm MD on 02/27/2025 12:10 AM Normal [facility] BASIC METABOLIC PANELon 02-04 Anion gap [Moles/Vol] 4 mmol/L Low 5-15 [facility] Comment on above: Performed By: #### B MP #### [facility] ([address] [address] VIR Calcium [Mass/Vol] 8.9 mg/dL Normal 8.5-10.5 [facility] Comment on above: Performed By: #### B MP #### [address] [address] VIR Chloride [Moles/Vol] 110 mmol/L High 98-109 [facility] Comment on above: Performed By: #### B MP #### [facility] ([address] [address] VIR CO2 [Moles/Vol] 24 mmol/L Normal 22-32 [facility] Comment on above: Performed By: #### B MP #### [facility] ([address] [address] VIR Creatinine [Mass/Vol] 0.87 mg/dL Normal 0.70-1.20 [facility] Comment on above: Result Comment: METH OD TRACEABLE TO IDMS STANDARD Performed By: #### B MP #### [facility] ([address] [place] [address] VIR EGFR (CKD-EPI) NON-RACE DEPENDENT >^90 Normal >=60 [facility] Comment on above: Result Comment: Repo rted eGFR is based on the CKD-EPI 2020 equation that does not use a race coefficient. Performed By: #### B MP #### [facility] ([address] [place] [address] VIR Glucose [Mass/Vol] 104 mg/dL High 65-99 [facility] Comment on above: Performed By: #### B MP #### [facility] ([address] [place] [address] VIR Potassium [Moles/Vol] 3.6 mmol/L Normal 3.5-5.0 [facility] Comment on above: Performed By: #### B MP #### [facility] ([address] [place] [address] VIR Sodium [Moles/Vol] 138 mmol/L Normal 134-146 [facility] Comment on above: Performed By: #### B MP #### [facility] ([address] [place] [address] VIR Urea nitrogen [Mass/Vol] 13 mg/dL Normal 5-23 [facility] Comment on above: Performed By: #### B MP #### [facility] ([address] [place] [address] VIR CBC WITH AUTO DIFFERENTIALon 02-26-2025 BASOPHILS ABSOLUTE COUNT (10*3/UL) BY AUTOMATED COUNT 0.0 10*3/uL Normal 0.0-0.2 [facility] Comment on above: Performed By: #### C BCA #### [facility] ([address] [place] [address] VIR BASOPHILS RELATIVE PERCENT BY AUTOMATED COUNT 0.5 % Normal [facility] Comment on above: Performed By: #### C BCA #### [facility] ([address] [place] [address] VIR CELLAVISION DIFFERENTIAL TYPE AUTOMATED DIFFERENTIAL Normal [facility] Comment on above: Performed By: #### C BCA #### [facility] ([address] [place] [address] VIR Eosinophils (Bld) [#/Vol] 0.1 10*3/uL Normal 0.0-0.4 [facility] Comment on above: Performed By: #### C BCA #### [facility] ([address] [place] [address] VIR EOSINOPHILS RELATIVE PERCENT BY AUTOMATED COUNT 2.0 % Normal [facility] Comment on above: Performed By: #### C BCA #### [address] [place] [address] VIR Erythrocyte distribution width (RBC) [Ratio] 13.9 % Normal 11.5-15 [facility] Comment on above: Performed By: #### C BCA #### [address] [place] [address] VIR Hematocrit (Bld) [Volume fraction] 41.2 % Normal 39-50 [facility] Comment on above: Performed By: #### C BCA #### [address] [place] [address] VIR Hemoglobin (Bld) [Mass/Vol] 14.2 g/dL Normal 13-17 [facility] Comment on above: Performed By: #### C BCA #### [address] [place] [address] VIR LYMPHOCYTES ABSOLUTE COUNT (10*3/UL) BY AUTOMATED COUNT 1.8 10*3/uL Normal 1.0-3.5 [facility] Comment on above: Performed By: #### C BCA #### [facility] ([address] [place] [address] VIR LYMPHOCYTES RELATIVE PERCENT BY AUTOMATED COUNT 28.6 % Normal [facility] Comment on above: Performed By: #### C BCA #### [facility] ([address] [place] [address] VIR MCH (RBC) [Entitic mass] 28.5 pg Normal 27-34 [facility] Comment on above: Performed By: #### C BCA #### [facility] ([address] [place] [address] VIR MCHC (RBC) [Mass/Vol] 34.6 g/dL Normal 32-36 [facility] Comment on above: Performed By: #### C BCA #### [facility] ([address] [place] [address] VIR MCV (RBC) [Entitic vol] 83 fL Normal 80-100 [facility] Comment on above: Performed By: #### C BCA #### [facility] ([address] [place] [address] VIR MONOCYTES ABSOLUTE COUNT (10*3/UL) BY AUTOMATED COUNT 0.6 10*3/uL Normal 0.0-0.9 [facility] Comment on above: Performed By: #### C BCA #### [facility] ([address] [place] [address] VIR MONOCYTES RELATIVE PERCENT BY AUTOMATED COUNT 8.8 % Normal [facility] Comment on above: Performed By: #### C BCA #### [facility] ([address] [place] [address] VIR NEUTROPHILS ABSOLUTE COUNT BY AUTOMATED COUNT 3.8 10*3/uL Normal 1.5-6.6 [facility] Comment on above: Performed By: #### C BCA #### [facility] ([address] [place] [address] VIR NEUTROPHILS RELATIVE PERCENT BY AUTOMATED COUNT 60.1 % Normal [facility] Comment on above: Performed By: #### C BCA #### [facility] ([facility]) [address] [place] [address]. [place] [address] VIR Platelet mean volume (Bld) [Entitic vol] 8.7 fL Normal 7-12 [facility] Comment on above: Performed By: #### C BCA #### [facility] ([address] [place] [address] VIR Platelets (Bld) [#/Vol] 202 10*3/uL Normal 150-450 [facility] Comment on above: Performed By: #### C BCA #### [facility] ([address] [place] [address] VIR RBC COUNT 4.99 X10E12/L Normal 4.1-5.7 [facility] Comment on above: Performed By: #### C BCA #### [facility] ([address] [place] [address] VIR WBC (Bld) [#/Vol] 6.4 10*3/uL Normal 4-11 [facility] Comment on above: Performed By: #### C BCA #### [facility] ([address] [place] [address] VIR D-DIMERon 02-26-2025 D DIMER <^150 Normal 1-255 [facility] Comment on above: Result Comment: Resu lts <255 ng/mL DDU: The presensence of a VTE can safely be excluded with a negative D-Dimer result and Wells score. A negative result doesn't exclude the possibility of DIC. The test should be repeated along with other diagnostic tests if the patient's symptoms persist or worsen. Performed By: #### D DMR #### [facility] ([address] [place] [address] VIR TROP I, HIGH SENSITIVITY 1 H OURon 02-26-2025 TROPONIN I, HIGH SENSITIVITY 2 ng/L Normal <21 [facility] Comment on above: Performed By: #### T NIHS1 #### [facility] ([facility]) [address] [place] [address] [place] [address] VIR TROPONIN I, HIGH SENSITIVITY 0 HOURon 02-26-2025 TROPONIN I, HIGH SENSITIVITY 3 ng/L Normal <21 [facility] Comment on above: Performed By: #### T NIHS0 #### [facility] ([facility]) [address] [place] [address]. [place] [address] VIR XR FOOT RT MIN 3 VWSon [...] Pelon Hagen MD on 05/13/2024 8:38 PM IOvidio MD have personally reviewed the image(s) and agree with and/or edited the report Finalized by Ovidio Grossman MD on 05/13/2024 8:54 PM Normal [facility] XR FOOT RT MIN 3 VWSon 04-30 [...] Pelon Hagen MD on 04/30/2024 1:10 AM Mike Becerra MD have personally reviewed the image(s) and agree with and/or edited the report Finalized by Mike Davila MD on 04/30/2024 1:15 AM Normal [facility] XR Hand 3 Views Lefton 10-12 -2023 XR Hand 3 Views Left EXAM: XR Hand 3 Views Left HISTORY: contusion COMPARISON: None. TECHNIQUE: 3 [...] Electronically Signed in Other Vendor System) Normal [facility] XR HAND LEFT (MIN 3 VIEWS)on [...] Heidi Nunes DO 10/09/20 Final result Normal [facility] No acute osseous abnormality in the left hand. [place] EXAMINATION: THREE XRAY VIEWS OF THE LEFT HAND 10/09/2020 4:59 pm COMPARISON: None. HISTORY: ORDERING SYSTEM PROVIDED HISTORY: Injury TECHNOLOGIST PROVIDED HISTORY: Reason for Exam: middle finger left hand hit by hammer, pain Acuity: Unknown Type of Exam: Unknown FINDINGS: Soft tissues are within normal limits. There is no acute fracture or dislocation. Joint spaces are preserved. No bony erosion. [place], [place] Kevin, Mhpn Incoming Radiant Results From [employer] - 10/09/2020 5:17 PM EST EXAMINATION: THREE [...] acute osseous abnormality in the left hand. [facility], [place] 2019 NOVEL CORONAVIRUS (COVI D-19), ZOHRA?on 11-29-2019 COV-2 BY PCR INTERPRETATION NOT DETECTED Normal NOT DETECT [facility] [place] Comment on above: Performed By: #### C BCWD, BMP, HEPPA, LIPAS, ANION, OSMOL, EGFR1 #### [facility] [address] [place] [address] COV-2 BY PCR REPORT SEE REPORT Normal [facility] [place] Comment on above: Performed By: #### C BCWD, BMP, HEPPA, LIPAS, ANION, OSMOL, EGFR1 #### [facility] [address] [place] [address] SARS COV-2 BY PCRon 11-26-19 20 SARS COV-2 BY PCR see below Normal [facility] Comment on above: Result Comment: *THIS IS NOT A TEST RESULT See printed reference report or [facility](EMR)/ Media tab. Test ordered: Performed By: #### C BCWD, BMP, HEPPA, LIPAS, ANION, OSMOL, EGFR1 #### [facility] [address] [place] [address] SARS COV-2 BY PCRon 11-16-19 20 SARS COV-2 BY PCR SOURCE ANNEALER/OP swab Normal [facility] [place] Comment on above: Performed By: #### C BCWD, BMP, HEPPA, LIPAS, ANION, OSMOL, EGFR1 #### [facility] [address] [place] [address] GROUP A STREP REFLEXon 11-14 REFLEX THROAT C + S INDICATED Normal [facility] [place] Comment on above: Performed By: #### C BCWD, BMP, HEPPA, LIPAS, ANION, OSMOL, EGFR1 #### [facility] [address] [place] [address] GROUP A STREP Negative Normal NEGATIVE [facility] Comment on above: Performed By: #### C BCWD, BMP, HEPPA, LIPAS, ANION, OSMOL, EGFR1 #### [place] [address] Group A Strep, Reflexon 11-03 GROUP A STREP CULTURE, REFLEX Negative NEGATIVE [place] REFLEX THROAT C + S INDICATED [place] Comment on above: Performed at [facility] [address] [place] [address] INFLUENZA A + B ANTIGENon INFLUENZA A AG Negative Normal NEGATIVE [facility] Comment on above: Performed By: #### C BCWD, BMP, HEPPA, LIPAS, ANION, OSMOL, EGFR1 #### [place] [address] INFLUENZA B AG Negative Normal NEGATIVE [facility] Comment on above: Performed By: #### C BCWD, BMP, HEPPA, LIPAS, ANION, OSMOL, EGFR1 #### [place] [address] RESPIRATORY ID PANEL BY PCRo n 11-15-2019 INFLUENZA A RESPIRATORY BY PCR Not Detected Normal [facility] [place] Comment on above: Performed By: #### C BCWD, BMP, HEPPA, LIPAS, ANION, OSMOL, EGFR1 #### [place] [address] ADENOVIRUS RESPIRATORY BY PCR Not Detected Normal [facility] [place] Comment on above: Performed By: #### C BCWD, BMP, HEPPA, LIPAS, ANION, OSMOL, EGFR1 #### [place] [address] BORDETELLA PARAPERTUSSIS BY PCR Not Detected Normal [facility] Comment on above: Performed By: #### C BCWD, BMP, HEPPA, LIPAS, ANION, OSMOL, EGFR1 #### [place] [address] BORDETELLA PERTUSSIS RESP. BY PCR Not Detected Normal [facility] [place] Comment on above: Performed By: #### C BCWD, BMP, HEPPA, LIPAS, ANION, OSMOL, EGFR1 #### [place] [address] CHLAMYDOPHILA PNEUMONIAE RESP BY PCR Not Detected Normal [facility] [place] Comment on above: Performed By: #### C BCWD, BMP, HEPPA, LIPAS, ANION, OSMOL, EGFR1 #### [place] [address] CORONAVIRUS 229E RESPIRATORY BY PCR Not Detected Normal [facility] [place] Comment on above: Performed By: #### C BCWD, BMP, HEPPA, LIPAS, ANION, OSMOL, EGFR1 #### [place] [address] CORONAVIRUS HKU1 RESPIRATORY BY PCR Not Detected Normal [facility] [place] Comment on above: Performed By: #### C BCWD, BMP, HEPPA, LIPAS, ANION, OSMOL, EGFR1 #### [place] [address] CORONAVIRUS NL63 RESPIRATORY BY PCR Not Detected Normal [facility] [place] Comment on above: Performed By: #### C BCWD, BMP, HEPPA, LIPAS, ANION, OSMOL, EGFR1 #### [place] [address] CORONAVIRUS OC43 RESPIRATORY BY PCR Not Detected Normal [facility] [place] Comment on above: Performed By: #### C BCWD, BMP, HEPPA, LIPAS, ANION, OSMOL, EGFR1 #### [place] [address] INFLUENZA A/H1 2009 RESPIRATORY BY PCR Normal [facility] [place] Comment on above: Performed By: #### C BCWD, BMP, HEPPA, LIPAS, ANION, OSMOL, EGFR1 #### [place] [address] INFLUENZA A/H1 RESPIRATORY BY PCR Normal [facility] [place] Comment on above: Performed By: #### C BCWD, BMP, HEPPA, LIPAS, ANION, OSMOL, EGFR1 #### [address] [address] INFLUENZA A/H3 RESPIRATORY BY PCR Normal [facility] [place] Comment on above: Performed By: #### C BCWD, BMP, HEPPA, LIPAS, ANION, OSMOL, EGFR1 #### [place] [address] INFLUENZA B RESPIRATORY BY PCR Not Detected Normal [facility] [place] Comment on above: Performed By: #### C BCWD, BMP, HEPPA, LIPAS, ANION, OSMOL, EGFR1 #### [address] [address] METAPNEUMOVIRUS RESPIRATORY BY PCR Not Detected Normal [facility] [place] Comment on above: Performed By: #### C BCWD, BMP, HEPPA, LIPAS, ANION, OSMOL, EGFR1 #### [address] [address] MYCOPLASMA PNEUMONIAE RESP BY PCR Not Detected Normal [facility] [place] Comment on above: Performed By: #### C BCWD, BMP, HEPPA, LIPAS, ANION, OSMOL, EGFR1 #### [place] [address] PARAINFLUENZA 1 RESPIRATORY BY PCR Not Detected Normal [facility] [place] Comment on above: Performed By: #### C BCWD, BMP, HEPPA, LIPAS, ANION, OSMOL, EGFR1 #### [place] [address] PARAINFLUENZA 2 RESPIRATORY BY PCR Not Detected Normal [facility] [place] Comment on above: Performed By: #### C BCWD, BMP, HEPPA, LIPAS, ANION, OSMOL, EGFR1 #### [address] [address] PARAINFLUENZA 3 RESPIRATORY BY PCR Not Detected Normal [facility] [place] Comment on above: Performed By: #### C BCWD, BMP, HEPPA, LIPAS, ANION, OSMOL, EGFR1 #### [address] [address] PARAINFLUENZA 4 RESPIRATORY BY PCR Not Detected Normal [facility] [place] Comment on above: Performed By: #### C BCWD, BMP, HEPPA, LIPAS, ANION, OSMOL, EGFR1 #### [address] [address] RESPIRATORY SYNCYTIAL VIRUS BY PCR Not Detected Normal [facility] [place] Comment on above: Performed By: #### C BCWD, BMP, HEPPA, LIPAS, ANION, OSMOL, EGFR1 #### [place] [address] [place] [address] RHINOVIRUS/ENTEROVIRU S RESP. BY PCR Not Detected Normal [facility] [place] Comment on above: Performed By: #### C BCWD, BMP, HEPPA, LIPAS, ANION, OSMOL, EGFR1 #### [facility] [address] [place] [address] Rapid influenza A/B antigens on 11-15-2019 Flu A Antigen Negative NEGATIVE [place], [place] Flu B Antigen Negative NEGATIVE [place], [place] Comment on above: Performed at [facility] [employer] [facility] [address] [place] [address] Respiratory Panel, Molecular on 11-15-2019 Bordetella pertussis by PCR Not Detected [place] [employer] Adenovirus Not Detected [place], [place] [employer] Bordetella Pertusis Not Detected [place] [employer] Chlamydophilia Pneumoniae Not Detected [place] [employer] Conoravirus NL63 Not Detected [place] [employer] Coronavirus 229E Not Detected [place] [employer] Coronavirus HKU1 Not Detected [place] [employer] Coronavirus OC43 Not Detected [place] Influenza A Virus Not Detected [place] Influenza A Virus 09H1 [place] Influenza A Virus H1 [place] [employer] [place] Influenza A Virus H3 [place] [employer] [place] Influenza B Not Detected [place] [employer] Metapneumovirus Not Detected [place] [employer] Mycoplasma Pneumoniae Not Detected [place] Comment on above: Performed at [facility] [address] [place] [address] Film Array Parainfluenza Virus 1 Not Detected [place], [place] [employer] Parainfluenza Virus 2 Not Detected [place] [employer] Parainfluenza Virus 3 Not Detected [place] Parainfluenza Virus 4 Not Detected [place] [employer] Respiratory Syncitial Virus Not Detected [place] [employer] Rhinovirus/Enteroviru s Not Detected [place] THROAT/NOSE CULTUREon 2019 THROAT/NOSE CULTURE MICROBIOLOGY REPORT [facility] [employer], [address] [place] [address], [place], [address] PATIENT: GEORGIANA REYES LOCATION: ED [id number] : 1995 AGE: 24 SEX: M ADM: 11/15/19 Att. Physician: PHYSICIAN, EMERGENCY Order Id: [id number] Req. Physician: ATTILA CASIANO Source: throat Site: Collected: 11/15/19 15:40 Current Antibiotics: not stated Antibiotics comment: STATUS OF ORDERED AND REPORTED TESTS THROAT/NOSE CULTURE FINAL 11/17/19 THROAT/NOSE CULTURE FINAL 11/17/19 09:02 11/16/19 Normal krishna- preliminary 11/17/19 Normal krishna Normal [facility] [place] Comment on above: Performed By: #### C BCWD, BMP, HEPPA, LIPAS, ANION, OSMOL, EGFR1 #### [facility] [address] [place] [address] XR CHEST (2 VW)on 11-15-2019 XR CHEST [...] Julio Doran MD 11/15/19 Final result Normal [facility] [place] XR CHEST STANDARD (2 VW)on 0 11-15-2019 [...] upright and supine views of the abdomen. [place], [place] Kevin, Wcoh Incoming Radiant Results From [employer] - 11/15/2019 5:33 PM EDT PROCEDURE: XR [...] Dr. Julio Doran on 11/15/2019 5:30 PM [place] No acute cardiopulmonary disease. Probable left upper quadrant small bowel ileus however cannot exclude a small bowel obstruction. Consider upright and supine views of the abdomen for further evaluation. This report has been created using voice recognition software. It may contain minor errors which are inherent in voice recognition technology. Final report electronically signed by Dr. Julio Doran on 11/15/2019 5:30 PM [facility], [place] MICHELLE SCREENon 06-21-2019 MICHELLE SCREEN None Detected Normal None Detec [facility] Comment on above: Result Comment: If s uspicion of connective tissue disease is strong and MICHELLE EIA is negative, consider testing for MICHELLE by IFA ([id number]). INTERPRETIVE INFORMATION: Anti-Nuclear Abs , IgG by ANGELITA Antinuclear Abs , IgG (ANGELITA): MICHELLE specimens are screened using enzyme-linked immunosorbent assay (ANGELITA) methodology. All ANGELITA results reported as Detected are further tested by indirect fluorescent assay (IFA) using HEp-2 substrate with an IgG-specific conjugate. The MICHELLE ANGELITA screen is designed to detect antibodies against dsDNA, histones, SS-A (Ro), SS-B (La), Monroe, Monroe/AIR CAR[employer]ER OPERATIONS INSPECTOR, Scl-70, Edwige-1, centromeric proteins, other antigens extracted from the HEp-2 cell nucleus. MICHELLE ANGELITA assays have been reported to have lower sensitivities than MICHELLE IFA for systemic autoimmune rheumatic diseases (SARD). Negative results do not necessarily rule out SARD. Performed by [facility], [address] [place] [address] [email or web address], Moi Javed MD, Lab. Director Performed By: #### C BCWD, BMP, HEPPA, LIPAS, ANION, OSMOL, EGFR1 #### [facility] [address] [place] [address] CRP HIGH SENSITIVITYon 06-20 CRP HIGH SENSITIVITY 5.2 mg/L High <=3.0 [facility] Comment on above: Result Comment: INTE RPRETIVE [...] mg/L . very high risk Performed by [facility], [address] [place] [address] [email or web address], Moi Javed MD, Lab. Director Performed By: #### C BCWD, BMP, HEPPA, LIPAS, ANION, OSMOL, EGFR1 #### [facility] [address] [address] THYROXINE, TOTALon 9 T4 [Mass/Vol] 7.3 ug/dL Normal 4.5-12.0 [facility] Comment on above: Result Comment: [facility] [employer] [facility] [place] [address] Performed By: #### C BCWD, BMP, HEPPA, LIPAS, ANION, OSMOL, EGFR1 #### [facility] [address] [place] [address] ANION GAPon 06-18-2019 Anion gap [Moles/Vol] 14.0 mmol/L Normal 8.0-16.0 [facility] Comment on above: Result Comment: ANIO N GAP = Sodium -(Chloride + CO2) Performed By: #### C BCWD, BMP, HEPPA, LIPAS, ANION, OSMOL, EGFR1 #### [facility] [address] [place] [address] BASIC METABOL PANELon 2018 Calcium [Mass/Vol] 10.0 mg/dL Normal 8.5-10.[address] [facility] [place] [place] Comment on above: Performed By: #### C BCWD, BMP, HEPPA, LIPAS, ANION, OSMOL, EGFR1 #### [facility] [address] [place] [address] Chloride [Moles/Vol] 103 mmol/L Normal 98-111 [facility] Comment on above: Performed By: #### C BCWD, BMP, HEPPA, LIPAS, ANION, OSMOL, EGFR1 #### [facility] [address] [place] [address] CO2 [Moles/Vol] 24 mmol/L Normal 23-33 [facility] Comment on above: Performed By: #### C BCWD, BMP, HEPPA, LIPAS, ANION, OSMOL, EGFR1 #### [address] [address] Creatinine [Mass/Vol] 0.8 mg/dL Normal 0.4-1.2 [facility] Comment on above: Performed By: #### C BCWD, BMP, HEPPA, LIPAS, ANION, OSMOL, EGFR1 #### [address] [address] Glucose [Mass/Vol] 115 mg/dL High 70-[address] [facility] [place] [place] Comment on above: Performed By: #### C BCWD, BMP, HEPPA, LIPAS, ANION, OSMOL, EGFR1 #### [address] [address] Potassium [Moles/Vol] 3.9 mmol/L Normal 3.5-5.2 [facility] Comment on above: Performed By: #### C BCWD, BMP, HEPPA, LIPAS, ANION, OSMOL, EGFR1 #### [address] [address] Sodium [Moles/Vol] 141 mmol/L Normal 135-[address] [facility] [place] [place] Comment on above: Performed By: #### C BCWD, BMP, HEPPA, LIPAS, ANION, OSMOL, EGFR1 #### [address] [address] Urea nitrogen [Mass/Vol] 13 mg/dL Normal 7-[address] [facility] [place] [place] Comment on above: Performed By: #### C BCWD, BMP, HEPPA, LIPAS, ANION, OSMOL, EGFR1 #### [address] [address] GFR, ESTIMATEDon 06-18-2019 GFR/1.73 sq M.predicted MDRD (S/P/Bld) [Vol rate/Area] mL/min/{1.73_m2} Normal [facility] [place] [place] Comment on above: Result Comment: Rosa Elena marcano Description GFR, ml/min/1.73 m2 - At increased [...] BMP, HEPPA, LIPAS, ANION, OSMOL, EGFR1 #### [facility] [address] [place] [address] LIPID PANELon 06-18-2019 Cholesterol [Mass/Vol] 164 mg/dL Normal 100-[address] [facility] [place] [place] Comment on above: Result Comment: <200 Desirable 200 - 239 Borderline High >239 High Performed By: #### C BCWD, BMP, HEPPA, LIPAS, ANION, OSMOL, EGFR1 #### [facility] [address] [place] [address] Cholesterol in HDL [Mass/Vol] 45 mg/dL Normal [facility] [place] [place] Comment on above: Result Comment: Refe r to General Chemistry for CHOL and TRIG results. HDL CLASSIFICATIONS FOR PATIENTS > 20 YEARS OLD. <40 Undesirable (Major Risk Factor) >60 Protective (Negative Risk Factor) Performed By: #### C BCWD, BMP, HEPPA, LIPAS, ANION, OSMOL, EGFR1 #### [facility] [address] [place] [address] Cholesterol in LDL [Mass/Vol] 80 mg/dL Normal [facility] [place] [place] Comment on above: Result Comment: Refe r to General Chemistry for CHOL and TRIG results. LDL CLASSIFICATIONS FOR PATIENTS >20 YEARS OLD: Determination Invalid if TRIG >400 <100 Optimal 100 - 129 Near or Above Optimal 130 - 159 Borderline High 160 - 189 High Risk >189 Very High Risk Performed By: #### C BCWD, BMP, HEPPA, LIPAS, ANION, OSMOL, EGFR1 #### [facility] [address] [place] [address] Triglyceride [Mass/Vol] 194 mg/dL Normal 0-[address] [facility] [place] [place] Comment on above: Result Comment: <150 Desirable 150 - 199 Borderline High 200 - 499 High >449 Very High Ranges are based upon NCEP/ATP III guidelines. Performed By: #### C BCWD, BMP, HEPPA, LIPAS, ANION, OSMOL, EGFR1 #### [place] [address] MAGNESIUMon 06-18-2019 Magnesium [Mass/Vol] 1.6 mg/dL Normal 1.6-2.4 [facility] Comment on above: Performed By: #### C BCWD, BMP, HEPPA, LIPAS, ANION, OSMOL, EGFR1 #### [place] [address] RHEUMATOID FACTORon 06-18-20 19 RHEUMATOID FACTOR < 10 Normal 0-13 [facility] Comment on above: Performed By: #### R F, MG, LIPD2, BMP, TSHRF, ANION, EGFR1, VD25, WSR #### [place] [address] SED RATEon 06-18-2019 SED RATE 6 mm/hr Normal 0-[address] [facility] [place] [place] Comment on above: Performed By: #### C BCWD, BMP, HEPPA, LIPAS, ANION, OSMOL, EGFR1 #### [place] [address] TSH W/ REFLEX FT4on 06-18-20 19 TSH THIRD GENERATION 0.969 uIU/mL Normal 0.400-4.20 [facility] Comment on above: Performed By: #### C BCWD, BMP, HEPPA, LIPAS, ANION, OSMOL, EGFR1 #### [address] [address] VITAMIN D TOTAL 25 ([place])on VITAMIN D TOTAL 25 ([place]) 17 ng/ml Low 30-[address] [facility] [place] [place] Comment on above: Result Comment: Liliana min D Status Range Deficiency <20 ng/ml Insuffiency 20-30 ng/ml Sufficiency 30-100 ng/ml Toxicity >100 ng/ml Performed By: #### C BCWD, BMP, HEPPA, LIPAS, ANION, OSMOL, EGFR1 #### [facility] [address] [place] [address] ANION GAPon 06-12-2019 Anion gap [Moles/Vol] 13.0 mmol/L Normal 8.0-16.0 [facility] Comment on above: Result Comment: ANIO N GAP = Sodium -(Chloride + CO2) Performed By: #### C BCWD, BMP, HEPPA, LIPAS, ANION, OSMOL, EGFR1 #### [facility] [address] [place] [address] Anion Gapon 06-12-2019 Anion gap [Moles/Vol] 13.0 mmol/L 8 - 16 meq/L [place] Comment on above: ANION GAP = Sodium - (Chloride + CO2) Performed at [facility] [address] [place] [address] BASIC METABOL PANELon 2018 Calcium [Mass/Vol] 9.8 mg/dL Normal 8.5-10.[address] [facility] [place] [place] Comment on above: Performed By: #### C BCWD, BMP, HEPPA, LIPAS, ANION, OSMOL, EGFR1 #### [facility] [address] [address] Chloride [Moles/Vol] 101 mmol/L Normal 98-111 [facility] Comment on above: Performed By: #### C BCWD, BMP, HEPPA, LIPAS, ANION, OSMOL, EGFR1 #### [address] [address] CO2 [Moles/Vol] 26 mmol/L Normal 23-33 [facility] Comment on above: Performed By: #### C BCWD, BMP, HEPPA, LIPAS, ANION, OSMOL, EGFR1 #### [facility] [address] [place] [address] Creatinine [Mass/Vol] 1.1 mg/dL Normal 0.4-1.2 [facility] Comment on above: Performed By: #### C BCWD, BMP, HEPPA, LIPAS, ANION, OSMOL, EGFR1 #### [facility] [address] [place] [address] Glucose [Mass/Vol] 99 mg/dL Normal 70-[address] [facility] [place] [place] Comment on above: Performed By: #### C BCWD, BMP, HEPPA, LIPAS, ANION, OSMOL, EGFR1 #### [address] [address] Potassium [Moles/Vol] 3.8 mmol/L Normal 3.5-5.2 [facility] Comment on above: Performed By: #### C BCWD, BMP, HEPPA, LIPAS, ANION, OSMOL, EGFR1 #### [address] [address] Sodium [Moles/Vol] 140 mmol/L Normal 135-[address] [facility] [place] [place] Comment on above: Performed By: #### C BCWD, BMP, HEPPA, LIPAS, ANION, OSMOL, EGFR1 #### [address] [address] Urea nitrogen [Mass/Vol] 12 mg/dL Normal 7-[address] [facility] [place] [place] Comment on above: Performed By: #### C BCWD, BMP, HEPPA, LIPAS, ANION, OSMOL, EGFR1 #### [address] [address] Basic Metabolic Panelon 10-0 Calcium [Mass/Vol] 9.8 mg/dL 8.5 - 10. 5 mg/dL [place] Comment on above: Performed at [facility] [address] [place] [address] Chloride [Moles/Vol] 101 mmol/L 98 - 111 meq/L [place] CO2 [Moles/Vol] 26 mmol/L 23 - 33 meq/L [place] Creatinine [Mass/Vol] 1.1 mg/dL 0.4 - 1.2 mg/dL [place] Glucose [Mass/Vol] 99 mg/dL 70 - 108 mg/dL [place], [place] Potassium [Moles/Vol] 3.8 mmol/L 3.5 - 5.2 meq/L [place] Sodium [Moles/Vol] 140 mmol/L 135 - 145 meq/L [place] Urea nitrogen [Mass/Vol] 12 mg/dL 7 - 22 mg/dL [facility] [place] [place] CALCULATED OSMOLALITYon 10-0 -2019 Osmolality [Osmolality] 279.2 mOsmol/kg Normal 275.0-300. [facility] [place] [place] Comment on above: Performed By: #### C BCWD, BMP, HEPPA, LIPAS, ANION, OSMOL, EGFR1 #### [address] [address] CBC WITH DIFFERENTIALon ABS IMMATURE GRANS (IG) 0.04 thou/mm3 Normal 0.00-0.[address] [facility] [place] Comment on above: Performed By: #### C BCWD, BMP, HEPPA, LIPAS, ANION, OSMOL, EGFR1 #### [address] [address] ABS NEUTROPHILS 6.9 thou/mm3 Normal 1.8-7.7 [facility] Comment on above: Performed By: #### C BCWD, BMP, HEPPA, LIPAS, ANION, OSMOL, EGFR1 #### [address] [address] Basophils (Bld) [#/Vol] 0.0 thou/mm3 Normal 0.0-0.[address] [facility] [place] Comment on above: Performed By: #### C BCWD, BMP, HEPPA, LIPAS, ANION, OSMOL, EGFR1 #### [address] [address] Basophils/100 WBC (Bld) 0.4 % Normal [facility] [place] Comment on above: Performed By: #### C BCWD, BMP, HEPPA, LIPAS, ANION, OSMOL, EGFR1 #### [address] [address] Eosinophils (Bld) [#/Vol] 0.2 thou/mm3 Normal 0.0-0.[address] [facility] [place] Comment on above: Performed By: #### C BCWD, BMP, HEPPA, LIPAS, ANION, OSMOL, EGFR1 #### [address] [address] Eosinophils/100 WBC (Bld) 1.7 % Normal [facility] [place] Comment on above: Performed By: #### C BCWD, BMP, HEPPA, LIPAS, ANION, OSMOL, EGFR1 #### [address] [address] Erythrocyte distribution width (RBC) [Ratio] 12.7 % Normal 11.5-14.[address] [facility] [place] Comment on above: Performed By: #### C BCWD, BMP, HEPPA, LIPAS, ANION, OSMOL, EGFR1 #### [place] [address] Hematocrit (Bld) [Volume fraction] 43.1 % Normal 42.0-52.[address] [facility] [place] Comment on above: Performed By: #### C BCWD, BMP, HEPPA, LIPAS, ANION, OSMOL, EGFR1 #### [place] [address] Hemoglobin (Bld) [Mass/Vol] 14.4 gm/dl Normal 14.0-18.[address] [facility] [place] Comment on above: Performed By: #### C BCWD, BMP, HEPPA, LIPAS, ANION, OSMOL, EGFR1 #### [address] [address] IMMATURE GRANS (IG) 0.4 % Normal [facility] [place] Comment on above: Performed By: #### C BCWD, BMP, HEPPA, LIPAS, ANION, OSMOL, EGFR1 #### [address] [address] Lymphocytes (Bld) [#/Vol] 2.3 thou/mm3 Normal 1.0-4.[address] [facility] [place] Comment on above: Performed By: #### C BCWD, BMP, HEPPA, LIPAS, ANION, OSMOL, EGFR1 #### [address] [address] Lymphocytes/100 WBC (Bld) 22.1 % Normal [facility] [place] Comment on above: Performed By: #### C BCWD, BMP, HEPPA, LIPAS, ANION, OSMOL, EGFR1 #### [address] [address] MCH (RBC) [Entitic mass] 28.7 pg Normal 26.0-33.[address] [facility] [place] Comment on above: Performed By: #### C BCWD, BMP, HEPPA, LIPAS, ANION, OSMOL, EGFR1 #### [address] [address] MCHC (RBC) [Mass/Vol] 33.4 gm/dl Normal 32.2-35.5 [facility] Comment on above: Performed By: #### C BCWD, BMP, HEPPA, LIPAS, ANION, OSMOL, EGFR1 #### [address] [address] MCV (RBC) [Entitic vol] 86.0 fL Normal 80.0-94.[address] [facility] [place] Comment on above: Performed By: #### C BCWD, BMP, HEPPA, LIPAS, ANION, OSMOL, EGFR1 #### [address] [address] Monocytes (Bld) [#/Vol] 0.9 thou/mm3 Normal 0.4-1.[address] [facility] [place] Comment on above: Performed By: #### C BCWD, BMP, HEPPA, LIPAS, ANION, OSMOL, EGFR1 #### [address] [address] Monocytes/100 WBC (Bld) 8.6 % Normal [facility] [place] Comment on above: Performed By: #### C BCWD, BMP, HEPPA, LIPAS, ANION, OSMOL, EGFR1 #### [address] [address] Neutrophils/100 WBC (Bld) 66.8 % Normal [facility] [place] Comment on above: Performed By: #### C BCWD, BMP, HEPPA, LIPAS, ANION, OSMOL, EGFR1 #### [address] [address] Nucleated RBC/100 WBC (Bld) [Ratio] 0 /[address] [facility] [place] Comment on above: Performed By: #### C BCWD, BMP, HEPPA, LIPAS, ANION, OSMOL, EGFR1 #### [address] [address] Platelet mean volume (Bld) [Entitic vol] 9.9 fL Normal 9.4-12.[address] [facility] [place] [place] Comment on above: Performed By: #### C BCWD, BMP, HEPPA, LIPAS, ANION, OSMOL, EGFR1 #### [address] [address] Platelets (Bld) [#/Vol] 209 thou/mm3 Normal 130-[address] [facility] [place] Comment on above: Performed By: #### C BCWD, BMP, HEPPA, LIPAS, ANION, OSMOL, EGFR1 #### [place] [address] RBC (Bld) [#/Vol] 5.01 mill/mm3 Normal 4.70-6.10 [facility] Comment on above: Performed By: #### C BCWD, BMP, HEPPA, LIPAS, ANION, OSMOL, EGFR1 #### [place] [address] RDW-SD 39.2 fL Normal 35.0-45.[address] [facility] [place] Comment on above: Performed By: #### C BCWD, BMP, HEPPA, LIPAS, ANION, OSMOL, EGFR1 #### [address] [address] WBC (Bld) [#/Vol] 10.3 thou/mm3 Normal 4.8-10.8 [facility] Comment on above: Performed By: #### C BCWD, BMP, HEPPA, LIPAS, ANION, OSMOL, EGFR1 #### [address] [address] CBC auto differentialon 100 Basophils (Bld) [#/Vol] 0.0 10*3/uL [place] Basophils/100 WBC (Bld) 0.4 % [place] Eosinophils (Bld) [#/Vol] 0.2 10*3/uL [place] Eosinophils/100 WBC (Bld) 1.7 % [place] Erythrocyte distribution width (RBC) [Ratio] 12.7 % 11.5 - 14.5 % [place] Hematocrit (Bld) [Volume fraction] 43.1 % 42 - 52 % [place] Hemoglobin (Bld) [Mass/Vol] 14.4 g/dL [place] Immature Grans (Abs) 0.04 [place] Immature granulocytes (Bld) [#/Vol] 0.4 % [place] Lymphocytes (Bld) [#/Vol] 2.3 10*3/uL [place] Lymphocytes/100 WBC (Bld) 22.1 % [place] MCH (RBC) [Entitic mass] 28.7 pg 26 - 33 pg [place] MCHC (RBC) [Mass/Vol] 33.4 g/dL [place] MCV (RBC) [Entitic vol] 86.0 fL 80 - 94 fL [place] Monocytes (Bld) [#/Vol] 0.9 10*3/uL [place] Monocytes/100 WBC (Bld) 8.6 % [place] Nucleated RBC/100 WBC (Bld) [Ratio] 0 % /100 wbc [place] Comment on above: Performed at [facility] [address] [place] [address] Platelet mean volume (Bld) [Entitic vol] 9.9 fL 9.4 - 12.4 fL [place], [place] Platelets (Bld) [#/Vol] 209 10*3/uL [place] RBC (Bld) [#/Vol] 5.01 10*6/uL [place] RDW-SD 39.2 fL 35 - 45 fL [place] Segmented neutrophils/100 WBC (Bld) 66.8 % [place] Segs Absolute 6.9 [place], [place] WBC (Bld) [#/Vol] 10.3 10*3/uL [place] CT HEAD WO CONTRASTon 2018 CT HEAD WO CONTRAST PROCEDURE: CT HEAD WO CONTRAST CLINICAL INFORMATION: [...] Allen Truong MD 06/12/19 Final result Normal [facility] [place] [place] CT Head WO Contraston 2018 PROCEDURE: CT HEAD WO CONTRAST CLINICAL INFORMATION: [...] clear. The paranasal sinuses appear grossly unremarkable. [facility] CenterClar[facility] Research GroupDOCTORS [facility] SPRINGFIELDOneSchool Negative CT for active pathology. If available comparison to prior studies can be considered. This report has been created using voice recognition software. It may contain minor errors which are inherent in voice recognition technology. Final report electronically signed by Dr. Allen Truong on 06/12/2019 1:36 AM [facility], [facility] Incoming Radiant Results From [employer] - 06/12/2019 1:38 AM EDT PROCEDURE: CT [...] Dr. Allen Truong on 06/12/2019 1:36 AM [place] GFR, ESTIMATEDon 06-12-2019 GFR/1.73 sq M.predicted MDRD (S/P/Bld) [Vol rate/Area] 82 ml/min/1.73m2 Abnormal [facility] [place] [place] Comment on above: Result Comment: Rosa Elena e Description GFR, ml/min/1.73 m2 - At [...] BMP, HEPPA, LIPAS, ANION, OSMOL, EGFR1 #### [facility] [address] [place] [address] Glomerular Filtration Rate, Estimatedon 06-12-2019 Est, Glom Filt Rate 82 Abnormal ml/min/1.73m2 [place], [place] Comment on above: Stage Description GF [...] Vol. 139 (2) pg 137-147. Performed at [facility] [address] [place] [address] Interpretation and review of laboratory results Abnormal [facility], [place] HEPATIC FUNCTION PANELon Albumin [Mass/Vol] 4.7 g/dL Normal 3.5-5.[address] [facility] [place] [place] Comment on above: Performed By: #### C BCWD, BMP, HEPPA, LIPAS, ANION, OSMOL, EGFR1 #### [facility] [address] [place] [address] ALP [Catalytic activity/Vol] 64 U/L Normal 38-[address] [facility] [place] [place] Comment on above: Performed By: #### C BCWD, BMP, HEPPA, LIPAS, ANION, OSMOL, EGFR1 #### [facility] [address] [place] [address] ALT [Catalytic activity/Vol] 17 U/L Normal 11-[address] [facility] [place] [place] Comment on above: Performed By: #### C BCWD, BMP, HEPPA, LIPAS, ANION, OSMOL, EGFR1 #### [facility] [address] [place] [address] AST [Catalytic activity/Vol] 20 U/L Normal 5-[address] [facility] [place] [place] Comment on above: Performed By: #### C BCWD, BMP, HEPPA, LIPAS, ANION, OSMOL, EGFR1 #### [facility] [address] [place] [address] Bilirubin [Mass/Vol] mg/dL Normal 0.0-0.3 [facility] Comment on above: Performed By: #### C BCWD, BMP, HEPPA, LIPAS, ANION, OSMOL, EGFR1 #### [facility] [address] [place] [address] Bilirubin Ql (U) 0.7 mg/dL Normal 0.3-1.2 [facility] Comment on above: Performed By: #### C BCWD, BMP, HEPPA, LIPAS, ANION, OSMOL, EGFR1 #### [facility] [address] [place] [address] Protein [Mass/Vol] 7.9 g/dL Normal 6.1-8.[address] [facility] [place] [place] Comment on above: Performed By: #### C BCWD, BMP, HEPPA, LIPAS, ANION, OSMOL, EGFR1 #### [facility] [address] [place] [address] Hepatic function panelon Albumin [Mass/Vol] 4.7 g/dL 3.5 - 5.1 g/dL [place] ALP [Catalytic activity/Vol] 64 U/L 38 - 126 U/L [place] ALT [Catalytic activity/Vol] 17 U/L 11 - 66 U/L [place] AST [Catalytic activity/Vol] 20 U/L 5 - 40 U/L [place] Bilirubin Ql (U) 0.7 mg/dL 0.3 - 1.2 mg/dL [place] Bilirubin.direct [Mass/Vol] mg/dL 0 - 0.3 mg/dL [place] Protein [Mass/Vol] 7.9 g/dL 6.1 - 8 g/dL [place], [place] Comment on above: Performed at [facility] [address] [place] [address] LIPASEon 06-12-2019 Lipase [Catalytic activity/Vol] 18.2 U/L Normal 5.6-51.[address] [facility] [place] [place] Comment on above: Performed By: #### C BCWD, BMP, HEPPA, LIPAS, ANION, OSMOL, EGFR1 #### [facility] [address] [place] [address] Lipaseon 06-12-2019 Lipase [Catalytic activity/Vol] 18.2 U/L 5.6 - 51.3 U/L [place] Comment on above: Performed at [facility] [address] [place] [address] Osmolalityon 06-12-2019 Osmolality Calc 279.2 [place], [place] Comment on above: Performed at [facility] [employer] [facility] [address] [place] [address] AER/ANAEROBIC CULTUREon 01-03 AER/ANAEROBIC CULTURE MICROBIOLOGY [facility], [address] [place] [address], [place], [address] PATIENT: GEORGIANA REYES LOCATION: ED -E -E : 1995 AGE: 23 SEX: M ADM: 01/18/19 Att. Physician: PHYSICIAN, EMERGENCY Order Id: [id number] Req. Physician: ATTILA CASIANO Source: arm Site: [...] epithelial cells observed. No organisms observed. Normal [facility] [place] [place] ER Physician Documentationon 01-17-2019 ER Physician Documentation [facility] Patient: GEORGIANA REYES [address] : 1995 [place], [place] [address] Location: ER [phone] Unit #: [id number] ER Physician Documentation Service Date:01/17/19 ER Provider: [...] weeks ago, after he was discharged from [facility](there for low potassium), he has had multiple [...] Allergies Allergy (Verified 01/17/19 20:29) Home Medications Sulfamethoxazole/Tri methoprim [Bactrim Ds 800-160 mg] 1 tab PO BID #14 tab 01/17/19 [Rx] cephALEXin [Keflex] 500 mg PO Q6H #28 cap 01/17/19 [Rx] Psychosocial Problems: Anxiety Additional Hematology/Immunolog y Problems: ow potassium - Social History Type [...] symptoms Neurological: No symptoms Endocrine: No symptoms Hematologic/Lymphati c: No symptoms Psychiatric: No symptoms All other [...] [Keflex] 500 mg PO Q6H #28 cap Sulfamethoxazole/Tri methoprim [Bactrim Ds 800-160 mg] 1 tab PO BID #14 tab - Supervision/Review Statement Supervision ONLY, my collaborating physician was Ananda FUNK MD. Dr. Seb Lizama - Scribe Attestation By electronically signing this [...] agrees with the testing and care provided. I, Renard Sheets, documented HPI, ROS, PE, and progress notes for PA. Dany cc: None Dictated by: Renard Francis on 01/17/192016 Transcribed by: MARY Odom on 01/17/192016 Report Signed by: Josy Hobson PA-C on 01/17/192149 < > Report Signed by: on Report Signed by: on Report Signed by: on Co-Signer: Josy Hobson PA-C on 01/17/192149 < > Normal [facility] ER Physician Documentationon 01-10-2019 ER Physician Documentation [facility] Patient: GEORGIANA REYES [address] : 1995 [place], [place] [address] Location: ER [phone] Unit #: [id number] ER Physician Documentation Service Date:01/09/19 ER Provider: [...] 01/09/19 [Rx] Fluticasone Propionate 0.05% [Flonase Nasal [place]] 2 spray BNOS DAILY #1 btl 01/09/19 [Rx] Psychosocial Problems: Anxiety Additional Hematology/Immunolog y Problems: ow potassium - Social History Type [...] rash Sensory Exam: Intact - Progress note 01/09/19 2159: Dr Subha Canseco examined pt with c/o [...] #20 tab Fluticasone Propionate 0.05% [Flonase Nasal [place]] 2 spray BNOS DAILY #1 btl - [...] 01/09/192204 Report Signed by: Karin FRANCIS on 01/09/192213 < > Report Signed by: Subha Canseco MD on 01/10/19206 < > Report Signed by: on Report Signed by: on Co-Signer: Subha Canseco MD on 01/10/19206 < > Normal [facility] ANKLE RIGHT (MIN 3-V)on 01-04 CRANKR Name: GEORGIANA REYES Phys: MARIA A RODRIGUES,JERILYN : 1995 Age: 22 Sex: M Acct: [id number] Loc: ED Exam Date: 01/28/2018 Status: REG ER Radiology No: [id number] Unit No: [id number] EXAM# TYPE/EXAM RESULT [id number] EDRAD/ANKLE RIGHT (MIN 3-V) SEE REPORT INDICATION: [...] Technologist: KINGA ALFARO Transcribed Date/Time: 01/28/2018 (1915) Die Mechanic: ISABELA Printed Date/Time: 01/28/2018 (1915) PAGE 1 Signed Report Normal [facility] FOOT RIGHT (MIN 3 V)on 01-28 CRFOOTR Name: GEORGIANA REYES Phys: JERILYN SAHA MD : 1995 Age: 22 Sex: M Acct: [id number] Loc: ED Exam Date: 01/28/2018 Status: REG ER Radiology No: [id number] Unit No: [id number] EXAM# TYPE/EXAM RESULT [id number] EDRAD/FOOT RIGHT (MIN 3 V) SEE REPORT [...] Technologist: KINGA ALFARO Transcribed Date/Time: 01/28/2018 (2011) Die Mechanic: ISABELA Printed Date/Time: 01/28/2018 (2011) PAGE 1 Signed Report Normal [facility] KNEE RIGHT (3 V)on 8 CRKNEER Name: GEORGIANA REYES Phys: JERILYN SAHA MD : 1995 Age: 22 Sex: M Acct: [id number] Loc: ED Exam Date: 01/28/2018 Status: REG ER Radiology No: [id number] Unit No: [id number] EXAM# TYPE/EXAM RESULT [id number] EDRAD/KNEE RIGHT (3 V) SEE REPORT INDICATION: [...] Technologist: KINGA ALFARO Transcribed Date/Time: 01/28/2018 (1916) Die Mechanic: ISABELA Printed Date/Time: 01/28/2018 (1916) PAGE 1 Signed Report Normal [facility] TIBIA AND FIBULA RIGHT (2 V) on 01-28-2018 CRTIBFIR Name: GEORGIANA REYES Phys: MARIA A RODRIGUES,JERILYN : 1995 Age: 22 Sex: M Acct: [id number] Loc: ED Exam Date: 01/28/2018 Status: REG ER Radiology No: [id number] Unit No: [id number] EXAM# TYPE/EXAM RESULT [id number] EDRAD/TIBIA AND FIBULA RIGHT (2 SEE REPORT [...] Technologist: KINGA ALFARO Transcribed Date/Time: 01/28/2018 (1917) Die Mechanic: ISABELA Printed Date/Time: 01/28/2018 (1917) PAGE 1 Signed Report Normal [facility] Vital Signs Date Time Vital Sign Value Performing Clinician Facility 05-17-2024 [id number] Body height 195.6 cm Karthik Reaves NP Work Phone: [facility] 05-17-2024 14:07-0400 Body mass index (BMI) [Ratio] 29.65 kg/m2 Karthik Reaves NP Work Phone: [facility] [phone] Body weight 113.4 kg Karthik Reaves NP Work Phone: [facility] 11-16-2019 06:57-0400 BP Di[facility] 83 mm[facility]Hg[facility] [place] [place] 11-16-2019 06:57-0400 BP Systolic 133 mm[Hg] [facility] [place] 11-16-2019 06:57-0400 Pulse (Heart Rate) 102 /min [facility] [place] 11-16-2019 06:57-0400 Pulse Oximetry 96 % [facility] , [place] 11-16-2019 06:57-0400 Respiratory Rate 18 /min [facility], [place] 11-16-2019 06:40-0400 Body Temperature 100.71 [degF] [facility], [place] 11-16-2019 04:08-0400 BMI (Body Mass Index) 24.31 kg/m2 [facility] 11-16-2019 04:08-0400 Body weight 92.99 kg [facility] [place] 11-16-2019 04:08-0400 Height 195.6 cm [facility] [place] 11-15-2019 20:19-0400 Body Temperature 100.09 [degF] [facility], [place] 11-15-2019 20:19-0400 BP Diastolic 89 mm[Hg] [facility] [place] 11-15-2019 20:19-0400 BP Systolic 122 mm[Hg] [facility] [place] 11-15-2019 20:19-0400 Pulse (Heart Rate) 94 /min [facility] 11-15-2019 20:19-0400 Pulse Oximetry 97 % [facility] [place] 11-15-2019 20:19-0400 Respiratory Rate 18 /min [facility] 11-15-2019 15:37-0400 BMI (Body Mass Index) 28.48 kg/m2 [facility] 11-15-2019 15:37-0400 Body weight 95.25 kg [facility] , [place] 11-15-2019 15:37-0400 Height 182.9 cm [facility] [place] 06-12-2019 01:28-0400 BP Diastolic 66 mm[Hg] Virgil Wayne [facility] , [place] 06-12-2019 01:28-0400 BP Systolic 105 mm[Hg] Virgil Wayne [facility] , [place] 06-12-2019 01:28-0400 Pulse (Heart Rate) 66 /min Virgil Wayne [facility], [place] 06-12-2019 01:28-0400 Pulse Oximetry 97 % Virgil Wayne [facility] , [place] 06-12-2019 01:28-0400 Respiratory Rate 18 /min Virgil Whitehead [facility], [facility] 06-11-2019 23:30-0400 BMI (Body Mass Index) 26.78 kg/m2 Virgil Whitehead [facility], [facility] 06-11-2019 23:30-0400 Body Temperature 98.6 [degF] Virgil Whitehead [facility], [facility] 06-11-2019 23:30-0400 Body weight 99.79 kg Virgil Whitehead [facility] , [facility] 06-11-2019 23:30-0400 Height 193 cm Virgil Whitehead [facility] , [facility] 05-04-2019 02:24-0400 Body Temperature 98.01 [degF] [place], [place] 05-04-2019 02:24-0400 BP Diastolic 77 mm[Hg] [place], [place] 05-04-2019 02:24-0400 BP Systolic 120 mm[Hg] [place] 05-04-2019 02:24-0400 Pulse (Heart Rate) 64 /min [place] 05-04-2019 02:24-0400 Pulse Oximetry 98 % [place] 05-04-2019 02:24-0400 Respiratory Rate 16 /min [place] Encounters Encounter Date Encounter Type Care Provider Facility Start: 05-27-2025 End: 05-27-2025 Clinisync Result Encounter Debbi FARNSWORTH Work Phone: [facility] Unsolicited Start: 05-27-2025 End: 05-27-2025 Clinisync Result Encounter Debbi FARNSWORTH Work Phone: [facility] Unsolicited Start: 02-26-2025 End: 02-27-2025 Emergency department patient visit NO PCP NO PCP [facility] Start: 09-12-2024 End: 09-12-2024 Emergency department patient visit NO PCP NO PCP [facility] Start: 08-04-2024 End: 08-04-2024 Emergency department patient visit NO PCP NO PCP [facility] Start: 06-21-2024 End: 06-21-2024 Emergency department patient visit NO PCP NO PCP [facility] Start: 05-17-2024 End: 05-17-2024 [facility] flowsheet Karthik Reaves ANNEALER Work Phone: [facility] Start: 05-17-2024 End: 05-17-2024 Bamboo flowsheet Karthik Reaves ANNEALER Work Phone: [facility] Start: 05-17-2024 End: 05-17-2024 Office outpatient new 30 minutes Karthik Reaves ANNEALER Work Phone: [facility] Comment on above: Stress fracture of m etatarsal bone of right foot, initial encounter (Primary Dx); Right foot pain Start: 05-17-2024 End: 05-17-2024 ambulatory KARTHIK REAVES Not Available Start: 05-13-2024 End: 05-14-2024 Emergency department patient visit PATEL Saldivar [facility] Start: 04-30-2024 End: 05-01-2024 Emergency department patient visit SUBHA PETERS [facility] Start: 06-16-2023 End: 06-16-2023 ambulatory Sara Crow PRESCHOOL TEACHER'S ASSISTANT-MILITARY POLICE OFFICER Facility:[facility] Start: 10-09-2020 End: 10-12-2020 Patient encounter procedure ISAAC CONNOLLY [facility] Start: 10-09-2020 End: 10-11-2020 Subsequent hospital visit by physician [facility] Xr Room [address] [place] [address] Comment on above: Injury Start: 11-16-2019 End: 11-16-2019 Emergency department patient visit Physician Aline [facility] Start: 11-16-2019 End: 11-16-2019 Emergency department patient visit [facility] Comment on above: Viral illness (Prima ry Dx); Febrile illness Start: 11-15-2019 End: 11-15-2019 Emergency department patient visit Physician Aline [facility] Start: 11-15-2019 End: 11-15-2019 Emergency department patient visit [facility] Comment on above: Cough (Primary Dx); Upper respiratory tract infection, unspecified type Start: 06-18-[address] [facility] Start: 06-12-2019 End: 06-12-[address] [facility] Start: 06-12-2019 End: 06-12-2019 Emergency department patient visit Physician No [facility] Start: 06-11-2019 End: 06-12-2019 Emergency department patient visit Virgil Wayne Work Phone: [facility] Comment on above: Myalgia (Primary Dx) Start: 05-04-2019 End: 05-04-2019 Emergency department patient visit Physician No [facility] Start: 05-04-2019 End: 05-04-2019 Emergency department patient visit [facility] Comment on above: Dentalgia (Primary D x); Gingivitis Start: 01-18-2019 End: 01-18-2019 Emergency department patient visit Physician No [facility] Start: 12-06-2018 End: 12-06-2018 Emergency department patient visit Physician No [facility] Start: 01-28-2018 End: 01-28-2018 Emergency department patient visit PHYSI NONSTAFF Facility:[facility] Procedures Date Procedure Procedure Detail Performing Clinician Start: 05-27-2025 US RIGHT UPPER QUADRANT Debbi FARNSWORTH Work Phone: Start: 10-09-2020 Radex hand minimum 3 views [...] be & rev trnscr 08-29 target Attila Casiano Work Phone: Start: 11-15-2019 GROUP A STREP, REFLEX D avid [employer] Work Phone: Start: 11-15-2019 Iaadiadoo influenza Luac id [employer] Work Phone: Start: 06-12-2019 Ct head/brain w/o [...] Phone: Start: 06-12-2019 Anion gap [Moles/Vol] D anielle April Work Phone: Start: 06-12-2019 Assay of lipase Virgil B braulio Work Phone: Start: 06-12-2019 Assay of osmolality blood Gregoria Luaugie Work Phone: Start: 06-12-2019 Basic metabolic pane l calcium total Virgil Wayne Work Phone: Start: 06-12-2019 Blood count complete auto&auto difrntl wbc Virgil Wayne Work Phone: Start: 06-12-2019 GLOMERULAR FILTRATIO N RATE, ESTIMATED Gregoria Lutton Work Phone: Start: 06-12-2019 Hepatic function panel Virgil Wayne Work Phone: Start: 01-18-2019 Cul prsmptv pthgnc organism scrn w/colony estimj Physician No Family Plan of Treatment Date Care Activity Detail Author Start: 2045 Shingles Vaccine (1 of 2) Shingles Vaccine (1 of 2) [place] Start: 05-06-2025 Influenza vaccination Influenza Vacc ine (#1) [facility] Start: 05-29-2024 End: 05-29-2024 Patient encounter procedure 05/29/2024 9:45 AM EDT Office Visit [facility] [address] [place] [address] Karthik Reaves, ANNEALER [address] [place] [address] [facility] Start: 05-17-2024 End: 05-17-2024 Patient encounter procedure 05/17/2024 2:00 PM EDT Office Visit [facility] [address] [place] [id number] Karthik Reaves, ANNEALER [address] [place], [place] [id number] Arrived [facility] Comment on above: Arrived Start: 05-06-2024 Influenza vaccination Influenza Vacc ine (#1) [facility] Start: 05-06-2020 Influenza vaccination Flu vaccine (# 1) [place] Start: 06-12-2019 End: 06-12-2019 Office Visit 06/12/2019 Office Visit Family Medicine [facility] Start: 05-06-2019 Influenza vaccination Flu vaccine (# 1) [place] Start: 2014 DTaP/Tdap/Td vaccine (1 - Tdap) DTaP/Tdap/Td vaccine (1 - Tdap) [place] Start: 2010 HIV screen [facility] [place] [place] Start: 2010 HIV screening HIV screen [facility] [place], [place] Start: 02-23-2008 Varicella Vaccine (1 of 2 - 13+ 2-dose series) Varicella Vaccine (1 of 2 - 13+ 2-dose series) [place] Start: 2006 HPV vaccine (1 - Mal e 2-dose series) HPV vaccine (1 - Male 2-dose series) [place] Start: 2001 Pneumococcal 0-64 ye ars Vaccine (1 of 1 - PPSV23) Pneumococcal 0-64 years Vaccine (1 of 1 - PPSV23) [place] Start: 02-23-1996 Varicella vaccine (1 of 2 - 2-dose childhood series) Varicella vaccine (1 of 2 - 2-dose childhood series) [place] Start: 1995 Hepatitis C screening Hepatitis C sc reen [place] End: 11-15-2019 Culture, Throat Culture, Throat Microbiology Routine Once for 1 Occurrences starting 11/15/2019 until 11/15/2019 [place] Comment on above: Once for 1 Occurrenc es starting 11/15/2019 until 11/15/2019 Culture, Throat Culture, Throat Microbiology Routine 11/15/2019 3:40 PM EDT [place] End: 11-15-2019 Miscellaneous sendout 1 Miscellaneous sendout 1 Lab STAT One Time for 1 Occurrences starting 11/15/2019 until 11/15/2019 [place] Comment on above: One Time for 1 Occur rences starting 11/15/2019 until 11/15/2019 Miscellaneous sendout 1 Miscella neous sendout 1 Lab STAT 11/15/2019 8:00 PM EDT [place] Payers Date Payer Category Payer Unknown [id number] 2023 [place] [employer] BCBS [id number] 2023 Unknown BCBS BCBS xxxxxx [id number] 2023-Present [phone] [address] [place] [address] [id number] 2023 Unknown [id number] 2020 Unknown [id number] 2019 Medicaid [facility]ICAID [facility] DEPT OF JOB xxxxxxxxxxxx 2019-Present [phone] [address] [place] [address] xxxxxxxxxxxx [id number] 2019 Medicaid [id number] 2019 Self-pay 2015 Unknown [id number] 1995 Unknown [id number] [id number] .93 1995 Unknown [id number] [id number] .93 1995 Unknown [id number] [id number] .93 1995 Unknown [id number] 2.16840.1.452790.3.579.2 .93 1995 Unknown [id number] [id number] .93 1995 Unknown [id number] 2.16840.1.675201.3.579.2 .176 1995 Unknown [id number] 2.16840.1.254870.3.579.2 .176 1995 Unknown [id number] 2.16840.1.677417.3.579.2 .196 1995 Unknown [id number] 2.16840.1.910893.3.579.2 .1259 1995 Unknown [id number] 2.16840.1.316180.3.579.2 .128 1995 Unknown [id number] 2.16840.1.266078.3.579.2 .1285 1995 Unknown [id number] 2.16840.1.450557.3.579.2 .128 1995 Unknown [id number] [id number] .1285 1995 Unknown [id number] [id number] .1285 1995 Unknown [id number] 2.840.1.810685.3.579.2 .1285 1995 Unknown [id number] [id number] .1285 1995 Unknown [id number] .1286 Private Health Insurance [id number] Social History Date Type Detail Facility Start: 12-06-2018 End: 05-17-2024 Tobacco smoking status NHIS Current every day sm[place] Start: 09-05-2013 History of tobacco use Cigarette Smo [place] Start: 12-06-2018 End: 05-17-2024 Cigarettes smoked current (pack per day) - Reported [place] Start: 12-06-2018 End: 05-17-2024 Alcohol intake Yes [place] Start: 01-06-2016 Alcohol Comment social [place] Start: 1995 Sex Assigned At Not on file [place], [place] Start: 06-12-2019 End: 11-16-2019 Alcohol intake Current drinker of alcohol (finding) [place] Start: 11-16-2019 End: 03-29-2023 Tobacco use and exposure Never used [place] Start: 03-29-2023 [facility] [...] 04/27/24 (2 WKS 6 DAYS), 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 WENT TO [facility] ER 04/30, HAD XR. WENT BACK TO [facility] ER 05/13, HAD XR AND GIVEN POST OP SHOE. XRAY [facility] 05/13/24 XRAY [facility] 04/30/24 WEARING POST OP SHOE, LITTLE RELIEF. [...] Past Medical History: Diagnosis Date Anxiety Depression (CMS/[facility]) PAST SURGICAL HISTORY: History reviewed. No pertinent [...] no instability. IMAGING: I reviewed xrays from [facility] of the right foot that was read by radiologist as no fractures but I believe that there is a stress fracture of the 3rd MT shaft and a possible stress fracture of 2nd MT shaft. Procedures ASSESSMENT: ICD-10-CM 1. Stress fracture of metatarsal bone of right foot, initial encounter M84.374A 2. Right foot pain M79.671 PLAN: I reviewed xray from [facility] and believe that there is a stress [...] develop for requiring urgent evaluation. Karthik Reaves APRN-MILITARY POLICE OFFICER documented in this encounter [facility] Healthcare Clinical Note 06-16-2023 Note Date & Type Note Facility 06-16-2023 Note Patient Education Ma terials Name: Georgiana Reyeslin Current Date: 06/16/2023 10:22:48 [place] : 1995 The following sheet(s) are the Patient Education Leaflets for Eric Georgiana Yoana [facility] Evaluation note Note Date & Type Note Facility Evaluation note Diagnosis Stress fracture of metatarsal bone of right foot, initial encounter- Primary Right foot pain Pain in soft tissues of limb documented in this encounter [facility] Healthcare Summary Purpose Family History No Family History Records FoundNo Family History Records FoundNo Family History Records FoundNo Family History Records FoundNo Family History Records FoundNo Family History Records FoundNo Family History Records Found Advance Directives Documents on File Type Date Recorded Patient Bicycle Courier Expl anation Advance Directives and Living Will Power of Machine Learning Intern Documents on File Type Date Recorded Patient Bicycle Courier Expl anation Advance Directives and Livin g Will Power of Machine Learning Intern 09/05/2014 12:00 AM Documents on File Type Date Recorded Patient Bicycle Courier Expl anation ACP-Advance Directive ACP-Power of Machine Learning Intern 09/05/2014 12:00 AM Discharge Instructions * Instructions* Tatiana Marks, PRESCHOOL TEACHER'S ASSISTANT - MILITARY POLICE OFFICER - 05/04/2019 [place] and floss. Use mouthwash twice a day. Return for fever. You need to see a dentist. * Attachments The following attachments cannot be sent through Care Everywhere. * Periodontal Conditions (Maldivian) * Tooth and Gum Pain (Maldivian) documented in this encounter* Attachments The following attachments cannot be sent through Care Everywhere. * Cramp: Muscle (Maldivian) documented in this encounter* Instructions* Lashonda Chaudhari [...] instructions. Please call the emergency department at [phone] prior toreturning so that we can prepare for your arrival. Your results should be available in 3 to 5 days.Please quarantine yourself during that time and further instructions will be provided by the [facility]. * Attachments The following attachments cannot be sent through Care Everywhere. * Cough (Maldivian) documented in this encounter* Instructions* Red Phillips APRN - MILITARY POLICE OFFICER - 11/16/2019 Alternate Tylenol and Motrin at home for treatment of fever. Stay well hydrated with Gatorade, Pedialyte, water. Viral illnesses can last a week to 10 days. Avoid sick contacts, stay home. Continue to treat fever, it will come back after medications wear off. * Attachments The following attachments cannot be sent through Care Everywhere. * Fever: General Info (Maldivian) documented in this encounter Assessments Diagnosis Dentalgia- [...] section and content) DATE CREATED AUTHOR 2018 [facility] DATE CREATED AUTHOR AUTHOR'S ORGANIZ ATION 01/25/2019 [facility] DATE CREATED AUTHOR AUTHOR'S ORGANIZ ATION 12/05/2019 [facility] DATE CREATED AUTHOR AUTHOR'S ORGANIZ ATION 10/12/2020 [facility] DATE CREATED AUTHOR AUTHOR'S ORGANIZ ATION 06/18/2023 [facility] DATE CREATED AUTHOR AUTHOR'S ORGANIZ ATION 05/19/2024 [facility] EPIC DATE CREATED AUTHOR AUTHOR'S ORGANIZ ATION 02/28/2025 [facility] Reason for Visit (unrecogniz ed section and content) Reason Comments Dental Pain x 8 months Reason Comments Spasms bilateral legs and a rm Reason Comments Fever Cough Reason Comments Fever Reason Comments Pain Care Teams (unrecognized sec tion and content) Commercial Stripper Relationship Specialty Start Date End Date Unallocated, Karl Malave MD [address] [place] [address] PCP - General Family Medicine 05/17/24 Commercial Stripper Relationship Specialty Start Date End Date Unallocated, MD Diaz Guajardo [address] [facility] [place] [address] PCP - General Family Medicine 05/17/24 Commercial Stripper Relationship Specialty Start Date End Date Unallocated, Karl Malave MD [address] [place] [address] PCP - General Family Medicine 05/17/24 FOR [...] BE BASED ON THE PRIMARY CLINICAL RECORDS. [facility] [employer] [facility]. provides no warranty or guarantee of the accuracy or completeness of information in this document.
== END 2025-05-28 12:48 | disposition home or self-care (01) ==
PROVIDERS: Emergency Provider Emergency Medicine
DX: R10.30 Lower abdominal pain, unspecified (principal); G43.909 Migraine, unspecified, not intractable, without status migrainosus
CPT/HCPCS: 96372; 99284; J0780; J1885